=== PATIENT | male | born 1975 | race Caucasian/White ===

== ENCOUNTER → 2016-06-01 | Outpatient (CLI) | payer OTHER ==
[2016-06-01 13:43] LABS: Calcium 9.4 mg/dL (8.4-10.2); Phosphorous 3.1 mg/dL (2.5-4.5)
== END | disposition home or self-care (01) ==
LOC: LABWHC1 12:45
PROVIDERS: ATTEND Neurological Surgery
DX: N17.9 Acute kidney failure, unspecified (principal)
CPT/HCPCS: 36415; 80069

== ENCOUNTER → 2016-08-01 | Outpatient (CLI) | payer OTHER ==
--- NOTE | 2016-08-01 21:38 | CONS ---
DATE OF CONSULTATION: 08/01/2016 This patient is a 41-year-old gentleman who has been evaluated in the sleep center for possible obstructive sleep apnea-hypopnea syndrome. HISTORY OF PRESENT ILLNESS/SLEEP-WAKE EVALUATION: Patient does not have a regular sleep schedule. He goes to bed when he feels sleepy, so there is no firm schedule. They go to bed and get out of bed. It sometimes takes him a long time to fall asleep. He has a TV set in bedroom, sleeps in different positions, including back, side and in the chair. He has loud snoring, according to his , and witnessed episodes of stopped breathing during sleep. He wakes up multiple times during sleep with a dry mouth, episodes of palpitations, gasping for air, restless legs, sleeptalking, sweating, and up to 5 times or more he needs to go to the restroom with nocturia. He cannot breathe through his nose during sleep. He opens his mouth. In the morning he wakes up tired, has difficulties paying attention, falling asleep during the day, worrying about his sleep. He takes naps 2 times a day and has problems with memory, concentration, irritability, anxiety and possible sexual dysfunction, according to patient. [place] Sleepiness Scale significantly increased to 19. Past medical history is positive for: 1. Anxiety. 2. Hyperlipidemia. 3. Gout. 4. Recent back surgery on 05/29/16. MEDICATIONS: 1. Omeprazole. 2. Paxil. 3. Simvastatin. 4. Lyrica. 5. Allopurinol. REVIEW OF SYSTEMS: Multiple awakenings from sleep. Sleepiness during the day. Difficulties breathing through the nose. Back pain. No fevers. No double vision. No recent chest pain. No shortness of breath. No abdominal pain. No bleeding episodes. No blood in urine. No seizure episodes. FAMILY HISTORY: Hypertension, heart problems, hyperlipidemia, stroke, fibromyalgia, arthritis, asthma, sinus headaches, bronchitis, emphysema, sleep apnea, snoring, headaches, cancer, acid reflux, diabetes, restless legs. PHYSICAL EXAMINATION: GENERAL: A pleasant 41-year-old gentleman without distress. VITAL SIGNS: BP 148/87, HR 85, RR 14. Height 64 inches. Weight 200.4 pounds. BMI 34.3. Neck 18-1/2 inches in circumference. Temperature 98.2. Oxygen saturation at room air 97%. HEENT: PERRLA, EOMI. Evaluation of oropharynx showed tongue protrudes midline; extremely low position of soft palate. Significant restriction of nasal breathing bilaterally. NECK: Supple. No JVD. Thyroid is not palpable. LUNGS: Clear to percussion and to auscultation. Good air exchange. No wheezing or rhonchi. HEART: S1, S2 regular. No murmurs, gallops or rubs. ABDOMEN: Obese. EXTREMITIES: No clubbing or cyanosis. 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 Cranial nerves 2 to 7 intact. There is no fasciculation or atrophy noted. No focal deficits observed. IMPRESSION: 1. Snoring, witnessed episodes of stopped breathing during sleep, extremely low position of soft palate, multiple awakenings from sleep, sleepiness; obstructive sleep apnea-hypopnea syndrome. 2. Obesity; body mass index of 34.3. 3. Status post back surgery on 05/29/2016. 4. Acid reflux. 5. Anxiety. 6. Hyperlipidemia. 7. Gout. 8. Significant restriction of nasal breathing bilaterally. PLAN: 1. Polysomnography for evaluation of patient's breathing during sleep. 2. CPAP/BiPAP titration if sleep study confirms obstructive sleep apnea-hypopnea syndrome. 3. Preferable position during sleep on the side. 4. No driving if patient feels any sleepiness. Patient is aware of civil and criminal liability for unsafe driving. 5. I will see patient for follow-up visit to explain results of the testing and following plan. Thank you very much for referring this patient for consultation. Sincerely, Jose Alejandro Rivera MD, PhD, FAASM. Diplomat of [place] [employer], Sleep Medicine Board by [employer] [employer] [facility] [place]
== END | disposition home or self-care (01) ==
LOC: SLEEP 13:19
PROVIDERS: ATTEND Internal Medicine
DX: G47.33 Obstructive sleep apnea (adult) (pediatric) (principal); E66.9 Obesity, unspecified; Z68.34 Body mass index [BMI] 34.0-34.9, adult; Z98.890 Other specified postprocedural states; K21.9 Gastro-esophageal reflux disease without esophagitis; F41.9 Anxiety disorder, unspecified; E78.5 Hyperlipidemia, unspecified; M10.9 Gout, unspecified; R06.4 Hyperventilation; Z79.899 Other long term (current) drug therapy
CPT/HCPCS: 99211

== ENCOUNTER → 2016-08-10 | Outpatient (CLI) | payer OTHER ==
[2016-08-10 13:12] LABS: Appearance,Urine Clear (Clear); Bilirubin,Urine Negative (Negative); Glucose,Urine (UA) Negative (Negative); Ketones,Urine Negative (Negative); Leukocyte Esterase,Urine Negative (Negative); Nitrite,Urine Negative (Negative); PH, Urine 6.5 (5.0-8.0); Protein,Urine Negative (Negative); Specific Gravity,Urine 1.014 (1.001-1.035); UA Billing (MACRO vs. MICRO) CHEM; Urobilinogen,Urine <2.0 mg/dL (<2.0)
[2016-08-10 13:24] LABS: Anion Gap 13 mmol/L; Blood Urea Nitrogen 14 mg/dL (9-20); Calcium 9.4 mg/dL (8.4-10.2); Carbon Dioxide 28 mmol/L (22-30); Chloride 100 mmol/L (98-107); Glucose 101 mg/dL (74-99); Non-African American GFR(MDRD) >60 (>60 ml/min/1.73 sqM); Potassium 3.5 mmol/L (3.5-5.1); Sodium 141 mmol/L (137-145)
[2016-08-10 19:31] LABS: Creatinine,Urine Random 167.6 mg/dL
== END ==
LOC: LABWHC1 12:41
PROVIDERS: ATTEND Internal Medicine Nephrology
DX: N18.4 Chronic kidney disease, stage 4 (severe) (principal)
CPT/HCPCS: 36415; 80069; 81003; 82570; 84156

== ENCOUNTER → 2016-10-11 | Outpatient (CLI) | payer OTHER ==
--- NOTE | 2016-10-11 17:37 | PN ---
DATE OF SERVICE: 10/11/2016 This patient is a 41-year-old gentleman who has been followed in the sleep center for treatment of obstructive sleep apnea-hypopnea syndrome. I discussed with the patient the results of his diagnostic sleep study and CPAP titration. He has extremely severe sleep apnea, at present with the pressure of 12 cm of water. I checked his CPAP unit. Usage is practically every night, with 20 out of 30 nights for more than 4 hours. Patient sleeps significantly better with the machine than before, but he goes to bed late, around 3 a.m., and is usually doing something on his computer before going to bed and sometimes has sleep delay. [place] Sleepiness Scale now is 10. MEDICATIONS: 1. Lyrica. 2. Omeprazole. 3. Paroxetine. 4. Claritin. PHYSICAL EXAMINATION: Pleasant 41-year-old gentleman without distress. VITAL SIGNS: BP 144/82, HR 78, RR 16. Weight 207. Temperature 98.0. Oxygen saturation at room air 96%. HEENT: PERRLA, EOMI. Evaluation of oropharynx showed tongue protrudes midline; extremely low position of soft palate. NECK: Supple. No JVD. Thyroid is not palpable. LUNGS: Clear to percussion and to auscultation. Good air exchange. No wheezing or rhonchi. HEART: S1, S2 regular. No murmurs, gallops or rubs. ABDOMEN: Obese. EXTREMITIES: No clubbing or cyanosis. 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 Cranial nerves 2 to 7 intact. There is no fasciculation or atrophy noted. No focal deficits observed. IMPRESSION: 1. Extremely severe obstructive sleep apnea-hypopnea syndrome. Apnea-hypopnea index 95.2 with oxygen desaturation to 75.1%, under control with CPAP at 12 cm of water. Patient is benefiting from the machine; borderline compliance with CPAP therapy. 2. Obesity. 3. Acid reflux. 4. Anxiety. 5. Hyperlipidemia. 6. Sleep delay syndrome. 7. Status post back surgery. 8. Gout. 9. Restriction of nasal breathing. PLAN: 1. Continue usage of CPAP every night for the whole night. 2. Exposure to the sunlight first thing in the morning to help patient move his sleep cycle earlier. 3. Avoid blue light in the evening. 4. Losing weight. 5. No driving if feeling any sleepiness. Thank you very much for allowing me to participate in the management of your patient. Sincerely, Jose Alejandro Rivera MD, PhD, FAASM. Diplomat of [place] [employer], Sleep Medicine Board by [place] [employer], [place] [employer]
== END | disposition home or self-care (01) ==
LOC: SLEEP 11:18
PROVIDERS: ATTEND Internal Medicine
DX: G47.33 Obstructive sleep apnea (adult) (pediatric) (principal); Z79.899 Other long term (current) drug therapy; E66.9 Obesity, unspecified; K21.9 Gastro-esophageal reflux disease without esophagitis; F41.9 Anxiety disorder, unspecified; E78.5 Hyperlipidemia, unspecified; G47.21 Circadian rhythm sleep disorder, delayed sleep phase type; M10.9 Gout, unspecified

== ENCOUNTER → 2016-10-11 | Outpatient (CLI) | payer OTHER ==
--- NOTE | 2016-10-11 15:49 | MR ---
EXAMINATION TYPE: MR lumbar spine wo/w con DATE OF EXAM: 10/11/2016 COMPARISON: 12/02/2015 HISTORY: degeneration of lsp intervertebral disc CONTRAST: 19 mL intravenous MultiHance. TECHNIQUE: Multiplanar, multisequence images of the lumbar spine were acquired. FINDINGS: Cord terminates at L1 L5-S1: There is left paracentral disc herniation which is broad-based. Left S1 nerve root compression is present. Some anterior thecal sac contact is present. Findings were present previously and appear s similar. L4-L5: No significant disc bulge or disc herniation. No spinal canal stenosis. No foraminal stenosi s. Mild facet hypertrophy is present. L3-L4: No significant disc bulge or disc herniation. No spinal canal stenosis. No foraminal stenosi s. Mild right facet hypertrophy is present. L2-L3: No significant disc bulge or disc herniation. No spinal canal stenosis. No foraminal stenosi s. Neural foramen are patent.. L1-L2: No significant disc bulge or disc herniation. No spinal canal stenosis. No foraminal stenosi s. Neural foramen are patent.. T12-L1: No significant disc bulge or disc herniation. No spinal canal stenosis. No foraminal stenos is. Neural foramen are patent.. No abnormal enhancement. IMPRESSION: 1. Stable left paracentral broad-based disc herniation L5-S1 displacing the exiting left S1 nerve andrea t with some compression. This is unchanged from the comparison of November 30, 2015
== END | disposition home or self-care (01) ==
LOC: RADMRIMAIN 09:09
PROVIDERS: ATTEND Family Medicine
DX: M51.27 Other intervertebral disc displacement, lumbosacral region (principal)
CPT/HCPCS: 72158; A9577

== ENCOUNTER → 2016-10-25 | Outpatient (CLI) | payer OTHER ==
--- NOTE | 2016-10-26 11:23 | EST ---
DATE OF SERVICE: 10/25/2016 AGE: 41Y SEX: M HT: 65 WT: 204 lbs. Protocol Frederick: X Other: Stage: II Dur. of Exercise: 6:28 *Heart Rate Blood Pressure *Rest: 87 Rest: 132/84 * *Max. Achieved: 157 Maximum BP: 174/64 85% PMHR: 151 100% PMHR: 178 *METS: 7.5 INDICATIONS: Chest pain. MEDICATIONS: Patient was exercised for a total period of 6 minutes and 28 seconds. Peak heart rate of 157 was achieved. Maximum blood pressure of 174/64 mmHg was noted. Patient complained of mild atypical chest discomfort during exercise. Resting EKG shows normal sinus rhythm with normal WV interval and QRS duration and normal ST-T waves. No ST segment depression suggestive of ischemia was noted. Isolated PVCs are noted. FINAL IMPRESSION: 1. This exercise EKG is not suggestive of ischemia. 2. Patient's exercise tolerance is below average. 3. Isolated premature ventricular contractions were noted. 4. Patient complained of atypical chest discomfort during exercise.
== END | disposition home or self-care (01) ==
LOC: RADNMMAIN 09:39
PROVIDERS: ATTEND Family Medicine
DX: I49.3 Ventricular premature depolarization (principal); R07.89 Other chest pain
CPT/HCPCS: 93017

== ENCOUNTER → 2016-11-23 | Outpatient (CLI) | payer OTHER ==
--- NOTE | 2016-11-23 14:55 | XR ---
EXAMINATION TYPE: XR foot complete LT DATE OF EXAM: 11/23/2016 COMPARISON: NONE HISTORY: Pain, gout TECHNIQUE: Three views are submitted. FINDINGS: The osseous structures are intact. There is no acute fracture or dislocation. There is narrowing an d hypertrophic change of the first MTP joint with a soft tissue fullness adjacent. No definite erosiv e change. Remaining joint spaces including the tarsal metatarsal junction appear maintained. Tiny kelvin caneal spur noted. IMPRESSION: 1. 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 Differential diagnosis would include gou t, osteoarthritis or infectious etiology.
== END | disposition home or self-care (01) ==
LOC: RADXRMAIN 14:33
PROVIDERS: ATTEND Family Medicine
DX: M19.072 Primary osteoarthritis, left ankle and foot (principal)

== ENCOUNTER 2017-01-21 16:54 | Emergency (ER) | payer OTHER ==
[2017-01-21] MEDS ORDERED: KETOROLAC 30 MG/ML 1 ML VIAL IVP STA (17:17)
[2017-01-21] MEDS ORDERED: SODIUM CHLORIDE 0.9% 1,000 ML IV STA (17:17)
--- NOTE | 2017-01-21 17:51 | ED ---
General Adult HPI - General Chief complaint: Eye Problems Stated complaint: eye pain Time Seen by Provider: 01/21/17 16:57 Source: patient, RN notes reviewed Mode of arrival: EMS Limitations: no limitations - History of Present Illness Initial comments: 41 yo male presents to the ER with cc of left eyelid swelling in pain. Patient states he woke up this finding was bothering him and he noticed it slowly got more and more swollen throughout the day today. Patient states that he went to his doctor and he was referred here. He states that he's been very nauseous and sick with this swelling. Patient denies any high fever. Patient states he does have pain when he moves the eye. Patient denies any cough cold. Patient was concerned due to this discomfort so he thought that heshould be evaluated. Patient denies any other symptoms at this time.Patient denies any recent fever, chills, shortness of breath, chest pain, back pain, abdominal pain, nausea vomiting, numbness or tingling, dysuria or hematuria, constipation or diarrhea, headaches or visual changes, or any other current symptoms. - Related Data Home Medications Medication Instructions Recorded Confirmed Simvastatin [Zocor] 80 mg PO DAILY 09/20/13 01/21/17 Allopurinol [Zyloprim] 300 mg PO BID 11/28/14 01/21/17 Butalbit/Acetamin/Caff/Codeine 1 cap PO Q4H PRN 04/26/15 01/21/17 [Fioricet-Cod [id number] Cap] Albuterol Nebulized [Ventolin 2.5 mg INHALATION RT-TID PRN 01/21/17 01/21/17 Nebulized] Albuterol Sulfate [Proair 2 puff INHALATION RT-Q6H PRN 01/21/17 01/21/17 Respiclick] Cetirizine HCl [Zyrtec] 10 mg PO DAILY 01/21/17 01/21/17 Fluticasone Nasal [place] [Flonase 1 spray EA NOSTRIL DAILY PRN 01/21/17 01/21/17 Nasal [place]] Hydrochlorothiazide [Hydrodiuril] 25 mg PO DAILY 01/21/17 01/21/17 LORazepam [Ativan] 0.5 mg PO DAILY PRN 01/21/17 01/21/17 Omeprazole 20 mg PO DAILY 01/21/17 01/21/17 PARoxetine [Paxil] 20 mg PO DAILY 01/21/17 01/21/17 tiZANidine [Zanaflex] 4 mg PO Q8HR PRN 01/21/17 01/21/17 traMADol HCL [Ultram] 50 mg PO Q6HR PRN 01/21/17 01/21/17 traZODone HCL [Desyrel] 50 mg PO HS 01/21/17 01/21/17 Previous Rx's Medication Instructions Recorded Cephalexin [Keflex] 500 mg PO Q6HR #40 cap 01/21/17 Sulfamethox-Tmp 800-160Mg [Bactrim 2 each PO Q12HR #56 tab 01/21/17 DS 800-160 mg] Allergies Allergy/AdvReac Type Severity Reaction Status Date / Time meperidine HCl [From Demerol] Allergy Swelling/Ra Verified 01/21/17 18:34 sh/Itching Review of Systems ROS Statement: Those systems with pertinent positive or pertinent negative responses have been documented in the HPI. ROS Other: All systems not noted in ROS Statement are negative. Past Medical History Past Medical History: Cancer, Hyperlipidemia, Hypertension Additional Past Medical History / Comment(s): cancer LT Testicular, gout, chronic back and neck pain History of Any Multi-Drug Resistant Organisms: None Reported Past Surgical History: Hernia Repair, Orthopedic Surgery Additional Past Surgical History / Comment(s): LT testicular SX, lt knee arthroscopy. PAIN PROC Past Anesthesia/Blood Transfusion Reactions: Family History of Problems w/ Anesthesia Additional Past Anesthesia/Blood Transfusion Reaction / Comment(s): states father had a hard time waking up from anesthesia Past Psychological History: Anxiety Smoking Status: Current every day smoker Past Alcohol Use History: Occasional Past Drug Use History: None Reported - Past Family History Mother Family Medical History: No Reported History General Exam - General Exam Comments Initial Comments: General: The patient is awake and alert, in no distress, and does not appear acutely ill. Eye: Pupils are equal, round and reactive to light, extra-ocular movements are intact; there is normal conjunctiva bilaterally. No signs of icterus. Ears, nose, mouth and throat: There are moist mucous membranes and no oral lesions. Neck: The neck is supple, there is no tenderness. Cardiovascular: There is a regular rate and rhythm. No murmur, rub or gallop is appreciated. Respiratory: Lungs are clear to auscultation, respirations are non-labored, breath sounds are equal. No wheezes, stridor, rales, or rhonchi. Gastrointestinal: Soft, non-distended, non-tender abdomen without masses or organomegaly noted. There is no rebound or guarding present. No CVA tenderness. Bowel sounds are unremarkable. Back: There is no tenderness to palpation in the midline. There is no obvious deformity. No rashes noted. Musculoskeletal: Normal ROM, no tenderness, There is no pedal edema. There is no calf tenderness or swelling. Sensation intact. Pulses equal bilaterally 2+. Neurological: CN II-XII intact, There are no obvious motor or sensory deficits. Coordination appears grossly intact. Speech is normal. Skin: Skin is warm and dry and no rashes or lesions are noted. Psychiatric: Cooperative, appropriate mood & affect, normal judgment. Limitations: no limitations Course Vital Signs 01/21/17 01/21/17 16:57 18:56 Temperature 98.4 F Pulse Rate 101 H 84 Respiratory 16 18 Rate Blood Pressure 152/78 120/57 O2 Sat by Pulse 96 97 Oximetry Medical Decision Making - Medical Decision Making 41-year-old male presents to the emergency department with a chief complaint of left eyelid swelling. at this time CT is reviewed that is not showing suspicion for orbital cellulitis. Patient does have full range motion of the left eye with upper eyelid swelling. This and we discussed patient most likely has a facial cellulitis. This and we will start patient on antibiotics. We did test care of the area. We discussed follow-up. We did discuss return parameters and all the patient and family's questions. They stated they understood and they are given plan. This time they will be discharged home. - Lab Data Result diagrams: 01/21/17 17:50 01/21/17 17:50 Lab Results 01/21/17 01/21/17 01/21/17 Range/Units 17:50 17:50 17:50 WBC 10.0 (3.8-10.6) k/uL RBC 4.97 (4.30-5.90) m/uL Hgb 15.4 (13.0-17.5) gm/dL Hct 42.4 (39.0-53.0) % MCV 85.4 (80.0-100.0) fL MCH 30.9 (25.0-35.0) pg MCHC 36.2 (31.0-37.0) g/dL RDW 14.8 (11.5-15.5) % Plt Count 337 (150-450) k/uL Neutrophils % 76 % Lymphocytes % 11 % Monocytes % 8 % Eosinophils % 2 % Basophils % 1 % Neutrophils # 7.5 (1.3-7.7) k/uL Lymphocytes # 1.1 (1.0-4.8) k/uL Monocytes # 0.8 (0-1.0) k/uL Eosinophils # 0.2 (0-0.7) k/uL Basophils # 0.1 (0-0.2) k/uL Hyperchromasia Slight Sodium 137 (137-145) mmol/L Potassium 3.1 L (3.5-5.1) mmol/L Chloride 101 (98-107) mmol/L Carbon Dioxide 28 (22-30) mmol/L Anion Gap 8 mmol/L BUN 13 (9-20) mg/dL Creatinine 1.10 (0.66-1.25) mg/dL Est GFR (MDRD) Af Amer >60 (>60 ml/min/1.73 sqM) Est GFR (MDRD) Non-Af >60 (>60 ml/min/1.73 sqM) Glucose 123 H (74-99) mg/dL Plasma Lactic Acid Nazario 1.7 (0.7-2.0) mmol/L Calcium 9.0 (8.4-10.2) mg/dL Total Bilirubin 0.4 (0.2-1.3) mg/dL AST 41 (17-59) U/L ALT 63 (21-72) U/L Alkaline Phosphatase 70 (38-126) U/L Total Protein 6.3 (6.3-8.2) g/dL Albumin 3.6 (3.5-5.0) g/dL - Radiology Data Radiology results: report reviewed, image reviewed Disposition Clinical Impression: Facial cellulitis Disposition: HOME SELF-CARE Condition: Stable Instructions: Cellulitis (ED) Additional Instructions: Please use medication as discussed. Please follow up with family doctor if symptoms have not improved over the next two days. Please return to the emergency room if your symptoms increase or worsen or for any other concerns. Prescriptions: Cephalexin [Keflex] 500 mg PO Q6HR #40 cap Sulfamethox-Tmp 800-160Mg [Bactrim DS 800-160 mg] 2 each PO Q12HR #56 tab Referrals: Bereket Ortgea DO [Primary Care Provider] - 1-2 days Time of Disposition: 19:05
[2017-01-21 18:08] LABS: Basophils # (A) 0.1 k/uL (0-0.2); Basophils % (A) 1 %; CH 31.5; CHCM 37.1; Eosinophils # (A) 0.2 k/uL (0-0.7); Eosinophils % (A) 2 %; HCT 42.4 % (39.0-53.0); HDW 3.08; HGB 15.4 gm/dL (13.0-17.5); Hyperchromasia Slight; Luc # (Auto) 0.26; Luc % (Auto) 3; Lymphocytes # (A) 1.1 k/uL (1.0-4.8); Lymphocytes % (A) 11 %; MCH 30.9 pg (25.0-35.0); MCHC 36.2 g/dL (31.0-37.0); MCV 85.4 fL (80.0-100.0); Mean Platelet Volume 6.5; Monocytes # (A) 0.8 k/uL (0-1.0); Monocytes % (A) 8 %; Neutrophils # (A) 7.5 k/uL (1.3-7.7); Neutrophils % (A) 76 %; RBC 4.97 m/uL (4.30-5.90); RDW 14.8 % (11.5-15.5)
[2017-01-21 18:19] LABS: ALT 63 U/L (21-72); AST 41 U/L (17-59); Alkaline Phosphatase 70 U/L (38-126); Anion Gap 8 mmol/L; Blood Urea Nitrogen 13 mg/dL (9-20); Carbon Dioxide 28 mmol/L (22-30); Chloride 101 mmol/L (98-107); Glucose 123 mg/dL (74-99); Non-African American GFR(MDRD) >60 (>60 ml/min/1.73 sqM); Potassium 3.1 mmol/L (3.5-5.1); Sodium 137 mmol/L (137-145); Total Bilirubin 0.4 mg/dL (0.2-1.3); Total Protein 6.3 g/dL (6.3-8.2)
[2017-01-21] MEDS ORDERED: POTASSIUM CHLORIDE ORAL LIQUID 40 MEQ/30 ML CUP PO ONE (18:33)
--- NOTE | 2017-01-21 18:43 | CT ---
EXAMINATION TYPE: CT orbits wo con DATE OF EXAM: 01/21/2017 COMPARISON: NONE HISTORY: Left sided eye pain and swelling CT DLP: 350 mGycm Automated exposure control for dose reduction was used. FINDINGS: There is no evidence of retro-orbital mass. The globes are symmetric. There is mild soft tissue swell ing of the scalp over the frontal bone. Orbital margins are intact. There is normal aeration of the m axillary ethmoid and frontal sinuses. There is bilateral patency of the ostiomeatal complex. IMPRESSION: SCALP FRONTAL SOFT TISSUE SWELLING. OTHERWISE NEGATIVE CT SCAN OF THE ORBITS.
[2017-01-21 18:59] VITALS: RESP 18
[2017-01-21] MEDS ORDERED: ceFAZolin 1,000 MG in DEXTROSE/WATER 1 50ML.BAG IVPB STA (19:06)
[2017-01-21 20:07] VITALS: BP 119/59; PULSE 79; TEMP 97.8
== END 2017-01-21 20:07 | disposition home or self-care (01) ==
LOC: EC 16:54
DX: L03.211 Cellulitis of face (principal); E78.5 Hyperlipidemia, unspecified; I10 Essential (primary) hypertension; F41.9 Anxiety disorder, unspecified; F17.200 Nicotine dependence, unspecified, uncomplicated; Z85.47 Personal history of malignant neoplasm of testis; Z79.899 Other long term (current) drug therapy; Z88.5 Allergy status to narcotic agent
CPT/HCPCS: 99284; 96365; 96375; 96361 ×2; 36415; 80053; 83605; 85025; 87040; 70480; J1885; J0690

== ENCOUNTER → 2017-05-01 | Outpatient (CLI) | payer OTHER ==
--- NOTE | 2017-05-01 19:43 | MR ---
EXAMINATION TYPE: MR lumbar spine wo con DATE OF EXAM: 05/01/2017 COMPARISON: 10/11/2016, 08/26/2013 HISTORY: Low back pain x12 years, previous surgery, ordered Without Contrast TECHNIQUE: T1 and T2 axial and sagittal images of the lumbar spine are submitted. FINDINGS: There is no abnormal signal seen within the visualized spinal cord or paraspinal soft tissu es. Heterogeneous marrow changes are noted dating back to 2013 and stable. At L1-2 there is no disc herniation, degenerative disc disease, or foraminal encroachment. No Canal s tenosis At L2-3 there is no disc herniation, canal stenosis, foraminal encroachment, or degenerative disc dis ease. Mild hypertrophic change of the facets. At L3-4 there is disc desiccation and moderate facet arthropathy. No foraminal encroachment, disc her niation or canal stenosis. At L4-5 there is no disc herniation, canal stenosis or foraminal encroachment. There is moderate face t arthropathy and broad-based disc bulging. Findings stable. At L5-S1 there is findings suggest previous left hemilaminectomy. There is mild bilateral foraminal e ncroachment. There is facet arthropathy greater on the left. Previously noted left paracentral disc h erniation or bulge is less apparent on today's exam. IMPRESSION: 1. Previously noted left paracentral disc herniation is less apparent on today's exam at L5-S1. Findi ngs are suggestive of previous surgery at this level. Correlate with surgical history. There persists mild bilateral foraminal encroachment greater on the left. There is poor definition of the nerve andrea t. Neuritis would be in the differential diagnosis. Consider postcontrast imaging. 2. Heterogeneous marrow signal is stable dating back to 2013 may been the basis of marrow distributio n or osteopenia. Marrow occupying process or myeloproliferative disorder less likely given the stabil ity from 2013 but should be correlated clinically. 3. Multilevel facet arthropathy.
--- NOTE | 2017-05-02 08:24 | XR ---
EXAMINATION TYPE: XR lumbosacral spine min 4V DATE OF EXAM: 05/01/2017 CLINICAL HISTORY: Low back pain causing right leg pain. TECHNIQUE: Frontal, lateral, and oblique images of the lumbar spine are obtained. COMPARISON: MRI lumbar spine October 11, 2016 FINDINGS: There are 5 lumbar type vertebral bodies identified. The lumbar spine redemonstrated stra ightened alignment without evidence of acute fracture or dislocation. Vertebral body heights and disk space heights are within normal limits. The oblique images appear within normal limits. Some mild vascular calcification is seen in the overlying soft tissue. IMPRESSION: Straightening of lumbar spine otherwise fairly unremarkable study.
== END | disposition home or self-care (01) ==
LOC: RADMRIMAIN 17:38
PROVIDERS: ATTEND Neurological Surgery
DX: M51.27 Other intervertebral disc displacement, lumbosacral region (principal); M46.86 Other specified inflammatory spondylopathies, lumbar region
CPT/HCPCS: 72110; 72148

== ENCOUNTER 2017-07-19 18:34 | Emergency (ER) | payer OTHER ==
[2017-07-19 18:51] VITALS: BP 130/76; PULSE 114; RESP 18; TEMP 97.2
[2017-07-19] MEDS ORDERED: KETOROLAC 60 MG/2 ML VIAL IM STA (18:54)
--- NOTE | 2017-07-19 18:58 | ED ---
General Adult HPI - General Chief complaint: Back Pain/Injury Stated complaint: Fall Time Seen by Provider: 07/19/17 18:51 Source: patient, RN notes reviewed Mode of arrival: ambulatory Limitations: no limitations - History of Present Illness Initial comments: 42-year-old male presents to the emergency department with a chief complaint of slip and fall. Patient slipped and fell on the steps landing onto the left side. He landed onto his bottom as well as to his left ribs. He states he has pain sitting straight up and he has pain in the left ribs. He denies abdominal pain. He states he did not pass out. He did not hit his head. He is otherwise feeling well. He was concerned due to his continued pain so he thought that he should be seen. He does chronically suffer from back pain but he states that this is different.Patient denies any recent fever, chills, shortness of breath, chest pain, abdominal pain, nausea vomiting, numbness or tingling, dysuria or hematuria, constipation or diarrhea, headaches or visual changes, or any other current symptoms. - Related Data Home Medications Medication Instructions Recorded Confirmed Simvastatin [Zocor] 80 mg PO DAILY 09/20/13 01/21/17 Allopurinol [Zyloprim] 300 mg PO BID 11/28/14 01/21/17 Butalbit/Acetamin/Caff/Codeine 1 cap PO Q4H PRN 04/26/15 01/21/17 [Fioricet-Cod [id number] Cap] Albuterol Nebulized [Ventolin 2.5 mg INHALATION RT-TID PRN 01/21/17 01/21/17 Nebulized] Albuterol Sulfate [Proair 2 puff INHALATION RT-Q6H PRN 01/21/17 01/21/17 Respiclick] Cetirizine HCl [Zyrtec] 10 mg PO DAILY 01/21/17 01/21/17 Fluticasone Nasal [place] [Flonase 1 spray EA NOSTRIL DAILY PRN 01/21/17 01/21/17 Nasal [place]] Hydrochlorothiazide [Hydrodiuril] 25 mg PO DAILY 01/21/17 01/21/17 LORazepam [Ativan] 0.5 mg PO DAILY PRN 01/21/17 01/21/17 Omeprazole 20 mg PO DAILY 01/21/17 01/21/17 PARoxetine [Paxil] 20 mg PO DAILY 01/21/17 01/21/17 tiZANidine [Zanaflex] 4 mg PO Q8HR PRN 01/21/17 01/21/17 traMADol HCL [Ultram] 50 mg PO Q6HR PRN 01/21/17 01/21/17 traZODone HCL [Desyrel] 50 mg PO HS 01/21/17 01/21/17 Previous Rx's Medication Instructions Recorded Cephalexin [Keflex] 500 mg PO Q6HR #40 cap 01/21/17 Sulfamethox-Tmp 800-160Mg [Bactrim 2 each PO Q12HR #56 tab 01/21/17 DS 800-160 mg] Ibuprofen [Motrin] 600 mg PO Q6HR PRN #20 tab 07/19/17 Orphenadrine [Norflex] 100 mg PO Q12H #10 tablet.er 07/19/17 Allergies Allergy/AdvReac Type Severity Reaction Status Date / Time meperidine HCl [From Demerol] Allergy Swelling/Ra Verified 01/21/17 18:34 sh/Itching Review of Systems ROS Statement: Those systems with pertinent positive or pertinent negative responses have been documented in the HPI. ROS Other: All systems not noted in ROS Statement are negative. Past Medical History Past Medical History: Cancer, Hyperlipidemia, Hypertension Additional Past Medical History / Comment(s): cancer LT Testicular, gout, chronic back and neck pain History of Any Multi-Drug Resistant Organisms: None Reported Past Surgical History: Hernia Repair, Orthopedic Surgery Additional Past Surgical History / Comment(s): LT testicular SX, lt knee arthroscopy. PAIN PROC Past Anesthesia/Blood Transfusion Reactions: Family History of Problems w/ Anesthesia Additional Past Anesthesia/Blood Transfusion Reaction / Comment(s): states father had a hard time waking up from anesthesia Past Psychological History: Anxiety Smoking Status: Current every day smoker Past Alcohol Use History: Occasional Past Drug Use History: None Reported - Past Family History Mother Family Medical History: No Reported History General Exam Limitations: no limitations General appearance: alert, in no apparent distress ENT exam: Present: normal exam, mucous membranes moist Respiratory exam: Present: normal lung sounds bilaterally, chest wall tenderness (left lateral). Absent: respiratory distress, wheezes, rales, rhonchi, stridor Cardiovascular Exam: Present: regular rate, normal rhythm, normal heart sounds. Absent: systolic murmur, diastolic murmur, rubs, gallop, clicks GI/Abdominal exam: Present: soft, normal bowel sounds. Absent: distended, tenderness, guarding, rebound, rigid Extremities exam: Present: normal inspection, full ROM, normal capillary refill. Absent: tenderness, pedal edema, joint swelling, calf tenderness Back exam: Present: normal inspection, full ROM, tenderness (Over sacrum). Absent: paraspinal tenderness, vertebral tenderness Neurological exam: Present: alert, oriented X3 Psychiatric exam: Present: normal affect, normal mood Skin exam: Present: warm, dry, intact, normal color. Absent: rash Course Vital Signs 07/19/17 18:47 Temperature 97.2 F L Pulse Rate 114 H Respiratory 18 Rate Blood Pressure 130/76 O2 Sat by Pulse 97 Oximetry Medical Decision Making - Medical Decision Making 42-year-old male presents for a slip and fall. This time patient's x-rays have been reviewed. This time there is no rib fracture seen lumbar and sacral area to be negative as well. This ice we discussed Motrin Tylenol we discussed return parameters and follow-up and all questions. Patient stated that he understood and is negative this plan. All questions have been answered. He will be discharged - Radiology Data Radiology results: report reviewed, image reviewed Disposition Clinical Impression: Contusion of rib on left side, Lumbar strain, Fall Disposition: HOME SELF-CARE Condition: Stable Instructions: Contusion in Adults (ED), Rib Contusion (ED) Additional Instructions: Please use medication as discussed. Please follow up with family doctor if symptoms have not improved over the next two days. Please return to the emergency room if your symptoms increase or worsen or for any other concerns. Prescriptions: Ibuprofen [Motrin] 600 mg PO Q6HR PRN #20 tab PRN Reason: Pain Orphenadrine [Norflex] 100 mg PO Q12H #10 tablet.er Referrals: Bereket Ortega DO [Primary Care Provider] - 1-2 days Time of Disposition: 19:28
--- NOTE | 2017-07-19 19:22 | XR ---
EXAMINATION TYPE: XR ribs LT w pa chest xray DATE OF EXAM: 07/19/2017 COMPARISON: 05/18/2014 HISTORY: Chest pain TECHNIQUE: 5 views FINDINGS: Heart and mediastinum are normal. Lungs are clear of infiltrate. There is no sign of pleura l effusion or pneumothorax. The left ribs appear intact. IMPRESSION: Normal chest. Normal left ribs.
--- NOTE | 2017-07-19 19:25 | XR ---
EXAMINATION TYPE: XR lumbar spine 2 or 3V DATE OF EXAM: 07/19/2017 COMPARISON: NONE HISTORY: Back pain TECHNIQUE: 3 views FINDINGS: Lumbar vertebra have normal alignment. Posterior elements are intact. There is no compressi on fracture. Sacroiliac joints appear normal. IMPRESSION: Normal lumbar spine exam. No change.
--- NOTE | 2017-07-19 19:26 | XR ---
EXAMINATION TYPE: XR sacrum coccyx DATE OF EXAM: 07/19/2017 COMPARISON: NONE HISTORY: Back pain TECHNIQUE: 3 views FINDINGS: The segments have normal alignment. The sacroiliac joints appear normal. I see no evidence of a fracture of the sacral spine. IMPRESSION: Normal sacrum and coccyx exam.
== END 2017-07-19 19:35 | disposition home or self-care (01) ==
LOC: EC 18:34
DX: S39.012A Strain of muscle, fascia and tendon of lower back, initial encounter (principal); S20.212A Contusion of left front wall of thorax, initial encounter; E78.5 Hyperlipidemia, unspecified; I10 Essential (primary) hypertension; M10.9 Gout, unspecified; F41.9 Anxiety disorder, unspecified; F17.200 Nicotine dependence, unspecified, uncomplicated; Z79.899 Other long term (current) drug therapy; Z88.5 Allergy status to narcotic agent; Z85.47 Personal history of malignant neoplasm of testis; Z98.890 Other specified postprocedural states; W00.0XXA Fall on same level due to ice and snow, initial encounter; Y92.89 Other specified places as the place of occurrence of the external cause
CPT/HCPCS: 71101; 72100; 72220; 99283; 96372; J1885

== ENCOUNTER → 2017-10-28 | Outpatient (CLI) | payer OTHER ==
--- NOTE | 2017-10-28 09:33 | XR ---
EXAMINATION TYPE: XR abdomen complete w decub DATE OF EXAM: 10/28/2017 CLINICAL HISTORY: Abdominal pain with distention and vomiting for 1.5 weeks. TECHNIQUE: Supine, upright, and left side down lateral decubitus views of the abdomen are obtained. COMPARISON: None. FINDINGS: Scattered gas is seen in non-distended small bowel loops. Gas and fecal material is seen in non-distended colon. There is no visceromegaly, pneumoperitoneum, or abnormal calcification appr eciated. Surgical clips overlie the left pelvis. Adjacent left pelvic phlebolith is seen. Lung bases are clear and the osseous structures are intact. IMPRESSION: Overall nonobstructive bowel gas pattern.
== END | disposition home or self-care (01) ==
LOC: RADXRMAIN 08:54
PROVIDERS: ATTEND Physician Assistant
DX: R10.9 Unspecified abdominal pain (principal)
CPT/HCPCS: 74021

== ENCOUNTER → 2018-08-27 | Outpatient (CLI) | payer OTHER ==
[2018-08-27 17:48] LABS: Vitamin D 25 Hydroxy 13.5 ng/mL (30.0-100.0)
[2018-08-27 18:15] LABS: T4, Free (Free Thyroxine) 1.4 ng/dL (0.80-1.80)
[2018-08-27 19:36] LABS: Hemoglobin A1C 5.8 % (4.0-6.0)
== END | disposition home or self-care (01) ==
LOC: LABWHC1 11:12
PROVIDERS: ATTEND Psychiatry & Neurology Neurology
DX: R20.2 Paresthesia of skin (principal)
CPT/HCPCS: 36415; 82306; 82607; 82947; 83036; 84439; 84443

== ENCOUNTER 2019-01-26 14:03 | Inpatient (IN) | payer OTHER ==
[2019-01-26] MEDS ORDERED: SODIUM CHLORIDE 0.9% 500 ML 500 ML IV STA (14:22)
--- NOTE | 2019-01-26 14:48 | ED ---
General Adult HPI - General Chief complaint: Altered Mental Status Stated complaint: Confusion, Leg Weakness Time Seen by Provider: 01/26/19 14:11 Source: patient, family Mode of arrival: ambulatory Limitations: altered mental status - History of Present Illness Initial comments: 43-year-old male with history of alcohol abuse presenting today for chief c omplaint of visual hallucinations. Patient is a patient had visual hallucinations for the past week. She states that he visualize his blood on his hands then sat there and cracking in the windows when that does not exist. Denies any auditory hallucinations or suicidal or homicidal ideation. He denies any chest pain shorts of breath leg swelling he denies any fevers neck stiffness headaches and dizziness sensation deficits that are different from his baseline. Patient states he has peripheral neuropathy of the lower extremity as bilaterally however this is chronic. Patient also has a sensation that he is weak all over. Patient states his tremor of the hands bilaterally he states that this is better "all the time". Family denies any strokelike symptoms A difference is the patient's speech or cognition states he is keenly responsive. She denies any drooping of the face or changes in memory. Remaining review of system negative. Upon arrival patient appears well came the responsive alert and oriented 3. However he states he still is visualizing things that are not there. - Related Data Home Medications Medication Instructions Recorded Confirmed Cetirizine HCl [Zyrtec] 10 mg PO HS 01/21/17 01/26/19 Omeprazole 20 mg PO HS 01/21/17 01/26/19 tiZANidine [Zanaflex] 4 mg PO Q8HR PRN 01/21/17 01/26/19 DULoxetine HCL [Cymbalta] 60 mg PO HS 01/26/19 01/26/19 Fenofibrate [Lofibra] 160 mg PO HS 01/26/19 01/26/19 Lisinopril [Prinivil] 10 mg PO HS 01/26/19 01/26/19 PARoxetine HCL [Paxil] 30 mg PO HS 01/26/19 01/26/19 Propranolol HCl 60 mg PO BID 01/26/19 01/26/19 Simvastatin [Zocor] 5 mg PO HS 01/26/19 01/26/19 oxyCODONE HCL/ACETAMINOPHEN 1 tab PO Q6HR PRN 01/26/19 01/26/19 [Percocet 7.5-325 mg] rOPINIRole HCL [Requip] 2 mg PO HS 01/26/19 01/26/19 Allergies Allergy/AdvReac Type Severity Reaction Status Date / Time meperidine HCl [From Demerol] Allergy Swelling/Ra Verified 01/26/19 14:33 sh/Itching Review of Systems ROS Statement: Those systems with pertinent positive or pertinent negative responses have been documented in the HPI. ROS Other: All systems not noted in ROS Statement are negative. Past Medical History Past Medical History: Cancer, Hyperlipidemia, Hypertension Additional Past Medical History / Comment(s): cancer LT Testicular, gout, chronic back and neck pain History of Any Multi-Drug Resistant Organisms: None Reported Past Surgical History: Hernia Repair, Orthopedic Surgery Additional Past Surgical History / Comment(s): LT testicular SX, lt knee arthroscopy. PAIN PROC Past Anesthesia/Blood Transfusion Reactions: Family History of Problems w/ Anesthesia Additional Past Anesthesia/Blood Transfusion Reaction / Comment(s): states father had a hard time waking up from anesthesia Past Psychological History: Anxiety Smoking Status: Current every day smoker Past Alcohol Use History: Occasional Past Drug Use History: None Reported - Past Family History Mother Family Medical History: No Reported History General Exam - General Exam Comments Initial Comments: General: The patient is awake and alert, in no distress, and does not appear acutely ill. Eye: +3 mm pupils are equal, round and reactive to light, extra-ocular movements are intact. No APD. No nystagmus. There is normal conjunctiva bilaterally. No signs of icterus. Does not smell of alcohol Ears, nose, mouth and throat: There are moist mucous membranes and no oral lesions. Negative Brudzinski's. No nuchal irritation. Neck: The neck is supple, there is no tenderness or JVD. Cardiovascular: There is a regular rate and rhythm. No murmur, rub or gallop is appreciated. Respiratory: Lungs are clear to auscultation, respirations are non-labored, breath sounds are equal. No wheezes, stridor, rales, or rhonchi. Gastrointestinal: Soft, non-distended, non-tender abdomen without masses or organomegaly noted. There is no rebound or guarding present. No CVA tenderness. Bowel sounds are unremarkable. Musculoskeletal: Normal ROM, no tenderness. Strength 5/5 of the UE b/l 5/5 of the LE b/l. Sensation intact of the face, abdomen, back, adbomen, UE and LE b/l. Radial pulses equal bilaterally 2+. Neurological: A&O x 3. CN II-XII intact, There are no obvious motor or sensory deficits. Coordination appears grossly intact. Speech is normal. Finger to nose with a coronary issue addition smooth and coordinated SMOOTH and coordinated finger opposition to the cornea and no pronator drift. Skin: Skin is warm and dry and no rashes or lesions are noted. B/l hand tremor. Psychiatric: Cooperative, appropriate mood & affect, normal judgment. Limitations: altered mental status Course Vital Signs 01/26/19 14:04 Temperature 98.1 F Pulse Rate 64 Respiratory 18 Rate Blood Pressure 128/48 O2 Sat by Pulse 99 Oximetry EKG Findings - EKG Comments: EKG Findings:: Ventricular rate 55 bpm, HI interval 210 ms, QRS administration 76 ms, QT/QTc 458/438 ms. This is sinus bradycardia with a noted first-degree AV block. No ST elevation or depression. EKG was personally interpreted and reviewed from attending provider. Medical Decision Making - Medical Decision Making 43-year-old male presented for chief complaint of visual hallucinations. She denies any suicidal homicidal ideation. Patient is every day alcohol. Patient placed on CIWA protocol after this fact was disclosed the patient's patient initially denied any chronic alcoholl. No clinical signs of delirium tremens. Patient appears stable. Vital signs stable. Laboratory studies stable. Patient does not appear to have liver cirrhosis or liver failure. Patient's ammonia level within normal limits. EKG to supplement the negative troponin no complaints of chest pain or shortness of breath. No focal neurological deficits. Patient denies psychiatric history of auditory or visual hallucinations. At this time is unclear the cause. CT of the brain was negative, which was obtained given patient's history of testicular cancer with concern for possible METS. After discussing case with attending provider Dr. Morales to evaluate patient in person he is agreeable to admission at this time. He spoke with the admitting provider and patient was transferred to the floor in stable condition. - Lab Data Result diagrams: 01/26/19 14:50 01/26/19 14:50 Lab Results 01/26/19 01/26/19 01/26/19 Range/Units 14:50 14:50 14:50 WBC 6.0 (3.8-10.6) k/uL RBC 4.51 (4.30-5.90) m/uL Hgb 13.6 (13.0-17.5) gm/dL Hct 39.3 (39.0-53.0) % MCV 87.0 (80.0-100.0) fL MCH 30.2 (25.0-35.0) pg MCHC 34.7 (31.0-37.0) g/dL RDW 12.9 (11.5-15.5) % Plt Count 340 (150-450) k/uL Neutrophils % 70 % Lymphocytes % 16 % Monocytes % 7 % Eosinophils % 3 % Basophils % 1 % Neutrophils # 4.2 (1.3-7.7) k/uL Lymphocytes # 1.0 (1.0-4.8) k/uL Monocytes # 0.4 (0-1.0) k/uL Eosinophils # 0.2 (0-0.7) k/uL Basophils # 0.1 (0-0.2) k/uL PT (9.0-12.0) sec INR (<1.2) APTT (22.0-30.0) sec Sodium 137 (137-145) mmol/L Potassium 4.3 (3.5-5.1) mmol/L Chloride 103 (98-107) mmol/L Carbon Dioxide 25 (22-30) mmol/L Anion Gap 9 mmol/L BUN 22 H (9-20) mg/dL Creatinine 1.43 H (0.66-1.25) mg/dL Est GFR (CKD-EPI)AfAm 69 (>60 ml/min/1.73 sqM) Est GFR (CKD-EPI)NonAf 60 (>60 ml/min/1.73 sqM) Glucose 117 H (74-99) mg/dL Plasma Lactic Acid [place] 1.5 (0.7-2.0) mmol/L Calcium 9.4 (8.4-10.2) mg/dL Magnesium 1.6 (1.6-2.3) mg/dL Total Bilirubin 0.7 (0.2-1.3) mg/dL AST 29 (17-59) U/L ALT 31 (21-72) U/L Alkaline Phosphatase 59 (38-126) U/L Ammonia 11 (<30) umol/L Troponin I (0.000-0.034) ng/mL Total Protein 6.6 (6.3-8.2) g/dL Albumin 4.0 (3.5-5.0) g/dL TSH 1.450 (0.465-4.680) mIU/L Urine Color Urine Appearance (Clear) Urine pH (5.0-8.0) Ur Specific [place] (1.001-1.035) Urine Protein (Negative) Urine Glucose (UA) (Negative) Urine Ketones (Negative) Urine Blood (Negative) Urine Nitrite (Negative) Urine Bilirubin (Negative) Urine Urobilinogen (<2.0) mg/dL Ur Leukocyte Esterase (Negative) Urine RBC (0-5) /hpf Urine WBC (0-5) /hpf Urine Mucus (None) /hpf Urine Opiates Screen (NotDetected) Ur Oxycodone Screen (NotDetected) Urine Methadone Screen (NotDetected) Ur Propoxyphene Screen (NotDetected) Ur Barbiturates Screen (NotDetected) U Tricyclic Antidepress (NotDetected) Ur Phencyclidine Scrn (NotDetected) Ur Amphetamines Screen (NotDetected) U Methamphetamines Scrn (NotDetected) U Benzodiazepines Scrn (NotDetected) Urine Cocaine Screen (NotDetected) U Marijuana (THC) Screen (NotDetected) 01/26/19 01/26/19 01/26/19 Range/Units 14:50 14:50 15:49 WBC (3.8-10.6) k/uL RBC (4.30-5.90) m/uL Hgb (13.0-17.5) gm/dL Hct (39.0-53.0) % MCV (80.0-100.0) fL MCH (25.0-35.0) pg MCHC (31.0-37.0) g/dL RDW (11.5-15.5) % Plt Count (150-450) k/uL Neutrophils % % Lymphocytes % % Monocytes % % Eosinophils % % Basophils % % Neutrophils # (1.3-7.7) k/uL Lymphocytes # (1.0-4.8) k/uL Monocytes # (0-1.0) k/uL Eosinophils # (0-0.7) k/uL Basophils # (0-0.2) k/uL PT 10.6 (9.0-12.0) sec INR 1.0 (<1.2) APTT 25.3 (22.0-30.0) sec Sodium (137-145) mmol/L Potassium (3.5-5.1) mmol/L Chloride (98-107) mmol/L Carbon Dioxide (22-30) mmol/L Anion Gap mmol/L BUN (9-20) mg/dL Creatinine (0.66-1.25) mg/dL Est GFR (CKD-EPI)AfAm (>60 ml/min/1.73 sqM) Est GFR (CKD-EPI)NonAf (>60 ml/min/1.73 sqM) Glucose (74-99) mg/dL Plasma Lactic Acid [place] (0.7-2.0) mmol/L Calcium (8.4-10.2) mg/dL Magnesium (1.6-2.3) mg/dL Total Bilirubin (0.2-1.3) mg/dL AST (17-59) U/L ALT (21-72) U/L Alkaline Phosphatase (38-126) U/L Ammonia (<30) umol/L Troponin I <0.012 (0.000-0.034) ng/mL Total Protein (6.3-8.2) g/dL Albumin (3.5-5.0) g/dL TSH (0.465-4.680) mIU/L Urine Color Yellow Urine Appearance Clear (Clear) Urine pH 6.5 (5.0-8.0) Ur Specific [place] 1.022 (1.001-1.035) Urine Protein 1+ H (Negative) Urine Glucose (UA) Negative (Negative) Urine Ketones Negative (Negative) Urine Blood Negative (Negative) Urine Nitrite Negative (Negative) Urine Bilirubin Negative (Negative) Urine Urobilinogen <2.0 (<2.0) mg/dL Ur Leukocyte Esterase Negative (Negative) Urine RBC 1 (0-5) /hpf Urine WBC <1 (0-5) /hpf Urine Mucus Rare H (None) /hpf Urine Opiates Screen Not Detected (NotDetected) Ur Oxycodone Screen Not Detected (NotDetected) Urine Methadone Screen Not Detected (NotDetected) Ur Propoxyphene Screen Not Detected (NotDetected) Ur Barbiturates Screen Not Detected (NotDetected) U Tricyclic Antidepress Not Detected (NotDetected) Ur Phencyclidine Scrn Not Detected (NotDetected) Ur Amphetamines Screen Not Detected (NotDetected) U Methamphetamines Scrn Not Detected (NotDetected) U Benzodiazepines Scrn Not Detected (NotDetected) Urine Cocaine Screen Not Detected (NotDetected) U Marijuana (THC) Screen Not Detected (NotDetected) Disposition Clinical Impression: Visual hallucination, Alcohol abuse Disposition: ADMITTED IP TO THIS [facility] Condition: Stable Is patient prescribed a controlled substance at d/c from ED?: No Referrals: Bereket Ortega DO [Primary Care Provider] - 1-2 days Time of Disposition: 17:36 Decision to Admit Reason: Admit from EC Decision Date: 01/26/19 Decision Time: 16:00
[2019-01-26 15:05] LABS: Basophils # (A) 0.1 k/uL (0-0.2); Basophils % (A) 1 %; Eosinophils # (A) 0.2 k/uL (0-0.7); Eosinophils % (A) 3 %; HCT 39.3 % (39.0-53.0); HGB 13.6 gm/dL (13.0-17.5); Lymphocytes % (A) 16 %; MCH 30.2 pg (25.0-35.0); MCHC 34.7 g/dL (31.0-37.0); Mean Platelet Volume 6.2; Monocytes # (A) 0.4 k/uL (0-1.0); Monocytes % (A) 7 %; Neutrophils # (A) 4.2 k/uL (1.3-7.7); Neutrophils % (A) 70 %; Platelet Count 340 k/uL (150-450); RBC 4.51 m/uL (4.30-5.90); RDW 12.9 % (11.5-15.5)
[2019-01-26 15:12] LABS: Lactic Acid, Venous 1.5 mmol/L (0.7-2.0); Partial Thromboplastin Time 25.3 sec (22.0-30.0); Prothrombin Time 10.6 sec (9.0-12.0)
[2019-01-26 15:13] LABS: Calcium 9.4 mg/dL (8.4-10.2); Magnesium 1.6 mg/dL (1.6-2.3); Potassium 4.3 mmol/L (3.5-5.1); Total Bilirubin 0.7 mg/dL (0.2-1.3); Total Protein 6.6 g/dL (6.3-8.2)
--- NOTE | 2019-01-26 15:14 | XR ---
EXAMINATION TYPE: XR chest 2V DATE OF EXAM: 01/26/2019 COMPARISON: Chest x-ray July 19, 2017 HISTORY: Chest pain. TECHNIQUE: Frontal and lateral views of the chest are obtained. FINDINGS: A azygos lobe/fissure is seen. There is no focal air space opacity, pleural effusion, or pn eumothorax seen. The cardiac silhouette size is within normal limits. The osseous structures are i ntact. IMPRESSION: No acute process.
[2019-01-26] MEDS ORDERED: LORazepam 2 MG/ML INJ IV PRN ×3 (15:17)
[2019-01-26] MEDS ORDERED: SODIUM CHLORIDE 0.9% 500 ML 500 ML IV ONE ×2 (15:17→17:41)
[2019-01-26] MEDS ORDERED: THIAMINE 100 MG/ML 2 ML VIAL IM STA (15:17)
--- NOTE | 2019-01-26 15:27 | CT ---
EXAMINATION TYPE: CT brain wo con DATE OF EXAM: 01/26/2019 COMPARISON: CT orbits January 21, 2017. HISTORY: Weakness and hallucinations. started new medications within the past month per patient CT DLP: 1172.4 mGycm. Automated Exposure Control for Dose Reduction was Utilized. TECHNIQUE: CT scan of the head is performed without contrast. FINDINGS: There is no acute intracranial hemorrhage or midline shift identified. Mild symmetric magaly ateral frontal lobe atrophy felt present with slight sulcal prominence . No hydrocephalus. Jacob-whit e matter differentiation is maintained. The globes are intact and the visualized sinuses are clear. IMPRESSION: No acute intracranial hemorrhage or midline shift is seen.
[2019-01-26 16:16] LABS: Appearance,Urine Clear (Clear); Bilirubin,Urine Negative (Negative); Blood,Urine Negative (Negative); Color,Urine Yellow; Glucose,Urine (UA) Negative (Negative); Ketones,Urine Negative (Negative); Leukocyte Esterase,Urine Negative (Negative); Mucus,Urine Rare /hpf; Nitrite,Urine Negative (Negative); PH, Urine 6.5 (5.0-8.0); Protein,Urine 1+ (Negative); RBC,Urine 1 /hpf (0-5); Specific Gravity,Urine 1.022 (1.001-1.035); Urobilinogen,Urine <2.0 mg/dL (<2.0); WBC,Urine <1 /hpf (0-5)
[2019-01-26 16:20] LABS: Amphetamine Screen,Urine Not Detected (NotDetected); Barbiturate Screen,Urine Not Detected (NotDetected); Benzodiazepines Screen,Urine Not Detected (NotDetected); Cocaine Screen,Urine Not Detected (NotDetected); Methadone Screen, Urine Not Detected (NotDetected); Opiate Screen,Urine Not Detected (NotDetected); Oxycodone Screen, Urine Not Detected (NotDetected); Phencyclidine Screen,Urine Not Detected (NotDetected); Tricyclic Antidepressant,Urine Not Detected (NotDetected); Urn Cannabinoid Scrn Not Detected (NotDetected)
[2019-01-26] MEDS ORDERED: SODIUM CHLORIDE 0.9% 1,000 ML IV ONE (17:41)
[2019-01-26 19:50] VITALS: BMI 33.7
[2019-01-26] MEDS: LISINOPRIL 10 MG TAB PO SCH (22:18)
[2019-01-26] MEDS: PROPRANOLOL 20 MG TAB PO SCH (22:18)
[2019-01-26] MEDS: SODIUM CHLORIDE 0.9% 1,000 ML IV SCH (22:23)
[2019-01-26] MEDS: ATORVASTATIN 10 MG TAB PO SCH (22:24)
[2019-01-26] MEDS: PANTOPRAZOLE 40 MG TABLET PO SCH (22:25)
[2019-01-26] MEDS: PARoxetine 10 MG TAB PO SCH (22:25)
[2019-01-26] MEDS: oxyCODONE-APAP 7.5-325MG 1 EACH TAB PO PRN (22:25)
[2019-01-26] MEDS: HEPARIN SODIUM,PORCINE 5,000 UNIT/ML 1 ML VIAL SQ SCH (22:25)
[2019-01-26] MEDS: DULoxetine HCL 60 MG CAPSULE.DR PO SCH (22:25)
--- NOTE | 2019-01-26 22:35 | HP ---
HISTORY AND PHYSICAL DATE OF SERVICE: 01/26/2019 CHIEF COMPLAINTS: Change in mental status and hallucinations. HISTORY OF PRESENT ILLNESS: This 43-year-old gentleman with a past medical history of multiple medical problems, including hypertension, hyperlipidemia, history of testicular cancer, history of GERD, chronic back pain, hernia, anxiety, chronic pain syndrome, being followed by Dr. Bereket Ortega in the outpatient setting, was complaining of hallucinations. The patient was seeing and the patient was seeing some blood, crack in the windows and such. The patient was also complaining of generalize weakness. The patient came to [facility] and was admitted for further evaluation and treatment. The patient also is complaining of bilateral leg edema. The patient has a history of fall, also. There is no history of any fever, rigor or chills. No history of headache, loss of consciousness, seizures. The patient is also on multiple medications, including OxyContin, and recently the medications were adjusted. PAST MEDICAL HISTORY: 1. History of hypertension. 2. Hyperlipidemia. 3. History of left testicular cancer. 4. Gout. 5. Chronic neck and back pain. 6. Anxiety. HOME MEDICATIONS: 1. Omeprazole 20 mg at bedtime. 2. Requip 2 mg at bedtime. 3. Propranolol 60 mg p.o. b.i.d. 4. Prinivil 10 mg at bedtime. 5. Percocet 7.5 mg q.6 p.r.n. 6. Lofibra 160 mg p.o. at bedtime. 7. Cymbalta 60 mg p.o. at bedtime. 8. Zanaflex 4 mg q.8 p.r.n. 9. Zocor 5 mg at bedtime. 10.Paxil 30 mg at bedtime. 11.Zyrtec 10 mg p.o. at bedtime. ALLERGIES: DEMEROL. FAMILY HISTORY: History of hypertension, CAD, CABG, rosacea. SOCIAL HISTORY: Previous history of smoking. Previous alcohol intake, also. Patient apparently has some bingeing, also. REVIEW OF SYSTEMS: ENT: No diminished hearing. No diminished vision. CARDIOVASCULAR SYSTEM: No angina, palpitations. RESPIRATORY SYSTEM: As mentioned earlier. GI: No nausea, vomiting. : No dysuria or retention. NERVOUS SYSTEM: No numbness, weakness. ALLERGY/IMMUNOLOGY: No asthma, hayfever. MUSCULOSKELETAL: As mentioned earlier. HEMATOLOGY/ONCOLOGY: No history of anemia. ENDOCRINE: No history of diabetes, hypothyroidism. CONSTITUTIONAL: As mentioned earlier. DERMATOLOGY: Negative. RHEUMATOLOGY: Negative. PSYCHIATRY: As mentioned earlier. PHYSICAL EXAMINATION: Patient alert and oriented x3. Pulse 58, blood pressure 99/60, respiration 18, temperature 97.2, pulse ox 100% on room air. HEENT: Conjunctivae normal. NECK: No jugular venous distention. CARDIOVASCULAR SYSTEM: S1, S2 muffled. RESPIRATORY SYSTEM: Breath sounds diminished at the bases. A few scattered rhonchi. No crackles. ABDOMEN: Soft, obese, non-tender. No mass palpable. LEGS: No edema. No swelling. NERVOUS SYSTEM: Higher functions as mentioned earlier. Moves all 4 limbs. No focal motor or sensory deficit. LYMPHATICS: No lymph node palpable in neck, axillae or groin. SKIN: No ulcer, rash, bleeding. JOINTS: No active deforming arthropathy. LABS: Labs at this time show CBC within normal limits. Creatinine is 1.43. ASSESSMENT: 1. Hallucinations for evaluation; possible acute metabolic encephalopathy or acute delirium. 2. Gait dysfunction and falls. 3. Bilateral leg edema. 4. Increased creatinine with chronic kidney disease, stage III. 5. Obesity with body mass index of 33.3. 6. Hypertension. 7. Hyperlipidemia. 8. Left testicular cancer. 9. History of gout. 10.Chronic back and neck pain. 11.History of anxiety. 12.History of nicotine dependence. 13.History of ethanol. RECOMMENDATIONS AND DISCUSSION: In this 43-year-old gentleman who presented with multiple complex medical issues, at this time I recommend to continue current management, continue with symptomatic treatment. Otherwise I would recommend reviewing the medications. CIWA protocol. Would also recommend a neurology consultation. Prognosis guarded because of multiple complex medical issues. Further recommendations to follow. A copy of this dictation is being forwarded to Dr. Ortega, who is the primary physician. Resume the home medications. Will obtain psychiatry and neurology consultations. MMODL / IJN: [id number] / MTDD
[2019-01-27] MEDS: SODIUM CHLORIDE 0.9% 1,000 ML IV SCH ×2 (04:53→18:59)
[2019-01-27 08:24] LABS: Calcium 8.7 mg/dL (8.4-10.2); Potassium 4.1 mmol/L (3.5-5.1)
[2019-01-27] MEDS: FOLIC ACID 1 MG TAB PO SCH (08:39)
[2019-01-27] MEDS: MULTIVITAMINS, THERA 1 EACH TAB PO SCH (08:39)
[2019-01-27] MEDS: HEPARIN SODIUM,PORCINE 5,000 UNIT/ML 1 ML VIAL SQ SCH ×2 (08:39→21:15)
[2019-01-27] MEDS: THIAMINE 100 MG TAB PO SCH ×2 (08:39→17:55)
[2019-01-27] MEDS: PROPRANOLOL 20 MG TAB PO SCH ×2 (08:40→21:15)
[2019-01-27 08:53] LABS: Basophils # (A) 0.1 k/uL (0-0.2); Basophils % (A) 1 %; Eosinophils # (A) 0.3 k/uL (0-0.7); Eosinophils % (A) 4 %; HCT 37.3 % (39.0-53.0); HGB 13.1 gm/dL (13.0-17.5); Lymphocytes # (A) 1.4 k/uL (1.0-4.8); Lymphocytes % (A) 23 %; MCH 31.4 pg (25.0-35.0); MCHC 35.3 g/dL (31.0-37.0); MCV 88.9 fL (80.0-100.0); Mean Platelet Volume 6.4; Monocytes # (A) 0.5 k/uL (0-1.0); Monocytes % (A) 8 %; Neutrophils # (A) 3.5 k/uL (1.3-7.7); Neutrophils % (A) 60 %; Platelet Count 312 k/uL (150-450); RBC 4.19 m/uL (4.30-5.90); RDW 12.9 % (11.5-15.5); WBC 5.8 k/uL (3.8-10.6)
--- NOTE | 2019-01-27 10:26 | P.CNNES ---
History of Present Illness Consult date: 01/27/19 Requesting physician: Gume Valdez Reason for Consult: Weakness/gait dysfunction Chief complaint: BLE pain and weakness History of Present Illness: This is a 43 RH male h/o chronic LBP and BLE pain. He underwent some type of lumbar surgery, details unknown. MRI L-spine in 04/2017 in comparison with 10/2016 and 08/2013 studies showed less apparent left paracentral disc hernation at L5-S1 suggestive of previous surgery. He has been living with chronic pain that has escalated over the past weeks. He can barely walk due to the severe pain. When he sits down, the pain subsides. No bowel/bladder incontinence or saddle anesthesia. No Lhermitte's. His arms and facial muscles feel strong. No bulbar symptoms. No ptosis, diplopia or other subtle symptoms of neuromuscular weakness. He was admitted due to hallucinations. He is on chronic opiates. Also h/o binge alcohol intake with concerns for alcohol withdrawal. Psychiatry has been consulted regarding his psychosis. Review of Systems I have performed a 14-point organ ROS with patient; pertinents are as per HPI. Past Medical History Past Medical History: Cancer, Hyperlipidemia, Hypertension, Sleep Apnea/CPAP/BIPAP Additional Past Medical History / Comment(s): cancer LT Testicular, gout, chronic back and neck pain, sleep apnea History of Any Multi-Drug Resistant Organisms: None Reported Past Surgical History: Hernia Repair, Orthopedic Surgery Additional Past Surgical History / Comment(s): LT testicular SX (removed), lt knee arthroscopy, pain injections in back and radioablation, Past Anesthesia/Blood Transfusion Reactions: Family History of Problems w/ Anesthesia Additional Past Anesthesia/Blood Transfusion Reaction / Comment(s): States father had a hard time waking up from anesthesia. Past Psychological History: Anxiety Additional Psychological History / Comment(s): Patient lives with . Lives in a rental. Patient has cat and dog. 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 Smoking Status: Former smoker Past Alcohol Use History: Occasional Additional Past Alcohol Use History / Comment(s): Drinks two times a week and anywhere from 6-15 beers. Last drink was 3 days. Past Drug Use History: None Reported - Past Family History Father History Unknown: Yes Additional Family Medical History / Comment(s): Depression, PTSD, abused as child, Mother History Unknown: Yes Family Medical History: Hypertension Additional Family Medical History / Comment(s): CABG- 4 vessel bypass, roshacea, Medications and Allergies Home Medications Medication Instructions Recorded Confirmed Type Cetirizine HCl [Zyrtec] 10 mg PO HS 01/21/17 01/26/19 History Omeprazole 20 mg PO HS 01/21/17 01/26/19 History tiZANidine [Zanaflex] 4 mg PO Q8HR PRN 01/21/17 01/26/19 History DULoxetine HCL [Cymbalta] 60 mg PO HS 01/26/19 01/26/19 History Fenofibrate [Lofibra] 160 mg PO HS 01/26/19 01/26/19 History Lisinopril [Prinivil] 10 mg PO HS 01/26/19 01/26/19 History PARoxetine HCL [Paxil] 30 mg PO HS 01/26/19 01/26/19 History Propranolol HCl 60 mg PO BID 01/26/19 01/26/19 History Simvastatin [Zocor] 5 mg PO HS 01/26/19 01/26/19 History oxyCODONE HCL/ACETAMINOPHEN 1 tab PO Q6HR PRN 01/26/19 01/26/19 History [Percocet 7.5-325 mg] rOPINIRole HCL [Requip] 2 mg PO HS 01/26/19 01/26/19 History Allergies Allergy/AdvReac Type Severity Reaction Status Date / Time meperidine HCl [From Demerol] Allergy Swelling/Ra Verified 01/26/19 14:33 sh/Itching meloxicam [From Mobic] AdvReac Severe Confusion Verified 01/26/19 19:55 gabapentin AdvReac Intermediate See below Verified 01/26/19 19:55 Physical Examination - Vital Signs Vital Signs: Vital Signs Temp Pulse Pulse Pulse Resp BP BP 01/27/19 05:06 97.5 F L 73 18 126/70 01/26/19 19:39 97.2 F L 58 L 18 99/63 01/26/19 19:01 62 16 95/61 01/26/19 18:41 57 L 16 89/65 01/26/19 17:39 76 16 100/61 01/26/19 14:04 98.1 F 64 18 128/48 Pulse Ox 01/27/19 05:06 99 01/26/19 19:39 100 01/26/19 19:01 98 01/26/19 18:41 99 01/26/19 17:39 99 01/26/19 14:04 99 Intake and Output 01/26/19 01/27/19 01/27/19 22:59 06:59 14:59 Intake Total 700 600 Output Total 600 1 Balance 100 599 Intake: Intake, IV Titration 100 600 Amount Sodium Chloride 0.9% 1, 100 600 000 ml @ 100 mls/hr IV . Q10H BLAYNE Rx#:[id number] Oral 600 Output: Urine 600 1 Other: Voiding Method Urinal # Voids 1 Gen NAD Pleasant and cooperative HEENT NCAT Sclera without icterus O/P clear Neck Supple No carotid bruit Cor RRR no m/r/g Lungs CTAB Abd Soft NTND +BS Ext Warm to touch Tr edema in BLE Neuro MS A+Ox4 Normal fluency Able to follow all commands CN PERRL VFF no APD EOMI no nystagmus or TASHIA No facial asymmetry Masseter's symmetric Hearing intact to normal voice bilaterally Speech not dysarthric Equal elevation of palate Tongue midline Sym shrug and SCM bilaterally Motor Normal bulk/tone No pronator or tremors Strength 4 to 4+/5 in BLE throughout with give-way weakness due to pain behavior Sens Intact to LT x4 No neglect or extinction Coord No dysmetria on FTN bilaterally DTRs 2+/4 sym throughout except 0/4 in bilateral achilles Toes downgoing bilaterally No clonus at achilles Gait Antalgic Results - Laboratory Findings CBC and BMP: 01/27/19 07:30 01/27/19 07:30 Abnormal Lab Findings: Abnormal Labs 01/26/19 01/26/19 01/27/19 14:50 15:49 07:30 RBC 4.19 L Hct 37.3 L BUN 22 H Creatinine 1.43 H Glucose 117 H Urine Protein 1+ H Urine Mucus Rare H 01/27/19 07:30 RBC Hct BUN Creatinine 1.42 H Glucose Urine Protein Urine Mucus - Diagnostic Findings Additional findings: CT Head wo cont 01/26/17. Mild frontal atrophy. No intracranial hemorrhage or other acute intracranial abnormalities seen. MRI L-spine wo nellie 05/01/2017. Previously noted left paracentral disc herniation is less apparent on this exam at L5 to S1 compared with 10/11/2018 and 08/26/2013 exams. Findings are suggestive of previous surgery at this level. There is persistent mild bilateral neuroforaminal encroachment greater on the left compared with the right. I have reviewed neuroimages myself. Assessment and Plan Assessment: BLE weakness/gait disturbance- exam is remarkable for give-way weakness due to pain behavior. His diminished DTRs at the achilles is consistent with his L5-S1 stenosis seen on MRI. Remainder of neuro exam non-focal. Plan: -Pain management -Since he is a post-surgical patient, would defer to surgical services if anyt noah may need to be done acutely -Patient is already seeing Dr. Perez in outpatient and is in the process of getting EMG/NCS done. He should follow up with him post discharge for continued neuro work-up/management -PT/OT -Check CK and B12. TSH is 1.45 that is normal -Psych consult pending for hallucinations in the setting of renal insufficiency, chronic opiates and question of alcohol withdrawal -d/w patient in detail. All questions answered. Thank you for this consultation. Please call with any ?. Time with Patient: Greater than 30 (Time spent in direct patient care, greater than 50% of which was spent in [id number] counseling and coordination of care: 70 minutes)
--- NOTE | 2019-01-27 16:15 | PN ---
PROGRESS NOTE DATE OF SERVICE: 01/27/2019 This 43-year-old gentleman who was admitted with change in mental status and hallucinations, possibly medication-induced, is being closely monitored at this time. Neurology and psychiatric evaluations are in progress at this time. CT scan of the brain did not show any acute abnormality. The patient had L5-S1 paracentral herniation also. No chest pain. No palpitations. No fever. PHYSICAL EXAMINATION: Alert and oriented x3. Pulse 62, blood pressure 134/76, respiration 18, temperature 97.8, pulse ox 96% on room air. HEENT: Conjunctivae normal. NECK: No jugular venous distention. CARDIOVASCULAR SYSTEM: S1, S2 muffled. RESPIRATORY SYSTEM: Breath sounds diminished at the bases. No rhonchi. No crackles. ABDOMEN: Soft, non-tender. No mass palpable. LEGS: No edema. No swelling. NERVOUS SYSTEM: No focal deficit. LABS: WBC 5.8, hemoglobin 13.1. Sodium 137, potassium 4.1. Creatinine is 1.42, creatine kinase 179. Tox screen is negative. ASSESSMENT: 1. Hallucinations; possible acute metabolic encephalopathy or acute delirium. 2. Gait dysfunction and falls. 3. Bilateral leg edema. 4. Degenerative joint disease, back, with back pain. 5. Increased creatinine with chronic kidney disease, stage III. 6. Obesity with body mass index 33.3. 7. Hypertension. 8. Hyperlipidemia. 9. History of left testicular cancer. 10.History of gout. 11.History of anxiety. 12.History of back and neck pain. 13.History of nicotine dependence. 14.History of ethanol. RECOMMENDATIONS AND DISCUSSION: I recommend to continue current medications, continue with the monitoring, symptomatic treatment. Closely follow with Neurology and Psychiatry. Increase ambulation. Guarded prognosis because of multiple complex medical issues. Further recommendations to follow. See orders for further details. Continue with IV fluids. Monitor creatinine closely. MMODL / IJN: [id number] /
--- NOTE | 2019-01-27 17:14 | P.PN ---
Progress Note - Text Progress Note Date: 01/27/19 CK marginally elevated at 179. Patient has been on low-dose statin therapy for many years. Do not think his BLE pain is due to statin induced myopathy. Again, I think his BLE weakness is mostly give-way weakness from pain behavior. Recommendations have been delineated in my consult note. d/w patient and . All questions answered. No other inpatient neuro recs at this time. Will revisit patient prn. Please call with new ?.
--- NOTE | 2019-01-27 17:27 | XR ---
EXAMINATION TYPE: XR thoracic spine 2V DATE OF EXAM: 01/27/2019 COMPARISON: NONE HISTORY: Back pain TECHNIQUE: 3 views FINDINGS: Thoracic vertebra have normal alignment. Posterior elements are intact. There is no paraspi nal mass. There is no compression fracture. IMPRESSION: Negative thoracic spine exam. No fracture seen.
[2019-01-27] MEDS: oxyCODONE-APAP 7.5-325MG 1 EACH TAB PO PRN (17:54)
[2019-01-27] MEDS: ATORVASTATIN 10 MG TAB PO SCH (21:14)
[2019-01-27] MEDS: LISINOPRIL 10 MG TAB PO SCH (21:15)
[2019-01-27] MEDS: DULoxetine HCL 60 MG CAPSULE.DR PO SCH (21:15)
[2019-01-27] MEDS: PARoxetine 10 MG TAB PO SCH (21:15)
[2019-01-27] MEDS: PANTOPRAZOLE 40 MG TABLET PO SCH (21:15)
[2019-01-28] MEDS: SODIUM CHLORIDE 0.9% 1,000 ML IV SCH ×3 (02:37→21:06)
[2019-01-28] MEDS: FOLIC ACID 1 MG TAB PO SCH (07:58)
[2019-01-28] MEDS: MULTIVITAMINS, THERA 1 EACH TAB PO SCH (07:58)
[2019-01-28] MEDS: THIAMINE 100 MG TAB PO SCH ×2 (07:58→18:01)
[2019-01-28] MEDS: HEPARIN SODIUM,PORCINE 5,000 UNIT/ML 1 ML VIAL SQ SCH ×2 (07:58→21:04)
[2019-01-28] MEDS: oxyCODONE-APAP 7.5-325MG 1 EACH TAB PO PRN (07:58)
[2019-01-28] MEDS: PROPRANOLOL 20 MG TAB PO SCH ×2 (08:00→21:05)
[2019-01-28 08:19] LABS: Basophils # (A) 0.1 k/uL (0-0.2); Basophils % (A) 2 %; Eosinophils # (A) 0.3 k/uL (0-0.7); Eosinophils % (A) 4 %; HGB 13.7 gm/dL (13.0-17.5); Lymphocytes # (A) 1.3 k/uL (1.0-4.8); Lymphocytes % (A) 18 %; MCH 30.4 pg (25.0-35.0); MCHC 34.3 g/dL (31.0-37.0); MCV 88.6 fL (80.0-100.0); Mean Platelet Volume 6.4; Monocytes # (A) 0.6 k/uL (0-1.0); Monocytes % (A) 8 %; Neutrophils # (A) 4.7 k/uL (1.3-7.7); Neutrophils % (A) 66 %; Platelet Count 330 k/uL (150-450); RBC 4.51 m/uL (4.30-5.90); RDW 12.8 % (11.5-15.5); WBC 7.1 k/uL (3.8-10.6)
[2019-01-28 08:29] LABS: Calcium 9.2 mg/dL (8.4-10.2)
--- NOTE | 2019-01-28 16:04 | PN ---
PROGRESS NOTE DATE OF SERVICE: 01/28/2019 This 43-year-old gentleman, admitted with hallucinations, was also complaining of back pain and gait dysfunction. PT/OT evaluated the patient. Thoracic x-ray showed no acute abnormality at this time. The patient had back surgery in the [place] area. No chest pain. No palpitations. PHYSICAL EXAMINATION: Alert and oriented x3. Pulse is 70, blood pressure 134/73, respiration 17, temperature 97.8, pulse ox 98% on room air. HEENT: Conjunctivae normal. NECK: No jugular venous distention. CARDIOVASCULAR SYSTEM: S1, S2 muffled. RESPIRATORY SYSTEM: Breath sounds diminished at the bases. A few rhonchi. No crackles. ABDOMEN: Soft, obese, non-tender. LEGS: No edema. No swelling. NERVOUS SYSTEM: No focal deficit. Diffusely weak. LABS: WBC 7.1, hemoglobin 13.7. Sodium 138, potassium 4. Otherwise, creatine kinase 179. B12 is 454. Alcohol less than 10. ASSESSMENT: 1. Hallucinations; possible acute metabolic encephalopathy or acute delirium secondary to medications. 2. Gait dysfunction and falls, multifactorial. 3. Bilateral leg edema. 4. Severe degenerative joint disease of the back with back pain. 5. Increased creatinine with chronic kidney disease, stage III. 6. Obesity with body mass index of 33.3. 7. Hypertension. 8. Hyperlipidemia. 9. History of left testicular cancer. 10.History of gout. 11.History of anxiety. 12.History of back and neck pain. 13.History of nicotine dependence. 14.History of ethanol. RECOMMENDATIONS AND DISCUSSION: I recommend to continue current medications, continue with the monitoring, symptomatic treatment. Continue to monitor. Creatinine is stable at this time, but I would recommend following the patient closely. PT/OT evaluation. Consultation with Dr. Chan regarding the back pain. Further recommendations to follow. MMODL / IJN: [id number] /
[2019-01-28] MEDS: PANTOPRAZOLE 40 MG TABLET PO SCH (21:03)
[2019-01-28] MEDS: ATORVASTATIN 10 MG TAB PO SCH (21:03)
[2019-01-28] MEDS: LISINOPRIL 10 MG TAB PO SCH (21:04)
[2019-01-28] MEDS: DULoxetine HCL 60 MG CAPSULE.DR PO SCH (21:04)
[2019-01-28] MEDS: PARoxetine 10 MG TAB PO SCH (21:05)
[2019-01-29 05:43] VITALS: BP 125/69; PULSE 55; RESP 16; TEMP 97.7
[2019-01-29] MEDS: THIAMINE 100 MG TAB PO SCH (07:47)
[2019-01-29] MEDS: PROPRANOLOL 20 MG TAB PO SCH (07:47)
[2019-01-29] MEDS: MULTIVITAMINS, THERA 1 EACH TAB PO SCH (07:47)
[2019-01-29] MEDS: FOLIC ACID 1 MG TAB PO SCH (07:48)
[2019-01-29] MEDS: SODIUM CHLORIDE 0.9% 1,000 ML IV SCH (07:48)
[2019-01-29] MEDS: HEPARIN SODIUM,PORCINE 5,000 UNIT/ML 1 ML VIAL SQ SCH (07:48)
[2019-01-29 08:26] LABS: Basophils # (A) 0.2 k/uL (0-0.2); Basophils % (A) 2 %; Eosinophils # (A) 0.3 k/uL (0-0.7); Eosinophils % (A) 4 %; HCT 40.2 % (39.0-53.0); HGB 14.1 gm/dL (13.0-17.5); Lymphocytes # (A) 1.1 k/uL (1.0-4.8); Lymphocytes % (A) 14 %; MCH 30.8 pg (25.0-35.0); MCHC 35.1 g/dL (31.0-37.0); MCV 87.7 fL (80.0-100.0); Mean Platelet Volume 6.6; Monocytes # (A) 0.6 k/uL (0-1.0); Monocytes % (A) 8 %; Neutrophils # (A) 5.4 k/uL (1.3-7.7); Neutrophils % (A) 69 %; Platelet Count 357 k/uL (150-450); RBC 4.58 m/uL (4.30-5.90); RDW 12.7 % (11.5-15.5); WBC 7.7 k/uL (3.8-10.6)
[2019-01-29 08:30] LABS: Calcium 9.5 mg/dL (8.4-10.2); Potassium 4.1 mmol/L (3.5-5.1)
--- NOTE | 2019-01-29 09:18 | P.CNOR ---
History of Present Illness - HPI Consult date: 01/29/19 Consult reason: low back pain History of present illness: Patient is seen and examined today at bedside. He is a pleasant 43-year-old male with chronic history of low back pain and lower extremity issues. He was admitted to the hospital in regards to hallucinations and increased pain in his back and legs days ago. 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 The sensation was at his bilateral lower extremities worse on the left than the right. He had great difficulty w ith any sort of ambulation and mobilization and was having hallucinations and presented to the hospital where he was admitted. He feels his hallucinations of significantly improved he said when he was first admitted he could hardly get out of bed at all but now he is able to ambulate with a walker. He has history of lumbar issues in the past chronically at his low back and at his neck as well which have been going on for more than 10 years without any specific injury. He does not currently work her regular job. 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 He had prior surgery at his lumbar spine with Dr. Wright in May 2016 where he apparently had a laminectomy decompression at single level. He is not sure if he had significant benefit with this. He denies any specific injury. Denies any changes in bowel bladder function. He has been following for medical and pain management with his primary care physician as well as with neurology on outpatient basis. Review of Systems As stated per HPI. Denies any specific injury. She denies any changes in bowel bladder function. He feels his legs are very stiff and his back is very stiff but he feels his power is intact. He denies any shortness of breath. Past Medical History Past Medical History: Cancer, Hyperlipidemia, Hypertension, Musculoskeletal Disorder, Sleep Apnea/CPAP/BIPAP Additional Past Medical History / Comment(s): cancer LT Testicular, gout, chronic back and neck pain, sleep apnea. History of single level lumbar laminectomy with Dr. Wright in May 2016 History of Any Multi-Drug Resistant Organisms: None Reported Past Surgical History: Hernia Repair, Orthopedic Surgery Additional Past Surgical History / Comment(s): LT testicular SX (removed), lt knee arthroscopy, pain injections in back and radioablation, Past Anesthesia/Blood Transfusion Reactions: Family History of Problems w/ Anesthesia Additional Past Anesthesia/Blood Transfusion Reaction / Comm: States father had a hard time waking up from anesthesia. Past Psychological History: Anxiety Additional Psychological History / Comment(s): Patient lives with . Lives in a rental. Patient has cat and dog. 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 Smoking Status: Former smoker Past Alcohol Use History: Occasional Additional Past Alcohol Use History / Comment(s): Drinks two times a week and anywhere from 6-15 beers. Last drink was 3 days. Past Drug Use History: None Reported - Past Family History Father History Unknown: Yes Additional Family Medical History / Comment(s): Depression, PTSD, abused as child, Mother History Unknown: Yes Family Medical History: Hypertension Additional Family Medical History / Comment(s): CABG- 4 vessel bypass, roshacea, Medications and Allergies Home Medications Medication Instructions Recorded Confirmed Type Cetirizine HCl [Zyrtec] 10 mg PO HS 01/21/17 01/26/19 History Omeprazole 20 mg PO HS 01/21/17 01/26/19 History tiZANidine [Zanaflex] 4 mg PO Q8HR PRN 01/21/17 01/26/19 History DULoxetine HCL [Cymbalta] 60 mg PO HS 01/26/19 01/26/19 History Fenofibrate [Lofibra] 160 mg PO HS 01/26/19 01/26/19 History Lisinopril [Prinivil] 10 mg PO HS 01/26/19 01/26/19 History PARoxetine HCL [Paxil] 30 mg PO HS 01/26/19 01/26/19 History Propranolol HCl 60 mg PO BID 01/26/19 01/26/19 History Simvastatin [Zocor] 5 mg PO HS 01/26/19 01/26/19 History oxyCODONE HCL/ACETAMINOPHEN 1 tab PO Q6HR PRN 01/26/19 01/26/19 History [Percocet 7.5-325 mg] rOPINIRole HCL [Requip] 2 mg PO HS 01/26/19 01/26/19 History Famotidine [Pepcid] 20 mg PO BID #24 tablet 01/29/19 Rx predniSONE 10 mg PO DAILY #24 tab 01/29/19 Rx Allergies Allergy/AdvReac Type Severity Reaction Status Date / Time meperidine HCl [From Demerol] Allergy Swelling/Ra Verified 01/26/19 14:33 sh/Itching meloxicam [From Mobic] AdvReac Severe Confusion Verified 01/26/19 19:55 gabapentin AdvReac Intermediate See below Verified 01/26/19 19:55 Physical Examination Osteopathic Statement: *. No significant issues noted on an osteopathic structural exam other than those noted in the History and Physical/Consult. - L Spine: dermatomal strength & reflexes bilateral Strength: hip flexion: 5/5 (At his low back he has well-healed incision approximately 1 inch in length at left paramedian space right L5-S1. He has a tattoo over his back. There is no open wounds lacerations or abrasions. There is no bruising there is no skin changes. His lower extremities have sustained dorsal to plantar flexion and EHL intact though he moves somewhat stiff. He has good power with dorsal flexion plantar flexion and EHL. He flexes only to about 30 and extends to about neutral. There is no point tenderness. No hyperreflexia.) Results There is a thoracic x-ray which shows good overall alignment well maintained disc height there is no evidence of any fracture or dislocation. - Labs Labs: Abnormal Lab Results - Last 24 Hours (Table) 01/29/19 Range/Units 07:10 Creatinine 1.49 H (0.66-1.25) mg/dL H & H 01/26/19 01/27/19 01/28/19 Range/Units 14:50 07:30 07:24 Hgb 13.6 13.1 13.7 (13.0-17.5) gm/dL Hct 39.3 37.3 L 40.0 (39.0-53.0) % 01/29/19 Range/Units 07:10 Hgb 14.1 (13.0-17.5) gm/dL Hct 40.2 (39.0-53.0) % Coagulation 01/26/19 Range/Units 14:50 INR 1.0 (<1.2) Result Diagrams: 01/29/19 07:10 01/29/19 07:10 Assessment and Plan Assessment: Acute on chronic low back pain Myofascial strain lumbar spine Chronic lower extremity pain Improved hallucinations Improved mobility over the past 2 days History of lumbar laminectomy at single level II-1/2 years ago No acute neurologic loss Plan: Acute on chronic low back pain Myofascial strain lumbar spine Chronic lower extremity pain Improved hallucinations Improved mobility over the past 2 days History of lumbar laminectomy at single level II-1/2 years ago No acute neurologic loss The patient has acute exacerbation of his chronic low back pain. He had somewhat of a dramatic presentation but seems to be resolving appropriately with conservative management. He has been able to improve his mobility and ambulation. He is now able to ambulate with a walker though he still stiff and gingerly. He has significant inflammation and spasm in his lower back and may have some benefit with a short course of oral steroid medication. We will go ahead and order that for him as well as some GI prophylaxis to be taken while he is on the oral steroid. He is not having any acute neurologic loss and I do not feel that we need further imaging at this point. If he is not having improvement he could get an MRI of his lumbar spine on outpatient basis. I thi nk it is okay for him be discharged from an orthopedic spine standpoint if he is stable medically. From a spine surgery standpoint it is okay for him to follow up on an outpatient basis on an as-needed basis. I think he had an acute flareup due to his increased activity and this should resolve with conservative care and possible physical therapy on an outpatient basis. He should continue his conservative pain management as he has been doing.
--- NOTE | 2019-01-29 17:21 | P.DS ---
Providers Date of admission: 01/29/19 08:54 Expected date of discharge: 01/29/19 Attending physician: Gume Valdez Consults: 01/27/19 01:00 Consult Physician Routine Consulting Provider: Papito Wiggins Consult Reason/Comments: Visual hallucinations Do you want consulting provider notified?: Already Contacted 01/27/19 01:03 Consult Physician Routine Consulting Provider: Mango Youssef Consult Reason/Comments: Weakness and gait dysfunction Do you want consulting provider notified?: Yes, Notify in am 01/28/19 14:38 Consult Physician Routine Consulting Provider: Eliseo Chan Consult Reason/Comments: weakness in legs/previous back surgery Do you want consulting provider notified?: Yes Primary care physician: Bereket Ortega [facility] Course: Final diagnosis Hallucinations, possible acute metabolic encephalopathy or acute delirium secondary to medications Gait dysfunction and falls, multifactorial Bilateral leg edema Severe degenerative joint disease of the back and also with back pain Increased creatinine with chronic kidney disease, stage III obesity with body mass index of 33.3 Hypertension Hyperlipidemia History of left testicular cancer History of gout History of anxiety History of back and neck pain History of nicotine dependence history of ethanol Discharge disposition Patient is being discharged in a stable condition with guarded prognosis to home and will follow-up with Dr. Chan in the outpatient setting as well as physical therapy in the outpatient setting. Patient will also follow-up with Dr. Ortega upon discharge. Total time taken is 35 minutes. History of present illness This is a 43-year-old male who was recently admitted with hallucinations and complaining of back pain and gait dysfunction and was being closely monitored. To are following. Patient will be following up with physical therapy in the outpatient setting as discussed with Dr. Chan. X-rays done during hospitalization showed no acute abnormalities. Neurology was consulted and discussed with the patient that he may follow-up in the outpatient setting as needed. Currently patient's condition is stable with much improvement and is ready for discharge. Patient denies any chest pain, shortness of breath, or palpitations at this time. Patient remains afebrile. Patient denies any nausea or vomiting and has been tolerating diet. On exam vital signs are stable. Temp is 97.7F, pulse is 55, respirations are 66, oxygen saturation is 98% on room air, blood pressure is 125/69. Cardio S1 and S2 are normal. Respiratory system shows diminished breath sounds at the bases with a few rhonchi noted. Abdomen is soft, obese, nontender. Nervous system shows no focal deficits with mild diffuse weakness. These refer to medication reconciliation sheet for a list of medications. Patient Condition at Discharge: Stable Plan - Discharge Summary Discharge Rx Participant: Yes New Discharge Prescriptions: New Famotidine [Pepcid] 20 mg PO BID #24 tablet predniSONE 10 mg PO DAILY #24 tab Folic Acid 1 mg PO DAILY@1200 #30 tab Multivitamins, Thera [Multivitamin (formulary)] 1 each PO DAILY@1200 #30 tab Thiamine [Vitamin B-1] 100 mg PO BID-W/MEALS #30 tab Continue tiZANidine [Zanaflex] 4 mg PO Q8HR PRN PRN Reason: Muscle Pain Omeprazole 20 mg PO HS Cetirizine HCl [Zyrtec] 10 mg PO HS rOPINIRole HCL [Requip] 2 mg PO HS Propranolol HCl 60 mg PO BID Lisinopril [Prinivil] 10 mg PO HS oxyCODONE HCL/ACETAMINOPHEN [Percocet 7.5-325 mg] 1 tab PO Q6HR PRN PRN Reason: Pain Fenofibrate [Lofibra] 160 mg PO HS DULoxetine HCL [Cymbalta] 60 mg PO HS Simvastatin [Zocor] 5 mg PO HS PARoxetine HCL [Paxil] 30 mg PO HS Discharge Medication List Cetirizine HCl [Zyrtec] 10 mg PO HS 01/21/17 [History] Omeprazole 20 mg PO HS 01/21/17 [History] tiZANidine [Zanaflex] 4 mg PO Q8HR PRN 01/21/17 [History] DULoxetine HCL [Cymbalta] 60 mg PO HS 01/26/19 [History] Fenofibrate [Lofibra] 160 mg PO HS 01/26/19 [History] Lisinopril [Prinivil] 10 mg PO HS 01/26/19 [History] PARoxetine HCL [Paxil] 30 mg PO HS 01/26/19 [History] Propranolol HCl 60 mg PO BID 01/26/19 [History] Simvastatin [Zocor] 5 mg PO HS 01/26/19 [History] oxyCODONE HCL/ACETAMINOPHEN [Percocet 7.5-325 mg] 1 tab PO Q6HR PRN 01/26/19 [History] rOPINIRole HCL [Requip] 2 mg PO HS 01/26/19 [History] Famotidine [Pepcid] 20 mg PO BID #24 tablet 01/29/19 [Rx] Folic Acid 1 mg PO DAILY@1200 #30 tab 01/29/19 [Rx] Multivitamins, Thera [Multivitamin (formulary)] 1 each PO DAILY@1200 #30 tab 01/29/19 [Rx] Thiamine [Vitamin B-1] 100 mg PO BID-W/MEALS #30 tab 01/29/19 [Rx] predniSONE 10 mg PO DAILY #24 tab 01/29/19 [Rx] Follow up Appointment(s)/Referral(s): Eliseo Chan DO [Doctor of Osteopathic Medicine] - 02/06/19 3:00 pm (please have patient come in at 2:30pm to fill out paperwork) Beerket Ortega DO [Primary Care Provider] - 02/10/19 9:45 am Patient Instructions/Handouts: Abuse of Alcohol (DC) Activity/Diet/Wound Care/Special Instructions: May ambulate as tolerated. Would likely benefit with dedicated physical therapy on an outpatient basis. pt will be sent home with a rolling walker s/t gait dysfunction Activity limited until follow up continue current diet follow up with primary care provider this week. follow up with ortho in the outpatient setting continue with PT/OT in the outpatient setting Follow up with psychiatry upon discharge. Discharge Disposition: HOME SELF-CARE
--- NOTE | 2019-01-30 00:14 | DS ---
DISCHARGE SUMMARY DATE OF SERVICE: 01/29/2019. FINAL DIAGNOSES: 1. Hallucinations, possible acute metabolic encephalopathy, acute delirium secondary to medications. 2. Gait dysfunction and falls, multifactorial. 3. Bilateral leg edema. 4. Severe degenerative joint disease of the back with back pain. 5. Increased creatinine with chronic kidney stage III. 6. Obesity with body mass index of 33.3. 7. Hypertension. 8. Hyperlipidemia. 9. History of left testicular cancer. 10.History of gout. 11.History of anxiety. 12.History of back and neck pain. 13.History of nicotine dependence. 14.History of EtOH. DISCHARGE DISPOSITION: The patient being discharged in condition stable with guarded prognosis. HISTORY OF PRESENT ILLNESS: This 43 -year-old gentleman with a past medical history of multiple medical problems was admitted with hallucinations and multiple other medical issues. Patient seen by Dr. Chan from Orthopedic surgery and as well as neurology who recommended outpatient followup. Thoracic spine x-rays were normal. For the patient discharged. Please refer to Dr. Chan's and neurology notes for information. On exam, vitals are stable. Cardiovascular, S1, S2. Abdomen soft. Nervous system: No focal deficits. Sensorium much improved. DISCHARGE ADVICE AND MEDICATIONS: 1. Diet is cardiac diet. 2. Activity limited until followup. 3. Follow up with Dr. Bereket Ortega in 2-3 days. 4. Follow up with Dr. Chan as recommended. DISCHARGE MEDICATIONS: 1. Cymbalta 60 mg q.h.s. 2. Lofibra 160 mg q.h.s. 3. Omeprazole 20 mg q.h.s. 4. Paxil 30 mg p.o. q.h.s. 5. Percocet 7.5 mg q.6 p.r.n. 6. Prinivil 10 mg q.h.s. 7. Propranolol 60 mg p.o. b.i.d. 8. Requip 2 mg p.o. q.h.s. 9. Zanaflex 4 mg q.8 p.r.n. 10.Zocor 5 mg p.o. q.h.s. 11.Zyrtec 10 mg p.o. q.h.s. 12.Folic acid 1 mg p.o. daily. 13.Multivitamin 1 p.o. daily. 14.Pepcid 20 mg p.o. b.i.d. while on prednisone. 15.Prednisone taper 30 for 4 days, 20 for 4 days, 10 for 4 days and stop. 16.Vitamin B1 thiamine 100 mg p.o. daily. Follow up with Dr. Chan as recommended. MMODL / IJN: [id number] /
== END 2019-01-29 12:42 | disposition home or self-care (01) | DRG 562 ==
LOC: EC 14:03 → 3NMEDONC 18:44 → OBSVTOIN 01-29 08:54
PROVIDERS: ADMIT Hospitalist; ATTEND Hospitalist
DX: S39.012A Strain of muscle, fascia and tendon of lower back, initial encounter (principal); G92 Toxic encephalopathy; M48.07 Spinal stenosis, lumbosacral region; N18.3 Chronic kidney disease, stage 3 (moderate); E66.9 Obesity, unspecified; E78.5 Hyperlipidemia, unspecified; F10.10 Alcohol abuse, uncomplicated; F17.210 Nicotine dependence, cigarettes, uncomplicated; T50.905A Adverse effect of unspecified drugs, medicaments and biological substances, initial encounter; Z85.47 Personal history of malignant neoplasm of testis; F29 Unspecified psychosis not due to a substance or known physiological condition; F41.9 Anxiety disorder, unspecified; G47.30 Sleep apnea, unspecified; Z99.89 Dependence on other enabling machines and devices; G89.4 Chronic pain syndrome; I12.9 Hypertensive chronic kidney disease with stage 1 through stage 4 chronic kidney disease, or unspecified chronic kidney disease; K21.9 Gastro-esophageal reflux disease without esophagitis; Z68.33 Body mass index [BMI] 33.0-33.9, adult; Z79.891 Long term (current) use of opiate analgesic; Z79.899 Other long term (current) drug therapy; Z81.8 Family history of other mental and behavioral disorders; Z82.49 Family history of ischemic heart disease and other diseases of the circulatory system; G62.9 Polyneuropathy, unspecified; R29.6 Repeated falls; Z91.81 History of falling; R60.0 Localized edema; Z88.5 Allergy status to narcotic agent; M54.2 Cervicalgia
CPT/HCPCS: 36415; 70450; 71046; 72070; 80048; 80053; 80306; 80320; 81001; 82140; 82550; 82607; 83605; 83735; 84443; 84484; 85025; 85610; 85730; 93005; 94660; 96360; 96372; 99285

== ENCOUNTER 2019-04-24 17:45 | Inpatient (IN) | payer OTHER ==
[2019-04-24] MEDS ORDERED: NITROGLYCERIN OINT 1 INCH/GM PACKET TOPICAL STA (18:11)
[2019-04-24] MEDS ORDERED: ASPIRIN 81 MG PO STA (18:11)
[2019-04-24] MEDS ORDERED: FUROSEMIDE 10 MG/ML 4 ML VIAL IV STA (18:11)
[2019-04-24 18:24] LABS: Glucose,Whole Blood 142 mg/dL (75-99)
[2019-04-24 18:43] LABS: Basophils # (A) 0.1 k/uL (0-0.2); Basophils % (A) 1 %; Eosinophils # (A) 0.3 k/uL (0-0.7); Eosinophils % (A) 5 %; HCT 40.2 % (39.0-53.0); HGB 13.9 gm/dL (13.0-17.5); Lymphocytes % (A) 17 %; MCH 29.7 pg (25.0-35.0); MCHC 34.5 g/dL (31.0-37.0); MCV 86.1 fL (80.0-100.0); Mean Platelet Volume 6.6; Monocytes # (A) 0.4 k/uL (0-1.0); Monocytes % (A) 7 %; Neutrophils % (A) 67 %; Platelet Count 301 k/uL (150-450); RBC 4.67 m/uL (4.30-5.90); RDW 12.3 % (11.5-15.5)
[2019-04-24 18:52] LABS: INR 0.9 (<1.2); Partial Thromboplastin Time 24.2 sec (22.0-30.0); Prothrombin Time 10.1 sec (9.0-12.0)
[2019-04-24 18:56] LABS: Albumin 4.3 g/dL (3.5-5.0); Calcium 9.6 mg/dL (8.4-10.2); Magnesium 1.3 mg/dL (1.6-2.3); Total Bilirubin 0.7 mg/dL (0.2-1.3); Total Protein 7.1 g/dL (6.3-8.2)
--- NOTE | 2019-04-24 19:06 | ED ---
General Adult HPI - General Chief complaint: Chest Pain Stated complaint: Chest Pain, SOB,Feet Swelling Time Seen by Provider: 04/24/19 17:45 Source: patient, family, RN notes reviewed, old records reviewed Mode of arrival: wheelchair Limitations: no limitations - History of Present Illness Initial comments: This is a 43-year-old male who presents emergency Department with a past medical history significant for hypertension and high cholesterol. Patient states for the last month she has noted more more swelling to the legs and weight gain over that same period of time. Patient states over the last couple days she's been having intermittent chest pain and some shortness of breath. Patient states sometimes it'll last for a few hours and then subsides returns later. Patient denies any radiation of the pain. Patient denies any cough fever or chills per patient denies any diaphoretic episodes. Patient denies any abdominal pain patient denies nausea vomiting diarrhea. - Related Data Home Medications Medication Instructions Recorded Confirmed Cetirizine HCl [Zyrtec] 10 mg PO HS 01/21/17 01/26/19 Omeprazole 20 mg PO HS 01/21/17 01/26/19 tiZANidine [Zanaflex] 4 mg PO Q8HR PRN 01/21/17 01/26/19 DULoxetine HCL [Cymbalta] 60 mg PO HS 01/26/19 01/26/19 Fenofibrate [Lofibra] 160 mg PO HS 01/26/19 01/26/19 Lisinopril [Prinivil] 10 mg PO HS 01/26/19 01/26/19 PARoxetine HCL [Paxil] 30 mg PO HS 01/26/19 01/26/19 Propranolol HCl 60 mg PO BID 01/26/19 01/26/19 Simvastatin [Zocor] 5 mg PO HS 01/26/19 01/26/19 oxyCODONE HCL/ACETAMINOPHEN 1 tab PO Q6HR PRN 01/26/19 01/26/19 [Percocet 7.5-325 mg] rOPINIRole HCL [Requip] 2 mg PO HS 01/26/19 01/26/19 Previous Rx's Medication Instructions Recorded Famotidine [Pepcid] 20 mg PO BID #24 tablet 01/29/19 Folic Acid 1 mg PO DAILY@1200 #30 tab 01/29/19 Multivitamins, Thera [Multivitamin 1 each PO DAILY@1200 #30 tab 01/29/19 (formulary)] Thiamine [Vitamin B-1] 100 mg PO BID-W/MEALS #30 tab 01/29/19 predniSONE 10 mg PO DAILY #24 tab 01/29/19 Allergies Allergy/AdvReac Type Severity Reaction Status Date / Time meperidine HCl [From Demerol] Allergy Swelling/Ra Verified 04/24/19 17:49 sh/Itching meloxicam [From Mobic] AdvReac Severe Confusion Verified 04/24/19 17:49 gabapentin AdvReac Intermediate See below Verified 04/24/19 17:49 Review of Systems ROS Statement: Those systems with pertinent positive or pertinent negative responses have been documented in the HPI. ROS Other: All systems not noted in ROS Statement are negative. Past Medical History Past Medical History: Cancer, Hyperlipidemia, Hypertension, Musculoskeletal Disorder, Sleep Apnea/CPAP/BIPAP Additional Past Medical History / Comment(s): cancer LT Testicular, gout, chronic back and neck pain, sleep apnea. History of single level lumbar lee inectomy with Dr. Wright in May 2016. Luibody dementia History of Any Multi-Drug Resistant Organisms: None Reported Past Surgical History: Hernia Repair, Orthopedic Surgery Additional Past Surgical History / Comment(s): LT testicular SX (removed), lt knee arthroscopy, pain injections in back and radioablation, Past Anesthesia/Blood Transfusion Reactions: Family History of Problems w/ Anesthesia Additional Past Anesthesia/Blood Transfusion Reaction / Comment(s): States father had a hard time waking up from anesthesia. Past Psychological History: Anxiety Smoking Status: Former smoker Past Alcohol Use History: Occasional Past Drug Use History: None Reported - Past Family History Father History Unknown: Yes Additional Family Medical History / Comment(s): Depression, PTSD, abused as c hild, Mother History Unknown: Yes Family Medical History: Hypertension Additional Family Medical History / Comment(s): CABG- 4 vessel bypass, roshacea, General Exam - General Exam Comments Initial Comments: GENERAL: Patient is well-developed and well-nourished. Patient is nontoxic and well- hydrated and is in mild distress. ENT: Neck is soft and supple. No significant lymphadenopathy is noted. Oropharynx is clear. Moist mucous membranes. Neck has full range of motion without eliciting any pain. EYES: The sclera were anicteric and conjunctiva were pink and moist. Extraocular movements were intact and pupils were equal round and reactive to light. Eyelids were unremarkable. PULMONARY: Unlabored respirations. Good breath sounds bilaterally. No audible rales rhonchi or wheezing was noted. CARDIOVASCULAR: There is a regular rate and rhythm without any murmurs gallops or rubs. ABDOMEN: Soft and nontender with normal bowel sounds. No palpable organomegaly was noted. There is no palpable pulsatile mass. SKIN: Skin is clear with no lesions or rashes and otherwise unremarkable. NEUROLOGIC: Patient is alert and oriented x3. Cranial nerves II through XII are grossly intact. Motor and sensory are also intact. Normal speech, volume and content. Symmetrical smile. MUSCULOSKELETAL: Normal extremities with adequate strength and full range of motion. No lower extremity swelling. No calf tenderness. LYMPHATICS: No significant lymphadenopathy is noted PSYCHIATRIC: Normal psychiatric evaluation. Limitations: no limitations Course Vital Signs 04/24/19 04/24/19 04/24/19 17:46 18:10 18:40 Temperature 98.6 F Pulse Rate 99 96 Pulse Rate [ 90 Beef Tagger ] Respiratory 16 20 16 Rate Blood Pressure 141/69 150/61 O2 Sat by Pulse 99 98 Oximetry Medical Decision Making - Medical Decision Making EKG shows normal sinus rhythm at 80 bpm AK interval 276 QRS is 74 QT interval 360 QTC is 435. Patient's EKG shows no ST segment elevation or depression. - Lab Data Result diagrams: 04/24/19 18:19 04/24/19 18:19 Lab Results 04/24/19 04/24/19 04/24/19 Range/Units 18:17 18:19 18:19 WBC 6.0 (3.8-10.6) k/uL RBC 4.67 (4.30-5.90) m/uL Hgb 13.9 (13.0-17.5) gm/dL Hct 40.2 (39.0-53.0) % MCV 86.1 (80.0-100.0) fL MCH 29.7 (25.0-35.0) pg MCHC 34.5 (31.0-37.0) g/dL RDW 12.3 (11.5-15.5) % Plt Count 301 (150-450) k/uL Neutrophils % 67 % Lymphocytes % 17 % Monocytes % 7 % Eosinophils % 5 % Basophils % 1 % Neutrophils # 4.0 (1.3-7.7) k/uL Lymphocytes # 1.0 (1.0-4.8) k/uL Monocytes # 0.4 (0-1.0) k/uL Eosinophils # 0.3 (0-0.7) k/uL Basophils # 0.1 (0-0.2) k/uL PT (9.0-12.0) sec INR (<1.2) APTT (22.0-30.0) sec Sodium 137 (137-145) mmol/L Potassium 4.0 (3.5-5.1) mmol/L Chloride 102 (98-107) mmol/L Carbon Dioxide 24 (22-30) mmol/L Anion Gap 11 mmol/L BUN 20 (9-20) mg/dL Creatinine 1.63 H (0.66-1.25) mg/dL Est GFR (CKD-EPI)AfAm 58 (>60 ml/min/1.73 sqM) Est GFR (CKD-EPI)NonAf 51 (>60 ml/min/1.73 sqM) Glucose 143 H (74-99) mg/dL POC Glucose (mg/dL) 142 H (75-99) mg/dL POC Glu Cosmetologist ID Calcium 9.6 (8.4-10.2) mg/dL Magnesium 1.3 L (1.6-2.3) mg/dL Total Bilirubin 0.7 (0.2-1.3) mg/dL AST 30 (17-59) U/L ALT 30 (4-49) U/L Alkaline Phosphatase 49 (38-126) U/L Total Protein 7.1 (6.3-8.2) g/dL Albumin 4.3 (3.5-5.0) g/dL 04/24/19 Range/Units 18:19 WBC (3.8-10.6) k/uL RBC (4.30-5.90) m/uL Hgb (13.0-17.5) gm/dL Hct (39.0-53.0) % MCV (80.0-100.0) fL MCH (25.0-35.0) pg MCHC (31.0-37.0) g/dL RDW (11.5-15.5) % Plt Count (150-450) k/uL Neutrophils % % Lymphocytes % % Monocytes % % Eosinophils % % Basophils % % Neutrophils # (1.3-7.7) k/uL Lymphocytes # (1.0-4.8) k/uL Monocytes # (0-1.0) k/uL Eosinophils # (0-0.7) k/uL Basophils # (0-0.2) k/uL PT 10.1 (9.0-12.0) sec INR 0.9 (<1.2) APTT 24.2 (22.0-30.0) sec Sodium (137-145) mmol/L Potassium (3.5-5.1) mmol/L Chloride (98-107) mmol/L Carbon Dioxide (22-30) mmol/L Anion Gap mmol/L BUN (9-20) mg/dL Creatinine (0.66-1.25) mg/dL Est GFR (CKD-EPI)AfAm (>60 ml/min/1.73 sqM) Est GFR (CKD-EPI)NonAf (>60 ml/min/1.73 sqM) Glucose (74-99) mg/dL POC Glucose (mg/dL) (75-99) mg/dL POC Glu Cosmetologist ID Calcium (8.4-10.2) mg/dL Magnesium (1.6-2.3) mg/dL Total Bilirubin (0.2-1.3) mg/dL AST (17-59) U/L ALT (4-49) U/L Alkaline Phosphatase (38-126) U/L Total Protein (6.3-8.2) g/dL Albumin (3.5-5.0) g/dL Disposition Referrals: Bereket Ortega DO [Primary Care Provider] - 1-2 days
--- NOTE | 2019-04-24 19:17 | XR ---
EXAMINATION TYPE: XR chest 2V DATE OF EXAM: 04/24/2019 COMPARISON: 01/26/2019 HISTORY: Confusion TECHNIQUE: 2 views FINDINGS: Heart and mediastinum are normal. Lungs are clear. Diaphragm is normal. Bony thorax is inta ct. IMPRESSION: Normal chest. No change.
[2019-04-24] MEDS ORDERED: MAGNESIUM SULFATE-D5W PMX 1 GM in DEXTROSE/WATER 1 100ML.BAG IVPB ONE (19:42)
[2019-04-24] MEDS ORDERED: NITROGLYCERIN SL TABS 0.4 MG TAB SUBLINGUAL PRN (19:44)
[2019-04-24] MEDS ORDERED: LORATADINE 10 MG TAB PO SCH (21:30)
[2019-04-24] MEDS ORDERED: LISINOPRIL 10 MG TAB PO SCH (21:30)
[2019-04-24] MEDS ORDERED: PANTOPRAZOLE 40 MG TABLET PO SCH (21:30)
[2019-04-24] MEDS: DULoxetine HCL 60 MG CAPSULE.DR PO SCH (21:51)
[2019-04-24] MEDS: FENOFIBRATE 160 MG TAB PO SCH (21:52)
[2019-04-24] MEDS: ATORVASTATIN 10 MG TAB PO SCH (21:52)
[2019-04-24] MEDS: DOCUSATE 100 MG CAP PO SCH (21:52)
[2019-04-24] MEDS: DONEPEZIL 10 MG TAB PO SCH (21:53)
[2019-04-24] MEDS: PROPRANOLOL 20 MG TAB PO SCH (21:54)
[2019-04-24] MEDS: PARoxetine 10 MG TAB PO SCH (21:54)
[2019-04-24] MEDS: THIAMINE 100 MG TAB PO SCH (22:03)
[2019-04-24] MEDS: NITROGLYCERIN OINT 1 INCH/GM PACKET TOPICAL SCH (23:38)
[2019-04-25] MEDS: oxyCODONE-APAP 7.5-325MG 1 EACH TAB PO PRN ×2 (01:48→21:31)
[2019-04-25] MEDS: tiZANidine 4 MG TAB PO PRN (01:51)
[2019-04-25] MEDS: NITROGLYCERIN OINT 1 INCH/GM PACKET TOPICAL SCH ×2 (05:56→13:06)
[2019-04-25] MEDS: THIAMINE 100 MG TAB PO SCH ×2 (06:37→18:54)
[2019-04-25 06:56] LABS: Cholesterol 250 mg/dL (<200); HDL Cholesterol 45 mg/dL (40-60); LDL Cholesterol,Calculated 136 mg/dL (0-99); Triglycerides 345 mg/dL (<150)
[2019-04-25] MEDS ORDERED: ASPIRIN 325 MG TAB PO SCH (09:00)
[2019-04-25] MEDS: DOCUSATE 100 MG CAP PO SCH (10:40)
[2019-04-25] MEDS: DONEPEZIL 10 MG TAB PO SCH ×2 (10:40→20:13)
[2019-04-25] MEDS: MULTIVITAMINS, THERA 1 EACH TAB PO SCH (10:40)
[2019-04-25] MEDS: PROPRANOLOL 20 MG TAB PO SCH ×2 (10:47→20:18)
--- NOTE | 2019-04-25 13:00 | P.CRDCN ---
History of Present Illness Consult date: 04/25/19 Chief complaint: Weight gain History of present illness: This is a very pleasant 43-year-old gentleman with recent diagnosis of Lewy body syndrome who currently cannot walk and using the cane most of the time because of severe lower extremities weakness as well as history of hypertension as well as dyslipidemia and significant family history of coronary artery disease presented to the emergency room because he was not feeling well. For the last several weeks, he noticed increasing in his weight associated with severe bilateral lower extremities edema as well as associated was increasing in the shortness of breath as well as intermittent episodes of chest discomfort and chest pressure. The patient stated that he gained about 15 pounds within a few weeks. He was receiving Lasix by mouth before he he presented to the hospital. Apparently in the emergency room he was found to have severe bilateral lower extremities edema and he was given one dose of Lasix IV. The edema today is mild and not as bad as yesterday. The chest x-ray did not show any acute abnormalities. The cardiac enzymes were checked and came in to be unremarkable. The EKG showed sinus rhythm without any significant ST or T-wave abnormalities. The patient does have also mild chronic kidney disease. Beside that today his blood pressure has been on the low side and for that reason I am decreasing the dose of lisinopril in view of that. Beside that I'm going to start the patient on Lasix IV at 20 mg twice a day. We'll get an echocardiogram to establish LV function. Definitely the patient need to have a stress test as an outpatient probably to rule out severe underlying coronary artery disease giving his chest discomfort symptoms and the significant family history as well as multiple risk factors. Past Medical History Past Medical History: Cancer, Hyperlipidemia, Hypertension, Musculoskeletal Disorder, Sleep Apnea/CPAP/BIPAP Additional Past Medical History / Comment(s): cancer LT Testicular, gout, chronic back and neck pain, sleep apnea. History of single level lumbar laminec melissa with Dr. Wright in May 2016. Lewey body dementia History of Any Multi-Drug Resistant Organisms: None Reported Past Surgical History: Hernia Repair, Orthopedic Surgery Additional Past Surgical History / Comment(s): LT testicular SX (removed), lt knee arthroscopy, pain injections in back and radioablation, Past Anesthesia/Blood Transfusion Reactions: Family History of Problems w/ Anesthesia Additional Past Anesthesia/Blood Transfusion Reaction / Comment(s): States father had a hard time waking up from anesthesia. Past Psychological History: Anxiety Additional Psychological History / Comment(s): Patient lives with . Lives in a rental. Patient has cat and dog. 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 Smoking Status: Former smoker Past Alcohol Use History: Occasional Additional Past Alcohol Use History / Comment(s): Drinks two times a week and anywhere from 6-15 beers. Last drink was 3 days. Past Drug Use History: None Reported - Past Family History Father History Unknown: Yes Additional Family Medical History / Comment(s): Depression, PTSD, abused as child, Mother History Unknown: Yes Family Medical History: Hypertension Additional Family Medical History / Comment(s): CABG- 4 vessel bypass, roshacea, Medications and Allergies Home Medications Medication Instructions Recorded Confirmed Type Cetirizine HCl [Zyrtec] 10 mg PO HS 01/21/17 04/24/19 History Omeprazole 20 mg PO HS 01/21/17 04/24/19 History tiZANidine [Zanaflex] 4 mg PO Q8HR PRN 01/21/17 04/24/19 History DULoxetine HCL [Cymbalta] 60 mg PO HS 01/26/19 04/24/19 History Fenofibrate [Lofibra] 160 mg PO HS 01/26/19 04/24/19 History Lisinopril [Prinivil] 10 mg PO HS 01/26/19 04/24/19 History PARoxetine HCL [Paxil] 30 mg PO HS 01/26/19 04/24/19 History Propranolol HCl 60 mg PO BID 01/26/19 04/24/19 History Simvastatin [Zocor] 5 mg PO HS 01/26/19 04/24/19 History oxyCODONE HCL/ACETAMINOPHEN 1 tab PO Q6HR PRN 01/26/19 04/24/19 History [Percocet 7.5-325 mg] rOPINIRole HCL [Requip] 2 mg PO HS 01/26/19 04/24/19 History Multivitamins, Thera [Multivitamin 1 each PO DAILY@1200 #30 tab 01/29/19 04/24/19 Rx (formulary)] Thiamine [Vitamin B-1] 100 mg PO BID-W/MEALS #30 tab 01/29/19 04/24/19 Rx Docusate [Colace] 100 mg PO DAILY 04/24/19 04/24/19 History Rivastigmine Tartrate 1.5 mg PO BID 04/24/19 04/24/19 History [Rivastigmine] Allergies Allergy/AdvReac Type Severity Reaction Status Date / Time meperidine HCl [From Demerol] Allergy Swelling/Ra Verified 04/24/19 21:20 sh/Itching meloxicam [From Mobic] AdvReac Severe Confusion Verified 04/24/19 21:20 gabapentin AdvReac Intermediate See below Verified 04/24/19 21:20 codeine AdvReac Nausea & Verified 04/25/19 01:57 Vomiting Physical Exam Vitals: Vital Signs Temp Pulse Pulse Pulse Resp BP BP 04/25/19 11:28 97.4 F L 66 18 102/67 04/25/19 10:47 68 107/56 04/25/19 07:56 67 94/44 04/25/19 07:29 97.6 F 70 18 83/53 04/25/19 04:00 98.2 F 80 17 118/65 04/25/19 03:30 17 04/24/19 23:49 86 17 04/24/19 23:44 98.5 F 86 17 131/71 04/24/19 20:40 116 H 17 04/24/19 20:20 98.7 F 110 H 17 142/68 04/24/19 18:40 96 90 16 150/61 04/24/19 18:10 20 04/24/19 17:46 98.6 F 99 16 141/69 Pulse Ox 04/25/19 11:28 97 04/25/19 10:47 97 04/25/19 07:56 04/25/19 07:29 97 04/25/19 04:00 98 04/25/19 03:30 04/24/19 23:49 04/24/19 23:44 98 04/24/19 20:40 04/24/19 20:20 96 04/24/19 18:40 98 04/24/19 18:10 04/24/19 17:46 99 Intake and Output 04/24/19 04/25/19 04/25/19 22:59 06:59 14:59 Intake Total 480 125 Output Total 850 Balance 480 -850 125 Intake: Oral 480 125 Output: Urine 850 Other: # Voids 1 0 Weight 103.419 kg - Constitutional General appearance: no acute distress - Respiratory Respiratory: bilateral: CTA - Cardiovascular Rhythm: regular Heart sounds: normal: S1, S2 Results 04/24/19 18:19 04/24/19 18:19 Cardiac Enzymes 04/24/19 04/24/19 04/25/19 Range/Units 18:19 18: 00:04 AST 30 (17-59) U/L Troponin I <0.012 <0.012 (0.000-0.034) ng/mL 04/25/19 Range/Units 06:13 AST (17-59) U/L Troponin I <0.012 (0.000-0.034) ng/mL Coagulation 04/24/19 Range/Units 18: PT 10.1 (9.0-12.0) sec APTT 24.2 (22.0-30.0) sec Lipids 04/25/19 Range/Units 06:13 Triglycerides 345 H (<150) mg/dL Cholesterol 250 H (<200) mg/dL HDL Cholesterol 45 (40-60) mg/dL CBC 04/24/19 Range/Units 18: WBC 6.0 (3.8-10.6) k/uL RBC 4.67 (4.30-5.90) m/uL Hgb 13.9 (13.0-17.5) gm/dL Hct 40.2 (39.0-53.0) % Plt Count 301 (150-450) k/uL Comprehensive Metabolic Panel 04/24/19 Range/Units 18:19 Sodium 137 (137-145) mmol/L Potassium 4.0 (3.5-5.1) mmol/L Chloride 102 (98-107) mmol/L Carbon Dioxide 24 (22-30) mmol/L BUN 20 (9-20) mg/dL Creatinine 1.63 H (0.66-1.25) mg/dL Glucose 143 H (74-99) mg/dL Calcium 9.6 (8.4-10.2) mg/dL AST 30 (17-59) U/L ALT 30 (4-49) U/L Alkaline Phosphatase 49 (38-126) U/L Total Protein 7.1 (6.3-8.2) g/dL Albumin 4.3 (3.5-5.0) g/dL Current Medications Generic Name Dose Route Start Last Admin Trade Name Freq PRN Reason Stop Dose Admin Aspirin 325 mg 04/25/19 09:00 04/25/19 10:40 Aspirin PO 325 mg DAILY [facility]NE Administration Atorvastatin Calcium 10 mg 04/24/19 21:30 04/24/19 21:52 Lipitor PO 10 mg HS [facility] Administration Docusate Sodium 100 mg 04/24/19 21:30 04/25/19 10:40 Colace PO 100 mg DAILY [facility] Administration Donepezil HCl 10 mg 04/24/19 21:30 04/25/19 10:40 Aricept PO 10 mg BID [facility] Administration Duloxetine HCl 60 mg 04/24/19 21:30 04/24/19 21:51 Cymbalta PO 60 mg HS [facility] Administration Fenofibrate 160 mg 04/24/19 21:30 04/24/19 21:52 Lofibra PO 160 mg HS [facility] Administration Furosemide 20 mg 04/25/19 21:00 Lasix IV Q12HR [facility] Lisinopril 5 mg 04/25/19 21:00 Zestril PO HS [facility] Loratadine 10 mg 04/24/19 21:30 04/24/19 21:52 Claritin PO 10 mg HS [facility] Administration Multivitamins 1 each 04/25/19 12:00 04/25/19 10:40 Theragran PO 1 each DAILY@1200 [facility] Administration Nitroglycerin 0.4 mg 04/24/19 19:44 Nitrostat SUBLINGUAL Q5M PRN Chest Pain Nitroglycerin 1 inch 04/25/19 00:00 04/25/19 05:56 Nitro-Bid Oint TOPICAL Not Given Q6HR [facility] Oxycodone/Acetaminophen 1 each 04/24/19 21:19 04/25/19 01:48 Percocet 7.5-325 PO 1 each Q6HR PRN Administration Pain Pantoprazole Sodium 20 mg 04/24/19 21:30 04/24/19 21:51 Protonix PO 20 mg HS [facility] Administration Paroxetine HCl 30 mg 04/24/19 21:30 04/24/19 21:54 Paxil PO 30 mg HS [facility] Administration Propranolol HCl 60 mg 04/24/19 21:30 04/25/19 10:47 Inderal PO Not Given BID [facility] Ropinirole HCl 2 mg 04/24/19 21:30 04/24/19 22:03 Requip PO 2 mg HS [facility] Administration Thiamine HCl 100 mg 04/24/19 21:30 04/25/19 06:37 Vitamin B-1 PO 100 mg BID-W/MEALS [facility] Administration Tizanidine HCl 4 mg 04/24/19 21:19 04/25/19 01:51 Zanaflex PO 4 mg Q8HR PRN Administration Muscle Pain Intake and Output 04/24/19 04/25/19 04/25/19 22:59 06:59 14:59 Intake Total 480 125 Output Total 850 Balance 480 -850 125 Intake: Oral 480 125 Output: Urine 850 Other: # Voids 1 0 Weight 103.419 kg 04/24/19 18:19 04/24/19 18:19 Assessment and Plan Assessment: Assessment #1 mild congestive heart failure exacerbation. Etiology unknown #2 weight gain likely related to fluid #3 intermittent episodes of chest discomfort #4 multiple comorbidities Plan #1 decrease the dose of lisinopril in view of the low blood pressure #2 start the patient on a small dose of Lasix #3 obtain an echocardiogram was Doppler #4 follow-up with the patient
--- NOTE | 2019-04-25 14:36 | P.HPIM ---
History of Present Illness H&P Date: 04/25/19 Chief Complaint: leg swelling History of presenting complaint: This is a 43-year-old patient of Dr. Ortega. Chronic stable medical conditions include hypertension, hyperlipidemia, obstructive sleep apnea uses CPAP machine, has recently been diagnosed with the body by Dr. Arana neurologist, anxiety, peripheral neuropathy from alcoholism. Patient will multitudinous symptoms. His renal having chest pressure on and off for quite a while. Also for about a month) goals increasing swelling of the lower extremity. Has been feeling bloated and short of breath. All the symptoms decided to present here. Patient did receive IV Lasix after with swelling has gone down. Cardiology was consulted. Patient been having significant amount of alcohol for quite a while until about 2 months ago. We'll also smoking a pack a day up to about 5 months ago. Patient's mother is at the bedside. Patient also uses a cane because of lower extremity neuropathy Review of systems: GEN.: Tired EYES: None HEENT: None NECK: None RESPIRATORY: None CARDIOVASCULAR: As above GASTROINTESTINAL: None GENITOURINARY: None MUSCULOSKELETAL: None LYMPHATICS: None HEMATOLOGICAL: None PSYCHIATRY: None NEUROLOGICAL: Peripheral lower extremity numbness. Past medical history to include: Hypertension, hyperlipidemia, obstructive sleep apnea, gout, chronic low back and neck pain, lewy body dementia, peripheral neuropathy from alcoholism uses a cane, left testicular cancer Social history: , not employed. Was drinking a significant alcohol for about 2 months ago. Smokes half a pack a day for 24 years stopped 5 months ago Physical examination: VITAL SIGNS: 98.6, 99, 16, 141/69, 99% room air GENERAL: BMI 39.1, sitting up in bed not in distress. EYES: Pupils equal. Conjunctiva normal. HEENT: External appearance of nose and ears normal, oral cavity grossly normal. NECK: JVD not raised; masses not palpable. HEART: First and second heart sounds are normal; no edema. LUNGS: Respiratory rate normal; clear to auscultation. ABDOMEN: Soft, nontender, liver spleen not palpable, no masses palpable. PSYCH: Alert and oriented x3; mood and affect normal. NEUROLOGICAL: Cranial nerves grossly intact; no facial asymmetry, power and sensation grossly intact. LYMPHATICS: No lymph nodes palpable in the axilla and neck INVESTIGATIONS, reviewed in the clinical context: White count 6 hemoglobin 13.9 platelets 30 on percussion 4.0 creatinine 1.63 glucose 143 Troponin I 3 negative LDL 136 Computed tomography scan brain and January of this year negative Patient's creatinine was 1.43 in January of this year EKG tracing personally reviewed by me-normal sinus rhythm Chest x-ray film personally reviewed by me shows no obvious vascular prominence Assessment: -This is a patient whose. Having swelling for over a month abdominal bloating feels fluid overloaded had gone weight, present for the same. Chest x-ray did not show any significant pulmonary edema. Did receive Lasix to which he responded well. Fluid retention could be cardiac, could be renal given chronic kidney disease and cannot rule out hepatic cause due to history of alcoholism -Obesity BMI 39.1 -Essential hypertension -Obstructive sleep apnea uses CPAP -Alcoholic peripheral neuropathy -lewy body dementia diagnosed by Dr. Arana Plan: Patient did get IV Lasix. Cartilage was consulted. 2-D echocardiogram was ordered. We'll order a abdominal complete ultrasound to evaluate the liver and also the kidneys to look for CKD. We'll also check a UA. We'll also get a nephrology opinion. Patient does not have hypoalbuminemia. Patient's LFTs are normal. Also patient pro time was normal. That makes liver disease less likely. Care was discussed with the patient and mother the bedside. We'll also have the patient see a dietitian. For weight loss measures. Past Medical History Past Medical History: Cancer, Hyperlipidemia, Hypertension, Musculoskeletal Disorder, Sleep Apnea/CPAP/BIPAP Additional Past Medical History / Comment(s): cancer LT Testicular, gout, chronic back and neck pain, sleep apnea. History of single level lumbar laminectomy with Dr. Wright in May 2016. Lewey body dementia History of Any Multi-Drug Resistant Organisms: None Reported Past Surgical History: Hernia Repair, Orthopedic Surgery Additional Past Surgical History / Comment(s): LT testicular SX (removed), lt knee arthroscopy, pain injections in back and radioablation, Past Anesthesia/Blood Transfusion Reactions: Family History of Problems w/ Anesthesia Additional Past Anesthesia/Blood Transfusion Reaction / Comment(s): States father had a hard time waking up from anesthesia. Past Psychological History: Anxiety Additional Psychological History / Comment(s): Patient lives with . Lives in a rental. Patient has cat and dog. 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 Smoking Status: Former smoker Past Alcohol Use History: Occasional Additional Past Alcohol Use History / Comment(s): Drinks two times a week and anywhere from 6-15 beers. Last drink was 3 days. Past Drug Use History: None Reported - Past Family History Father History Unknown: Yes Additional Family Medical History / Comment(s): Depression, PTSD, abused as child, Mother History Unknown: Yes Family Medical History: Hypertension Additional Family Medical History / Comment(s): CABG- 4 vessel bypass, roshacea, Medications and Allergies Home Medications Medication Instructions Recorded Confirmed Type Cetirizine HCl [Zyrtec] 10 mg PO HS 01/21/17 04/24/19 History Omeprazole 20 mg PO HS 01/21/17 04/24/19 History tiZANidine [Zanaflex] 4 mg PO Q8HR PRN 01/21/17 04/24/19 History DULoxetine HCL [Cymbalta] 60 mg PO HS 01/26/19 04/24/19 History Fenofibrate [Lofibra] 160 mg PO HS 01/26/19 04/24/19 History Lisinopril [Prinivil] 10 mg PO HS 01/26/19 04/24/19 History PARoxetine HCL [Paxil] 30 mg PO HS 01/26/19 04/24/19 History Propranolol HCl 60 mg PO BID 01/26/19 04/24/19 History Simvastatin [Zocor] 5 mg PO HS 01/26/19 04/24/19 History oxyCODONE HCL/ACETAMINOPHEN 1 tab PO Q6HR PRN 01/26/19 04/24/19 History [Percocet 7.5-325 mg] rOPINIRole HCL [Requip] 2 mg PO HS 01/26/19 04/24/19 History Multivitamins, Thera [Multivitamin 1 each PO DAILY@1200 #30 tab 01/29/19 04/24/19 Rx (formulary)] Thiamine [Vitamin B-1] 100 mg PO BID-W/MEALS #30 tab 01/29/19 04/24/19 Rx Docusate [Colace] 100 mg PO DAILY 04/24/19 04/24/19 History Rivastigmine Tartrate 1.5 mg PO BID 04/24/19 04/24/19 History [Rivastigmine] Allergies Allergy/AdvReac Type Severity Reaction Status Date / Time meperidine HCl [From Demerol] Allergy Swelling/Ra Verified 04/24/19 21:20 sh/Itching meloxicam [From Mobic] AdvReac Severe Confusion Verified 04/24/19 21:20 gabapentin AdvReac Intermediate See below Verified 04/24/19 21:20 codeine AdvReac Nausea & Verified 04/25/19 01:57 Vomiting Physical Exam Vitals: Vital Signs Temp Pulse Pulse Pulse Resp BP BP 04/25/19 07:56 67 94/44 04/25/19 07:29 97.6 F 70 18 83/53 04/25/19 04:00 98.2 F 80 17 118/65 04/25/19 03:30 17 04/24/19 23:49 86 17 04/24/19 23:44 98.5 F 86 17 131/71 04/24/19 20:40 116 H 17 04/24/19 20:20 98.7 F 110 H 17 142/68 04/24/19 18:40 96 90 16 150/61 04/24/19 18:10 20 04/24/19 17:46 98.6 F 99 16 141/69 Pulse Ox 04/25/19 07:56 04/25/19 07:29 97 04/25/19 04:00 98 04/25/19 03:30 04/24/19 23:49 04/24/19 23:44 98 04/24/19 20:40 04/24/19 20:20 96 04/24/19 18:40 98 04/24/19 18:10 04/24/19 17:46 99 Intake and Output 04/24/19 04/25/19 04/25/19 22:59 06:59 14:59 Intake Total 480 Output Total 850 Balance 480 -850 Intake: Oral 480 Output: Urine 850 Other: # Voids 1 Weight 103.419 kg Results CBC & Chem 7: 04/24/19 18:19 04/24/19 18:19 Labs: Abnormal Lab Results - Last 24 Hours (Table) 04/24/19 04/24/19 04/25/19 Range/Units 18:17 18:19 06:13 Creatinine 1.63 H (0.66-1.25) mg/dL Glucose 143 H (74-99) mg/dL POC Glucose (mg/dL) 142 H (75-99) mg/dL Magnesium 1.3 L (1.6-2.3) mg/dL Triglycerides 345 H (<150) mg/dL Cholesterol 250 H (<200) mg/dL LDL Cholesterol, Calc 136 H (0-99) mg/dL Thrombosis Risk Factor Assmnt - Choose All That Apply Any of the Below Risk Factors Present?: Yes Each Factor Represents 1 point: Age 41-60 years, Obesity (BMI >25) Other congenital or acquired thrombophilia - If yes, enter type in comment: No Thrombosis Risk Factor Assessment Total Risk Factor Score: 2 Thrombosis Risk Factor Assessment Level: Low Risk
[2019-04-25] MEDS: FUROSEMIDE 20 MG TAB PO SCH (15:32)
[2019-04-25] MEDS: ENOXAPARIN 40 MG/0.4 ML SYRINGE SQ SCH (15:32)
[2019-04-25 15:54] LABS: Appearance,Urine Clear (Clear); Bilirubin,Urine Negative (Negative); Blood,Urine Negative (Negative); Color,Urine Yellow; Glucose,Urine (UA) Negative (Negative); Ketones,Urine Negative (Negative); Leukocyte Esterase,Urine Negative (Negative); Nitrite,Urine Negative (Negative); Protein,Urine Trace (Negative); Specific Gravity,Urine 1.022 (1.001-1.035); Urobilinogen,Urine <2.0 mg/dL (<2.0)
--- NOTE | 2019-04-25 16:01 | ECHOF ---
Referral Reason:Chest pain MEASUREMENTS -------- HEIGHT: 162.6 cm WEIGHT: 103.4 kg BP: 118/65 IVSd: 1.4 cm (0.6 - 1.1) LVIDd: 3.8 cm (3.9 - 5.3) LVPWd: 1.4 cm (0.6 - 1.1) IVSs: 2.2 cm LVIDs: 2.8 cm LVPWs: 2.3 cm LAESV Index (A-L): 21.71 ml/m Ao Diam: 2.9 cm (2.0 - 3.7) AV Cusp: 1.9 cm (1.5 - 2.6) LA Diam: 3.5 cm (2.7 - 3.8) MV EXCURSION: 18.048 mm (> 18.000) MV EF SLOPE: 75 mm/s (70 - 150) EPSS: 0.8 cm MV E Joe: 0.72 m/s MV DecT: 192 ms MV A Joe: 0.53 m/s MV E/A Ratio: 1.36 RAP: 5.00 mmHg RVSP: 17.01 mmHg FINDINGS -------- Sinus rhythm. This was a technically adequate study. The left ventricular size is normal. There is moderate concentric left ventricular hypertrophy. O verall left ventricular systolic function is normal with, an EF between 55 - 60 %. The diastolic fi lling pattern is normal for the age of the patient {E/E'}. The right ventricle is normal in size. Normal LA size by volume 22+/-6 ml/m2. The right atrial size is normal. Interatrial and interventricular septum intact. The aortic valve is trileaflet and appears structurally normal. There is no evidence of aortic regu rgitation. There is no evidence of aortic stenosis. No mitral regurgitation. Mild tricuspid regurgitation present. There is no evidence of pulmonary hypertension. The right v entricular systolic pressure, as measured by Doppler, is 17.01mmHg. There is no pulmonic regurgitation present. The aortic root size is normal. Normal inferior vena cava with normal inspiratory collapse consistent with estimated right atrial pre ssure of 5 mmHg. There is no pericardial effusion. CONCLUSIONS -------- 1. Sinus rhythm. 2. This was a technically adequate study. 3. The left ventricular size is normal. 4. There is moderate concentric left ventricular hypertrophy. 5. Overall left ventricular systolic function is normal with, an EF between 55 - 60 %. 6. The diastolic filling pattern is normal for the age of the patient {E/E'} 7. The right ventricle is normal in size. 8. Normal LA size by volume 22+/-6 ml/m2. 9. The right atrial size is normal. 10. Interatrial and interventricular septum intact. 11. The aortic valve is trileaflet and appears structurally normal. 12. There is no evidence of aortic regurgitation. 13. There is no evidence of aortic stenosis. 14. No mitral regurgitation. 15. Mild tricuspid regurgitation present. 16. There is no evidence of pulmonary hypertension. 17. The right ventricular systolic pressure, as measured by Doppler, is 17.01mmHg. 18. There is no pulmonic regurgitation present. 19. The aortic root size is normal. 20. Normal inferior vena cava with normal inspiratory collapse consistent with estimated right atrial pressure of 5 mmHg. 21. There is no pericardial effusion. PRACTICING DERMATOLOGIST: Radha Baltazar RDCS
[2019-04-25] MEDS: PANTOPRAZOLE 40 MG TABLET PO SCH (20:12)
[2019-04-25] MEDS: DULoxetine HCL 60 MG CAPSULE.DR PO SCH (20:12)
[2019-04-25] MEDS: FENOFIBRATE 160 MG TAB PO SCH (20:13)
[2019-04-25] MEDS: PARoxetine 10 MG TAB PO SCH (20:14)
[2019-04-25] MEDS: ATORVASTATIN 10 MG TAB PO SCH (20:21)
[2019-04-25] MEDS ORDERED: FUROSEMIDE 10 MG/ML 2 ML VIAL IV SCH (21:00)
[2019-04-25] MEDS ORDERED: LISINOPRIL 5 MG TAB PO SCH (21:00)
[2019-04-25] MEDS: MELATONIN 1 MG TAB PO SCH (21:31)
[2019-04-26] MEDS: tiZANidine 4 MG TAB PO PRN (00:24)
[2019-04-26] MEDS: THIAMINE 100 MG TAB PO SCH ×2 (06:46→17:10)
--- NOTE | 2019-04-26 08:03 | US ---
EXAMINATION TYPE: US abdomen complete DATE OF EXAM: 04/26/2019 COMPARISON: NONE CLINICAL HISTORY: evaluate liver and possibly CKD. Pt states chest pain, abnormal renal labs EXAM MEASUREMENTS: Liver Length: 13.9 cm Gallbladder Wall: 0.2 cm CBD: 0.3 cm Spleen: 10.3 cm Right Kidney: 10.0 x 5.0 x 5.0 cm Left Kidney: 9.2 x 4.6 x 4.2 cm Pancreas: Obscured by bowel gas Liver: Heterogeneous, otherwise wnl Gallbladder: wnl Evidence for sonographic Cox's sign: No CBD: wnl Spleen: wnl Right Kidney: wnl Left Kidney: wnl Upper IVC: wnl Abd Aorta: Distal portion wnl, prox and mid gassed out The pancreas is obscured. The liver is normal in size without biliary dilatation. Somewhat heterogenous. The gallbladder is unremarkable. The gallbladder wall measures 2 mm. This common hepatic duct measure s 3 mm. There is no sonographic Cox's sign. The spleen is normal in size. Both kidneys appear normal. Visualized portions of aorta and IVC are unremarkable. IMPRESSION: SOMEWHAT LIMITED EXAMINATION WITHOUT DEFINITE PATHOLOGIC ABNORMALITY.
[2019-04-26] MEDS: ASPIRIN 81 MG PO SCH (08:04)
[2019-04-26] MEDS: ENOXAPARIN 40 MG/0.4 ML SYRINGE SQ SCH (08:04)
[2019-04-26] MEDS: DONEPEZIL 10 MG TAB PO SCH ×2 (08:05→20:06)
[2019-04-26] MEDS: PROPRANOLOL 20 MG TAB PO SCH ×2 (11:57→20:11)
--- NOTE | 2019-04-26 12:01 | P.PN ---
Subjective Progress Note Date: 04/26/19 Principal diagnosis: Chest pain This is a very pleasant 43-year-old gentleman with recent diagnosis of Lewy body syndrome who currently cannot walk and using the cane most of the time because of severe lower extremities weakness as well as history of hypertension as well as dyslipidemia and significant family history of coronary artery disease presented to the emergency room because he was not feeling well. For the last several weeks, he noticed increasing in his weight associated with severe bilateral lower extremities edema as well as associated was increasing in the sh ortness of breath as well as intermittent episodes of chest discomfort and chest pressure. The patient stated that he gained about 15 pounds within a few weeks. He was receiving Lasix by mouth before he he presented to the hospital. Apparently in the emergency room he was found to have severe bilateral lower extremities edema and he was given one dose of Lasix IV. The edema today is mild and not as bad as yesterday. The chest x-ray did not show any acute abnormalities. The cardiac enzymes were checked and came in to be unremarkable. The EKG showed sinus rhythm without any significant ST or T-wave abnormalities. The patient does have also mild chronic kidney disease. Beside that today his blood pressure has been on the low side and for that reason I am decreasing the dose of lisinopril in view of that. The patient was seen this morning. Overall he is feeling better. He stated that the chest discomfort has resolved. The creatinine continues to be stable. Giving his significant family history of coronary artery disease, I did recommend obtaining a stress test to rule out severe coronary artery disease. I am going to schedule the patient to undergo dobutamine stress echocardiogram tomorrow morning. Objective - Vital Signs Vital signs: Vital Signs Temp 97.5 F L 04/26/19 11:18 Pulse 67 04/26/19 11:18 Resp 18 04/26/19 11:18 BP 108/68 04/26/19 11:18 Pulse Ox 97 04/26/19 11:18 Intake & Output 04/25/19 04/26/19 04/26/19 18:59 06:59 18:59 Intake Total 125 160 440 Output Total 200 1175 Balance -75 -1015 440 Weight 97.296 kg Intake: Oral 125 160 240 Other 200 Output: Urine 200 775 Other 400 Other: Voiding Method Toilet # Voids 1 1 - Constitutional General appearance: Present: no acute distress - Respiratory Respiratory: bilateral: CTA - Cardiovascular Rhythm: regular Heart sounds: normal: S1, S2 - Labs CBC & Chem 7: 04/24/19 18:19 04/24/19 18:19 Labs: Abnormal Lab Results - Last 24 Hours (Table) 04/25/19 Range/Units 15:20 Urine Protein Trace H (Negative) Assessment and Plan Assessment: Assessment #1 mild congestive heart failure exacerbation. Etiology unknown #2 weight gain likely related to fluid #3 intermittent episodes of chest discomfort #4 multiple comorbidities Plan #1 follow-up on the echocardiogram #2 obtain dobutamine stress echocardiogram #3 follow-up with the patient
[2019-04-26] MEDS: MULTIVITAMINS, THERA 1 EACH TAB PO SCH (12:03)
[2019-04-26 12:24] LABS: Calcium 9.7 mg/dL (8.4-10.2); Potassium 3.9 mmol/L (3.5-5.1)
[2019-04-26] MEDS ORDERED: LACTULOSE 20 GM/30 ML CUP PO ONE (12:41)
--- NOTE | 2019-04-26 12:44 | CONS ---
CONSULTATION REASON FOR CONSULT: Renal failure. HISTORY OF PRESENT ILLNESS: Patient is a 43-year-old male who was admitted to the hospital with complaints of chest pain and increased lower extremity edema. The patient states he was diagnosed with Lewy body dementia recently. He does have a history of hypertension. The patient also has history of hyperlipidemia. He denies any previous history of chronic kidney disease. However, he has had acute kidney injury previously for which he did see a tier lift truck operator out of [facility], but only for 1-2 visits and he did not need to return back as renal function had improved. Patient did admit to taking a couple of doses of Naprosyn, but denies use of nonsteroidal anti-inflammatory agents on regular basis. The patient was on Prinivil at home for hypertension. He denies any history of congestive heart failure. Echocardiogram done this admission shows ejection fraction at 55% to 60%. Serum creatinine was 1.63 mg/dL on April 24. Prior to that we have a creatinine of 1.49 on 01/29/2019. We do not have any labs from today. The patient is maintained on lisinopril 5 mg daily along with Lasix 20 mg b.i.d. His swelling has improved. Blood pressure is low today with systolic at 85 mm of Hg. The patient has lost about 6 kg since admission if this is accurate. PAST MEDICAL HISTORY: Recent diagnosis of Lewy body dementia, history of obstructive sleep apnea, hyperlipidemia, hypertension. Testicular cancer and gout, chronic back pain. PAST SURGICAL HISTORY: Lumbar laminectomy, hernia repair, testicular surgery with removal of left testicle and knee arthroscopy. SOCIAL HISTORY: Patient is a former smoker. No history of drug abuse or alcohol abuse. MEDICATIONS: At home prior to admission included Zyrtec, omeprazole, Zanaflex, Cymbalta, Lofibra, Prinivil, Paxil, Zocor, Requip, Colace, and rivastigmine, which has recently been started by Neurology. ALLERGIES: INCLUDE MOBIC, GABAPENTIN, CODEINE, DEMEROL. PHYSICAL EXAMINATION: Patient is comfortable, awake, alert, oriented x3, not in any acute distress. Blood pressure is 85/54, heart rate 71 per minute, patient is afebrile. Examination of the heart S1, S2. Examination of the lungs, bilateral breath sounds are heard. ABDOMEN: Soft, nontender. Examination of lower extremities shows no evidence of edema. CORPORATE BU[employer]ER exam is grossly intact. LABS: Sodium 137, potassium 4.0, chloride 102, CO2 is 24, BUN 20, creatinine 1.63. UA shows trace protein, otherwise pretty much benign. Hemoglobin was 13.9 g/dL. ASSESSMENT: 1. Acute kidney injury at the time of admission, mostly cardiac cardiorenal. We will repeat labs. Patient has been well diuresed. However, his blood pressure is low. Therefore, I will not be surprised if his renal function is worse. I added parameters to the SANDRA inhibitors to hold for systolic blood pressure of less than 110 and I will decrease the dose of Lasix further. 2. Chronic kidney disease with previous creatinine around 1.4 mg/dL in January of 2019 but lowest at 1.1 in 2017. Etiology unclear, possible interstitial nephropathy versus nephrosclerosis however patient is quite young. We need to rule out underlying GN, but unlikely given the fairly benign urinalysis. The patient is advised to avoid the use of NSAIDs. Ultrasound of the kidneys was done today which was unremarkable. 3. Volume overload on initial admission, currently improved. 4. History of hypertension blood pressure currently on the lower side. 5. Chest discomfort, being evaluated by Cardiology. PLAN: Decrease Lasix. Repeat labs today and hold lisinopril for blood pressure less than 110 mmHg systolic. Thank you for this consultation. We will continue to follow the patient with you during his hospitalization. MMODL / IJN: [id number] /
--- NOTE | 2019-04-26 15:33 | P.PN ---
Progress Note - Text Progress Note Date: 04/26/19 Chief Complaint: leg swelling History of presenting complaint: This is a 43-year-old patient of Dr. Ortega. Chronic stable medical conditions include hypertension, hyperlipidemia, obstructive sleep apnea uses CPAP machine, has recently been diagnosed with the body by Dr. Arana neurologist, anxiety, peripheral neuropathy from alcoholism. Patient will multitudinous symptoms. His renal having chest pressure on and off for quite a while. Also for about a month) goals increasing swelling of the lower extremity. Has been feeling bloated and short of breath. All the symptoms decided to present here. Patient did receive IV Lasix after with swelling has gone down. Cardiology was consulted. Patient been having significant amount of alcohol for quite a while until about 2 months ago. We'll also smoking a pack a day up to about 5 months ago. Patient's mother is at the bedside. Patient also uses a cane because of lower extremity neuropathy admitted with fluid overload. Cause unknown. CHF appears to be less likely. The patient did respond to Lasix. Today-worsening of renal function. Blood pressures running low. Patient also nauseated. Not eating. Patient's and mother the bedside. Review of systems: Was done for constitutional, cardiovascular, GI, pulmonary. relevant finding as above Active Medications Aspirin (Aspirin) 81 mg PO DAILY [facility] Last Admin: 04/26/19 08:04 Dose: 81 mg Documented by: Atorvastatin Calcium (Lipitor) 10 mg PO [facility] Last Admin: 04/25/19 20:21 Dose: 10 mg Documented by: Donepezil HCl (Aricept) 10 mg PO BID [facility] Last Admin: 04/26/19 08:05 Dose: 10 mg Documented by: Duloxetine HCl (Cymbalta) 60 mg PO [facility] Last Admin: 04/25/19 20:12 Dose: 60 mg Documented by: Enoxaparin Sodium (Lovenox) 40 mg SQ DAILY [facility] Last Admin: 04/26/19 08:04 Dose: 40 mg Documented by: Fenofibrate (Lofibra) 160 mg PO [facility] Last Admin: 04/25/19 20:13 Dose: 160 mg Documented by: Dobutamine HCl/Dextrose 500 mg (/ IV Solution) 250 mls @ 29.189 mls/hr IV .Q8H34M ONE; Protocol Stop: 04/26/19 20:32 Melatonin (Melatonin) 1 mg PO [facility] Last Admin: 04/25/19 21:31 Dose: 1 mg Documented by: Multivitamins (Theragran) 1 each PO DAILY@1200 [facility] Last Admin: 04/26/19 12:03 Dose: 1 each Documented by: Nitroglycerin (Nitrostat) 0.4 mg SUBLINGUAL Q5M PRN PRN Reason: Chest Pain Oxycodone/Acetaminophen (Percocet 7.5-325) 1 each PO Q6HR PRN PRN Reason: Pain Last Admin: 04/25/19 21:31 Dose: 1 each Documented by: Pantoprazole Sodium (Protonix) 40 mg PO [facility] Last Admin: 04/25/19 20:12 Dose: 40 mg Documented by: Paroxetine HCl (Paxil) 30 mg PO [facility] Last Admin: 04/25/19 20:14 Dose: 30 mg Documented by: Propranolol HCl (Inderal) 60 mg PO BID [facility] Last Admin: 04/26/19 11:57 Dose: Not Given Documented by: Ropinirole HCl (Requip) 2 mg PO [facility] Last Admin: 04/25/19 20:12 Dose: 2 mg Documented by: Thiamine HCl (Vitamin B-1) 100 mg PO BID-W/MEALS [facility] Last Admin: 04/26/19 06:46 Dose: 100 mg Documented by: Tizanidine HCl (Zanaflex) 4 mg PO Q8HR PRN PRN Reason: Muscle Pain Last Admin: 04/26/19 00:24 Dose: 4 mg Documented by: Physical examination: VITAL SIGNS: 97.5, 67, 18, 85% 54, repeat 108/68, 97% room air GENERAL: laying in bed, tired appearing EYES: Pupils equal. Conjunctiva normal. HEENT: External appearance of nose and ears normal, oral cavity grossly normal. NECK: JVD not raised; masses not palpable. HEART: First and second heart sounds are normal; no edema. LUNGS: Respiratory rate normal; clear to auscultation. ABDOMEN: Soft, nontender, liver spleen not palpable, no masses palpable. PSYCH: Alert and oriented x3; mood and affect normal. INVESTIGATIONS, reviewed in the clinical context: Potassium 3.9 bun 30 patient 1.9 to Abdominal ultrasound-liver is normal, both kidneys are normal 2-D echo-moderate concentric left ventricular hypertrophy, EF 55-60% UA-trace protein Previous testing White count 6 hemoglobin 13.9 platelets 30 on percussion 4.0 creatinine 1.63 glucose 143 Troponin I 3 negative LDL 136 Computed tomography scan brain and January of this year negative Patient's creatinine was 1.43 in January this year EKG tracing personally reviewed by me-normal sinus rhythm Chest x-ray film personally reviewed by me shows no obvious vascular prominence Assessment: -acute fluid overload. Cause unclear. Diastolic CHF is a differential. Contribution from security is a possibility. -Currently patient's hypotensive and renal functions is worse.e -Obesity BMI 39.1 -Essential hypertension -Obstructive sleep apnea uses CPAP -Alcoholic peripheral neuropathy -lewy body dementia diagnosed by Dr. Arana -Chronic kidney disease stage III cause unknown Plan: patient is hypotensive this morning. Renal function is worsening. We'll temporarily hold off Lasix and SANDRA inhibitor. See how the patient does. Patient due for a stress test tomorrow. Care was discussed with the patient and at the bedside follow with nephrology and cardiology. we'll do a urine creatinine protein ratio in the morning
[2019-04-26 15:39] VITALS: BMI 36.8
[2019-04-26] MEDS: PARoxetine 10 MG TAB PO SCH (20:06)
[2019-04-26] MEDS: ATORVASTATIN 10 MG TAB PO SCH (20:07)
[2019-04-26] MEDS: FENOFIBRATE 160 MG TAB PO SCH (20:07)
[2019-04-26] MEDS: DULoxetine HCL 60 MG CAPSULE.DR PO SCH (20:07)
[2019-04-26] MEDS: PANTOPRAZOLE 40 MG TABLET PO SCH (20:07)
[2019-04-27] MEDS: MELATONIN 1 MG TAB PO SCH (00:56)
[2019-04-27] MEDS: THIAMINE 100 MG TAB PO SCH (06:34)
[2019-04-27] MEDS ORDERED: ACETAMINOPHEN TAB 325 MG TAB PO STA (06:40)
[2019-04-27] MEDS ORDERED: DOBUTamine DRIP for NUC MED 500 MG in DEXTROSE/WATER 1 250ML.BAG IV ONE (08:00)
[2019-04-27] MEDS: FUROSEMIDE 20 MG TAB PO SCH (08:42)
--- NOTE | 2019-04-27 08:51 | P.PN ---
Subjective Patient is seen in follow-up for acute kidney injury. Creatinine 1.92 as of yesterday. Denies any edema. Urine output is good. Diuretics were held. Vital signs are stable. General: The patient appeared well nourished and normally developed. HEENT: Head exam is unremarkable. Neck is without jugular venous distension. LUNGS: Lungs are clear to auscultation and percussion. Breath sounds decreased. HEART: Rate and Rhythm are regular. First and second heart sounds normal. No murmurs, rubs or gallops. ABDOMEN: Abdominal exam reveals normal bowel sounds. Non-tender and non- distended. No evidence of peritonitis. EXTREMITITES: No clubbing, cyanosis, or edema. Objective - Vital Signs Vital signs: Vital Signs Temp 97.7 F 04/27/19 07:50 Pulse 70 04/27/19 07:50 Resp 19 04/27/19 07:50 BP 156/83 04/27/19 07:50 Pulse Ox 98 04/27/19 07:50 Intake & Output 04/26/19 04/27/19 04/27/19 18:59 06:59 18:59 Intake Total 800 Balance 800 Weight 97.296 kg Intake: Oral 600 Other 200 Other: Voiding Method Toilet Toilet # Voids 1 - Labs CBC & Chem 7: 04/24/19 18:19 04/26/19 11:53 Labs: Abnormal Lab Results - Last 24 Hours (Table) 04/26/19 Range/Units 11:53 BUN 30 H (9-20) mg/dL Creatinine 1.92 H (0.66-1.25) mg/dL Glucose 113 H (74-99) mg/dL Assessment and Plan Plan: Assessment: 1. Acute kidney injury mostly prerenal secondary to cardiorenal syndrome. Creatinine 1.92 as of yesterday. UA is quite benign. No hydronephrosis noted on abdominal ultrasound. 2. Chronic diastolic CHF. Currently compensated. 3. Volume overload. Improved with diuresis. 4. Lewy body dementia. 5. Chronic kidney disease stage III. Creatinine was 1.1 in January 2017. Recent baseline appears to be near 1.4. 6. Hypertension with chronic kidney disease. Plan: Hold off on diuretics at this time. Continue to hold lisinopril. Add amlodipine 5 mg once daily. Low-salt diet. Advised the patient to monitor his weight closely at home. To call our office if he notices more than 2-3 pound weight gain or worsening of edema.
[2019-04-27] MEDS ORDERED: FUROSEMIDE 20 MG TAB PO SCH (09:00)
[2019-04-27] MEDS ORDERED: amLODIPine 5 MG TAB PO SCH (09:00)
[2019-04-27 09:42] LABS: Protein/Creatinine Ratio,Urine 0.1
[2019-04-27 10:57] LABS: Glucose,Whole Blood 125 mg/dL (75-99)
[2019-04-27 11:21] VITALS: BP 145/93; PULSE 89; RESP 18; TEMP 98.1
[2019-04-27] MEDS ORDERED: ATROPINE SULFATE 0.1 MG/ML 10ML SYRINGE ONE (12:14)
[2019-04-27] MEDS: PROPRANOLOL 20 MG TAB PO SCH (12:45)
[2019-04-27] MEDS: MULTIVITAMINS, THERA 1 EACH TAB PO SCH (12:45)
[2019-04-27] MEDS: DONEPEZIL 10 MG TAB PO SCH (12:45)
[2019-04-27] MEDS: ENOXAPARIN 40 MG/0.4 ML SYRINGE SQ SCH (12:45)
[2019-04-27] MEDS: ASPIRIN 81 MG PO SCH (12:45)
--- NOTE | 2019-04-27 20:32 | EST ---
EXERCISE STRESS DATE OF SERVICE: April 27, 2019. INDICATION: Chest pain. AGE: 43 SEX: M HT: 64 inches WT: 214 lbs PROTOCOL: Dobutamine Stress Echo STAGE: 4 DURATION OF EXERCISE: HEART RATE REST: 74 BLOOD PRESSURE REST: 144/48 MAXIMUM HEART RATE ACHIEVED: 154 MAXIMUM BLOOD PRESSURE: 210/51 85% MPHR: 150 100% MPHR: 176 METS: CLINICAL INFORMATION: Chest pain. STRESS DATA: Heart rate 74, pressure is 144/84 mmHg. Baseline EKG showed sinus mechanism. Dobutamine infusion at a dose of 10 mcg/kg per minute was initiated and increased to 40 mcg/kg per minute per protocol with max heart rate was 154 which is about 87% of maximum predicted heart rate. Maximum blood pressure was 210/51 mmHg. Clinically the patient did not have no symptoms of chest pain or chest discomfort during the testing or on recovery and the EKG did not show any significant ST or T-wave abnormalities concerning for ischemia. ECHOCARDIOGRAM IMAGES: On echocardiogram images from parasternal long axis view, parasternal short axis apical 4 chamber and apical 2 chamber were obtained as the baseline images, at low dose dobutamine infusion, at peak heart rate as well as on recovery. The echocardiogram images showed good augmentation in the left ventricular systolic function without any evidence of wall motion abnormalities concerning for ischemia. CONCLUSION: 1. Normal EKG in response to dobutamine. 2. Normal echocardiogram in response to dobutamine. 3. Essentially normal dobutamine stress echocardiogram. MMODL / IJN: [id number] /
--- NOTE | 2019-04-27 22:34 | P.DS ---
Providers Date of admission: 04/26/19 13:54 Expected date of discharge: 04/27/19 Attending physician: Deon Castillo Consults: 04/24/19 19:44 Consult Physician Urgent Consulting Provider: [facility] Consult Reason/Comments: Chest pain Do you want consulting provider notified?: Yes 04/25/19 14:11 Consult Physician Routine Consulting Provider: Sherine Shipley Consult Reason/Comments: CK D Do you want consulting provider notified?: Yes Primary care physician: Bereket Ortega [facility] Hospital Course: Chief Complaint: leg swelling Hospital courset: This is a 43-year-old patient of Dr. Ortega. Chronic stable medical conditions include hypertension, hyperlipidemia, obstructive sleep apnea uses CPAP machine, has recently been diagnosed with the body by Dr. Arana neurologist, anxiety, peripheral neuropathy from alcoholism. Patient will multitudinous symptoms. His renal having chest pressure on and off for quite a while. Also for about a month) goals increasing swelling of the lower extremity. Has been feeling bloated and short of breath. All the symptoms decided to present here. Patient did receive IV Lasix after with swelling has gone down. Cardiology was consulted. Patient been having significant amount of alcohol for quite a while until about 2 months ago. We'll also smoking a pack a day up to about 5 months ago. Patient's mother is at the bedside. Patient also uses a cane because of lower extremity neuropathy admitted with fluid overload. Cause unknown. CHF appears to be less likely. The patient did respond to Lasix.does some worsening of renal function. SANDRA inhibitor so discontinued. Amlodipine was started for blood pressure. Stress test was negative. Patient was counseled about was his diet. And also not to resume smoking or alcohol.patient to follow-up with nephrology and cardiology. Care discussed with patient and mother the bedside. Consultation: nephrology -Dr. Lin from cardiology- Physical examination: VITAL SIGNS: 98.1, 89, 18, 145/93, the red percent room air GENERAL: sitting up, comfortable EYES: Pupils equal. Conjunctiva normal. HEENT: External appearance of nose and ears normal, oral cavity grossly normal. NECK: JVD not raised; masses not palpable. HEART: First and second heart sounds are normal; no edema. LUNGS: Respiratory rate normal; clear to auscultation. ABDOMEN: Soft, nontender, liver spleen not palpable, no masses palpable. PSYCH: Alert and oriented x3; mood and affect normal. INVESTIGATIONS, reviewed in the clinical context: Potassium 3.9 bun 30 patient 1.9 to LDL 136 Previous testing White count 6 hemoglobin 13.9 platelets 30 on percussion 4.0 creatinine 1.63 glucose 143 Troponin I 3 negative LDL 136 Computed tomography scan brain and January of this year negative Patient's creatinine was 1.43 in January of this year EKG tracing personally reviewed by me-normal sinus rhythm Chest x-ray film personally reviewed by me shows no obvious vascular prominence dobutamine echocardiogram-negative for ischemia Abdominal ultrasound-liver is normal, both kidneys are normal 2-D echo-moderate concentric left ventricular hypertrophy, EF 55-60% UA-trace protein Assessment: -acute congestive heart failure exacerbation from diastolic dysfunction EF 55- 60% from hypertensive heart disease -hypertensive heart disease -Obesity BMI 39.1 -Essential hypertension -Obstructive sleep apnea uses CPAP -Alcoholic peripheral neuropathy -lewy body dementia diagnosed by Dr. Arana -Chronic kidney disease stage III , possibly nephrosclerosis disposition: Home Patient Condition at Discharge: Stable Plan - Discharge Summary Discharge Rx Participant: Yes New Discharge Prescriptions: New Melatonin 1 mg PO HS #30 tab amLODIPine [Norvasc] 5 mg PO DAILY #30 tab Continue tiZANidine [Zanaflex] 4 mg PO Q8HR PRN PRN Reason: Muscle Pain Omeprazole 20 mg PO HS rOPINIRole HCL [Requip] 2 mg PO HS Propranolol HCl 60 mg PO BID oxyCODONE HCL/ACETAMINOPHEN [Percocet 7.5-325 mg] 1 tab PO Q6HR PRN PRN Reason: Pain Fenofibrate [Lofibra] 160 mg PO HS DULoxetine HCL [Cymbalta] 60 mg PO HS Simvastatin [Zocor] 5 mg PO HS PARoxetine HCL [Paxil] 30 mg PO HS Multivitamins, Thera [Multivitamin (formulary)] 1 each PO DAILY@1200 #30 tab Thiamine [Vitamin B-1] 100 mg PO BID-W/MEALS #30 tab Docusate [Colace] 100 mg PO DAILY Rivastigmine Tartrate [Rivastigmine] 1.5 mg PO BID Discontinued Cetirizine HCl [Zyrtec] 10 mg PO HS Lisinopril [Prinivil] 10 mg PO HS Discharge Medication List Omeprazole 20 mg PO HS 01/21/17 [History] tiZANidine [Zanaflex] 4 mg PO Q8HR PRN 01/21/17 [History] DULoxetine HCL [Cymbalta] 60 mg PO HS 01/26/19 [History] Fenofibrate [Lofibra] 160 mg PO HS 01/26/19 [History] PARoxetine HCL [Paxil] 30 mg PO HS 01/26/19 [History] Propranolol HCl 60 mg PO BID 01/26/19 [History] Simvastatin [Zocor] 5 mg PO HS 01/26/19 [History] oxyCODONE HCL/ACETAMINOPHEN [Percocet 7.5-325 mg] 1 tab PO Q6HR PRN 01/26/19 [History] rOPINIRole HCL [Requip] 2 mg PO HS 01/26/19 [History] Multivitamins, Thera [Multivitamin (formulary)] 1 each PO DAILY@1200 #30 tab 01/29/19 [Rx] Thiamine [Vitamin B-1] 100 mg PO BID-W/MEALS #30 tab 01/29/19 [Rx] Docusate [Colace] 100 mg PO DAILY 04/24/19 [History] Rivastigmine Tartrate [Rivastigmine] 1.5 mg PO BID 04/24/19 [History] Melatonin 1 mg PO HS #30 tab 04/27/19 [Rx] amLODIPine [Norvasc] 5 mg PO DAILY #30 tab 04/27/19 [Rx] Follow up Appointment(s)/Referral(s): Sherine Shipley MD [STAFF PHYSICIAN] - 05/26/19 1:40 pm (Follow up in the office with Nephrology as scheduled Office will mail you a packet and appointment reminder. Fill out and bring packet to your appointment) [facility], [NON-STAFF] - 1-2 Days Marco Antonio Lin MD [STAFF PHYSICIAN] - 05/14/19 1:30 pm (Follow up in the office with Dr. Lin as scheduled for you Arrive 15 minutes early. 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
== END 2019-04-27 15:38 | disposition home health service (06) | DRG 682 ==
LOC: EC 17:45 → 1SOBS 19:48 → OBSVTOIN 04-26 13:54
PROVIDERS: ADMIT Hospitalist; ATTEND Hospitalist
DX: N17.9 Acute kidney failure, unspecified (principal); I50.33 Acute on chronic diastolic (congestive) heart failure; I13.0 Hypertensive heart and chronic kidney disease with heart failure and stage 1 through stage 4 chronic kidney disease, or unspecified chronic kidney disease; N18.3 Chronic kidney disease, stage 3 (moderate); G62.1 Alcoholic polyneuropathy; F02.80 Dementia in other diseases classified elsewhere, unspecified severity, without behavioral disturbance, psychotic disturbance, mood disturbance, and anxiety; G31.83 Neurocognitive disorder with Lewy bodies; E66.9 Obesity, unspecified; E78.00 Pure hypercholesterolemia, unspecified; E78.5 Hyperlipidemia, unspecified; G47.33 Obstructive sleep apnea (adult) (pediatric); F41.9 Anxiety disorder, unspecified; F10.20 Alcohol dependence, uncomplicated; G89.29 Other chronic pain; M10.9 Gout, unspecified; M54.2 Cervicalgia; M54.9 Dorsalgia, unspecified; I95.9 Hypotension, unspecified; Z68.39 Body mass index [BMI] 39.0-39.9, adult; Z79.899 Other long term (current) drug therapy; Z79.52 Long term (current) use of systemic steroids; Z88.6 Allergy status to analgesic agent; Z88.5 Allergy status to narcotic agent; Z87.891 Personal history of nicotine dependence; Z85.47 Personal history of malignant neoplasm of testis; Z81.8 Family history of other mental and behavioral disorders; Z82.49 Family history of ischemic heart disease and other diseases of the circulatory system
CPT/HCPCS: 36415; 71046; 76700; 80048; 80053; 80061; 81003; 82570; 83735; 83880; 84156; 84484; 85025; 85610; 85730; 93005; 93306; 93351; 96374; 99285

== ENCOUNTER 2019-05-04 09:41 | Emergency (ER) | payer OTHER ==
[2019-05-04] MEDS ORDERED: FUROSEMIDE 10 MG/ML 2 ML VIAL IV STA (10:09)
[2019-05-04] MEDS ORDERED: SODIUM CHLORIDE 0.9% 1,000 ML IV STA (10:09)
--- NOTE | 2019-05-04 10:11 | ED ---
General Adult HPI - General Chief complaint: Shortness of Breath Stated complaint: CHF exacerbation Time Seen by Provider: 05/04/19 10:02 Source: patient, RN notes reviewed, old records reviewed Mode of arrival: ambulatory Limitations: no limitations - History of Present Illness Initial comments: Patient is a 43-year-old male, who presents emergency department today for evaluation for concern for shortness of breath and weight gain. Patient reports he was gained 6 pounds over the past 2-3 days. He was recently admitted and discharged for CHF exacerabation. Patient reports he was told to stop his diuretic due to PAULO last admit. Patient has had no chest fevers or chills. Denies any significant cough. - Related Data Home Medications Medication Instructions Recorded Confirmed Omeprazole 20 mg PO HS 01/21/17 05/04/19 tiZANidine [Zanaflex] 4 mg PO Q8HR PRN 01/21/17 05/04/19 DULoxetine HCL [Cymbalta] 60 mg PO HS 01/26/19 05/04/19 Fenofibrate [Lofibra] 160 mg PO HS 01/26/19 05/04/19 PARoxetine HCL [Paxil] 30 mg PO HS 01/26/19 05/04/19 Propranolol HCl 60 mg PO BID 01/26/19 05/04/19 Simvastatin [Zocor] 5 mg PO HS 01/26/19 05/04/19 oxyCODONE HCL/ACETAMINOPHEN 1 tab PO Q6HR PRN 01/26/19 05/04/19 [Percocet 7.5-325 mg] rOPINIRole HCL [Requip] 2 mg PO HS 01/26/19 05/04/19 Docusate [Colace] 100 mg PO DAILY 04/24/19 05/04/19 Rivastigmine Tartrate 1.5 mg PO BID 04/24/19 05/04/19 [Rivastigmine] Multivitamins, Thera [Multivitamin 1 tab PO DAILY 05/04/19 05/04/19 (formulary)] Previous Rx's Medication Instructions Recorded Thiamine [Vitamin B-1] 100 mg PO BID-W/MEALS #30 tab 01/29/19 Melatonin 1 mg PO HS #30 tab 04/27/19 amLODIPine [Norvasc] 5 mg PO DAILY #30 tab 12/16/19 Furosemide [Lasix] 20 mg PO DAILY #5 tab 05/04/19 Allergies Allergy/AdvReac Type Severity Reaction Status Date / Time meperidine HCl [From Demerol] Allergy Swelling/Ra Verified 05/04/19 11:43 sh/Itching meloxicam [From Mobic] AdvReac Severe Confusion/MEMORY Verified 05/04/19 11:43 LOSS gabapentin AdvReac Intermediate BURNS Verified 05/04/19 11:43 codeine AdvReac Nausea & Verified 05/04/19 11:43 Vomiting Review of Systems ROS Statement: Those systems with pertinent positive or pertinent negative responses have been documented in the HPI. ROS Other: All systems not noted in ROS Statement are negative. Past Medical History Past Medical History: Cancer, Heart Failure, Hyperlipidemia, Hypertension, Musculoskeletal Disorder, Sleep Apnea/CPAP/BIPAP Additional Past Medical History / Comment(s): cancer LT Testicular, gout, chronic back and neck pain, sleep apnea. History of single level lumbar laminectomy with Dr. Wright in May 2016. Lewey body dementia History of Any Multi-Drug Resistant Organisms: None Reported Past Surgical History: Hernia Repair, Orthopedic Surgery Additional Past Surgical History / Comment(s): LT testicular SX (removed), lt knee arthroscopy, pain injections in back and radioablation, Past Anesthesia/Blood Transfusion Reactions: Family History of Problems w/ Anesthesia Additional Past Anesthesia/Blood Transfusion Reaction / Comment(s): States father had a hard time waking up from anesthesia. Past Psychological History: Anxiety Smoking Status: Former smoker Past Alcohol Use History: None Reported Past Drug Use History: None Reported - Past Family History Father History Unknown: Yes Additional Family Medical History / Comment(s): Depression, PTSD, abused as child, Mother History Unknown: Yes Family Medical History: Hypertension Additional Family Medical History / Comment(s): CABG- 4 vessel bypass, roshacea, General Exam - General Exam Comments Initial Comments: this is a 43-year-old male. Alert and oriented 3. Patient appears in no acute distress. Limitations: no limitations Head exam: Present: atraumatic, normocephalic, normal inspection Eye exam: Present: normal appearance, PERRL, EOMI. Absent: scleral icterus, conjunctival injection, periorbital swelling ENT exam: Present: normal exam, mucous membranes moist Neck exam: Present: normal inspection. Absent: tenderness, meningismus, lymphadenopathy Respiratory exam: Present: normal lung sounds bilaterally. Absent: respiratory distress, wheezes, rales, rhonchi, stridor Cardiovascular Exam: Present: regular rate, normal rhythm, normal heart sounds. Absent: systolic murmur, diastolic murmur, rubs, gallop, clicks GI/Abdominal exam: Present: soft, normal bowel sounds. Absent: distended, tenderness, guarding, rebound, rigid Extremities exam: Present: normal inspection, full ROM, normal capillary refill. Absent: tenderness, pedal edema, joint swelling, calf tenderness Back exam: Present: normal inspection Neurological exam: Present: alert, oriented X3, CN II-XII intact Psychiatric exam: Present: normal affect, normal mood Skin exam: Present: warm, dry, intact, normal color. Absent: rash Course Vital Signs 05/04/19 05/04/19 09:44 13:24 Temperature 97.3 F L 98.2 F Pulse Rate 58 L 68 Respiratory 18 16 Rate Blood Pressure 114/55 136/57 O2 Sat by Pulse 99 99 Oximetry Medical Decision Making - Medical Decision Making 43 year old male with concern for CHF and fluid overload. Patient BNP is within normal limitis, no signs of trouble breathing. CXR is clear. Patient advised if mild peripheral edema, can take lasix dose every other day, and follow up with nephrology. PAtient understands treatment plan and will comply. - Lab Data Result diagrams: 05/04/19 10:27 05/04/19 10:27 Lab Results 05/04/19 05/04/19 05/04/19 Range/Units 10:27 10:27 10:27 WBC 5.7 (3.8-10.6) k/uL RBC 4.18 L (4.30-5.90) m/uL Hgb 12.8 L (13.0-17.5) gm/dL Hct 36.3 L (39.0-53.0) % MCV 86.9 (80.0-100.0) fL MCH 30.6 (25.0-35.0) pg MCHC 35.2 (31.0-37.0) g/dL RDW 12.4 (11.5-15.5) % Plt Count 344 (150-450) k/uL Neutrophils % 61 % Lymphocytes % 23 % Monocytes % 8 % Eosinophils % 4 % Basophils % 1 % Neutrophils # 3.5 (1.3-7.7) k/uL Lymphocytes # 1.3 (1.0-4.8) k/uL Monocytes # 0.4 (0-1.0) k/uL Eosinophils # 0.2 (0-0.7) k/uL Basophils # 0.1 (0-0.2) k/uL PT (9.0-12.0) sec INR (<1.2) APTT (22.0-30.0) sec Sodium 138 (137-145) mmol/L Potassium 3.6 (3.5-5.1) mmol/L Chloride 102 (98-107) mmol/L Carbon Dioxide 26 (22-30) mmol/L Anion Gap 10 mmol/L BUN 18 (9-20) mg/dL Creatinine 1.54 H (0.66-1.25) mg/dL Est GFR (CKD-EPI)AfAm 63 (>60 ml/min/1.73 sqM) Est GFR (CKD-EPI)NonAf 54 (>60 ml/min/1.73 sqM) Glucose 258 H (74-99) mg/dL Calcium 9.4 (8.4-10.2) mg/dL Magnesium 1.4 L (1.6-2.3) mg/dL Total Bilirubin 0.6 (0.2-1.3) mg/dL AST 27 (17-59) U/L ALT 28 (4-49) U/L Alkaline Phosphatase 43 (38-126) U/L Troponin I (0.000-0.034) ng/mL NT-Pro-B Natriuret Pep 142 pg/mL Total Protein 6.3 (6.3-8.2) g/dL Albumin 3.8 (3.5-5.0) g/dL 05/04/19 05/04/19 Range/Units 10:27 10:27 WBC (3.8-10.6) k/uL RBC (4.30-5.90) m/uL Hgb (13.0-17.5) gm/dL Hct (39.0-53.0) % MCV (80.0-100.0) fL MCH (25.0-35.0) pg MCHC (31.0-37.0) g/dL RDW (11.5-15.5) % Plt Count (150-450) k/uL Neutrophils % % Lymphocytes % % Monocytes % % Eosinophils % % Basophils % % Neutrophils # (1.3-7.7) k/uL Lymphocytes # (1.0-4.8) k/uL Monocytes # (0-1.0) k/uL Eosinophils # (0-0.7) k/uL Basophils # (0-0.2) k/uL PT 10.6 (9.0-12.0) sec INR 1.0 (<1.2) APTT 23.8 (22.0-30.0) sec Sodium (137-145) mmol/L Potassium (3.5-5.1) mmol/L Chloride (98-107) mmol/L Carbon Dioxide (22-30) mmol/L Anion Gap mmol/L BUN (9-20) mg/dL Creatinine (0.66-1.25) mg/dL Est GFR (CKD-EPI)AfAm (>60 ml/min/1.73 sqM) Est GFR (CKD-EPI)NonAf (>60 ml/min/1.73 sqM) Glucose (74-99) mg/dL Calcium (8.4-10.2) mg/dL Magnesium (1.6-2.3) mg/dL Total Bilirubin (0.2-1.3) mg/dL AST (17-59) U/L ALT (4-49) U/L Alkaline Phosphatase (38-126) U/L Troponin I <0.012 (0.000-0.034) ng/mL NT-Pro-B Natriuret Pep pg/mL Total Protein (6.3-8.2) g/dL Albumin (3.5-5.0) g/dL 05/04/19 11:39 EKG shows sinus bradycardia, first-degree AV block. Otherwise normal EKG. Ventricular rate of 57 bpm. Pulse 210 ms. Chest respirations 84 ms. QT QTc is 4:30/418 ms. No evidence of ST elevation. - Radiology Data Radiology results: report reviewed CXR shows no acute cardiopulmonary process. Disposition Clinical Impression: Swelling of lower extremity, Fluid overload Disposition: HOME SELF-CARE Condition: Good Instructions (If sedation given, give patient instructions): Low-Sodium Diet (ED) Additional Instructions: Patient advised to use a low dose of Lasix every other day. Follow-up with your primary care doctor. Prescriptions: Furosemide [Lasix] 20 mg PO DAILY #5 tab Is patient prescribed a controlled substance at d/c from ED?: No Referrals: Bereket Ortega DO [Primary Care Provider] - 1-2 days Time of Disposition: 13:06
[2019-05-04 10:44] LABS: Basophils # (A) 0.1 k/uL (0-0.2); Basophils % (A) 1 %; Eosinophils # (A) 0.2 k/uL (0-0.7); Eosinophils % (A) 4 %; HCT 36.3 % (39.0-53.0); HGB 12.8 gm/dL (13.0-17.5); Lymphocytes # (A) 1.3 k/uL (1.0-4.8); Lymphocytes % (A) 23 %; MCH 30.6 pg (25.0-35.0); MCHC 35.2 g/dL (31.0-37.0); MCV 86.9 fL (80.0-100.0); Mean Platelet Volume 6.8; Monocytes # (A) 0.4 k/uL (0-1.0); Monocytes % (A) 8 %; Neutrophils # (A) 3.5 k/uL (1.3-7.7); Neutrophils % (A) 61 %; Platelet Count 344 k/uL (150-450); RBC 4.18 m/uL (4.30-5.90); RDW 12.4 % (11.5-15.5); WBC 5.7 k/uL (3.8-10.6)
[2019-05-04 10:52] LABS: Partial Thromboplastin Time 23.8 sec (22.0-30.0); Prothrombin Time 10.6 sec (9.0-12.0)
[2019-05-04 10:57] LABS: Albumin 3.8 g/dL (3.5-5.0); Calcium 9.4 mg/dL (8.4-10.2); Magnesium 1.4 mg/dL (1.6-2.3); Potassium 3.6 mmol/L (3.5-5.1); Total Bilirubin 0.6 mg/dL (0.2-1.3); Total Protein 6.3 g/dL (6.3-8.2)
--- NOTE | 2019-05-04 11:42 | XR ---
EXAMINATION TYPE: XR chest 2V DATE OF EXAM: 05/04/2019 COMPARISON: 04/24/2019 HISTORY: Chest pain TECHNIQUE: Frontal and lateral views of the chest are obtained. FINDINGS: There is no focal air space opacity. No evidence for pneumothorax. No pleural effusion. The cardiac silhouette size is within normal limits. The osseous structures are grossly intact. IMPRESSION: 1. No acute cardiopulmonary process.
[2019-05-04 13:25] VITALS: BP 136/57; PULSE 68; RESP 16; TEMP 98.2
== END 2019-05-04 13:26 | disposition home or self-care (01) ==
LOC: EC 09:41
DX: E87.70 Fluid overload, unspecified (principal); M79.89 Other specified soft tissue disorders; I11.0 Hypertensive heart disease with heart failure; I50.9 Heart failure, unspecified; E78.5 Hyperlipidemia, unspecified; G47.30 Sleep apnea, unspecified; F41.9 Anxiety disorder, unspecified; Z79.899 Other long term (current) drug therapy; Z88.5 Allergy status to narcotic agent; Z88.6 Allergy status to analgesic agent; Z88.8 Allergy status to other drugs, medicaments and biological substances; Z99.89 Dependence on other enabling machines and devices; Z85.47 Personal history of malignant neoplasm of testis
CPT/HCPCS: 36415; 93005; 83880; 80053; 83735; 84484; 85025; 85610; 85730; 71046; 99285; 96374; J1940

== ENCOUNTER 2019-05-11 16:12 | Observation (INO) | payer OTHER ==
[2019-05-11 16:43] LABS: Glucose,Whole Blood 175 mg/dL (75-99)
[2019-05-11] MEDS ORDERED: NITROGLYCERIN OINT 1 INCH/GM PACKET TOPICAL STA (16:51)
[2019-05-11] MEDS ORDERED: ASPIRIN 81 MG PO STA (16:51)
[2019-05-11] MEDS ORDERED: NALOXONE 0.4 MG/ML 1 ML VIAL IV STA (16:52)
[2019-05-11] MEDS ORDERED: FUROSEMIDE 10 MG/ML 10 ML VIAL IV STA (16:53)
[2019-05-11 17:33] LABS: Basophils # (A) 0.1 k/uL (0-0.2); Basophils % (A) 1 %; Eosinophils # (A) 0.2 k/uL (0-0.7); Eosinophils % (A) 3 %; HCT 38.6 % (39.0-53.0); HGB 13.4 gm/dL (13.0-17.5); Lymphocytes # (A) 0.9 k/uL (1.0-4.8); Lymphocytes % (A) 15 %; MCH 29.9 pg (25.0-35.0); MCHC 34.8 g/dL (31.0-37.0); MCV 85.8 fL (80.0-100.0); Mean Platelet Volume 6.8; Monocytes # (A) 0.5 k/uL (0-1.0); Monocytes % (A) 8 %; Neutrophils # (A) 3.9 k/uL (1.3-7.7); Neutrophils % (A) 68 %; Platelet Count 296 k/uL (150-450); RDW 12.4 % (11.5-15.5); WBC 5.7 k/uL (3.8-10.6)
[2019-05-11 17:41] LABS: INR 0.9 (<1.2); Partial Thromboplastin Time 25.2 sec (22.0-30.0); Prothrombin Time 10.1 sec (9.0-12.0)
--- NOTE | 2019-05-11 17:43 | XR ---
EXAMINATION TYPE: XR chest 1V portable DATE OF EXAM: 05/11/2019 COMPARISON: 05/04/2019 HISTORY: Congestion. Chest pain TECHNIQUE: Single view FINDINGS: There is no heart failure. Lungs are clear of consolidation. There is mild subsegmental ate lectasis at the lung bases. There is no pleural effusion. There are chest leads IMPRESSION: Mild basilar subsegmental atelectasis is new compared to last exam. Normal heart.
[2019-05-11 17:54] LABS: ALT 30 U/L (4-49); AST 33 U/L (17-59); African American GFR (CKD) 63 (>60 ml/min/1.73 sqM); Albumin 4.4 g/dL (3.5-5.0); Alcohol <10 mg/dL; Alkaline Phosphatase 50 U/L (38-126); Anion Gap 8 mmol/L; Blood Urea Nitrogen 22 mg/dL (9-20); Calcium 9.8 mg/dL (8.4-10.2); Carbon Dioxide 26 mmol/L (22-30); Chloride 105 mmol/L (98-107); Glucose 178 mg/dL (74-99); Magnesium 1.7 mg/dL (1.6-2.3); Non-African American GFR(CKD) 54 (>60 ml/min/1.73 sqM); Potassium 4.2 mmol/L (3.5-5.1); Sodium 139 mmol/L (137-145); Total Bilirubin 0.5 mg/dL (0.2-1.3)
[2019-05-11 17:55] LABS: Appearance,Urine Clear (Clear); Bilirubin,Urine Negative (Negative); Blood,Urine Negative (Negative); Color,Urine Light Yellow; Glucose,Urine (UA) Negative (Negative); Ketones,Urine Negative (Negative); Leukocyte Esterase,Urine Negative (Negative); Nitrite,Urine Negative (Negative); Protein,Urine Negative (Negative); Specific Gravity,Urine 1.007 (1.001-1.035); Urobilinogen,Urine <2.0 mg/dL (<2.0)
--- NOTE | 2019-05-11 18:24 | ED ---
General Adult HPI - General Chief complaint: Chest Pain Stated complaint: CHF problem Time Seen by Provider: 05/11/19 16:39 Source: patient, family Mode of arrival: ambulatory - History of Present Illness Initial comments: This 43-year-old white male presents with his with a complaint of some mental status changes, chest pain, and shortness of breath. He apparently has had intermittent chest pain and shortness of breath spells. This got worse this morning. He apparently has gained some weight and had swelling over the day today. He also complains of some left upper chest pressure at times. This overall has been mild to moderate. He denies any pleuritic chest pain. He does have a history of cardiac disease including congestive heart failure. He denies any fevers or chills. He apparently has been very sleepy since getting to the emergency department. He'll wake up and answer questions but then draws off fairly quickly. No other complaints or modifying factors. He does have a history of increased pain medication use but denies taking any extra medications recently. - Related Data Home Medications Medication Instructions Recorded Confirmed Omeprazole 20 mg PO HS 01/21/17 05/11/19 tiZANidine [Zanaflex] 4 mg PO Q8HR PRN 01/21/17 05/11/19 DULoxetine HCL [Cymbalta] 60 mg PO HS 01/26/19 05/11/19 Fenofibrate [Lofibra] 160 mg PO HS 01/26/19 05/11/19 PARoxetine HCL [Paxil] 30 mg PO HS 01/26/19 05/11/19 Propranolol HCl 60 mg PO BID 01/26/19 05/11/19 Simvastatin [Zocor] 5 mg PO HS 01/26/19 05/11/19 oxyCODONE HCL/ACETAMINOPHEN 1 tab PO Q6HR PRN 01/26/19 05/11/19 [Percocet 7.5-325 mg] rOPINIRole HCL [Requip] 2 mg PO HS 01/26/19 05/11/19 Docusate [Colace] 100 mg PO HS 04/24/19 05/11/19 Rivastigmine Tartrate 1.5 mg PO BID 04/24/19 05/11/19 [Rivastigmine] Multivitamins, Thera [Multivitamin 1 tab PO DAILY 05/04/19 05/11/19 (formulary)] Aspirin [[place] Aspirin EC] 81 mg PO HS 05/11/19 05/11/19 amLODIPine [Norvasc] 5 mg PO HS 05/11/19 05/11/19 Previous Rx's Medication Instructions Recorded Thiamine [Vitamin B-1] 100 mg PO BID-W/MEALS #30 tab 01/29/19 Melatonin 1 mg PO HS #30 tab 04/27/19 Furosemide [Lasix] 20 mg PO DAILY #5 tab 05/04/19 Allergies Allergy/AdvReac Type Severity Reaction Status Date / Time meperidine HCl [From Demerol] Allergy Swelling/Ra Verified 05/11/19 17:56 sh/Itching meloxicam [From Mobic] AdvReac Severe Confusion/MEMORY Verified 05/11/19 17:56 LOSS gabapentin AdvReac Intermediate BURNS Verified 05/11/19 17:56 codeine AdvReac Nausea & Verified 05/11/19 17:56 Vomiting Review of Systems ROS Statement: Those systems with pertinent positive or pertinent negative responses have been documented in the HPI. ROS Other: All systems not noted in ROS Statement are negative. Past Medical History Past Medical History: Cancer, Heart Failure, Hyperlipidemia, Hypertension, Musculoskeletal Disorder, Sleep Apnea/CPAP/BIPAP Additional Past Medical History / Comment(s): cancer LT Testicular, gout, chronic back and neck pain, sleep apnea. History of single level lumbar laminectomy with Dr. Wright in May 2016. Lewey body dementia History of Any Multi-Drug Resistant Organisms: None Reported Past Surgical History: Hernia Repair, Orthopedic Surgery Additional Past Surgical History / Comment(s): LT testicular SX (removed), lt knee arthroscopy, pain injections in back and radioablation, Past Anesthesia/Blood Transfusion Reactions: Family History of Problems w/ Anesthesia Additional Past Anesthesia/Blood Transfusion Reaction / Comment(s): States father had a hard time waking up from anesthesia. Past Psychological History: Anxiety Smoking Status: Former smoker Past Alcohol Use History: None Reported Past Drug Use History: None Reported - Past Family History Father History Unknown: Yes Additional Family Medical History / Comment(s): Depression, PTSD, abused as child, Mother History Unknown: Yes Family Medical History: Hypertension Additional Family Medical History / Comment(s): CABG- 4 vessel bypass, roshacea, General Exam - General Exam Comments Initial Comments: GENERAL: The patient is well nourished and well hydrated. VITAL SIGNS: Heart rate, blood pressure, respiratory rate reviewed as recorded in nurse's notes. EYES: Pupils are round and reactive. Extraocular movements are intact. No conjunctival / lid redness or swelling. ENT: No external evidence of injury, swelling, or ecchymosis. Airway is patent. Throat is clear. NECK: Nontender. No swelling or evidence of injury. No subcutaneous emphysema. Trachea is midline. No thyroid mass. HEART: Regular rate and rhythm. Good peripheral pulses. LUNGS/CHEST: Breath sounds clear and equal bilaterally. No rales, rhonchi, or wheezes. No ecchymosis, subcutaneous emphysema, or tenderness. ABDOMEN: Abdomen soft without tenderness. No palpable masses or organomegaly. No peritoneal signs. No abdominal wall swelling or ecchymosis. EXTREMITIES: No extremity tenderness. Normal muscle tone and function. No thoracolumbar tenderness. NEUROLOGIC: Sensation is grossly intact. Cranial nerve exam reveals face is symmetrical, tongue is midline, speech is clear. Patient is fairly somnolent. He'll wake up and answer questions but does fall directly back to sleep. SKIN: No abrasions or ecchymosis is noted. No induration or masses noted. PSYCHIATRIC: Alert and oriented. Appropriate behavior and judgment. Course Vital Signs 05/11/19 05/11/19 05/11/19 16:39 17:07 18:56 Temperature 98.6 F Pulse Rate 90 80 Respiratory 17 17 18 Rate Blood Pressure 151/79 126/76 O2 Sat by Pulse 99 97 Oximetry 05/11/19 19:18 Temperature 98.3 F Pulse Rate 80 Respiratory 18 Rate Blood Pressure 122/77 O2 Sat by Pulse 96 Oximetry Medical Decision Making - Medical Decision Making The patient was seen and examined. All diagnostics were reviewed. An IV is established. He receives aspirin as well as some Nitropaste. The EKG shows a normal sinus rhythm with no acute ST-T wave changes. The QT, SD, and QRS intervals are all normal. He also had a laboratory analysis which does show renal insufficiency and slight hyperglycemia. The chest x-ray shows mild basilar subsegmental atelectasis which is new as compared to the last exam. He does receive 0.2 mg of Narcan and wakes up slightly. He also receives aspirin as well as some Nitropaste. The laboratory does show mild renal insufficiency. He also received Lasix 60 mg IV. On recheck, his mental status changes are completely resolved. He states that he cannot remember earlier on in his [facility] department stay. He is currently quite alert, oriented, and in no distress. He states that he has urinated a significant amount and is feeling improved. He denies any further chest pain. Nevertheless, it appears that he will require admission to the hospital for further treatment. Computed tomography scan of the brain does not show any acute abnormalities per my review with final reading radiologic review pending. Case is discussed with the nurse practitioner for Dr. Valdez and they are agreeable with admission. - Lab Data Result diagrams: 05/11/19 16:41 05/11/19 16:41 Lab Results 05/11/19 05/11/19 05/11/19 Range/Units 16:37 16:41 16:41 WBC 5.7 (3.8-10.6) k/uL RBC 4.50 (4.30-5.90) m/uL Hgb 13.4 (13.0-17.5) gm/dL Hct 38.6 L (39.0-53.0) % MCV 85.8 (80.0-100.0) fL MCH 29.9 (25.0-35.0) pg MCHC 34.8 (31.0-37.0) g/dL RDW 12.4 (11.5-15.5) % Plt Count 296 (150-450) k/uL Neutrophils % 68 % Lymphocytes % 15 % Monocytes % 8 % Eosinophils % 3 % Basophils % 1 % Neutrophils # 3.9 (1.3-7.7) k/uL Lymphocytes # 0.9 L (1.0-4.8) k/uL Monocytes # 0.5 (0-1.0) k/uL Eosinophils # 0.2 (0-0.7) k/uL Basophils # 0.1 (0-0.2) k/uL PT (9.0-12.0) sec INR (<1.2) APTT (22.0-30.0) sec Sodium 139 (137-145) mmol/L Potassium 4.2 (3.5-5.1) mmol/L Chloride 105 (98-107) mmol/L Carbon Dioxide 26 (22-30) mmol/L Anion Gap 8 mmol/L BUN 22 H (9-20) mg/dL Creatinine 1.53 H (0.66-1.25) mg/dL Est GFR (CKD-EPI)AfAm 63 (>60 ml/min/1.73 sqM) Est GFR (CKD-EPI)NonAf 54 (>60 ml/min/1.73 sqM) Glucose 178 H (74-99) mg/dL POC Glucose (mg/dL) 175 H (75-99) mg/dL POC Glu Technology Coach ID Pramod Fu Calcium 9.8 (8.4-10.2) mg/dL Magnesium 1.7 (1.6-2.3) mg/dL Total Bilirubin 0.5 (0.2-1.3) mg/dL AST 33 (17-59) U/L ALT 30 (4-49) U/L Alkaline Phosphatase 50 (38-126) U/L Ammonia (<30) umol/L Troponin I (0.000-0.034) ng/mL NT-Pro-B Natriuret Pep pg/mL Total Protein 7.0 (6.3-8.2) g/dL Albumin 4.4 (3.5-5.0) g/dL Urine Color Urine Appearance (Clear) Urine pH (5.0-8.0) Ur Specific [place] (1.001-1.035) Urine Protein (Negative) Urine Glucose (UA) (Negative) Urine Ketones (Negative) Urine Blood (Negative) Urine Nitrite (Negative) Urine Bilirubin (Negative) Urine Urobilinogen (<2.0) mg/dL Ur Leukocyte Esterase (Negative) Serum Alcohol <10 mg/dL 05/11/19 05/11/19 05/11/19 Range/Units 16:41 16:41 16:41 WBC (3.8-10.6) k/uL RBC (4.30-5.90) m/uL Hgb (13.0-17.5) gm/dL Hct (39.0-53.0) % MCV (80.0-100.0) fL MCH (25.0-35.0) pg MCHC (31.0-37.0) g/dL RDW (11.5-15.5) % Plt Count (150-450) k/uL Neutrophils % % Lymphocytes % % Monocytes % % Eosinophils % % Basophils % % Neutrophils # (1.3-7.7) k/uL Lymphocytes # (1.0-4.8) k/uL Monocytes # (0-1.0) k/uL Eosinophils # (0-0.7) k/uL Basophils # (0-0.2) k/uL PT 10.1 (9.0-12.0) sec INR 0.9 (<1.2) APTT 25.2 (22.0-30.0) sec Sodium (137-145) mmol/L Potassium (3.5-5.1) mmol/L Chloride (98-107) mmol/L Carbon Dioxide (22-30) mmol/L Anion Gap mmol/L BUN (9-20) mg/dL Creatinine (0.66-1.25) mg/dL Est GFR (CKD-EPI)AfAm (>60 ml/min/1.73 sqM) Est GFR (CKD-EPI)NonAf (>60 ml/min/1.73 sqM) Glucose (74-99) mg/dL POC Glucose (mg/dL) (75-99) mg/dL POC Glu Technology Coach ID Calcium (8.4-10.2) mg/dL Magnesium (1.6-2.3) mg/dL Total Bilirubin (0.2-1.3) mg/dL AST (17-59) U/L ALT (4-49) U/L Alkaline Phosphatase (38-126) U/L Ammonia (<30) umol/L Troponin I <0.012 (0.000-0.034) ng/mL NT-Pro-B Natriuret Pep 52 pg/mL Total Protein (6.3-8.2) g/dL Albumin (3.5-5.0) g/dL Urine Color Urine Appearance (Clear) Urine pH (5.0-8.0) Ur Specific [place] (1.001-1.035) Urine Protein (Negative) Urine Glucose (UA) (Negative) Urine Ketones (Negative) Urine Blood (Negative) Urine Nitrite (Negative) Urine Bilirubin (Negative) Urine Urobilinogen (<2.0) mg/dL Ur Leukocyte Esterase (Negative) Serum Alcohol mg/dL 05/11/19 05/11/19 Range/Units 16:41 17:32 WBC (3.8-10.6) k/uL RBC (4.30-5.90) m/uL Hgb (13.0-17.5) gm/dL Hct (39.0-53.0) % MCV (80.0-100.0) fL MCH (25.0-35.0) pg MCHC (31.0-37.0) g/dL RDW (11.5-15.5) % Plt Count (150-450) k/uL Neutrophils % % Lymphocytes % % Monocytes % % Eosinophils % % Basophils % % Neutrophils # (1.3-7.7) k/uL Lymphocytes # (1.0-4.8) k/uL Monocytes # (0-1.0) k/uL Eosinophils # (0-0.7) k/uL Basophils # (0-0.2) k/uL PT (9.0-12.0) sec INR (<1.2) APTT (22.0-30.0) sec Sodium (137-145) mmol/L Potassium (3.5-5.1) mmol/L Chloride (98-107) mmol/L Carbon Dioxide (22-30) mmol/L Anion Gap mmol/L BUN (9-20) mg/dL Creatinine (0.66-1.25) mg/dL Est GFR (CKD-EPI)AfAm (>60 ml/min/1.73 sqM) Est GFR (CKD-EPI)NonAf (>60 ml/min/1.73 sqM) Glucose (74-99) mg/dL POC Glucose (mg/dL) (75-99) mg/dL POC Glu Technology Coach ID Calcium (8.4-10.2) mg/dL Magnesium (1.6-2.3) mg/dL Total Bilirubin (0.2-1.3) mg/dL AST (17-59) U/L ALT (4-49) U/L Alkaline Phosphatase (38-126) U/L Ammonia 30 H (<30) umol/L Troponin I (0.000-0.034) ng/mL NT-Pro-B Natriuret Pep pg/mL Total Protein (6.3-8.2) g/dL Albumin (3.5-5.0) g/dL Urine Color Light Yellow Urine Appearance Clear (Clear) Urine pH 7.0 (5.0-8.0) Ur Specific [place] 1.007 (1.001-1.035) Urine Protein Negative (Negative) Urine Glucose (UA) Negative (Negative) Urine Ketones Negative (Negative) Urine Blood Negative (Negative) Urine Nitrite Negative (Negative) Urine Bilirubin Negative (Negative) Urine Urobilinogen <2.0 (<2.0) mg/dL Ur Leukocyte Esterase Negative (Negative) Serum Alcohol mg/dL Disposition Clinical Impression: Mental status alteration, Chest pain, Hypertension, Bilateral lower extremity edema, Renal insufficiency, Unstable angina Disposition: ADMITTED IP TO THIS HOSP Condition: Good Is patient prescribed a controlled substance at d/c from ED?: No Time of Disposition: 19:42 Decision Date: 05/11/19 Decision Time: 19:42
[2019-05-11] MEDS ORDERED: NITROGLYCERIN SL TABS 0.4 MG TAB SUBLINGUAL PRN (19:44)
[2019-05-11] MEDS ORDERED: tiZANidine 4 MG TAB PO PRN (19:48)
[2019-05-11] MEDS ORDERED: oxyCODONE-APAP 7.5-325MG 1 EACH TAB PO PRN (19:48)
--- NOTE | 2019-05-11 19:51 | CT ---
EXAMINATION TYPE: CT brain wo con DATE OF EXAM: 05/11/2019 COMPARISON: 01/26/2019 HISTORY: AMS, pt fell out of bed, hitting head. Hx Lewey Body dementia CT DLP: 1113.4 mGycm Automated exposure control for dose reduction was used. Ventricles have normal size. There is no mass effect nor midline shift. There is no sign of intracran ial hemorrhage. There is mild frontal lobe cortical atrophy. The calvarium is intact. IMPRESSION: Mild frontal lobe atrophy. No acute intracranial abnormality. No change.
[2019-05-11] MEDS ORDERED: DONEPEZIL 5 MG TAB PO SCH (21:00)
[2019-05-11] MEDS ORDERED: FENOFIBRATE 160 MG TAB PO SCH (21:00)
[2019-05-11] MEDS ORDERED: PANTOPRAZOLE 40 MG TABLET PO SCH (21:00)
[2019-05-11] MEDS ORDERED: amLODIPine 5 MG TAB PO SCH (21:00)
[2019-05-11] MEDS ORDERED: ATORVASTATIN 10 MG TAB PO SCH (21:00)
[2019-05-11] MEDS ORDERED: DULoxetine HCL 60 MG CAPSULE.DR PO SCH (21:00)
[2019-05-11] MEDS ORDERED: PARoxetine 10 MG TAB PO SCH (21:00)
[2019-05-11] MEDS ORDERED: DOCUSATE 100 MG CAP PO SCH (21:00)
[2019-05-11] MEDS ORDERED: MELATONIN 1 MG TAB PO SCH (21:00)
[2019-05-11] MEDS: PROPRANOLOL 20 MG TAB PO SCH (21:15)
[2019-05-11] MEDS: ACETAMINOPHEN TAB 325 MG TAB PO PRN (21:15)
[2019-05-11] MEDS: traZODone HCL 50 MG TAB PO STA ×2 (22:42→22:57)
[2019-05-12] MEDS ORDERED: NITROGLYCERIN OINT 1 INCH/GM PACKET TOPICAL SCH
[2019-05-12 04:25] LABS: Cholesterol 204 mg/dL (<200); HDL Cholesterol 36 mg/dL (40-60); LDL Cholesterol,Calculated 114 mg/dL (0-99); Triglycerides 272 mg/dL (<150)
[2019-05-12] MEDS ORDERED: THIAMINE 100 MG TAB PO SCH (07:30)
[2019-05-12 07:57] VITALS: RESP 16
[2019-05-12] MEDS ORDERED: ENOXAPARIN 40 MG/0.4 ML SYRINGE SQ SCH (09:00)
[2019-05-12] MEDS ORDERED: ASPIRIN 81 MG PO SCH (09:00)
[2019-05-12] MEDS ORDERED: MULTIVITAMINS, THERA 1 EACH TAB PO SCH (09:00)
[2019-05-12] MEDS ORDERED: ASPIRIN 325 MG TAB PO SCH (09:00)
[2019-05-12] MEDS: ACETAMINOPHEN TAB 325 MG TAB PO PRN (09:27)
[2019-05-12] MEDS: PROPRANOLOL 20 MG TAB PO SCH (09:30)
[2019-05-12] MEDS ORDERED: FUROSEMIDE 20 MG TAB PO SCH (09:45)
--- NOTE | 2019-05-12 10:26 | CONS ---
CONSULTATION Mr. Tolbert is a 43-year-old male with a prior history of smoking, prior history of alcohol intake and history of neuropathy and back discomfort, who presented with symptoms of worsening dyspnea, peripheral edema, and chest discomfort. Patient was recently discharged from the hospital when he was admitted with atypical chest pain. At that time, he underwent a stress echocardiogram revealed no evidence of inducible ischemia. His left ventricular systolic function was preserved. Patient has a known history of chronic kidney disease. During the holiday, he had consumed larger amount of salt and has noted worsening peripheral edema and some tightness in the chest. He has history of obstructive sleep apnea and uses CPAP. He has no dizziness or palpitation. No syncope, but his activity level is quite limited because of his back discomfort. His coronary risk factors are positive for the prior history of smoking, history of hyperlipidemia and has no history of diabetes. MEDICATIONS: Include aspirin, Cymbalta, fenofibrate 160 mg daily, Lasix 20 mg daily, Paxil, propranolol 60 mg twice a day, simvastatin 5 mg daily, amlodipine 5 mg daily, ropinirole, Zanaflex, and vitamin D. REVIEW OF SYSTEMS: RESPIRATORY SYSTEM: He has chronic dyspnea on exertion. No recent wheezing or cough. GI SYSTEM: No recent GI bleeding. No peptic ulcer disease. SYSTEM: No dysuria or hematuria. NERVOUS SYSTEM: No history of stroke or seizure. History of chronic back pain as well as neuropathy. PHYSICAL EXAMINATION: He is a 43-year-old male, alert, oriented, in no apparent distress. Overweight. Blood pressure 129/70 with a heart rate in the 70s. HEAD: Normocephalic. EYES: Sclerae nonicteric. NECK: Good upstroke, no bruit, no venous distention. LUNGS: Clear to auscultation. HEART: Regular rate and rhythm, S1, S2. No S3, no S4. No murmur or rub. ABDOMEN: Soft, nontender, positive bowel sounds, no organomegaly. EXTREMITIES: +1 edema bilaterally. LAB DATA: Revealed troponin less than 0.012 for 3 samples. BUN and creatinine 22 and 1.53, which is similar to what he had on 05/04. Potassium 4.2, hemoglobin of 13.4. EKG revealed a sinus mechanism, normal axis and intervals. No acute changes. Brain CT shows mild frontal lobe atrophy. Chest x-ray shows mild basilar subsegmental atelectasis. IMPRESSION: 1. Some fluid overload, most likely related to the salt intake. 2. Chest discomfort, atypical for ischemic heart disease. No evidence to suggest acute coronary artery syndrome. 3. Hypertension. 4. Hyperlipidemia. 5. Prior history of smoking. 6. History of chronic pain and neuropathy. 7. Prior history of alcohol intake and neuropathy. RECOMMENDATION: From the cardiac standpoint, I see no evidence of active cardiac issues at this time. I have discussed with the patient and his family the importance of low salt intake. No further cardiac workup is needed at the time. Patient received 1 dose of IV Lasix. He has an appointment with Dr. Lin this week for further followup. I am hopeful that he will be able to be discharged home soon. Thank you for this consult. BILLY / KANEN: [id number] /
[2019-05-12 10:40] VITALS: BP 132/75; PULSE 68; TEMP 97.8
--- NOTE | 2019-05-31 20:01 | P.HPIM ---
History of Present Illness H&P Date: 05/12/19 Chief Complaint: Chest pain Patient is a 43-year-old male with a known history of chronic back pain with pain injections in the back and radioablation, anxiety, hypertension, hyperlipidemia, obstructive sleep apnea and lewy body dementia was brought to the hospital by his due to complaints of change in mental status. Patient was also having chest pain associated with shortness of breath. Pain is mainly left upper chest wall pressure-like sensation. Patient has been having intermittent chest pain which got worse this morning. Patient's called 's office and recommended to go to ER..Patient also says that he is building up fluids in the body and his weight change from 216-222 Lbs and patient says that he does have congestive heart failure. Patient did have minimal leg swelling. While in the hospital patient developed dizziness and chest pressure and passed out. Patient does have dementia and has been very sleepy in the ER. CT head showed mild frontal lobe atrophy. No acute intracranial abnormality noted. Chest x-ray showed mild basilar subsegmental atelectasis is new compared to old exam. LDL 114 EKG showed normal sinus rhythm. Troponin 3 negative. Creatinine 1.53 BUN 22, BNP 52 Review of Systems Constitutional: Patient denies any fever or chills . No generalized weakness or weight loss. Abdomen: Patient denied nausea vomiting and diarrhea and abdominal pain. Cardiovascular: Patient does have chest pressure and short of breath no palpitations. Respiratory: patient denied any cough is from production. No shortness of breath Neurologic: Patient denied any numbness or tingling headache. Musculoskeletal: Patient denies any complaints of joint swelling or deformity. Skin: Negative Psychiatric: Negative Endocrine: No heat or cold intolerance. No recent weight gain. Genitourinary: No dysuria or hematuria. All other 14 point ROS negative except the above Past Medical History Past Medical History: Cancer, Heart Failure, Hyperlipidemia, Hypertension, Musculoskeletal Disorder, Sleep Apnea/CPAP/BIPAP Additional Past Medical History / Comment(s): cancer LT Testicular, gout, chronic back and neck pain, sleep apnea. History of single level lumbar laminectomy with Dr. Wright in May 2016. Lewey body dementia History of Any Multi-Drug Resistant Organisms: None Reported Past Surgical History: Hernia Repair, Orthopedic Surgery Additional Past Surgical History / Comment(s): LT testicular SX (removed), lt knee arthroscopy, pain injections in back and radioablation, Past Anesthesia/Blood Transfusion Reactions: Family History of Problems w/ Anesthesia Additional Past Anesthesia/Blood Transfusion Reaction / Comment(s): States father had a hard time waking up from anesthesia. Past Psychological History: Anxiety Smoking Status: Former smoker Past Alcohol Use History: None Reported Past Drug Use History: None Reported - Past Family History Father History Unknown: Yes Additional Family Medical History / Comment(s): Depression, PTSD, abused as child, Mother History Unknown: Yes Family Medical History: Hypertension Additional Family Medical History / Comment(s): CABG- 4 vessel bypass, roshacea, Medications and Allergies Home Medications Medication Instructions Recorded Confirmed Type Omeprazole 20 mg PO HS 01/21/17 05/22/19 History tiZANidine [Zanaflex] 4 mg PO Q8HR PRN 01/21/17 05/19/19 History DULoxetine HCL [Cymbalta] 60 mg PO HS 01/26/19 05/22/19 History Fenofibrate [Lofibra] 160 mg PO HS 01/26/19 05/22/19 History PARoxetine HCL [Paxil] 30 mg PO HS 01/26/19 05/22/19 History Propranolol HCl 60 mg PO BID 01/26/19 05/22/19 History oxyCODONE HCL/ACETAMINOPHEN 1 tab PO Q6HR PRN 01/26/19 05/22/19 History [Percocet 7.5-325 mg] rOPINIRole HCL [Requip] 2 mg PO HS 01/26/19 05/22/19 History Thiamine [Vitamin B-1] 100 mg PO BID-W/MEALS #30 tab 01/29/19 05/22/19 Rx Docusate [Colace] 100 mg PO HS 04/24/19 05/22/19 History Rivastigmine Tartrate 1.5 mg PO BID 04/24/19 05/22/19 History [Rivastigmine] Aspirin [[place] Aspirin EC] 81 mg PO HS 05/11/19 05/22/19 History amLODIPine [Norvasc] 5 mg PO HS 05/11/19 05/22/19 History Atorvastatin [Lipitor] 10 mg PO HS #30 tab 05/12/19 05/22/19 Rx Furosemide [Lasix] 20 mg PO QAM 05/19/19 05/22/19 History traZODone HCL 50 mg PO HS 05/22/19 05/22/19 History Allergies Allergy/AdvReac Type Severity Reaction Status Date / Time meperidine HCl [From Demerol] Allergy Swelling/Ra Verified 05/19/19 14:52 sh/Itching meloxicam [From Mobic] AdvReac Severe Confusion/MEMORY Verified 05/19/19 14:52 LOSS gabapentin AdvReac Intermediate BURNS Verified 05/19/19 14:52 codeine AdvReac Nausea & Verified 05/19/19 14:52 Vomiting Physical Exam Vitals: Vital Signs Temp Pulse Resp BP Pulse Ox 05/12/19 07:56 70 16 129/70 99 05/12/19 06:00 62 11 L 135/80 05/12/19 05:00 67 19 135/80 05/12/19 04:00 78 26 H 100/79 05/12/19 03:00 88 19 100/79 05/12/19 02:00 80 10 L 100/79 05/12/19 01:11 82 18 128/71 96 05/11/19 22:41 98.4 F 80 20 132/66 96 05/11/19 19:18 98.3 F 80 18 122/77 96 05/11/19 18:56 80 18 126/76 97 05/11/19 17:07 17 05/11/19 16:39 98.6 F 90 17 151/79 99 Intake and Output 05/11/19 05/12/19 05/12/19 22:59 06:59 14:59 Other: Weight 229.3 kg PHYSICAL EXAMINATION: Patient is lying in the bed comfortably, no acute distress, awake alert and oriented. Does have underlying dementia.. HEENT: Normocephalic. Neck is supple. Pupils reactive. Nostrils clear. Oral cavity is moist. Ears reveal no drainage. Neck reveals no JVD, carotid bruits, or thyromegaly. CHEST EXAMINATION: Trachea is central. Symmetrical expansion. Bibasilar diminished air entry. Lung mckenzie clear to auscultation and percussion. CARDIAC: Normal S1, S2 with no gallops. No murmurs ABDOMEN: Soft. Bowel sounds normal. No organomegaly. No abdominal bruits. Extremities: Trace bilateral pedal edema. No clubbing or cyanosis Neurologically awake, alert, oriented x2-3 with well-coordinated movements. No focal deficits noted Skin: No rash or skin lesions. Psychiatric: Coperative. Nonsuicidal Musculoskeletal: No joint swelling or deformity. Normal range of motion. Results CBC & Chem 7: 05/11/19 16:41 05/11/19 16:41 Labs: Abnormal Lab Results - Last 24 Hours (Table) 05/11/19 05/11/19 05/11/19 Range/Units 16:37 16:41 16:41 Hct 38.6 L (39.0-53.0) % Lymphocytes # 0.9 L (1.0-4.8) k/uL BUN 22 H (9-20) mg/dL Creatinine 1.53 H (0.66-1.25) mg/dL Glucose 178 H (74-99) mg/dL POC Glucose (mg/dL) 175 H (75-99) mg/dL Ammonia (<30) umol/L Triglycerides (<150) mg/dL Cholesterol (<200) mg/dL LDL Cholesterol, Calc (0-99) mg/dL HDL Cholesterol (40-60) mg/dL 05/11/19 05/12/19 Range/Units 16:41 03:44 Hct (39.0-53.0) % Lymphocytes # (1.0-4.8) k/uL BUN (9-20) mg/dL Creatinine (0.66-1.25) mg/dL Glucose (74-99) mg/dL POC Glucose (mg/dL) (75-99) mg/dL Ammonia 30 H (<30) umol/L Triglycerides 272 H (<150) mg/dL Cholesterol 204 H (<200) mg/dL LDL Cholesterol, Calc 114 H (0-99) mg/dL HDL Cholesterol 36 L (40-60) mg/dL Thrombosis Risk Factor Assmnt - DVT/VTE Prophylaxis DVT/VTE Prophylaxis: Pharmacologic Prophylaxis ordered Assessment and Plan Assessment: weight gain likely due to recent increase in salt intake. Unlikely CHF with BNP 52 Chest pressure/pain. Chest x-ray showed subsegmental atelectasis. Morbid obesity BMI 84.1 Hyperglycemia with uncontrolled diabetes type 2 Chronic kidney disease stage III Obstructive sleep apnea on CPAP Chronic back pain and neck pain History of left testicular cancer Hyperlipidemia Hypertension Chronic CHF with diastolic dysfunction Anxiety Previous history of smoking DVT prophylaxis Plan: Patient be continued on telemetry monitoring. Serial troponin 3 negative. BNP is not elevated. Patient will be continued on insulin sliding scale and monitor blood sugar closely. Patient was started back on home medications and increase deep breathing exercises. Cardiac diet and reduce his salt intake was counseled extensively. Patient was seen by cardiology. Recommends follow-up with his avionics integration engineer as per his appointment. Continue the home medications and further recommendations based on the clinical course. Time with Patient: Greater than 30
--- NOTE | 2019-05-31 20:02 | P.DS ---
Providers Date of admission: 05/11/19 19:49 Expected date of discharge: 05/12/19 Attending physician: Gume Valdez Consults: 05/11/19 19:44 Consult Physician Urgent Consulting Provider: Cherie Williamson Consult Reason/Comments: cp, sob Do you want consulting provider notified?: Yes Primary care physician: Bereket [facility] Course: Discharge diagnosis weight gain likely due to recent increase in salt intake. Unlikely CHF with BNP 52 Chest pressure/pain. Chest x-ray showed subsegmental atelectasis. Morbid obesity BMI 84.1 Hyperglycemia with uncontrolled diabetes type 2 Chronic kidney disease stage III Obstructive sleep apnea on CPAP Chronic back pain and neck pain History of left testicular cancer Hyperlipidemia Hypertension Chronic CHF with diastolic dysfunction Anxiety Previous history of smoking DVT prophylaxis Hospital course Patient is a 43-year-old male with a known history of chronic back pain with pain injections in the back and radioablation, anxiety, hypertension, hyperlipidemia, obstructive sleep apnea and lewy body dementia was brought to the hospital by his due to complaints of change in mental status. Patient was also having chest pain associated with shortness of breath. Pain is mainly left upper chest wall pressure-like sensation. Patient has been having intermittent chest pain which got worse this morning. Patient's called 's office and recommended to go to ER..Patient also says that he is building up fluids in the body and his weight change from 216-222 Lbs and patient says that he does have congestive heart failure. Patient did have minimal leg swelling. While in the hospital patient developed dizziness and chest pressure and passed out. Patient does have dementia and has been very sleepy in the ER. CT head showed mild frontal lobe atrophy. No acute intracranial abnormality noted. Chest x-ray showed mild basilar subsegmental atelectasis is new compared to old exam. LDL 114 EKG showed normal sinus rhythm. Troponin 3 negative. Creatinine 1.53 BUN 22, BNP 52 Patient was continued on telemetry monitoring. Serial troponin 3 negative. BNP is not elevated. Patient was continued on insulin sliding scale and monitor blood sugar closely. Patient was started back on home medications and increase deep breathing exercises. Cardiac diet and reduce his salt intake was counseled extensively. Patient was seen by cardiology. Recommends follow-up with his hotel services sales representative as per his appointment. Patient was given a dose of IV Lasix in the ER. Patient did symptomatically. Patient is being discharged home and follow with PCP and cardiology is for his appointment. Discharge physical examination was done and vitals reviewed. Patient Condition at Discharge: Good Plan - Discharge Summary New Discharge Prescriptions: New Atorvastatin [Lipitor] 10 mg PO HS #30 tab Continue tiZANidine [Zanaflex] 4 mg PO Q8HR PRN PRN Reason: Muscle Pain Omeprazole 20 mg PO HS rOPINIRole HCL [Requip] 2 mg PO HS Propranolol HCl 60 mg PO BID oxyCODONE HCL/ACETAMINOPHEN [Percocet 7.5-325 mg] 1 tab PO Q6HR PRN PRN Reason: Pain Fenofibrate [Lofibra] 160 mg PO HS DULoxetine HCL [Cymbalta] 60 mg PO HS PARoxetine HCL [Paxil] 30 mg PO HS Thiamine [Vitamin B-1] 100 mg PO BID-W/MEALS #30 tab Docusate [Colace] 100 mg PO HS Rivastigmine Tartrate [Rivastigmine] 1.5 mg PO BID amLODIPine [Norvasc] 5 mg PO HS Aspirin [[place] Aspirin EC] 81 mg PO HS Discontinued Simvastatin [Zocor] 5 mg PO HS No Action Furosemide [Lasix] 20 mg PO QAM traZODone HCL 50 mg PO HS Discharge Medication List Omeprazole 20 mg PO HS 01/21/17 [History] tiZANidine [Zanaflex] 4 mg PO Q8HR PRN 01/21/17 [History] DULoxetine HCL [Cymbalta] 60 mg PO HS 01/26/19 [History] Fenofibrate [Lofibra] 160 mg PO HS 01/26/19 [History] PARoxetine HCL [Paxil] 30 mg PO HS 01/26/19 [History] Propranolol HCl 60 mg PO BID 01/26/19 [History] oxyCODONE HCL/ACETAMINOPHEN [Percocet 7.5-325 mg] 1 tab PO Q6HR PRN 01/26/19 [History] rOPINIRole HCL [Requip] 2 mg PO HS 01/26/19 [History] Thiamine [Vitamin B-1] 100 mg PO BID-W/MEALS #30 tab 01/29/19 [Rx] Docusate [Colace] 100 mg PO HS 04/24/19 [History] Rivastigmine Tartrate [Rivastigmine] 1.5 mg PO BID 04/24/19 [History] Aspirin [[place] Aspirin EC] 81 mg PO HS 05/11/19 [History] amLODIPine [Norvasc] 5 mg PO HS 05/11/19 [History] Atorvastatin [Lipitor] 10 mg PO HS #30 tab 05/12/19 [Rx] Furosemide [Lasix] 20 mg PO QAM 05/19/19 [History] traZODone HCL 50 mg PO HS 05/22/19 [History] Follow up Appointment(s)/Referral(s): Marco Antonio Lin MD [STAFF PHYSICIAN] - 1 Week (appointment already made) Bereket Ortega DO [Primary Care Provider] - 05/19/19 11:00 am (to see Nurse Practitioner) Patient Instructions/Handouts: Chest Pain (DC) Activity/Diet/Wound Care/Special Instructions: Rest today Follow up appointment with Dr. Shipley, Dr. Lin, and Dr. Ortega Changes with medications- please see list Discharge Disposition: HOME SELF-CARE
== END 2019-05-12 11:25 | disposition home or self-care (01) ==
LOC: EC 16:12 → 1SOBS 19:49
PROVIDERS: ADMIT Hospitalist; ATTEND Hospitalist
DX: R07.89 Other chest pain (principal); E11.65 Type 2 diabetes mellitus with hyperglycemia; E11.22 Type 2 diabetes mellitus with diabetic chronic kidney disease; E66.01 Morbid (severe) obesity due to excess calories; E78.5 Hyperlipidemia, unspecified; F02.80 Dementia in other diseases classified elsewhere, unspecified severity, without behavioral disturbance, psychotic disturbance, mood disturbance, and anxiety; F41.9 Anxiety disorder, unspecified; G31.83 Neurocognitive disorder with Lewy bodies; G47.33 Obstructive sleep apnea (adult) (pediatric); I13.0 Hypertensive heart and chronic kidney disease with heart failure and stage 1 through stage 4 chronic kidney disease, or unspecified chronic kidney disease; I50.32 Chronic diastolic (congestive) heart failure; N18.3 Chronic kidney disease, stage 3 (moderate); Z68.45 Body mass index [BMI] 70 or greater, adult; Z79.82 Long term (current) use of aspirin; Z79.899 Other long term (current) drug therapy; Z81.8 Family history of other mental and behavioral disorders; Z82.49 Family history of ischemic heart disease and other diseases of the circulatory system; Z85.47 Personal history of malignant neoplasm of testis; Z87.891 Personal history of nicotine dependence; Z88.5 Allergy status to narcotic agent; Z88.8 Allergy status to other drugs, medicaments and biological substances; Z99.89 Dependence on other enabling machines and devices; M54.2 Cervicalgia; M54.9 Dorsalgia, unspecified
CPT/HCPCS: 96372; 96374; 96375; 99285; 36415; 93005 ×2; 83880; 80061; 80053; 82140; 83735; 84484 ×2; 85025; 85610; 85730; 81003; 87040; 71045; 70450; G0378 ×2; G0480; J1940; J2310; J1650; 80320

== ENCOUNTER 2019-06-08 14:52 | Emergency (ER) | payer OTHER ==
[2019-06-08 15:03] VITALS: TEMP 98.1
--- NOTE | 2019-06-08 15:41 | ED ---
Extremity Problem HPI - General Chief complaint: Extremity Problem,Nontraumatic Stated complaint: Gaining fluid/chest tightness Time Seen by Provider: 06/08/19 15:09 Source: patient, family Mode of arrival: wheelchair Limitations: no limitations - History of Present Illness Initial comments: Patient is a 43-year-old male, with multiple core morbidities including CHF, neuropathy, diabetes, presenting to the emergency Department with complaints of lower leg swelling as well as chest tightness. Patient states he has gained about 6 pounds overnight and 12 pounds in the last week. He does take Lasix 20 mg daily. Then starting this morning he began having some chest tightness. Patient states he's been in the hospital 2-3 times in the last 2 months for the same thing. He does see Dr. Lin is his water quality technician. 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 Patient admits to mild shortness of breath. He denies abdominal pain, nausea, vomiting. He's been eating and drinking as normal. Patient states he does not elevate his legs. He has no other complaints at this time. Upon arrival to the ER, his vital signs are stable. - Related Data Home Medications Medication Instructions Recorded Confirmed Omeprazole 20 mg PO HS 01/21/17 05/22/19 tiZANidine [Zanaflex] 4 mg PO Q8HR PRN 01/21/17 05/19/19 DULoxetine HCL [Cymbalta] 60 mg PO HS 01/26/19 05/22/19 Fenofibrate [Lofibra] 160 mg PO HS 01/26/19 05/22/19 PARoxetine HCL [Paxil] 30 mg PO HS 01/26/19 05/22/19 Propranolol HCl 60 mg PO BID 01/26/19 05/22/19 oxyCODONE HCL/ACETAMINOPHEN 1 tab PO Q6HR PRN 01/26/19 05/22/19 [Percocet 7.5-325 mg] rOPINIRole HCL [Requip] 2 mg PO HS 01/26/19 05/22/19 Docusate [Colace] 100 mg PO HS 04/24/19 05/22/19 Rivastigmine Tartrate 1.5 mg PO BID 04/24/19 05/22/19 [Rivastigmine] Aspirin [[place] Aspirin EC] 81 mg PO HS 05/11/19 05/22/19 amLODIPine [Norvasc] 5 mg PO HS 05/11/19 05/22/19 Furosemide [Lasix] 20 mg PO QAM 05/19/19 05/22/19 traZODone HCL 50 mg PO HS 05/22/19 05/22/19 Previous Rx's Medication Instructions Recorded Thiamine [Vitamin B-1] 100 mg PO BID-W/MEALS #30 tab 01/29/19 Atorvastatin [Lipitor] 10 mg PO HS #30 tab 05/12/19 Allergies Allergy/AdvReac Type Severity Reaction Status Date / Time meperidine HCl [From Demerol] Allergy Swelling/Ra Verified 05/19/19 14:52 sh/Itching meloxicam [From Mobic] AdvReac Severe Confusion/MEMORY Verified 05/19/19 14:52 LOSS gabapentin AdvReac Intermediate BURNS Verified 05/19/19 14:52 codeine AdvReac Nausea & Verified 05/19/19 14:52 Vomiting Review of Systems ROS Statement: Those systems with pertinent positive or pertinent negative responses have been documented in the HPI. ROS Other: All systems not noted in ROS Statement are negative. Past Medical History Past Medical History: Cancer, Heart Failure, Hyperlipidemia, Hypertension, Musculoskeletal Disorder, Sleep Apnea/CPAP/BIPAP Additional Past Medical History / Comment(s): SEE DR. LIN'S NOTES FOR CARDIAC HISTORY. LEWEY BODY DEMENTIA. LOWER LEG EDEMA AND NEUROPATHY. Cancer LT Testicular, gout, chronic back and neck pain, sleep apnea. History of Any Multi-Drug Resistant Organisms: None Reported Past Surgical History: Back Surgery, Hernia Repair, Orthopedic Surgery Additional Past Surgical History / Comment(s): LT testicular SX (removed), lt knee arthroscopy, pain injections in back and radioablation, Past Anesthesia/Blood Transfusion Reactions: Family History of Problems w/ Anesthesia Additional Past Anesthesia/Blood Transfusion Reaction / Comment(s): States father had a hard time waking up from anesthesia. Past Psychological History: Anxiety Smoking Status: Former smoker Past Alcohol Use History: None Reported Past Drug Use History: None Reported - Past Family History Father History Unknown: Yes Additional Family Medical History / Comment(s): Depression, PTSD, abused as child, Mother History Unknown: Yes Family Medical History: Hypertension Additional Family Medical History / Comment(s): CABG- 4 vessel bypass, roshacea, General Exam - General Exam Comments Initial Comments: GENERAL: Well-appearing, well-nourished and in no acute distress. HEAD: Atraumatic, normocephalic. EYES: Pupils equal round and reactive to light, extraocular movements intact, sclera anicteric, conjunctiva are normal. ENT: TMs normal, nares patent, oropharynx clear without exudates. Moist mucous membranes. NECK: Normal range of motion, supple without lymphadenopathy or JVD. LUNGS: Breath sounds clear to auscultation bilaterally and equal. No wheezes rales or rhonchi. HEART: Regular rate and rhythm without murmurs, rubs or gallops. ABDOMEN: Soft, nontender, normoactive bowel sounds. No guarding, no rebound. No masses appreciated. : Deferred EXTREMITIES: Mild bilateral lower leg edema, no pitting edema. Normal range of motion. No clubbing or cyanosis. NEUROLOGICAL: Normal speech, normal gait. PSYCH: Normal mood, normal affect. SKIN: Warm, Dry, normal turgor, no rashes or lesions noted. Limitations: no limitations Course Vital Signs 06/08/19 06/08/19 06/08/19 14:58 16:00 16:30 Temperature 98.1 F Pulse Rate 79 68 77 Respiratory 18 14 16 Rate Blood Pressure 118/72 110/54 116/59 O2 Sat by Pulse 97 99 Oximetry 06/08/19 06/08/19 17:00 17:30 Temperature Pulse Rate 70 76 Respiratory 14 16 Rate Blood Pressure 119/34 117/62 O2 Sat by Pulse 98 98 Oximetry Medical Decision Making - Medical Decision Making Patient is a 43-year-old male presenting with mild lower leg edema as well as chest tightness. He does see water quality technician, Dr. Mckeon. 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 Vitals here today are normal. Exam is unremarkable except for mild lower leg edema. Chest x-ray is normal EKG is normal lab work shows no acute abnormalities. Kidney disease is stable. I discussed these findings with the patient. Patient was instructed to elevate his legs above his heart WITH times throughout the day. He states he does not do this. Patient will also follow up with water quality technician. He will continue to take his Lasix as directed. He is in agreement with this plan of care. He stated for discharge at this time. Return parameters were discussed with the patient and he verbalized understanding. Case discussed with Dr. Guadalupe. - Lab Data Result diagrams: 06/08/19 15:40 06/08/19 15:40 Lab Results 06/08/19 06/08/19 06/08/19 Range/Units 15:40 15:40 15:40 WBC 6.7 (3.8-10.6) k/uL RBC 4.49 (4.30-5.90) m/uL Hgb 13.1 (13.0-17.5) gm/dL Hct 38.9 L (39.0-53.0) % MCV 86.5 (80.0-100.0) fL MCH 29.3 (25.0-35.0) pg MCHC 33.8 (31.0-37.0) g/dL RDW 12.1 (11.5-15.5) % Plt Count 290 (150-450) k/uL Neutrophils % 69 % Lymphocytes % 15 % Monocytes % 8 % Eosinophils % 4 % Basophils % 1 % Neutrophils # 4.6 (1.3-7.7) k/uL Lymphocytes # 1.0 (1.0-4.8) k/uL Monocytes # 0.5 (0-1.0) k/uL Eosinophils # 0.3 (0-0.7) k/uL Basophils # 0.1 (0-0.2) k/uL PT 9.9 (9.0-12.0) sec INR 0.9 (<1.2) APTT 20.1 L (22.0-30.0) sec Sodium 137 (137-145) mmol/L Potassium 4.2 (3.5-5.1) mmol/L Chloride 103 (98-107) mmol/L Carbon Dioxide 27 (22-30) mmol/L Anion Gap 7 mmol/L BUN 22 H (9-20) mg/dL Creatinine 1.59 H (0.66-1.25) mg/dL Est GFR (CKD-EPI)AfAm 60 (>60 ml/min/1.73 sqM) Est GFR (CKD-EPI)NonAf 52 (>60 ml/min/1.73 sqM) Glucose 168 H (74-99) mg/dL Calcium 9.0 (8.4-10.2) mg/dL Magnesium 1.8 (1.6-2.3) mg/dL Total Bilirubin 0.5 (0.2-1.3) mg/dL AST 38 (17-59) U/L ALT 34 (4-49) U/L Alkaline Phosphatase 43 (38-126) U/L NT-Pro-B Natriuret Pep pg/mL Total Protein 6.7 (6.3-8.2) g/dL Albumin 3.9 (3.5-5.0) g/dL 06/08/19 Range/Units 15:40 WBC (3.8-10.6) k/uL RBC (4.30-5.90) m/uL Hgb (13.0-17.5) gm/dL Hct (39.0-53.0) % MCV (80.0-100.0) fL MCH (25.0-35.0) pg MCHC (31.0-37.0) g/dL RDW (11.5-15.5) % Plt Count (150-450) k/uL Neutrophils % % Lymphocytes % % Monocytes % % Eosinophils % % Basophils % % Neutrophils # (1.3-7.7) k/uL Lymphocytes # (1.0-4.8) k/uL Monocytes # (0-1.0) k/uL Eosinophils # (0-0.7) k/uL Basophils # (0-0.2) k/uL PT (9.0-12.0) sec INR (<1.2) APTT (22.0-30.0) sec Sodium (137-145) mmol/L Potassium (3.5-5.1) mmol/L Chloride (98-107) mmol/L Carbon Dioxide (22-30) mmol/L Anion Gap mmol/L BUN (9-20) mg/dL Creatinine (0.66-1.25) mg/dL Est GFR (CKD-EPI)AfAm (>60 ml/min/1.73 sqM) Est GFR (CKD-EPI)NonAf (>60 ml/min/1.73 sqM) Glucose (74-99) mg/dL Calcium (8.4-10.2) mg/dL Magnesium (1.6-2.3) mg/dL Total Bilirubin (0.2-1.3) mg/dL AST (17-59) U/L ALT (4-49) U/L Alkaline Phosphatase (38-126) U/L NT-Pro-B Natriuret Pep 36 pg/mL Total Protein (6.3-8.2) g/dL Albumin (3.5-5.0) g/dL - EKG Data EKG Comments: Physical rate 67, WA interval 186, QTC 409. Normal sinus rhythm. Normal EKG. No acute ST segment changes. Disposition Clinical Impression: Edema of both legs, Chest pain Disposition: HOME SELF-CARE Condition: Stable Instructions (If sedation given, give patient instructions): Low-Sodium Diet (E D) Additional Instructions: Please return to the Emergency Department if symptoms worsen or any other concerns. Low sodium diet, elevate legs above the heart. Follow up with water quality technician. Is patient prescribed a controlled substance at d/c from ED?: No Referrals: Bereket Ortega DO [Primary Care Provider] - 1-2 days
--- NOTE | 2019-06-08 16:02 | XR ---
EXAMINATION TYPE: XR chest 2V DATE OF EXAM: 06/08/2019 COMPARISON: Chest x-ray May 11, 2019. HISTORY: Chest discomfort. TECHNIQUE: Frontal and lateral views of the chest are obtained. FINDINGS: An azygos lobe/fissure. There is no suspicious new focal air space opacity, pleural effusi on, or pneumothorax seen. Right middle lobe linear scarring or atelectasis on lateral view just abov e diaphragm noted. The cardiac silhouette size is stable and mildly enlarged. The osseous structure s are intact. IMPRESSION: Mild cardiomegaly without suspicious new acute pulmonary process. Know significant dasilva e from prior.
[2019-06-08 16:14] LABS: Basophils # (A) 0.1 k/uL (0-0.2); Basophils % (A) 1 %; Eosinophils # (A) 0.3 k/uL (0-0.7); Eosinophils % (A) 4 %; HCT 38.9 % (39.0-53.0); HGB 13.1 gm/dL (13.0-17.5); Lymphocytes % (A) 15 %; MCH 29.3 pg (25.0-35.0); MCHC 33.8 g/dL (31.0-37.0); MCV 86.5 fL (80.0-100.0); Mean Platelet Volume 7.4; Monocytes # (A) 0.5 k/uL (0-1.0); Monocytes % (A) 8 %; Neutrophils # (A) 4.6 k/uL (1.3-7.7); Neutrophils % (A) 69 %; Platelet Count 290 k/uL (150-450); RBC 4.49 m/uL (4.30-5.90); RDW 12.1 % (11.5-15.5); WBC 6.7 k/uL (3.8-10.6)
[2019-06-08 16:28] LABS: Albumin 3.9 g/dL (3.5-5.0); Magnesium 1.8 mg/dL (1.6-2.3); Potassium 4.2 mmol/L (3.5-5.1); Total Bilirubin 0.5 mg/dL (0.2-1.3); Total Protein 6.7 g/dL (6.3-8.2)
[2019-06-08 16:29] LABS: INR 0.9 (<1.2); Prothrombin Time 9.9 sec (9.0-12.0)
[2019-06-08 16:33] LABS: Partial Thromboplastin Time 20.1 sec (22.0-30.0)
[2019-06-08 17:51] VITALS: BP 117/62; PULSE 76; RESP 16
== END 2019-06-08 17:54 | disposition home or self-care (01) ==
LOC: EC 14:52
DX: R07.89 Other chest pain (principal); R60.0 Localized edema; M10.9 Gout, unspecified; G89.29 Other chronic pain; M54.9 Dorsalgia, unspecified; M54.2 Cervicalgia; I11.0 Hypertensive heart disease with heart failure; E11.40 Type 2 diabetes mellitus with diabetic neuropathy, unspecified; I50.9 Heart failure, unspecified; E78.5 Hyperlipidemia, unspecified; F03.90 Unspecified dementia, unspecified severity, without behavioral disturbance, psychotic disturbance, mood disturbance, and anxiety; F41.9 Anxiety disorder, unspecified; G47.30 Sleep apnea, unspecified; Z79.82 Long term (current) use of aspirin; Z79.899 Other long term (current) drug therapy; Z88.5 Allergy status to narcotic agent; Z88.6 Allergy status to analgesic agent; Z88.8 Allergy status to other drugs, medicaments and biological substances; Z87.891 Personal history of nicotine dependence; Z85.47 Personal history of malignant neoplasm of testis; Z99.89 Dependence on other enabling machines and devices; Z82.49 Family history of ischemic heart disease and other diseases of the circulatory system
CPT/HCPCS: 36415; 71046; 80053; 83735; 83880; 85025; 85610; 85730; 93005; 99285

== ENCOUNTER → 2019-06-15 | Outpatient (CLI) | payer OTHER ==
--- NOTE | 2019-06-15 12:38 | US ---
EXAMINATION TYPE: US kidneys/renal and bladder DATE OF EXAM: 06/15/2019 COMPARISON: NONE CLINICAL HISTORY: N18.3 Chronic Kidney Disease Stage 3. renal disease EXAM MEASUREMENTS: Right Kidney: 10.4 x 4.8 x 5.1cm Left Kidney: 10.0 x 4.1 x 4.7cm Right Kidney: No hydronephrosis or masses seen Left Kidney: No hydronephrosis or masses seen Bladder: wnl Bilateral Jets seen: yes There is no evidence for hydronephrosis at this point in time. No nephrolithiasis is seen. No mary s are identified. The urinary bladder is anechoic. Bilateral ureteral jets are seen. IMPRESSION: Unremarkable renal ultrasound. No current sonographic sequela of medical renal disease. No hydronephr osis or nephrolithiasis.
== END | disposition home or self-care (01) ==
LOC: RADUSWWP 12:02
PROVIDERS: ATTEND Nurse Practitioner Family
DX: N18.3 Chronic kidney disease, stage 3 (moderate) (principal)
CPT/HCPCS: 76770

== ENCOUNTER → 2019-06-17 | Outpatient (CLI) | payer OTHER ==
--- NOTE | 2019-06-17 14:49 | PN ---
PROGRESS NOTE DATE OF SERVICE: 06/17/2019 This patient is a 43-year-old gentleman who has been [facility] for treatment of obstructive sleep apnea-hypopnea syndrome. The patient continues to use CPAP equipment every night. Does not snore with the machine. [place] Sleepiness Scale today, although increased significantly to 22. I checked CPAP unit. CPAP pressure is 12 cm of water. Usage is 100% of the night. Some of the nights shorter than 4 hours. Leak 20 liters per minute. Apnea-hypopnea index 4.1. MEDICATIONS: Tizanidine, cetirizine, fenofibrate, ropinirole, allopurinol, lisinopril, hydrochlorothiazide, simvastatin, paroxetine, duloxetine, omeprazole, percocet. PHYSICAL EXAMINATION: GENERAL: Patient in no distress. VITAL SIGNS: BP 127/82, HR 75, RR 16, height 5 feet 4 inches, weight 221.0. Patient increased his weight by 14 pounds since previous visit. Temperature 98.0, oxygen saturation on room air 98%. HEENT: Oropharynx: Extremely low soft palate. Mallampati IV. NECK: Supple, no JVD. Thyroid is not palpable. LUNGS: Clear to percussion and to auscultation. Good air exchange. No wheezing or rhonchi. HEART: S1, S2 regular. No murmurs, gallops, or rubs. ABDOMEN: Slightly obese. EXTREMITIES: No clubbing or cyanosis. CHASSIS INSPECTOR: Awake, alert, and oriented X3. Cranial nerves 2 to 7 intact. There is no fasciculation or atrophy. noted. No focal deficits observed. IMPRESSION: 1. Severe obstructive sleep apnea-hypopnea syndrome. Normal respirations on CPAP. Patient benefitting from CPAP therapy. 2. Obesity. Patient increased weight comparing to the previous visit. 3. Episodes of back pain. 4. Acid reflux. 5. Patient recently had been diagnosed with Lewy body dementia. 6. Diabetes. 7. Some decreasing of kidney function. 8. History of anxiety. 9. Hyperlipidemia. 10.Gout. 11.Hypertension. 12.History of restless leg syndrome. PLAN: 1. Patient will continue to use CPAP equipment every night for the whole night. I will increase pressure to 13 cm of water. 2. Lose weight. 3. Prescription for all necessary CPAP supplies including nasal mask, heated tube, filters. 4. Precautions related to driving: No driving if feeling any sleepiness. 5. Sleep hygiene with regular time in bed for at least 7-1/2 to 8 hours. Thank you very much for allowing me to participate in the management of your patient. Sincerely, Jose Alejandro Rivera MD, PhD, FAASM Diplomat of [place] [employer] [place] [employer] Operator of [facility] [place] MMODL / KANEN: [phone] /
== END | disposition home or self-care (01) ==
LOC: SLEEP 13:02
PROVIDERS: ATTEND Internal Medicine
DX: G47.33 Obstructive sleep apnea (adult) (pediatric) (principal); E66.9 Obesity, unspecified; M54.89 Other dorsalgia; K21.9 Gastro-esophageal reflux disease without esophagitis; G31.83 Neurocognitive disorder with Lewy bodies; F02.80 Dementia in other diseases classified elsewhere, unspecified severity, without behavioral disturbance, psychotic disturbance, mood disturbance, and anxiety; E11.9 Type 2 diabetes mellitus without complications; N25.9 Disorder resulting from impaired renal tubular function, unspecified; E78.5 Hyperlipidemia, unspecified; M10.9 Gout, unspecified; I10 Essential (primary) hypertension; Z86.59 Personal history of other mental and behavioral disorders; Z86.69 Personal history of other diseases of the nervous system and sense organs; Z99.89 Dependence on other enabling machines and devices; Z79.899 Other long term (current) drug therapy

== ENCOUNTER 2019-09-16 06:16 | Day surgery (SDC) | payer OTHER ==
[2019-09-14 12:03] VITALS: BMI 37.1
[2019-09-16] MEDS ORDERED: SODIUM CHLORIDE 0.9% 1,000 ML in EMPTY BAG 1 BAG IV ONE (06:23)
[2019-09-16] MEDS ORDERED: ASPIRIN 325 MG TAB PO ONE (06:23)
[2019-09-16] MEDS ORDERED: ALPRAZolam 0.25 MG TAB PO PRN ×2 (06:23→08:28)
[2019-09-16] MEDS ORDERED: SODIUM CHLORIDE 0.9% 1,000 ML IV ONE (07:24)
[2019-09-16] MEDS ORDERED: MIDAZOLAM 2 MG/2 ML VIAL IV ONE (07:50)
[2019-09-16 07:53] LABS: Basophils # (A) 0.1 k/uL (0-0.2); Basophils % (A) 1 %; Eosinophils # (A) 0.3 k/uL (0-0.7); Eosinophils % (A) 4 %; HCT 38.5 % (39.0-53.0); HGB 13.4 gm/dL (13.0-17.5); Lymphocytes % (A) 17 %; MCH 28.6 pg (25.0-35.0); MCHC 34.8 g/dL (31.0-37.0); MCV 82.3 fL (80.0-100.0); Mean Platelet Volume 6.7; Monocytes # (A) 0.4 k/uL (0-1.0); Monocytes % (A) 8 %; Neutrophils # (A) 3.9 k/uL (1.3-7.7); Neutrophils % (A) 66 %; Platelet Count 246 k/uL (150-450); RBC 4.67 m/uL (4.30-5.90); RDW 13.2 % (11.5-15.5); WBC 5.8 k/uL (3.8-10.6)
[2019-09-16] MEDS ORDERED: LIDOCAINE 1% INJ 10MG/ML (20 ML MDV) SQ ONE (07:53)
[2019-09-16] MEDS ORDERED: fentaNYL (PF) 50 MCG/ML 2 ML AMP IV ONE (07:55)
[2019-09-16] MEDS ORDERED: HYDROmorphone 1 MG/ML 1 ML SYRINGE IVP ONE (08:22)
[2019-09-16] MEDS ORDERED: CLOPIDOGREL 75 MG TAB PO ONE (08:22)
[2019-09-16] MEDS ORDERED: tiZANidine 4 MG TAB PO PRN (08:28)
[2019-09-16] MEDS ORDERED: SODIUM CHLORIDE 0.9% 1,000 ML in EMPTY BAG 1 BAG IV SCH (08:30)
[2019-09-16] MEDS ORDERED: DULoxetine HCL 60 MG CAPSULE.DR PO SCH (09:00)
--- NOTE | 2019-09-16 09:11 | IR ---
EXAMINATION TYPE: IR stent intravas non coronary DATE OF EXAM: 09/16/2019 CLINICAL HISTORY: Peripheral vascular disease. Lower extremity edema. TECHNIQUE: Fluoroscopy. COMPARISON: None. FINDINGS: Fluoroscopic guidance was provided during iliac arterial angiogram and stent insertion pro cedure performed by Dr. Lin. A total of 8.8 minutes of fluoroscopic time was utilized during the pr ocedure and four cine runs images are acquired. Images acquired to access the left groin with subsequ ent stent placement left common iliac artery. IMPRESSION: As Above.
[2019-09-16 10:07] LABS: Glucose,Whole Blood 115 mg/dL (75-99)
--- NOTE | 2019-09-16 10:56 | P.PCN ---
Date of Procedure: 09/16/19 Operative Findings: PERCUTANEOUS PERIPHERAL VENOUS INTERVENTION Performing physician: Marco Antonio Lin MD, RPVI Procedure performed: 1. Successful stenting of the left common iliac vein and left external iliac vein using 16 mm x 19 mm Wallstent with an excellent results 2. Intravascular ultrasound (IVUS) of the IVC, left common iliac vein, and left external iliac vein, and left common femoral vein 3. An angiogram of the left common iliac vein and left external iliac vein Indication: 44-year-old gentleman who continues to struggle was bilateral lower extremity edema worse on the left side than the right side. He underwent in the past intravascular ultrasound of the bilateral iliac veins and that revealed severe stenosis involving the left common and left external iliac veins. Because of that she was brought today to undergo an intervention. Approach: Left common femoral vein Complication: None Level of sedation: Moderate with a sedation length of 40 minutes Procedure description: After obtaining an informed consent the patient was brought to the cardiac civil laboratory technician. The left common femoral vein was cannulated using micropuncture technique under ultrasound guidance, the micropuncture wire passed easily then I placed initially an 8-Congolese sheath at the left common femoral vein was subsequently we upgraded the sheath into a 10-Congolese sheath later on. Anticoagulation was initiated using heparin with a bolus. Continuous ACT monitoring was performed throughout the procedure. Subsequently I advanced an 035 Amplatzer wire through the sheath at the left groin all the way to the inferior vena cava. After that I advanced the intravascular ultrasound catheter to the inferior vena cava then I did manual pullback with recording. The IVC was looking normal by ultrasound. There was severe stenosis involving the left common iliac vein as well as left external iliac vein. At that point I did deploy 16 mm x 90 mm Wallstent at the left common iliac vein extends to left external iliac vein. The stent was positioned under fluoroscopy guidance after the intravascular ultrasound was performed and after the angiogram was performed to assess the proximal and distal edge of the stent before we deployed. The stent was deployed under fluoroscopy guidance. Subsequently the stent system was removed out and I did balloon angioplasty of the stented segment using 16 mm x 40 mm balloon. After that I did intravascular ultrasound again of the stented segment and that showed great results with a good opposition to the wall. I confirmed that by angiogram as well which showed good angiographic results and at that point the procedure was completed without any complication Intravascular ultrasound (IVUS) data: Inferior vena cava There are Brenda area was 232 mm, the 2compressed area was 232 mm, with an area stenosis of 0% The left common iliac vein There are Brenda area was 176 mm, the compressed area was 58 mm, and the area stenosis was 67% The left external iliac vein There are Brenda area was 147 mm, the compressed area was 74 mm, and the area stenosis was 50% t The left common femoral vein The reference area was 124 mm, the compressed area was 124 mm, and the area stenosis of 0% Postprocedure management: 1. Dual antiplatelet therapy 3. Follow-up with the patient
[2019-09-16] MEDS: MAGNESIUM OXIDE 400 MG TAB PO SCH ×2 (11:11→11:50)
[2019-09-16] MEDS: DULoxetine HCL 60 MG CAPSULE.DR PO SCH ×3 (11:11→20:12)
[2019-09-16] MEDS: FUROSEMIDE 20 MG TAB PO SCH ×2 (11:11→11:52)
[2019-09-16 11:50] LABS: Glucose,Whole Blood 102 mg/dL (75-99)
[2019-09-16] MEDS: oxyCODONE-APAP 7.5-325MG 1 EACH TAB PO PRN (11:50)
[2019-09-16] MEDS: POTASSIUM CHLORIDE ER 10 MEQ TAB.ER.PRT PO SCH (11:52)
[2019-09-16] MEDS: PREGABALIN 50 MG CAP PO SCH ×3 (11:52→21:17)
[2019-09-16] MEDS: THIAMINE 100 MG TAB PO SCH (11:52)
[2019-09-16] MEDS: DONEPEZIL 5 MG TAB PO SCH (12:26)
[2019-09-16] MEDS: PROPRANOLOL 20 MG TAB PO SCH ×2 (12:26→20:12)
[2019-09-16] MEDS: CEPHALEXIN 250 MG CAP PO SCH ×2 (16:36→22:54)
[2019-09-16 17:02] LABS: Glucose,Whole Blood 126 mg/dL (75-99)
[2019-09-16 19:55] LABS: Glucose,Whole Blood 187 mg/dL (75-99)
[2019-09-16] MEDS ORDERED: PANTOPRAZOLE 40 MG TABLET PO SCH (21:00)
[2019-09-16] MEDS ORDERED: INSULIN DETEMIR (LEVEMIR) 100 UNIT/ML SYR SQ SCH (21:00)
[2019-09-16] MEDS ORDERED: PRAZOSIN 1 MG CAP PO SCH (21:00)
[2019-09-16] MEDS ORDERED: ATORVASTATIN 10 MG TAB PO SCH (21:00)
[2019-09-17 06:07] LABS: Glucose,Whole Blood 94 mg/dL (75-99)
[2019-09-17] MEDS: oxyCODONE-APAP 7.5-325MG 1 EACH TAB PO PRN (06:17)
[2019-09-17] MEDS: THIAMINE 100 MG TAB PO SCH (06:17)
--- NOTE | 2019-09-17 08:32 | P.DS ---
Providers Date of admission: Jeimy 10/17/2019 Attending physician: Marco Antonio Lin Primary care physician: Bereket Layton Hospital Course: This is a pleasant 44-year-old gentleman who was diagnosed recently with severe stenosis involving the left common and left external iliac artery. Yesterday he underwent successful stenting of the left common and left external iliac artery with an excellent results. The procedure was performed from the left groin. The left groin soft and nontender and without any bruises. The patient is going to be discharged home and dual antiplatelet therapy as well as a statin and I'll follow-up with the patient next week in the office Plan - Discharge Summary Discharge Rx Participant: No New Discharge Prescriptions: New Clopidogrel [Plavix] 75 mg PO DAILY #90 tab Continue tiZANidine [Zanaflex] 4 mg PO Q8HR PRN PRN Reason: Muscle Pain Omeprazole 20 mg PO HS rOPINIRole HCL [Requip] 2 mg PO HS Propranolol HCl 60 mg PO BID oxyCODONE HCL/ACETAMINOPHEN [Percocet 7.5-325 mg] 1 tab PO Q6HR PRN PRN Reason: Pain DULoxetine HCL [Cymbalta] 60 mg PO BID Thiamine [Vitamin B-1] 100 mg PO BID-W/MEALS #30 tab Rivastigmine Tartrate [Rivastigmine] 1.5 mg PO BID Aspirin [[place] Aspirin EC] 81 mg PO DAILY Atorvastatin [Lipitor] 10 mg PO HS #30 tab Furosemide [Lasix] 60 mg PO QAM Ertugliflozin Pidolate [Steglatro] 15 mg PO DAILY Insulin Glargine,Hum.rec.anlog [Basaglar Kwikpen U-100] 15 unit SQ HS Pregabalin [Lyrica] 50 mg PO TID Magnesium Oxide [Mag-Ox] 400 mg PO DAILY Cephalexin [Keflex] 250 mg PO Q8HR Prazosin [Minipress] 1 mg PO HS Ergocalciferol [Vitamin D2 (DRISDOL)] 50,000 unit PO ALVES ALPRAZolam [Xanax] 0.25 mg PO TID PRN PRN Reason: Anxiety Potassium Chloride 10 meq PO DAILY Discontinued Rivaroxaban [Xarelto] 15 mg PO DAILY Discharge Medication List Omeprazole 20 mg PO HS 01/21/17 [History] tiZANidine [Zanaflex] 4 mg PO Q8HR PRN 01/21/17 [History] DULoxetine HCL [Cymbalta] 60 mg PO BID 01/26/19 [History] Propranolol HCl 60 mg PO BID 01/26/19 [History] oxyCODONE HCL/ACETAMINOPHEN [Percocet 7.5-325 mg] 1 tab PO Q6HR PRN 01/26/19 [History] rOPINIRole HCL [Requip] 2 mg PO HS 01/26/19 [History] Thiamine [Vitamin B-1] 100 mg PO BID-W/MEALS #30 tab 01/29/19 [Rx] Rivastigmine Tartrate [Rivastigmine] 1.5 mg PO BID 04/24/19 [History] Aspirin [[place] Aspirin EC] 81 mg PO DAILY 05/11/19 [History] Atorvastatin [Lipitor] 10 mg PO HS #30 tab 05/12/19 [Rx] Furosemide [Lasix] 60 mg PO QAM 05/19/19 [History] Ertugliflozin Pidolate [Steglatro] 15 mg PO DAILY 06/25/19 [History] Insulin Glargine,Hum.rec.anlog [Basaglar Kwikpen U-100] 15 unit SQ HS 08/14/19 [History] ALPRAZolam [Xanax] 0.25 mg PO TID PRN 09/14/19 [History] Cephalexin [Keflex] 250 mg PO Q8HR 09/14/19 [History] Ergocalciferol [Vitamin D2 (DRISDOL)] 50,000 unit PO ALVES 09/14/19 [History] Magnesium Oxide [Mag-Ox] 400 mg PO DAILY 09/14/19 [History] Potassium Chloride 10 meq PO DAILY 09/14/19 [History] Prazosin [Minipress] 1 mg PO HS 09/14/19 [History] Pregabalin [Lyrica] 50 mg PO TID 09/14/19 [History] Clopidogrel [Plavix] 75 mg PO DAILY #90 tab 09/17/19 [Rx] Follow up Appointment(s)/Referral(s): Marco Antonio Lin MD [STAFF PHYSICIAN] - 1 Week
[2019-09-17] MEDS: DULoxetine HCL 60 MG CAPSULE.DR PO SCH (08:33)
[2019-09-17] MEDS: MAGNESIUM OXIDE 400 MG TAB PO SCH (08:33)
[2019-09-17] MEDS: CEPHALEXIN 250 MG CAP PO SCH (08:33)
[2019-09-17] MEDS: PREGABALIN 50 MG CAP PO SCH (08:33)
[2019-09-17] MEDS: FUROSEMIDE 20 MG TAB PO SCH (08:33)
[2019-09-17] MEDS: POTASSIUM CHLORIDE ER 10 MEQ TAB.ER.PRT PO SCH (08:33)
[2019-09-17] MEDS: PROPRANOLOL 20 MG TAB PO SCH (08:33)
[2019-09-17] MEDS: DONEPEZIL 5 MG TAB PO SCH (08:34)
[2019-09-17 08:43] VITALS: BP 121/56; PULSE 78; RESP 18; TEMP 97.8
[2019-09-17] MEDS ORDERED: CLOPIDOGREL 75 MG TAB PO SCH (09:00)
[2019-09-17] MEDS ORDERED: ASPIRIN 325 MG TAB PO SCH (09:00)
[2019-09-20] MEDS ORDERED: ERGOCALCIFEROL 50,000 UNIT CAP PO SCH (09:00)
== END 2019-09-17 10:23 | disposition home or self-care (01) ==
LOC: CATHCVL 06:16 → 3SCARD 08:24 → CATHCVL 09-17 10:23
PROVIDERS: ATTEND Internal Medicine Interventional Cardiology
DX: I87.1 Compression of vein (principal); I10 Essential (primary) hypertension; E78.5 Hyperlipidemia, unspecified; Z72.0 Tobacco use; Z79.01 Long term (current) use of anticoagulants; Z79.82 Long term (current) use of aspirin; Z79.4 Long term (current) use of insulin; Z79.899 Other long term (current) drug therapy
CPT/HCPCS: 37238; 37252; 82565; 85025; C1769 ×5; C1894 ×2; C1753; C1876; C1725; J2250; J2001; J3010; J1170; J1644; 37236

== ENCOUNTER 2019-11-22 17:54 | Emergency (ER) | payer OTHER ==
[2019-11-22] MEDS ORDERED: SODIUM CHLORIDE 0.9% 1,000 ML IV STA ×2 (18:14)
[2019-11-22] MEDS ORDERED: ALBUTEROL NEBULIZED 2.5 MG/3 ML INHALATION STA (18:14)
[2019-11-22] MEDS ORDERED: PROPARACAINE 0.5% OPHTH DROPS 15 ML BTL BOTH EYES STA (18:20)
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
[2019-11-22 18:48] LABS: Basophils # (A) 0.1 k/uL (0-0.2); Basophils % (A) 1 %; Eosinophils # (A) 0.2 k/uL (0-0.7); Eosinophils % (A) 3 %; HCT 45.7 % (39.0-53.0); HGB 15.7 gm/dL (13.0-17.5); Lymphocytes # (A) 1.2 k/uL (1.0-4.8); Lymphocytes % (A) 16 %; MCH 27.9 pg (25.0-35.0); MCHC 34.4 g/dL (31.0-37.0); Mean Platelet Volume 6.4; Monocytes # (A) 0.5 k/uL (0-1.0); Monocytes % (A) 7 %; Neutrophils # (A) 5.3 k/uL (1.3-7.7); Neutrophils % (A) 69 %; Platelet Count 287 k/uL (150-450); RBC 5.64 m/uL (4.30-5.90); RDW 14.2 % (11.5-15.5); WBC 7.7 k/uL (3.8-10.6)
[2019-11-22 18:57] LABS: Albumin 4.4 g/dL (3.5-5.0); Calcium 9.5 mg/dL (8.4-10.2); Magnesium 1.9 mg/dL (1.6-2.3); Total Protein 7.1 g/dL (6.3-8.2)
[2019-11-22 18:58] LABS: Partial Thromboplastin Time 22.8 sec (22.0-30.0)
[2019-11-22 19:11] LABS: Potassium 2.6 mmol/L (3.5-5.1)
[2019-11-22] MEDS ORDERED: POTASSIUM CHLORIDE ER 20 MEQ TAB.ER PO STA (19:13)
--- NOTE | 2019-11-22 19:19 | XR ---
EXAMINATION TYPE: XR chest 2V DATE OF EXAM: 11/22/2019 COMPARISON: 06/08/2019 HISTORY: Chest pain TECHNIQUE: 2 views FINDINGS: Heart and mediastinum are normal. Lungs are clear of infiltrate. There is no heart failure. Costophrenic angles are clear. There are chest leads. Bony thorax is intact. IMPRESSION: No active cardiopulmonary disease. Normal heart. No change.
[2019-11-22] MEDS ORDERED: FLUORESCEIN STRIPS 1 MG STRIP BOTH EYES ONE (20:42)
[2019-11-22 21:30] VITALS: BP 132/66; PULSE 80; RESP 18; TEMP 97.5
== END 2019-11-22 21:30 | disposition home or self-care (01) ==
LOC: EC 17:54
DX: E87.6 Hypokalemia (principal); J68.9 Unspecified respiratory condition due to chemicals, gases, fumes and vapors; J39.2 Other diseases of pharynx; R06.2 Wheezing; J44.9 Chronic obstructive pulmonary disease, unspecified; I11.0 Hypertensive heart disease with heart failure; I50.9 Heart failure, unspecified; K21.9 Gastro-esophageal reflux disease without esophagitis; E78.5 Hyperlipidemia, unspecified; G47.30 Sleep apnea, unspecified; M10.9 Gout, unspecified; G62.9 Polyneuropathy, unspecified; G89.29 Other chronic pain; M54.9 Dorsalgia, unspecified; M54.2 Cervicalgia; F41.9 Anxiety disorder, unspecified; F32.9 Major depressive disorder, single episode, unspecified; Z79.51 Long term (current) use of inhaled steroids; Z79.899 Other long term (current) drug therapy; Z88.8 Allergy status to other drugs, medicaments and biological substances; Z88.5 Allergy status to narcotic agent; Z88.6 Allergy status to analgesic agent; Z99.89 Dependence on other enabling machines and devices; Z85.47 Personal history of malignant neoplasm of testis; Z87.891 Personal history of nicotine dependence; Z98.890 Other specified postprocedural states; X14.0XXA Inhalation of hot air and gases, initial encounter
CPT/HCPCS: 36415; 71046; 80053; 83605; 83735; 84484; 85025; 85610; 85730; 93005; 94640; 96360; 96361; 99285

== ENCOUNTER 2019-11-25 14:38 | Observation (INO) | payer OTHER ==
[2019-11-25] MEDS ORDERED: SODIUM CHLORIDE 0.9% 1,000 ML IV STA (14:59)
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
[2019-11-25 15:57] LABS: Albumin 3.8 g/dL (3.5-5.0); Calcium 9.3 mg/dL (8.4-10.2); Magnesium 1.9 mg/dL (1.6-2.3); Potassium 2.9 mmol/L (3.5-5.1); Total Bilirubin 0.5 mg/dL (0.2-1.3); Total Protein 6.2 g/dL (6.3-8.2)
[2019-11-25 16:00] LABS: INR 0.9 (<1.2); Prothrombin Time 9.5 sec (9.0-12.0)
[2019-11-25 16:09] LABS: HCT 42.3 % (39.0-53.0); HGB 14.7 gm/dL (13.0-17.5); MCH 28.6 pg (25.0-35.0); MCHC 34.7 g/dL (31.0-37.0); MCV 82.4 fL (80.0-100.0); Mean Platelet Volume 6.4; Platelet Count 260 k/uL (150-450); RBC 5.14 m/uL (4.30-5.90); RDW 14.5 % (11.5-15.5); WBC 5.7 k/uL (3.8-10.6)
--- NOTE | 2019-11-25 16:24 | CT ---
EXAMINATION TYPE: CT brain wo con DATE OF EXAM: 11/25/2019 COMPARISON: Prior CT brain 05/11/2019 HISTORY: Syncope with fatigue. no known injury. History of testicular cancer. CT DLP: 1158.4 mGycm. Automated Exposure Control for Dose Reduction was Utilized. TECHNIQUE: CT scan of the head is performed without contrast. FINDINGS: There is no acute intracranial hemorrhage, mass effect, or midline shift identified. The ventricles and sulci are within normal limits in size. The globes are intact and the visualized sin uses are clear. IMPRESSION: No acute intracranial hemorrhage, mass effect, or midline shift is seen.
--- NOTE | 2019-11-25 16:25 | XR ---
EXAMINATION TYPE: XR chest 2V DATE OF EXAM: 11/25/2019 COMPARISON: Prior chest x-ray 11/22/2019 HISTORY: Syncope TECHNIQUE: Frontal and lateral views of the chest are obtained. FINDINGS: There is no focal air space opacity, pleural effusion, or pneumothorax seen. The cardiac silhouette size is stable. The osseous structures are intact. Azygos lobe noted incidentally. IMPRESSION: No acute cardiopulmonary process.
[2019-11-25 16:39] LABS: Basophils # (M) 0.06 k/uL (0-0.2); Eosinophils # (M) 0.46 k/uL (0-0.7); Monocytes # (M) 0.74 k/uL (0-1.0); Neutrophils # (M) 3.25 k/uL (1.3-7.7); Neutrophils % (M) 57 %; Nucleated Red Blood Cells 0 /100 WBC (0-0); Total Cells Counted 100
[2019-11-25 17:08] LABS: Appearance,Urine Clear (Clear); Bilirubin,Urine Negative (Negative); Blood,Urine Negative (Negative); Color,Urine Light Yellow; Glucose,Urine (UA) 4+ (Negative); Ketones,Urine Negative (Negative); Leukocyte Esterase,Urine Negative (Negative); Nitrite,Urine Negative (Negative); PH, Urine 6.5 (5.0-8.0); Protein,Urine Negative (Negative); Specific Gravity,Urine 1.019 (1.001-1.035); Urobilinogen,Urine <2.0 mg/dL (<2.0)
[2019-11-25] MEDS ORDERED: POTASSIUM CHLORIDE ER 20 MEQ TAB.ER PO STA (17:09)
[2019-11-25] MEDS ORDERED: ONDANSETRON 4 MG/2 ML VIAL IVP PRN (18:37)
[2019-11-25] MEDS ORDERED: NALOXONE 0.4 MG/ML 1 ML VIAL IV PRN (18:37)
[2019-11-25] MEDS ORDERED: KETOROLAC 30 MG/ML 1 ML VIAL IVP PRN (18:37)
[2019-11-25] MEDS ORDERED: ACETAMINOPHEN TAB 325 MG TAB PO PRN (18:37)
[2019-11-25] MEDS ORDERED: ALBUTEROL NEBULIZED 2.5 MG/3 ML INHALATION PRN (18:39)
[2019-11-25] MEDS ORDERED: ALBUTEROL HFA INHALER INHALATION PRN (18:39)
[2019-11-25] MEDS: SODIUM CHLORIDE 0.9% 1,000 ML IV SCH (18:59)
[2019-11-25] MEDS: DULoxetine HCL 60 MG CAPSULE.DR PO SCH (20:57)
[2019-11-25] MEDS: PREGABALIN 50 MG CAP PO SCH (20:57)
[2019-11-25] MEDS: ATORVASTATIN 10 MG TAB PO SCH (20:57)
[2019-11-25] MEDS: PANTOPRAZOLE 40 MG TABLET PO SCH (20:57)
[2019-11-25] MEDS: tiZANidine 4 MG TAB PO SCH ×2 (20:57→22:05)
[2019-11-25 21:03] LABS: Glucose,Whole Blood 259 mg/dL (75-99)
[2019-11-25] MEDS: oxyCODONE-APAP 7.5-325MG 1 EACH TAB PO PRN (21:06)
[2019-11-25] MEDS: PRAZOSIN 1 MG CAP PO SCH (21:06)
[2019-11-25] MEDS: PROPRANOLOL 20 MG TAB PO SCH (21:06)
[2019-11-25] MEDS: INSULIN DETEMIR (LEVEMIR) 100 UNIT/ML SYR SQ SCH (21:06)
[2019-11-26] MEDS: SODIUM CHLORIDE 0.9% 1,000 ML IV SCH ×2 (05:35→08:14)
[2019-11-26] MEDS: THIAMINE 100 MG TAB PO SCH ×2 (06:18→16:29)
[2019-11-26 06:22] LABS: Glucose,Whole Blood 186 mg/dL (75-99)
[2019-11-26] MEDS: tiZANidine 4 MG TAB PO SCH ×2 (08:08→16:29)
[2019-11-26] MEDS: POTASSIUM CHLORIDE ER 10 MEQ TAB.ER.PRT PO SCH (08:08)
[2019-11-26] MEDS: CLOPIDOGREL 75 MG TAB PO SCH (08:08)
[2019-11-26] MEDS: DULoxetine HCL 60 MG CAPSULE.DR PO SCH ×2 (08:08→20:25)
[2019-11-26] MEDS: PREGABALIN 50 MG CAP PO SCH ×3 (08:08→20:26)
[2019-11-26] MEDS: ASPIRIN 325 MG TAB PO SCH (08:08)
[2019-11-26] MEDS: MAGNESIUM OXIDE 400 MG TAB PO SCH (08:09)
[2019-11-26] MEDS: PROPRANOLOL 20 MG TAB PO SCH ×2 (08:10→20:25)
[2019-11-26] MEDS: NON FORMULARY DRUG (Ertugliflozin Pidolate [Steglatro] 15 MG) PO SCH (08:28)
[2019-11-26] MEDS ORDERED: metOLazone 5 MG TAB PO SCH (09:00)
[2019-11-26] MEDS ORDERED: POTASSIUM CHLORIDE ER 20 MEQ TAB.ER PO STA (09:36)
--- NOTE | 2019-11-26 11:51 | ECHOF ---
Referral Reason:near syncope MEASUREMENTS -------- HEIGHT: 165.1 cm WEIGHT: 100.2 kg BP: RVIDd: 2.4 cm (< 3.3) IVSd: 1.3 cm (0.6 - 1.1) LVIDd: 3.8 cm (3.9 - 5.3) LVPWd: 1.5 cm (0.6 - 1.1) IVSs: 1.4 cm LVIDs: 2.5 cm LVPWs: 1.2 cm LA Diam: 3.7 cm (2.7 - 3.8) LAESV Index (A-L): 17.16 ml/m Ao Diam: 2.8 cm (2.0 - 3.7) AV Cusp: 1.9 cm (1.5 - 2.6) LA Diam: 3.7 cm (2.7 - 3.8) MV EXCURSION: 16.269 mm (> 18.000) MV EF SLOPE: 128 mm/s (70 - 150) EPSS: 0.2 cm MV E Joe: 0.76 m/s MV DecT: 169 ms MV A Joe: 0.64 m/s MV E/A Ratio: 1.18 RAP: 5.00 mmHg RVSP: 9.81 mmHg FINDINGS -------- Sinus rhythm. This was a techncally difficult study with suboptimal views, , Lumason utilized for enhancement of im ages. The left ventricular size is normal. There is mild concentric left ventricular hypertrophy. Overa ll left ventricular systolic function is normal with, an EF between 55 - 60 %. The diastolic fillin g pattern is normal for the age of the patient 10.26. The right ventricle is normal in size. Normal LA size by volume 22+/-6 ml/m2. The right atrial size is normal. 5.0mg OF Lumason UTLIZED: 2 OR MORE WALL SEGMENTS NOT VISUALIZED. The aortic valve is trileaflet, and appears structurally normal. No aortic stenosis or regurgitation. The mitral valve is normal. Mild mitral regurgitation is present. Mild tricuspid regurgitation present. Right ventricular systolic pressure is normal at < 35 mmHg. The pulmonic valve was not well visualized. There is no pulmonic regurgitation present. The aortic root size is normal. There is a trivial pericardial effusion present. CONCLUSIONS -------- 1. This was a techncally difficult study with suboptimal views, , Lumason utilized for enhancement of images. 2. There is mild concentric left ventricular hypertrophy. 3. Overall left ventricular systolic function is normal with, an EF between 55 - 60 %. 4. Normal LA size by volume 22+/-6 ml/m2. 5. 5.0mg OF Lumason UTLIZED: 2 OR MORE WALL SEGMENTS NOT VISUALIZED. 6. The aortic valve is trileaflet, and appears structurally normal. No aortic stenosis or regurgitati on. 7. Mild mitral regurgitation is present. 8. Mild tricuspid regurgitation present. 9. There is a trivial pericardial effusion present. DIESEL MAINTENANCE TECHNICIAN: Manda Dee RDCS
[2019-11-26 12:48] LABS: Glucose,Whole Blood 169 mg/dL (75-99)
--- NOTE | 2019-11-26 14:01 | P.HPIM ---
History of Present Illness 43-year-old male came in with multiple episodes of loss of consciousness while he was on the beach chair. Patient says he has severe neuropathy because of which she is a wheelchair bound. Patient denied any fever chills dysuria nausea vomiting. Patient symptoms are mostly like stating everything happened only yesterday he denied any loss of bowel or bladder continence during these episodes but did have bladder incontinence last night which never happened to him in the past. Patient denied any fever chills. Patient was a valid by cardiology and neurology will evaluate the patient echo cardiac exam is being up and patient will be continued on surveillance monitor EKG did not show any significant ST-T wave changes or changes that can explain his symptoms. Patient denied any shortness of breath Review of Systems REVIEW OF SYSTEMS: CONSTITUTIONAL: No fever, no malaise, no fatigue. HEENT: No recent visual problems or hearing problems. Denied any sore throat. CARDIOVASCULAR: No chest pain, orthopnea, PND, no palpitations. PULMONARY: No shortness of breath, no cough, no hemoptysis. GASTROINTESTINAL: No diarrhea, no nausea, no vomiting, no abdominal pain. NEUROLOGICAL: No headaches, no weakness, no numbness. HEMATOLOGICAL: Denies any bleeding or petechiae. GENITOURINARY: Denies any burning micturition, frequency, or urgency. MUSCULOSKELETAL/RHEUMATOLOGICAL: Denies any joint pain, swelling, or any muscle pain. ENDOCRINE: Denies any polyuria or polydipsia. The rest of the 14-point review of systems is negative. Past Medical History Past Medical History: Cancer, Heart Failure, GERD/Reflux, Hyperlipidemia, Hypertension, Musculoskeletal Disorder, Renal Disease, Sleep Apnea/CPAP/BIPAP Additional Past Medical History / Comment(s): LEWEY BODY DEMENTIA. LOWER LEG EDEMA AND NEUROPATHY. Cancer LT Testicular, gout, chronic back and neck pain, History of Any Multi-Drug Resistant Organisms: None Reported Past Surgical History: Back Surgery, Hernia Repair, Orthopedic Surgery Additional Past Surgical History / Comment(s): LT testicular SX (removed), lt knee arthroscopy, pain injections in back and radioablation, Past Anesthesia/Blood Transfusion Reactions: Family History of Problems w/ Anesthesia Additional Past Anesthesia/Blood Transfusion Reaction / Comment(s): States father had a hard time waking up from anesthesia. Past Psychological History: Anxiety, Depression Additional Psychological History / Comment(s): BEGINNING TO BE FORGETFUL, PREFERS THAT HIS ANSWERS QUESTIONS. Smoking Status: Former smoker Past Alcohol Use History: Occasional Additional Past Alcohol Use History / Comment(s): . Past Drug Use History: None Reported - Past Family History Father History Unknown: Yes Family Medical History: Congestive Heart Failure (CHF), Coronary Artery Disease (CAD), CVA/TIA, Dementia, Diabetes Mellitus, Hyperlipidemia, Hypertension, My ocardial Infarction (DC), Renal Disease Additional Family Medical History / Comment(s): PARKINSONS, NEUROPATHY,BKA, Mother History Unknown: Yes Family Medical History: Congestive Heart Failure (CHF), Coronary Artery Disease (CAD), Hyperlipidemia, Hypertension, Myocardial Infarction (DC), Vascular Disorder Additional Family Medical History / Comment(s): ANXIETY Medications and Allergies Home Medications Medication Instructions Recorded Confirmed Type Omeprazole 20 mg PO HS 01/21/17 11/25/19 History tiZANidine [Zanaflex] 4 mg PO Q8H 01/21/17 11/25/19 History DULoxetine HCL [Cymbalta] 60 mg PO BID 01/26/19 11/25/19 History Propranolol HCl 60 mg PO BID 01/26/19 11/25/19 History oxyCODONE HCL/ACETAMINOPHEN 1 tab PO Q6H PRN 01/26/19 11/25/19 History [Percocet 7.5-325 mg] rOPINIRole HCL [Requip] 2 mg PO HS 01/26/19 11/25/19 History Atorvastatin [Lipitor] 10 mg PO HS #30 tab 05/12/19 11/25/19 Rx Ertugliflozin Pidolate [Steglatro] 15 mg PO DAILY 06/25/19 11/25/19 History Insulin Glargine,Hum.rec.anlog 20 unit SQ HS 08/14/19 11/25/19 History [Basaglar Kwikpen U-100] Ergocalciferol [Vitamin D2 50,000 unit PO ALVES 09/14/19 11/25/19 History (DRISDOL)] Magnesium Oxide [Mag-Ox] 400 mg PO DAILY 09/14/19 11/25/19 History Prazosin [Minipress] 1 mg PO HS 09/14/19 11/25/19 History Pregabalin [Lyrica] 50 mg PO TID 09/14/19 11/25/19 History Clopidogrel [Plavix] 75 mg PO DAILY #90 tab 09/17/19 11/25/19 Rx Albuterol Inhaler [Ventolin Hfa 2 puff INHALATION RT-Q6H PRN 11/22/19 11/25/19 History Inhaler] Albuterol Nebulized [Ventolin 2.5 mg INHALATION RT-QID PRN 11/22/19 11/25/19 History Nebulized] Chlorhexidine Gluconate [Peridex] 15 ml PO BID 11/22/19 11/25/19 History Metolazone [Zaroxolyn] 5 mg PO DAILY 11/22/19 11/25/19 History Potassium Chloride ER [K-Dur 10] 30 meq PO DAILY 11/22/19 11/25/19 History Thiamine [Vitamin B-1] 100 mg PO AC-BID 11/22/19 11/25/19 History Aspirin EC [Ecotrin] 325 mg PO DAILY 11/25/19 11/25/19 History Allergies Allergy/AdvReac Type Severity Reaction Status Date / Time meperidine HCl [From Demerol] Allergy Swelling/Ra Verified 11/25/19 15:59 sh/Itching meloxicam [From Mobic] AdvReac Severe Confusion/MEMORY Verified 11/25/19 15:59 LOSS gabapentin AdvReac Intermediate BURNS Verified 11/25/19 15:59 codeine AdvReac Nausea & Verified 11/25/19 15:59 Vomiting Physical Exam Vitals: Vital Signs Temp Pulse Pulse Resp BP BP Pulse Ox 11/26/19 11:22 97.8 F 64 16 100/53 98 11/26/19 08:00 98 F 70 16 137/69 97 11/26/19 04:00 98 F 80 18 116/55 98 11/25/19 23:10 82 18 110/56 96 11/25/19 19:27 97.9 F 75 18 116/66 97 11/25/19 18:00 65 15 124/52 99 11/25/19 17:00 80 15 122/60 96 11/25/19 16:00 84 16 107/49 97 11/25/19 14:40 98.1 F 72 18 114/68 98 Intake and Output 11/25/19 11/26/19 11/26/19 22:59 06:59 14:59 Intake Total 236 Balance 236 Intake: Oral 236 Other: # Voids 1 3 Weight 99.79 kg 100.3 kg PHYSICAL EXAMINATION: GENERAL: The patient is alert and oriented x3, not in any acute distress. Well developed, well nourished. HEENT: Pupils are round and equally reacting to light. EOMI. No scleral icterus. No conjunctival pallor. Normocephalic, atraumatic. No pharyngeal erythema. No thyromegaly. CARDIOVASCULAR: S1 and S2 present. No murmurs, rubs, or gallops. PULMONARY: Chest is clear to auscultation, no wheezing or crackles. ABDOMEN: Soft, nontender, nondistended, normoactive bowel sounds. No palpable organomegaly. MUSCULOSKELETAL: No joint swelling or deformity. EXTREMITIES: No cyanosis, clubbing, or pedal edema. NEUROLOGICAL: Gross neurological examination did not reveal any new focal deficits. SKIN: No rashes. Results CBC & Chem 7: 11/25/19 15:29 11/25/19 15:29 Labs: Abnormal Lab Results - Last 24 Hours (Table) 11/25/19 11/25/19 11/25/19 Range/Units 15:29 16:57 21:02 Sodium 135 L (137-145) mmol/L Potassium 2.9 L (3.5-5.1) mmol/L Chloride 97 L (98-107) mmol/L Creatinine 1.39 H (0.66-1.25) mg/dL Glucose 155 H (74-99) mg/dL POC Glucose (mg/dL) 259 H (75-99) mg/dL Total Protein 6.2 L (6.3-8.2) g/dL Urine Glucose (UA) 4+ H (Negative) 11/26/19 11/26/19 Range/Units 06:17 12:47 Sodium (137-145) mmol/L Potassium (3.5-5.1) mmol/L Chloride (98-107) mmol/L Creatinine (0.66-1.25) mg/dL Glucose (74-99) mg/dL POC Glucose (mg/dL) 186 H 169 H (75-99) mg/dL Total Protein (6.3-8.2) g/dL Urine Glucose (UA) (Negative) Thrombosis Risk Factor Assmnt - Choose All That Apply Any of the Below Risk Factors Present?: Yes Each Factor Represents 1 point: Age 41-60 years, Obesity (BMI >25), Swollen legs (current) Thrombosis Risk Factor Assessment Total Risk Factor Score: 3 Thrombosis Risk Factor Assessment Level: Moderate Risk Assessment and Plan Plan: -Possible syncope: Patient will be evaluated as well as seizures echocardiogram will be obtained monitored on telemetry and patient will also undergo EEG -Possible chronic kidney disease stage III patient's creatinine is at his baseline patient is on diuretics and not sure why these diuretics will be held and patient will be continued on IV fluid and will recheck the kidney function and see if that helps his kidney function. But patient creatinine is around 1.3 which appears to be his baseline. -Gastroesophageal reflux disease next and-hyperlipidemia -Hypertension -History of lewey body dementia and severe peripheral neuropathy. -Testicular cancer history chronic back and neck pain. -DVT prophylaxis with subcutaneous heparin.
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
--- NOTE | 2019-11-26 15:50 | CONS ---
CONSULTATION Oniel Tolbert is a 44-year-old unfortunate gentleman with advanced progressive dementia. He sees a neurologist. Has limited activity. Has compromise in his motor function as well. He usually uses a wheelchair to get around. Additional comorbid conditions include type 2 diabetes, hypertension, and hyperlipidemia. I was asked to see him because there was a question of some syncope. On questioning, patient is a reasonable historian and he tells me that he has a motorized wheelchair and he had an episode of what he tells me as a near syncope. He stays in 1 [address] and the next thing he remembers is that he is at another place. He does not recall what happened in between. He has never hurt himself, did not lose any bladder. He does not recall losing consciousness, but he does recall feeling as if he is going to have a blackout. It is unclear if he had syncope. So far, and while he is in the hospital, telemetry does not reveal any tachy or lyle arrhythmias. Possibility of a neurological issue like absence seizures should also be considered. His presentation is somewhat very atypical and does not suggest any cardiogenic syncope. So far, he is resting comfortably without symptoms. PAST MEDICAL HISTORY: Gastroesophageal reflux disease, hypertension, hyperlipidemia. He also has a neurological disorder with some advanced dementia and also has sleep apnea, wears a CPAP. He is status post hernia surgery and back surgery. MEDICATIONS: At home include, he takes insulin for his diabetes, Minipress 1 mg at bedtime, albuterol inhaler, Zaroxolyn 5 mg daily and vitamin supplements and aspirin. He also takes Plavix and atorvastatin. EXAMINATION: On examination, blood pressure is 130/70, pulse rate is 70 per minute and regular. HEENT: Unremarkable. Fundus was not examined by me. NECK: Supple. There is no JVD. I do not hear a carotid bruit. HEART: Exam reveals S1, S2 heard normally. No significant murmurs. LUNGS: Clear. ABDOMEN: Soft. EXTREMITIES: Lower extremities reveal diminished pulses. CENTRAL NERVOUS SYSTEM: Exam was not performed. EKG revealed sinus mechanism, no acute changes. Telemetry reviewed reveals no tachy or lyle arrhythmias. IMPRESSION: 1. Near syncope. 2. Rule out any partial seizures. 3. Advanced dementia. 4. Hypertension. 5. Type 2 diabetes mellitus. RECOMMENDATIONS: From a cardiac standpoint, no aggressive intervention necessary. We will continue telemetry and I will also obtain an echocardiogram to assess LV function and based on this, I will make further recommendations. This gentleman on 06/30/2019, underwent an angiogram which revealed severe disease in the left common iliac vein and left external iliac vein with possible thrombus. He had mostly what looks like venous disease. He also had a cardiac catheterization by Dr. Lin that was performed in May of this year and this study did not reveal any significant obstructive coronary artery disease. We will therefore do an echocardiogram, continue telemetry. Based on clinical course, I will make further recommendations. Thank you very much for the consult. MMODL / IJN: [id number] /
--- NOTE | 2019-11-26 16:38 | EEG ---
ELECTROENCEPHALOGRAM REPORT TECHNIQUE: This is a 21-channel digital EEG with EKG and with time-locked video monitoring. CLINICAL DATA: This is a 44-year-old gentleman with a reported history of neuropathy, hypertension, history of alcohol use and diabetes who presented to the hospital on 11/25/2019 for multiple episodes of syncope. The EEG is ordered to evaluate for seizure activity. DESCRIPTION: Wakefulness, drowsiness and stage II sleep are obtained. During wakefulness there is a posterior-dominant rhythm of low to moderate voltage, reactive, that is well modulated of 6 to 6.5 Hz activity, and that is well sustained. During drowsiness, there is slowing and attenuation of the background activity. During stage II, there are K- complex and sleep spindles noted symmetrically. Interictal and ictal: None seen. ACTIVATION PROCEDURE: Photic stimulation did not evoke a posterior driving response. Hyperventilation was not performed because of the patient's clinical history. EEG DIAGNOSIS: This is an abnormal routine EEG due to background slowing. CLINICAL INTERPRETATION: This is an abnormal routine awake, drowsy, asleep EEG with background slowing suggestive of mild encephalopathy of unspecified etiology. There is no epileptiform or seizure during the study. Clinical interpretation is recommended. MMODL / IJN: [id number] /
[2019-11-26 17:02] LABS: Glucose,Whole Blood 185 mg/dL (75-99)
[2019-11-26 20:25] LABS: Glucose,Whole Blood 207 mg/dL (75-99)
[2019-11-26] MEDS: PANTOPRAZOLE 40 MG TABLET PO SCH (20:25)
[2019-11-26] MEDS: HEPARIN SODIUM,PORCINE 5,000 UNIT/ML 1 ML VIAL SQ SCH (20:26)
[2019-11-26] MEDS: PRAZOSIN 1 MG CAP PO SCH (20:26)
[2019-11-26] MEDS: ATORVASTATIN 10 MG TAB PO SCH (20:26)
[2019-11-26] MEDS: INSULIN DETEMIR (LEVEMIR) 100 UNIT/ML SYR SQ SCH (20:26)
[2019-11-27] MEDS: SODIUM CHLORIDE 0.9% 1,000 ML IV SCH (01:22)
[2019-11-27] MEDS: tiZANidine 4 MG TAB PO SCH ×2 (01:22→10:17)
[2019-11-27 06:21] LABS: Glucose,Whole Blood 137 mg/dL (75-99)
[2019-11-27] MEDS: THIAMINE 100 MG TAB PO SCH (06:29)
[2019-11-27 08:38] LABS: Calcium 8.6 mg/dL (8.4-10.2); Potassium 3.1 mmol/L (3.5-5.1)
[2019-11-27] MEDS: PREGABALIN 50 MG CAP PO SCH (10:33)
[2019-11-27] MEDS: HEPARIN SODIUM,PORCINE 5,000 UNIT/ML 1 ML VIAL SQ SCH (10:33)
[2019-11-27] MEDS: NON FORMULARY DRUG (Ertugliflozin Pidolate [Steglatro] 15 MG) PO SCH (10:33)
[2019-11-27] MEDS: ASPIRIN 325 MG TAB PO SCH (10:33)
[2019-11-27] MEDS: POTASSIUM CHLORIDE ER 10 MEQ TAB.ER.PRT PO SCH (10:33)
[2019-11-27] MEDS: CLOPIDOGREL 75 MG TAB PO SCH (10:33)
[2019-11-27] MEDS: DULoxetine HCL 60 MG CAPSULE.DR PO SCH (10:33)
[2019-11-27] MEDS: PROPRANOLOL 20 MG TAB PO SCH (10:34)
[2019-11-27] MEDS: MAGNESIUM OXIDE 400 MG TAB PO SCH (10:34)
[2019-11-27] MEDS: oxyCODONE-APAP 7.5-325MG 1 EACH TAB PO PRN (10:39)
[2019-11-27] MEDS ORDERED: POTASSIUM CHLORIDE ER 20 MEQ TAB.ER PO STA (11:27)
--- NOTE | 2019-11-27 11:33 | P.DS ---
Providers Date of admission: 11/25/19 18:55 Attending physician: Gume Valdez Consults: 11/25/19 18:37 Consult Physician Stat Consulting Provider: Marco Antonio Lin Consult Reason/Comments: Syncope Do you want consulting provider notified?: Yes, Notify in am 11/25/19 18:40 Consult Physician Stat Consulting Provider: Marc Farrell Consult Reason/Comments: Dementia, Syncopal episodes Do you want consulting provider notified?: Yes Primary care physician: Bere[facility] Course: 44-year-old male admitted for possible syncope versus seizure. Patient appears to have had syncope is probably secondary to intravascular depletion dehydration from metolazone he was using for peripheral edema. Patient was a evaluated with an echo cardiac exam which is within normal limits and the EEG which is also w ithin normal limits with neurology and cardiology evaluated the patient. Patient will be discharged today. Patient will be given prescription for potassium as well and he will only use it the when uses metolazone patient was asked to use compression socks for peripheral edema and if it doesn't help can take metolazone on as-needed basis but not a daily basis. PHYSICAL EXAMINATION: GENERAL: The patient is alert and oriented x3, not in any acute distress. Well developed, well nourished. HEENT: Pupils are round and equally reacting to light. EOMI. No scleral icterus. No conjunctival pallor. Normocephalic, atraumatic. No pharyngeal erythema. No thyromegaly. CARDIOVASCULAR: S1 and S2 present. No murmurs, rubs, or gallops. PULMONARY: Chest is clear to auscultation, no wheezing or crackles. ABDOMEN: Soft, nontender, nondistended, normoactive bowel sounds. No palpable organomegaly. MUSCULOSKELETAL: No joint swelling or deformity. EXTREMITIES: No cyanosis, clubbing, or pedal edema. NEUROLOGICAL: Gross neurological examination did not reveal any focal deficits. SKIN: No rashes. Assessment and Plan Plan: - syncope: Due to above-mentioned reasons -Acute renal failure: Probably from metolazone and dehydration from metolazone I'm unsure whether patient has chronic kidney disease as his creatinine continues to improve with discontinue additional metolazone and IV fluids -Gastroesophageal reflux disease next and-hyperlipidemia -Hypertension -History of lewey body dementia and severe peripheral neuropathy. -Testicular cancer history chronic back and neck pain. Patient Condition at Discharge: Stable Plan - Discharge Summary New Discharge Prescriptions: Continue tiZANidine [Zanaflex] 4 mg PO Q8H Omeprazole 20 mg PO HS rOPINIRole HCL [Requip] 2 mg PO HS Propranolol HCl 60 mg PO BID oxyCODONE HCL/ACETAMINOPHEN [Percocet 7.5-325 mg] 1 tab PO Q6H PRN PRN Reason: Pain DULoxetine HCL [Cymbalta] 60 mg PO BID Atorvastatin [Lipitor] 10 mg PO HS #30 tab Ertugliflozin Pidolate [Steglatro] 15 mg PO DAILY Insulin Glargine,Hum.rec.anlog [Basaglar Kwikpen U-100] 20 unit SQ HS Pregabalin [Lyrica] 50 mg PO TID Magnesium Oxide [Mag-Ox] 400 mg PO DAILY Prazosin [Minipress] 1 mg PO HS Ergocalciferol [Vitamin D2 (DRISDOL)] 50,000 unit PO ALVES Clopidogrel [Plavix] 75 mg PO DAILY #90 tab Albuterol Inhaler [Ventolin Hfa Inhaler] 2 puff INHALATION RT-Q6H PRN PRN Reason: Shortness Of Breath Albuterol Nebulized [Ventolin Nebulized] 2.5 mg INHALATION RT-QID PRN PRN Reason: Shortness Of Breath Chlorhexidine Gluconate [Peridex] 15 ml PO BID Potassium Chloride ER [K-Dur 10] 30 meq PO DAILY Thiamine [Vitamin B-1] 100 mg PO AC-BID Aspirin EC [Ecotrin] 325 mg PO DAILY Changed Metolazone [Zaroxolyn] 5 mg PO DAILY PRN #0 PRN Reason: Edema Discharge Medication List Omeprazole 20 mg PO HS 01/21/17 [History] tiZANidine [Zanaflex] 4 mg PO Q8H 01/21/17 [History] DULoxetine HCL [Cymbalta] 60 mg PO BID 01/26/19 [History] Propranolol HCl 60 mg PO BID 01/26/19 [History] oxyCODONE HCL/ACETAMINOPHEN [Percocet 7.5-325 mg] 1 tab PO Q6H PRN 01/26/19 [History] rOPINIRole HCL [Requip] 2 mg PO HS 01/26/19 [History] Atorvastatin [Lipitor] 10 mg PO HS #30 tab 05/12/19 [Rx] Ertugliflozin Pidolate [Steglatro] 15 mg PO DAILY 06/25/19 [History] Insulin Glargine,Hum.rec.anlog [Basaglar Kwikpen U-100] 20 unit SQ HS 08/14/19 [History] Ergocalciferol [Vitamin D2 (DRISDOL)] 50,000 unit PO ALVES 09/14/19 [History] Magnesium Oxide [Mag-Ox] 400 mg PO DAILY 09/14/19 [History] Prazosin [Minipress] 1 mg PO HS 09/14/19 [History] Pregabalin [Lyrica] 50 mg PO TID 09/14/19 [History] Clopidogrel [Plavix] 75 mg PO DAILY #90 tab 09/17/19 [Rx] Albuterol Inhaler [Ventolin Hfa Inhaler] 2 puff INHALATION RT-Q6H PRN 11/22/19 [History] Albuterol Nebulized [Ventolin Nebulized] 2.5 mg INHALATION RT-QID PRN 11/22/19 [History] Chlorhexidine Gluconate [Peridex] 15 ml PO BID 11/22/19 [History] Potassium Chloride ER [K-Dur 10] 30 meq PO DAILY 11/22/19 [History] Thiamine [Vitamin B-1] 100 mg PO AC-BID 11/22/19 [History] Aspirin EC [Ecotrin] 325 mg PO DAILY 11/25/19 [History] Metolazone [Zaroxolyn] 5 mg PO DAILY PRN #0 11/27/19 [Rx] Follow up Appointment(s)/Referral(s): Bereket Ortega DO [Primary Care Provider] - 3 Days
[2019-11-27 11:54] LABS: Glucose,Whole Blood 162 mg/dL (75-99)
[2019-11-27 12:46] VITALS: BP 125/76; PULSE 79; RESP 16; TEMP 97.9
[2019-11-29] MEDS ORDERED: ERGOCALCIFEROL 50,000 UNIT CAP PO SCH (09:00)
== END 2019-11-27 13:30 | disposition home or self-care (01) ==
LOC: EC 14:38 → 3SCARD 18:55
PROVIDERS: ADMIT Hospitalist; ATTEND Hospitalist
DX: R55 Syncope and collapse (principal); I13.0 Hypertensive heart and chronic kidney disease with heart failure and stage 1 through stage 4 chronic kidney disease, or unspecified chronic kidney disease; E11.22 Type 2 diabetes mellitus with diabetic chronic kidney disease; N18.9 Chronic kidney disease, unspecified; I50.9 Heart failure, unspecified; N17.9 Acute kidney failure, unspecified; R61 Generalized hyperhidrosis; R06.02 Shortness of breath; R51 Headache; K21.9 Gastro-esophageal reflux disease without esophagitis; E78.5 Hyperlipidemia, unspecified; G47.30 Sleep apnea, unspecified; Z11.59 Encounter for screening for other viral diseases; Z99.89 Dependence on other enabling machines and devices; G31.83 Neurocognitive disorder with Lewy bodies; F02.80 Dementia in other diseases classified elsewhere, unspecified severity, without behavioral disturbance, psychotic disturbance, mood disturbance, and anxiety; E11.42 Type 2 diabetes mellitus with diabetic polyneuropathy; M51.27 Other intervertebral disc displacement, lumbosacral region; E87.6 Hypokalemia; G89.29 Other chronic pain; M54.9 Dorsalgia, unspecified; M54.2 Cervicalgia; M10.9 Gout, unspecified; F41.9 Anxiety disorder, unspecified; F32.9 Major depressive disorder, single episode, unspecified; R32 Unspecified urinary incontinence; Z99.3 Dependence on wheelchair; Z79.899 Other long term (current) drug therapy; Z79.4 Long term (current) use of insulin; Z79.891 Long term (current) use of opiate analgesic; Z79.82 Long term (current) use of aspirin; Z88.8 Allergy status to other drugs, medicaments and biological substances; Z88.5 Allergy status to narcotic agent; Z79.02 Long term (current) use of antithrombotics/antiplatelets; Z85.47 Personal history of malignant neoplasm of testis; Z87.891 Personal history of nicotine dependence; Z84.89 Family history of other specified conditions; Z82.49 Family history of ischemic heart disease and other diseases of the circulatory system; Z83.3 Family history of diabetes mellitus; Z82.3 Family history of stroke; Z82.0 Family history of epilepsy and other diseases of the nervous system; Z81.8 Family history of other mental and behavioral disorders; Z84.1 Family history of disorders of kidney and ureter
CPT/HCPCS: 96361 ×3; 96372 ×2; 96360; 99285; 36415; 95819; 93005; 84207; 80053; 80048; 83735; 84132; 84484; 85025; 85610; 85730; 81003; 71046; 70450; G0378 ×3; C8929; U0003; J1644 ×2; Q9950; 93306

== ENCOUNTER 2020-02-27 11:30 | Observation (INO) | payer OTHER ==
[2020-02-27 11:36] VITALS: RESP 18
[2020-02-27] MEDS ORDERED: ASPIRIN 81 MG PO STA (11:51)
[2020-02-27] MEDS ORDERED: HYDROmorphone 1 MG/ML 1 ML SYRINGE IVP STA (11:51)
--- NOTE | 2020-02-27 12:03 | ED ---
Chest Pain HPI - General Chief Complaint: Chest Pain Stated Complaint: chest pain Time Seen by Provider: 02/27/20 11:36 Source: patient, family, RN notes reviewed Mode of arrival: wheelchair Limitations: no limitations - History of Present Illness Initial Comments: 44-year-old male presents emergency Department chief complaint of chest pain, low back pain. Patient states that he was awoken by his chest pain. Patient states that since centralized region. Denies any prior cardiac disease though he has risk factors including hyperlipidemia diabetes hypertension. Patient states that he has no current chest pain states the pain did resolve. He took 81 mg aspirin this morning. Patient states his no shortness of breath no abdominal pain. Patient has a history of chronic back pain in which he's had prior laminectomy 3 years ago. Patient states that he does not see a current orthopedic or neurosurgeon. Patient states he has severe neuropathy in which she indicates with a walker and primarily is in a wheelchair. Patient states that his pain has been worsening along with his neuropathy type symptoms. Patient sees his primary care physician monthly after 2-3 times a month. Patient denies any bowel bladder incontinence. He states that his legs feel weak is in the pain. Patient does take chronic pain meds but states is not the reason he is here for. - Related Data Home Medications Medication Instructions Recorded Confirmed Omeprazole 20 mg PO BID 01/21/17 02/27/20 tiZANidine [Zanaflex] 4 mg PO HS 01/21/17 02/27/20 DULoxetine HCL [Cymbalta] 60 mg PO DAILY 01/26/19 02/27/20 Propranolol HCl 60 mg PO BID 01/26/19 02/27/20 oxyCODONE HCL/ACETAMINOPHEN 1 tab PO Q6H PRN 01/26/19 02/27/20 [Percocet 7.5-325 mg] rOPINIRole HCL [Requip] 2 mg PO HS 01/26/19 02/27/20 Ertugliflozin Pidolate [Steglatro] 15 mg PO DAILY 06/25/19 02/27/20 Insulin Glargine,Hum.rec.anlog 30 unit SQ HS 08/14/19 02/27/20 [Basaglar Kwikpen U-100] Ergocalciferol [Vitamin D2 50,000 unit PO ALVES 09/14/19 02/27/20 (DRISDOL)] Magnesium Oxide [Mag-Ox] 400 mg PO DAILY 09/14/19 02/27/20 Prazosin [Minipress] 1 mg PO HS 09/14/19 02/27/20 Albuterol Inhaler [Ventolin Hfa 2 puff INHALATION RT-Q6H PRN 11/22/19 02/27/20 Inhaler] Albuterol Nebulized [Ventolin 2.5 mg INHALATION RT-QID PRN 11/22/19 02/27/20 Nebulized] Potassium Chloride ER [K-Dur 10] 10 meq PO BID PRN 11/22/19 02/27/20 Thiamine [Vitamin B-1] 100 mg PO AC-BID 11/22/19 02/27/20 Aspirin EC [Ecotrin Low Dose] 81 mg PO DAILY 02/27/20 02/27/20 Atorvastatin [Lipitor] 10 mg PO DAILY 02/27/20 02/27/20 Donepezil HCl [Aricept] 5 mg PO HS 02/27/20 02/27/20 INSULIN LISPRO (humaLOG) [humaLOG] See Protocol SQ ACHS PRN 02/27/20 02/27/20 Morphine Sulfate ER [Ms Contin] 15 mg PO Q12HR 02/27/20 02/27/20 Ondansetron [Zofran] 4 mg PO Q8H PRN 02/27/20 02/27/20 Pregabalin [Lyrica] 75 mg PO TID 02/27/20 02/27/20 Previous Rx's Medication Instructions Recorded Clopidogrel [Plavix] 75 mg PO DAILY #90 tab 09/17/19 metOLazone [Zaroxolyn] 5 mg PO DAILY PRN #0 11/27/19 Allergies Allergy/AdvReac Type Severity Reaction Status Date / Time meperidine HCl [From Demerol] Allergy Swelling/Ra Verified 02/27/20 12:59 sh/Itching meloxicam [From Mobic] AdvReac Severe Confusion/MEMORY Verified 02/27/20 12:59 LOSS gabapentin AdvReac Intermediate BURNS Verified 02/27/20 12:59 codeine AdvReac Nausea & Verified 02/27/20 12:59 Vomiting Review of Systems ROS Statement: Those systems with pertinent positive or pertinent negative responses have been documented in the HPI. ROS Other: All systems not noted in ROS Statement are negative. Past Medical History Past Medical History: Cancer, Heart Failure, GERD/Reflux, Hyperlipidemia, Hypertension, Musculoskeletal Disorder, Renal Disease, Sleep Apnea/CPAP/BIPAP Additional Past Medical History / Comment(s): LEWEY BODY DEMENTIA. LOWER LEG EDEMA AND NEUROPATHY. Cancer LT Testicular, gout, chronic back and neck pain, History of Any Multi-Drug Resistant Organisms: None Reported Past Surgical History: Back Surgery, Hernia Repair, Orthopedic Surgery Additional Past Surgical History / Comment(s): LT testicular SX (removed), lt knee arthroscopy, pain injections in back and radioablation, Past Anesthesia/Blood Transfusion Reactions: Family History of Problems w/ Anesthesia Additional Past Anesthesia/Blood Transfusion Reaction / Comment(s): States father had a hard time waking up from anesthesia. Past Psychological History: Anxiety, Depression Smoking Status: Current every day smoker Past Alcohol Use History: Occasional Past Drug Use History: None Reported - Past Family History Father History Unknown: Yes Family Medical History: Congestive Heart Failure (CHF), Coronary Artery Disease (CAD), CVA/TIA, Dementia, Diabetes Mellitus, Hyperlipidemia, Hypertension, Myocardial Infarction ([place]), Renal Disease Additional Family Medical History / Comment(s): PARKINSONS, NEUROPATHY,BKA, Mother History Unknown: Yes Family Medical History: Congestive Heart Failure (CHF), Coronary Artery Disease (CAD), Hyperlipidemia, Hypertension, Myocardial Infarction ([place]), Vascular Disorder Additional Family Medical History / Comment(s): ANXIETY General Exam Limitations: no limitations General appearance: alert, in no apparent distress Head exam: Present: atraumatic, normocephalic, normal inspection Eye exam: Present: normal appearance, PERRL, EOMI. Absent: scleral icterus, conjunctival injection, periorbital swelling ENT exam: Present: normal exam, normal oropharynx, mucous membranes moist Neck exam: Present: normal inspection, full ROM. Absent: tenderness, meningismus, lymphadenopathy Respiratory exam: Present: normal lung sounds bilaterally. Absent: respiratory distress, wheezes, rales, rhonchi, stridor Cardiovascular Exam: Present: regular rate, normal rhythm, normal heart sounds. Absent: systolic murmur, diastolic murmur, rubs, gallop, clicks Extremities exam: Present: other (Patient's pulses are equal bilaterally lower extremities there is no significant swelling no discoloration equal color equal warmth patient's strength is decreased bilaterally reports is chronic usually worse in the left.) Back exam: Present: tenderness, paraspinal tenderness. Absent: full ROM, vertebral tenderness Neurological exam: Present: alert, oriented X3, CN II-XII intact Skin exam: Present: warm, dry, intact, normal color. Absent: rash Course Vital Signs 02/27/20 11:34 Temperature 98.0 F Pulse Rate 69 Respiratory 18 Rate Blood Pressure 129/80 O2 Sat by Pulse 100 Oximetry Chest Pain [facility] 44-year-old male presented presented from for back pain, chest pain. Patient's chest pain has resolved. Patient does have mild hypokalemia which was replaced. Patient will be admitted for preoperative evaluation, orthopedic evaluation Disposition Clinical Impression: Chest pain, Hypokalemia, Lumbar radiculopathy, Bulging lumbar disc Disposition: ADMITTED IP TO THIS HOSP Condition: Fair Referrals: Bereket Ortega DO [Primary Care Provider] - 1-2 days
[2020-02-27 12:09] LABS: Basophils # (A) 0.1 k/uL (0-0.2); Basophils % (A) 1 %; Eosinophils # (A) 0.2 k/uL (0-0.7); Eosinophils % (A) 2 %; HCT 47.6 % (39.0-53.0); HGB 16.3 gm/dL (13.0-17.5); Lymphocytes # (A) 1.2 k/uL (1.0-4.8); Lymphocytes % (A) 15 %; MCH 29.3 pg (25.0-35.0); MCHC 34.2 g/dL (31.0-37.0); MCV 85.5 fL (80.0-100.0); Mean Platelet Volume 6.1; Monocytes # (A) 0.5 k/uL (0-1.0); Monocytes % (A) 6 %; Neutrophils # (A) 5.8 k/uL (1.3-7.7); Neutrophils % (A) 73 %; Platelet Count 280 k/uL (150-450); RBC 5.56 m/uL (4.30-5.90); RDW 14.5 % (11.5-15.5); WBC 7.9 k/uL (3.8-10.6)
[2020-02-27] MEDS ORDERED: ONDANSETRON 4 MG/2 ML VIAL IVP STA (12:14)
[2020-02-27 12:18] LABS: INR 0.9 (<1.2); Partial Thromboplastin Time 23.9 sec (22.0-30.0); Prothrombin Time 9.7 sec (9.0-12.0)
[2020-02-27 12:25] LABS: ALT 26 U/L (4-49); AST 28 U/L (17-59); African American GFR (CKD) >90 (>60 ml/min/1.73 sqM); Albumin 4.2 g/dL (3.5-5.0); Alkaline Phosphatase 87 U/L (38-126); Anion Gap 9 mmol/L; Blood Urea Nitrogen 21 mg/dL (9-20); Calcium 9.3 mg/dL (8.4-10.2); Carbon Dioxide 28 mmol/L (22-30); Chloride 98 mmol/L (98-107); Creatine Kinase 87 U/L (55-170); Glucose 159 mg/dL (74-99); Magnesium 1.7 mg/dL (1.6-2.3); Non-African American GFR(CKD) 79 (>60 ml/min/1.73 sqM); Potassium 2.9 mmol/L (3.5-5.1); Sodium 135 mmol/L (137-145); Total Bilirubin 0.9 mg/dL (0.2-1.3)
--- NOTE | 2020-02-27 12:37 | XR ---
EXAMINATION TYPE: XR chest 2V DATE OF EXAM: 02/27/2020 COMPARISON: 11/25/2019 TECHNIQUE: PA and lateral views submitted. HISTORY: Chest pain FINDINGS: The lungs are clear and there is no pneumothorax, pleural effusion, or focal pneumonia. Subsegmenta l changes at the lung bases. No overt failure. Heart size normal. Azygos lobe and fissure noted. Hype rtrophic change of the spine. IMPRESSION: 1. Basilar atelectasis favored over pneumonia correlate clinically..
[2020-02-27] MEDS ORDERED: POTASSIUM CHLORIDE 20 MEQ in WATER FOR INJECTION 1 100ML.BAG IVPB STA (12:56)
[2020-02-27] MEDS ORDERED: POTASSIUM CHLORIDE ER 20 MEQ TAB.ER PO STA (12:56)
--- NOTE | 2020-02-27 12:59 | CT ---
EXAMINATION TYPE: CT lumbar spine wo con DATE OF EXAM: 02/27/2020 12:47 PM COMPARISON: X-ray 07/19/2017 HISTORY: Low back pain CT DLP: 1359.6 mGycm Automated exposure control for dose reduction was used. Unenhanced CT of the lumbar spine was performed. Bone and soft tissue window settings are submitted as well as coronal and sagittal reconstructions. Multilevel hypertrophic changes are seen. Vertebral body height and disc interspaces well maintained. Assessment spinal canal limited by resolution and artifact. Vascular stent in the left iliac artery n oted. L1-L2: Normal disc space height. No disc herniation protrusion or central stenosis. No facet joint arthropathy. No evidence for foraminal encroachment. L2-L3: Broad-based disc bulging. Hypertrophic change of the facets. Mild canal stenosis not excluded. Suspect mild bilateral foraminal encroachment. L3-L4: Diffuse disc bulging with facet arthropathy and ligamentum flavum hypertrophy likely contribut ing to bilateral foraminal encroachment canal stenosis. L4-L5: Broad-based disc bulging with facet arthropathy and ligamentum flavum hypertrophy. There is ef facement of thecal sac. Suspect bilateral foraminal encroachment and canal stenosis L5-S1: Broad-based central, left paracentral left lateral disc protrusion or herniation which may enc gutierrez upon the exiting nerve root. There is mild effacement of thecal sac. Spina bifida occulta of S1 segment. Arthropathy of the SI joints. IMPRESSION: 1. Multilevel hypertrophic changes as discussed above with multilevel canal stenosis, disc bulging. F indings most pronounced at L5-S1 with left paracentral lateral disc protrusion or herniation encroach es upon the left nerve root. MRI recommended for further evaluation given the limitations of CT scan of the lumbar spine
[2020-02-27] MEDS ORDERED: NITROGLYCERIN SL TABS 0.4 MG TAB SUBLINGUAL PRN (13:14)
[2020-02-27] MEDS ORDERED: metOLazone 5 MG TAB PO PRN (13:30)
[2020-02-27] MEDS ORDERED: ONDANSETRON 4 MG TAB PO PRN (13:30)
[2020-02-27] MEDS ORDERED: ALBUTEROL NEBULIZED 2.5 MG/3 ML INHALATION PRN (13:30)
[2020-02-27] MEDS ORDERED: POTASSIUM CHLORIDE ER 10 MEQ TAB.ER.PRT PO PRN (13:30)
[2020-02-27 14:08] VITALS: TEMP 98.1
[2020-02-27 14:49] VITALS: BP 120/69
[2020-02-27 15:24] VITALS: PULSE 70
[2020-02-27] MEDS: PREGABALIN 75 MG CAP PO SCH ×2 (15:55→21:04)
[2020-02-27] MEDS: THIAMINE 100 MG TAB PO SCH (17:44)
[2020-02-27] MEDS: oxyCODONE-APAP 7.5-325MG 1 EACH TAB PO PRN (17:46)
[2020-02-27] MEDS ORDERED: DEXAMETHASONE SOD PHOSPHATE 4 MG/ML 1 ML VIAL IV PRN (18:01)
--- NOTE | 2020-02-27 18:59 | XR ---
EXAMINATION TYPE: XR lumbar spine with bend/flex DATE OF EXAM: 02/27/2020 COMPARISON: 05/03/2015 HISTORY: Back pain TECHNIQUE: 7 views FINDINGS: Lumbar vertebra have normal spacing and alignment. Posterior elements are intact. Flexion-e xtension views show no evidence of instability. The sacroiliac joints appear normal. There is no evid ence of a fracture. IMPRESSION: Negative lumbar spine exam. No sign of instability. No fracture. No change.
[2020-02-27] MEDS ORDERED: tiZANidine 4 MG TAB PO SCH (21:00)
[2020-02-27] MEDS ORDERED: DONEPEZIL 5 MG TAB PO SCH (21:00)
[2020-02-27] MEDS ORDERED: INSULIN DETEMIR (LEVEMIR) 100 UNIT/ML SYR SQ SCH (21:00)
[2020-02-27] MEDS ORDERED: PRAZOSIN 1 MG CAP PO SCH (21:00)
[2020-02-27 21:04] LABS: Glucose,Whole Blood 148 mg/dL (75-99)
[2020-02-27] MEDS: PROPRANOLOL 20 MG TAB PO SCH (21:04)
[2020-02-27] MEDS: MORPHINE SULFATE ER 15 MG TABLET PO SCH (21:57)
[2020-02-28] MEDS: oxyCODONE-APAP 7.5-325MG 1 EACH TAB PO PRN (06:04)
[2020-02-28 06:30] LABS: Glucose,Whole Blood 170 mg/dL (75-99)
[2020-02-28 07:52] LABS: Calcium 8.7 mg/dL (8.4-10.2); Potassium 2.9 mmol/L (3.5-5.1)
[2020-02-28] MEDS: PROPRANOLOL 20 MG TAB PO SCH (08:53)
[2020-02-28] MEDS: PREGABALIN 75 MG CAP PO SCH (08:59)
[2020-02-28] MEDS: THIAMINE 100 MG TAB PO SCH (08:59)
[2020-02-28] MEDS ORDERED: DULoxetine HCL 60 MG CAPSULE.DR PO SCH (09:00)
[2020-02-28] MEDS ORDERED: NON FORMULARY DRUG (Ertugliflozin Pidolate [Steglatro] 15 MG Tablet) PO SCH (09:00)
[2020-02-28] MEDS ORDERED: ASPIRIN 325 MG TAB PO SCH (09:00)
[2020-02-28] MEDS ORDERED: DEXAMETHASONE SOD PHOSPHATE 10 MG/ML 1 ML VIAL IV SCH (09:00)
[2020-02-28] MEDS ORDERED: MAGNESIUM OXIDE 400 MG TAB PO SCH (09:00)
[2020-02-28] MEDS ORDERED: ATORVASTATIN 10 MG TAB PO SCH (09:00)
[2020-02-28] MEDS ORDERED: CLOPIDOGREL 75 MG TAB PO SCH (09:00)
[2020-02-28] MEDS ORDERED: POTASSIUM CHLORIDE ER 20 MEQ TAB.ER PO STA ×2 (09:49→12:12)
[2020-02-28] MEDS ORDERED: SPIRONOLACTONE 25 MG TAB PO SCH (10:00)
[2020-02-28 11:09] LABS: Glucose,Whole Blood 247 mg/dL (75-99)
--- NOTE | 2020-02-28 11:45 | P.CRDCN ---
History of Present Illness History of present illness: HISTORY OF PRESENTING ILLNESS This is a pleasant 44-year-old male past medical history significant for hypertension, dyslipidemia, diabetes mellitus, peripheral vascular disease status post iliac stenting in the past and chronic lower extremity edema. He follows in the office with Dr. Lin. We have been asked to see in consultation for chest pain. He states he has been struggling with uncontrolled chronic low back discomfort over the previous few days. He is unable to get comfortable in any position. Yesterday he developed pressure sensation in the midsternal region associated with palpitations and shortness of breath. According to the patient he thinks he was having an anxiety reaction secondary to his back discomfort. There was no radiation of the pain to the arm, back, neck or jaw. He denies any associated nausea, vomiting, dizziness or diaphoresis. He unde rwent cardiac catheterization in May 2019 revealing normal coronary arteries with no evidence of obstructive disease. On admission to the hospitalist potassium was low. His diuretic management taking place per his primary care physician. He is currently on Aldactone although not listed on his medication list him and his are adamant that he does take that daily and he is also taking metaxalone daily. DIAGNOSTICS EKG reveals sinus mechanism with no acute ST or T wave abnormalities noted. Chest xray basilar atelectasis noted otherwise lungs are clear. Laboratory reviewed, CBC unremarkable, sodium 136, potassium 2.9, creatinine 1.18, cardiac enzymes negative 3, magnesium 1.7, triglycerides 588 and total cholesterol 186. Current cardiac medications include prazosin 1 mg at bedtime propanolol 60 mg twice a day, metolazone 5 mg daily, Plavix 75 mg daily, atorvastatin 10 mg daily, aspirin 81 mg daily and Aldactone 25 mg daily.. REVIEW OF SYSTEMS At the time of my exam: CONSTITUTIONAL: Denies fever or chills. CARDIOVASCULAR: Denies chest pain, shortness of breath, orthopnea, PND or palpitations. RESPIRATORY: Denies cough. GASTROINTESTINAL: Denies abdominal pain, diarrhea, constipation, nausea or vomiting. MUSCULOSKELETAL: Denies myalgias. NEUROLOGIC: Denies numbness, tingling or weakness. ENDOCRINE: Denies fatigue, weight change, polydipsia or polyurina. GENITOURINARY: Denies burning, hematuria or urgency with micturation. HEMATOLOGIC: Denies history of anemia or bleeding. PHYSICAL EXAMINATION Blood pressure 104/69 heart rate 72 afebrile and maintaining oxygen saturation on room air. CONSTITUTIONAL: No apparent distress. HEENT: Head is normocephalic. Pupils are equal, round. Sclerae anicteric. Mucous membranes of the mouth are moist. No JVD. No carotid bruit. CHEST EXAMINATION: Lungs are clear to auscultation. No chest wall tenderness is noted on palpation or with deep breathing. HEART EXAMINATION: Regular rate and rhythm. S1, S2 heard. No murmurs, gallops or rub. ABDOMEN: Soft, nontender. Positive bowel sounds. EXTREMITIES: 2+ peripheral pulses, no lower extremity edema and no calf tenderness. NEUROLOGIC EXAMINATION: Patient is awake, alert and oriented x3. ASSESSMENT Chest pain, atypical for angina. An acute coronary event has been ruled out. Hypokalemia Chronic lower extremity edema Peripheral vascular disease status post iliac stenting September 2019 Hypertension Dyslipidemia Diabetes mellitus PLAN An acute coronary event has been ruled out. Pain is atypical for angina. With a normal cardiac catheterization this year unlikely this discomfort is coming from any progression or new coronary artery disease. Lengthy discussion had with the patient and his regarding diuretic therapy. Advised that he must be taking high-dose daily potassium if he is going to take metaxalone daily. Recommended taking only 2 or 3 days per week along with Aldactone and evaluated potassium levels at that point. This is managed by his primary care physician Dr. Ortega in the outpatient setting. No further cardiac workup, follow-up in the office with Dr. Lin upon discharge. Thank you kindly for this consultation. Nurse Practitioner note has been reviewed, I agree with a documented findings and plan of care. Patient was seen and examined. Past Medical History Past Medical History: Cancer, Heart Failure, GERD/Reflux, Hyperlipidemia, Hypertension, Musculoskeletal Disorder, Renal Disease, Sleep Apnea/CPAP/BIPAP Additional Past Medical History / Comment(s): LEWEY BODY DEMENTIA. LOWER LEG EDEMA AND NEUROPATHY. Cancer LT Testicular, gout, chronic back and neck pain, History of Any Multi-Drug Resistant Organisms: None Reported Past Surgical History: Back Surgery, Hernia Repair, Orthopedic Surgery Additional Past Surgical History / Comment(s): LT testicular SX (removed), lt knee arthroscopy, pain injections in back and radioablation, Past Anesthesia/Blood Transfusion Reactions: Family History of Problems w/ Anesthesia Additional Past Anesthesia/Blood Transfusion Reaction / Comment(s): States father had a hard time waking up from anesthesia. Past Psychological History: Anxiety, Depression Additional Psychological History / Comment(s): BEGINNING TO BE FORGETFUL, PREFERS THAT HIS ANSWERS QUESTIONS. Smoking Status: Current every day smoker Past Alcohol Use History: Occasional Additional Past Alcohol Use History / Comment(s): . Past Drug Use History: None Reported - Past Family History Father History Unknown: Yes Family Medical History: Congestive Heart Failure (CHF), Coronary Artery Disease (CAD), CVA/TIA, Dementia, Diabetes Mellitus, Hyperlipidemia, Hypertension, Myocardial Infarction (NM), Renal Disease Additional Family Medical History / Comment(s): PARKINSONS, NEUROPATHY,BKA, Mother History Unknown: Yes Family Medical History: Congestive Heart Failure (CHF), Coronary Artery Disease (CAD), Hyperlipidemia, Hypertension, Myocardial Infarction (NM), Vascular Disorder Additional Family Medical History / Comment(s): ANXIETY Medications and Allergies Home Medications Medication Instructions Recorded Confirmed Type Omeprazole 20 mg PO BID 01/21/17 02/27/20 History tiZANidine [Zanaflex] 4 mg PO HS 01/21/17 02/27/20 History DULoxetine HCL [Cymbalta] 60 mg PO DAILY 01/26/19 02/27/20 History Propranolol HCl 60 mg PO BID 01/26/19 02/27/20 History oxyCODONE HCL/ACETAMINOPHEN 1 tab PO Q6H PRN 01/26/19 02/27/20 History [Percocet 7.5-325 mg] rOPINIRole HCL [Requip] 2 mg PO HS 01/26/19 02/27/20 History Ertugliflozin Pidolate [Steglatro] 15 mg PO DAILY 06/25/19 02/27/20 History Insulin Glargine,Hum.rec.anlog 30 unit SQ HS 08/14/19 02/27/20 History [Basaglar Kwikpen U-100] Ergocalciferol [Vitamin D2 50,000 unit PO ALVES 09/14/19 02/27/20 History (DRISDOL)] Magnesium Oxide [Mag-Ox] 400 mg PO DAILY 09/14/19 02/27/20 History Prazosin [Minipress] 1 mg PO HS 09/14/19 02/27/20 History Clopidogrel [Plavix] 75 mg PO DAILY #90 tab 09/17/19 02/27/20 Rx Albuterol Inhaler [Ventolin Hfa 2 puff INHALATION RT-Q6H PRN 11/22/19 02/27/20 History Inhaler] Albuterol Nebulized [Ventolin 2.5 mg INHALATION RT-QID PRN 11/22/19 02/27/20 History Nebulized] Potassium Chloride ER [K-Dur 10] 10 meq PO BID PRN 11/22/19 02/27/20 History Thiamine [Vitamin B-1] 100 mg PO AC-BID 11/22/19 02/27/20 History metOLazone [Zaroxolyn] 5 mg PO DAILY PRN #0 11/27/19 02/27/20 Rx Aspirin EC [Ecotrin Low Dose] 81 mg PO DAILY 02/27/20 02/27/20 History Atorvastatin [Lipitor] 10 mg PO DAILY 02/27/20 02/27/20 History Donepezil HCl [Aricept] 5 mg PO HS 02/27/20 02/27/20 History INSULIN LISPRO (humaLOG) [humaLOG] See Protocol SQ ACHS PRN 02/27/20 02/27/20 History Morphine Sulfate ER [Ms Contin] 15 mg PO Q12HR 02/27/20 02/27/20 History Ondansetron [Zofran] 4 mg PO Q8H PRN 02/27/20 02/27/20 History Pregabalin [Lyrica] 75 mg PO TID 02/27/20 02/27/20 History Allergies Allergy/AdvReac Type Severity Reaction Status Date / Time meperidine HCl [From Demerol] Allergy Swelling/Ra Verified 02/27/20 12:59 sh/Itching meloxicam [From Mobic] AdvReac Severe Confusion/MEMORY Verified 02/27/20 12:59 LOSS gabapentin AdvReac Intermediate BURNS Verified 02/27/20 12:59 codeine AdvReac Nausea & Verified 02/27/20 12:59 Vomiting Physical Exam Vitals: Vital Signs Temp Pulse Pulse Resp BP BP Pulse Ox 02/28/20 08:12 18 02/27/20 15:17 70 18 02/27/20 14:53 72 18 02/27/20 14:50 98 02/27/20 14:07 98.1 F 69 18 104/69 98 02/27/20 13:36 97.7 F 72 16 120/69 96 02/27/20 11:34 98.0 F 69 18 129/80 100 Intake and Output 02/27/20 02/28/20 02/28/20 22:59 06:59 14:59 Intake Total 500 500 Balance 500 500 Intake: Oral 500 500 Other: Voiding Method Toilet Toilet Toilet # Voids 1 1 1 Results 02/27/20 11:55 02/28/20 07:05 Cardiac Enzymes 02/27/20 02/27/20 02/27/20 Range/Units 11:55 11:55 15:02 AST 28 (17-59) U/L Troponin I <0.012 <0.012 (0.000-0.034) ng/mL 02/27/20 Range/Units 18:04 AST (17-59) U/L Troponin I <0.012 (0.000-0.034) ng/mL Coagulation 02/27/20 Range/Units 11:55 PT 9.7 (9.0-12.0) sec APTT 23.9 (22.0-30.0) sec Lipids 02/28/20 Range/Units 07:05 Triglycerides 588 H (<150) mg/dL Cholesterol 186 (<200) mg/dL HDL Cholesterol 29 L (40-60) mg/dL CBC 02/27/20 Range/Units 11:55 WBC 7.9 (3.8-10.6) k/uL RBC 5.56 (4.30-5.90) m/uL Hgb 16.3 (13.0-17.5) gm/dL Hct 47.6 (39.0-53.0) % Plt Count 280 (150-450) k/uL Comprehensive Metabolic Panel 02/27/20 02/28/20 Range/Units 11:55 07:05 Sodium 135 L 136 L (137-145) mmol/L Potassium 2.9 L 2.9 L (3.5-5.1) mmol/L Chloride 98 96 L (98-107) mmol/L Carbon Dioxide 28 33 H (22-30) mmol/L BUN 21 H 20 (9-20) mg/dL Creatinine 1.12 1.18 (0.66-1.25) mg/dL Glucose 159 H 157 H (74-99) mg/dL Calcium 9.3 8.7 (8.4-10.2) mg/dL AST 28 (17-59) U/L ALT 26 (4-49) U/L Alkaline Phosphatase 87 (38-126) U/L Total Protein 7.0 (6.3-8.2) g/dL Albumin 4.2 (3.5-5.0) g/dL Current Medications Generic Name Dose Route Start Last Admin Trade Name Freq PRN Reason Stop Dose Admin Albuterol Sulfate 2.5 mg 02/27/20 13:30 Albuterol Nebulized 2.5 Mg/3 Ml INHALATION RT-QID PRN Shortness Of Breath Aspirin 325 mg 02/28/20 09:00 02/28/20 08:59 Aspirin 325 Mg Tab PO 325 mg DAILY BLAYNE Administration Atorvastatin Calcium 10 mg 02/28/20 09:00 02/28/20 08:58 Atorvastatin 10 Mg Tab PO 10 mg DAILY BLAYNE Administration Clopidogrel Bisulfate 75 mg 02/28/20 09:00 02/28/20 08:59 Clopidogrel 75 Mg Tab PO 75 mg DAILY BLAYNE Administration Dexamethasone Sodium Phosphate 6 mg 02/28/20 09:00 Dexamethasone Sod Phosphate 10 Mg/Ml 1 Ml Vial IV Q6H BLAYNE Donepezil HCl 5 mg 02/27/20 21:00 02/27/20 21:04 Donepezil 5 Mg Tab PO 5 mg HS BLAYNE Administration Duloxetine HCl 60 mg 02/28/20 09:00 02/28/20 08:58 Duloxetine Hcl 60 Mg Capsule.Dr PO 60 mg DAILY BLAYNE Administration Insulin Detemir 30 unit 02/27/20 21:00 02/27/20 21:04 Insulin Detemir (Levemir) 100 Unit/Ml Syr SQ 30 unit HS BLAYNE Administration Magnesium Oxide 400 mg 02/28/20 09:00 02/28/20 08:58 Magnesium Oxide 400 Mg Tab PO 400 mg DAILY BLAYNE Administration Metolazone 5 mg 02/27/20 13:30 Metolazone 5 Mg Tab PO DAILY PRN Edema Morphine Sulfate 15 mg 02/27/20 21:00 02/27/20 21:57 Morphine Sulfate Er 15 Mg Tablet PO 15 mg Q12HR BLAYNE Administration Nitroglycerin 0.4 mg 02/27/20 13:14 Nitroglycerin Sl Tabs 0.4 Mg Tab SUBLINGUAL Q5M PRN Chest Pain Non-Formulary Medication 15 mg 02/28/20 09:00 02/28/20 08:59 Ertugliflozin Pidolate [Steglatro] PO Not Given DAILY BLAYNE Ondansetron HCl 4 mg 02/27/20 13:30 02/27/20 21:58 Ondansetron 4 Mg Tab PO 4 mg Q8H PRN Administration Nausea Oxycodone/Acetaminophen 1 each 02/27/20 13:30 02/28/20 06:04 Oxycodone-Apap 7.5-325mg 1 Each Tab PO 1 each Q6H PRN Administration Pain Potassium Chloride 10 meq 02/27/20 13:30 Potassium Chloride Er 10 Meq Tab.Er.Prt PO BID PRN when taking metolazone Prazosin HCl 1 mg 02/27/20 21:00 02/27/20 21:04 Prazosin 1 Mg Cap PO 1 mg HS BLAYNE Administration Pregabalin 75 mg 02/27/20 16:00 02/28/20 08:59 Pregabalin 75 Mg Cap PO 75 mg TID BLAYNE Administration Propranolol HCl 60 mg 02/27/20 21:00 02/28/20 08:53 Propranolol 20 Mg Tab PO Not Given BID BLAYNE Ropinirole HCl 2 mg 02/27/20 21:00 02/27/20 21:04 Ropinirole Hcl 1 Mg Tab PO 2 mg HS BLAYNE Administration Thiamine HCl 100 mg 02/27/20 17:30 02/28/20 08:59 Thiamine 100 Mg Tab PO 100 mg AC-BID BLAYNE Administration Tizanidine HCl 4 mg 02/27/20 21:00 02/27/20 21:04 Tizanidine 4 Mg Tab PO 4 mg HS BLAYNE Administration Intake and Output 02/27/20 02/28/20 02/28/20 22:59 06:59 14:59 Intake Total 500 500 Balance 500 500 Intake: Oral 500 500 Other: Voiding Method Toilet Toilet Toilet # Voids 1 1 1 02/27/20 11:55 02/28/20 07:05
[2020-02-28] MEDS: MORPHINE SULFATE ER 15 MG TABLET PO SCH (12:22)
--- NOTE | 2020-02-28 13:54 | P.HPIM ---
History of Present Illness H&P Date: 02/28/20 Chief Complaint: leg weakness History of presenting complaint: This is a pleasant 44-year-old patient of Dr. Ortega. Chronic stable medical conditions include CHF, GERD, hypertension, hyperlipidemia, newly body dementia, peripheral neuropathy, left testicular cancer, gout,. Patient had lower back surgery in [address] Wright of [facility]. Patient states his back never really improved., And he lost trust and that surgeon. He decided to follow up with Dr. Haile locally here in town. But his insurance was not accepted. Patient continues to have lower back pain for quite some time. Progressively been having increasing low back pain. He does use a cane. Occasionally does have trouble with urination. Because of progressing symptoms she decided to come to the hospital. Patient been anxious about the whole thing and fell slight chest discomfort. He did have a cardiac catheterization last admin and was negative. No change in bowel pattern. Patient normally uses a cane. His is at the bedside. Review of systems: GEN.: None EYES: None HEENT: None NECK: None RESPIRATORY: None CARDIOVASCULAR: None GASTROINTESTINAL: None GENITOURINARY: As above MUSCULOSKELETAL: Back pain LYMPHATICS: None HEMATOLOGICAL: None PSYCHIATRY: None NEUROLOGICAL: Weakness in the legs Past medical history to include: CHF, GERD, hyperlipidemia, hypertension, obstructive sleep apnea, the body dementia peripheral neuropathy diastolic cancer with left-sided gout, chronic low back pain. Patient was seen by Dr. Arana from neurology and he is now also following up with somebody out of town. Social history: Patient smoked a pack a day for over 28 years stopped 40 years now down to about 3 Synvisc today. . On disability. Alcohol occasionally. Physical examination: VITAL SIGNS: 98, 69, 18, 129/80, 100% on room air GENERAL: BMI 37.8, laying in bed comfortable. EYES: Pupils equal. Conjunctiva normal. HEENT: External appearance of nose and ears normal, oral cavity grossly normal. NECK: JVD not raised; masses not palpable. HEART: First and second heart sounds are normal; no edema. LUNGS:[ Respiratory rate normal; decreased breath sound. ABDOMEN: Soft, nontender, liver spleen not palpable, no masses palpable. PSYCH: Alert and oriented x3; mood and affect normal. NEUROLOGICAL: [Cranial nerves grossly intact; no facial asymmetry, able to raise his right leg about 10, left leg not able to do so. Knee Reflexes are down symmetrical LYMPHATICS: No lymph nodes palpable in the axilla and neck INVESTIGATIONS, reviewed in the clinical context: White count 7.9 hemoglobin 16.3 platelets 280 potassium 2.9 creatinine 1.12 Accu-Cheks 148, 170 Troponin I 3 negative EKG tracing personally reviewed by me-normal sinus rhythm Lumbar spine x-ray negative Lumbar spine computed tomography scan-multilevel hypertrophic changes with multilevel canal stenosis dispatching most pronounced at L5-S1 with left paracentral lateral disc protrusion or herniation encroaching over the left nerve root. Assessment: -Patient had a lower lumbar surgery about 3 years ago at [place] by . Claims his symptoms never really got better. Some progression of lower back pain. Double walking. There is able to get around with a cane. Computed audrey ography scan is showing changes at L5-S1 with paracentral lateral disc protrusion and herniation encroaching over the left nerve root. There is no hyperreflexia. Intermittent urinary symptoms. -Chronic congestive heart failure from systolic dysfunction -GERD -Essential hypertension -Hyperlipidemia- -Newly body dementia -Peripheral neuropathy -Chronic gout -obesity BMI 37.8 -Chronic gait dysfunction uses a cane -Atypical chest pain. Patient's had a negative cardiac cath last year -Chronic nicotine dependence patient cigarette smoker Plan: Home medications to be renewed. Replace potassium. Cardiology and orthopedic Dr. Lior Renee consulted. Care was discussed with the patient and ... Smoke cessation counseling: This was done with the patient. Nicotine patch is being given. More than 3 minutes was spent for this Past Medical History Past Medical History: Cancer, Heart Failure, GERD/Reflux, Hyperlipidemia, Hypertension, Musculoskeletal Disorder, Renal Disease, Sleep Apnea/CPAP/BIPAP Additional Past Medical History / Comment(s): LEWEY BODY DEMENTIA. LOWER LEG EDEMA AND NEUROPATHY. Cancer LT Testicular, gout, chronic back and neck pain, History of Any Multi-Drug Resistant Organisms: None Reported Past Surgical History: Back Surgery, Hernia Repair, Orthopedic Surgery Additional Past Surgical History / Comment(s): LT testicular SX (removed), lt knee arthroscopy, pain injections in back and radioablation, Past Anesthesia/Blood Transfusion Reactions: Family History of Problems w/ Anesthesia Additional Past Anesthesia/Blood Transfusion Reaction / Comment(s): States father had a hard time waking up from anesthesia. Past Psychological History: Anxiety, Depression Additional Psychological History / Comment(s): BEGINNING TO BE FORGETFUL, PREFERS THAT HIS ANSWERS QUESTIONS. Smoking Status: Current every day smoker Past Alcohol Use History: Occasional Additional Past Alcohol Use History / Comment(s): . Past Drug Use History: None Reported - Past Family History Father History Unknown: Yes Family Medical History: Congestive Heart Failure (CHF), Coronary Artery Disease (CAD), CVA/TIA, Dementia, Diabetes Mellitus, Hyperlipidemia, Hypertension, Myocardial Infarction (MS), Renal Disease Additional Family Medical History / Comment(s): PARKINSONS, NEUROPATHY,BKA, Mother History Unknown: Yes Family Medical History: Congestive Heart Failure (CHF), Coronary Artery Disease (CAD), Hyperlipidemia, Hypertension, Myocardial Infarction (MS), Vascular Disorder Additional Family Medical History / Comment(s): ANXIETY Medications and Allergies Home Medications Medication Instructions Recorded Confirmed Type Omeprazole 20 mg PO BID 01/21/17 02/27/20 History tiZANidine [Zanaflex] 4 mg PO HS 01/21/17 02/27/20 History DULoxetine HCL [Cymbalta] 60 mg PO DAILY 01/26/19 02/27/20 History Propranolol HCl 60 mg PO BID 01/26/19 02/27/20 History oxyCODONE HCL/ACETAMINOPHEN 1 tab PO Q6H PRN 01/26/19 02/27/20 History [Percocet 7.5-325 mg] rOPINIRole HCL [Requip] 2 mg PO HS 01/26/19 02/27/20 History Ertugliflozin Pidolate [Steglatro] 15 mg PO DAILY 06/25/19 02/27/20 History Insulin Glargine,Hum.rec.anlog 30 unit SQ HS 08/14/19 02/27/20 History [Basaglar Kwikpen U-100] Ergocalciferol [Vitamin D2 50,000 unit PO ALVES 09/14/19 02/27/20 History (DRISDOL)] Magnesium Oxide [Mag-Ox] 400 mg PO DAILY 09/14/19 02/27/20 History Prazosin [Minipress] 1 mg PO HS 09/14/19 02/27/20 History Clopidogrel [Plavix] 75 mg PO DAILY #90 tab 09/17/19 02/27/20 Rx Albuterol Inhaler [Ventolin Hfa 2 puff INHALATION RT-Q6H PRN 11/22/19 02/27/20 History Inhaler] Albuterol Nebulized [Ventolin 2.5 mg INHALATION RT-QID PRN 11/22/19 02/27/20 History Nebulized] Potassium Chloride ER [K-Dur 10] 10 meq PO BID PRN 11/22/19 02/27/20 History Thiamine [Vitamin B-1] 100 mg PO AC-BID 11/22/19 02/27/20 History metOLazone [Zaroxolyn] 5 mg PO DAILY PRN #0 11/27/19 02/27/20 Rx Aspirin EC [Ecotrin Low Dose] 81 mg PO DAILY 02/27/20 02/27/20 History Atorvastatin [Lipitor] 10 mg PO DAILY 02/27/20 02/27/20 History Donepezil HCl [Aricept] 5 mg PO HS 02/27/20 02/27/20 History INSULIN LISPRO (humaLOG) [humaLOG] See Protocol SQ ACHS PRN 02/27/20 02/27/20 History Morphine Sulfate ER [Ms Contin] 15 mg PO Q12HR 02/27/20 02/27/20 History Ondansetron [Zofran] 4 mg PO Q8H PRN 02/27/20 02/27/20 History Pregabalin [Lyrica] 75 mg PO TID 02/27/20 02/27/20 History Potassium Chloride ER [K-Dur 10] 10 meq PO TID #90 tab.er.prt 02/28/20 Rx Spironolactone [Aldactone] 25 mg PO DAILY #30 tab 02/28/20 Rx Allergies Allergy/AdvReac Type Severity Reaction Status Date / Time meperidine HCl [From Demerol] Allergy Swelling/Ra Verified 02/27/20 12:59 sh/Itching meloxicam [From Mobic] AdvReac Severe Confusion/MEMORY Verified 02/27/20 12:59 LOSS gabapentin AdvReac Intermediate BURNS Verified 02/27/20 12:59 codeine AdvReac Nausea & Verified 02/27/20 12:59 Vomiting Physical Exam Vitals: Vital Signs Temp Pulse Pulse Resp BP BP Pulse Ox 02/28/20 08:12 18 02/27/20 15:17 70 18 02/27/20 14:53 72 18 02/27/20 14:50 98 02/27/20 14:07 98.1 F 69 18 104/69 98 02/27/20 13:36 97.7 F 72 16 120/69 96 02/27/20 11:34 98.0 F 69 18 129/80 100 Intake and Output 02/27/20 02/28/20 02/28/20 22:59 06:59 14:59 Intake Total 500 500 Balance 500 500 Intake: Oral 500 500 Other: Voiding Method Toilet Toilet Toilet # Voids 1 1 1 Results CBC & Chem 7: 02/27/20 11:55 02/28/20 07:05 Labs: Abnormal Lab Results - Last 24 Hours (Table) 02/27/20 02/27/20 02/28/20 Range/Units 11:55 21:03 06:27 Sodium 135 L (137-145) mmol/L Potassium 2.9 L (3.5-5.1) mmol/L Chloride (98-107) mmol/L Carbon Dioxide (22-30) mmol/L BUN 21 H (9-20) mg/dL Glucose 159 H (74-99) mg/dL POC Glucose (mg/dL) 148 H 170 H (75-99) mg/dL Triglycerides (<150) mg/dL HDL Cholesterol (40-60) mg/dL 02/28/20 Range/Units 07:05 Sodium 136 L (137-145) mmol/L Potassium 2.9 L (3.5-5.1) mmol/L Chloride 96 L (98-107) mmol/L Carbon Dioxide 33 H (22-30) mmol/L BUN (9-20) mg/dL Glucose 157 H (74-99) mg/dL POC Glucose (mg/dL) (75-99) mg/dL Triglycerides 588 H (<150) mg/dL HDL Cholesterol 29 L (40-60) mg/dL Thrombosis Risk Factor Assmnt - Choose All That Apply Any of the Below Risk Factors Present?: Yes Each Factor Represents 1 point: Age 41-60 years, Obesity (BMI >25) Other Risk Factors: Yes Each Risk Factor Represents 3 Points: Family history of DVT/PE, History of DVT/PE Thrombosis Risk Factor Assessment Total Risk Factor Score: 8 Thrombosis Risk Factor Assessment Level: High Risk
--- NOTE | 2020-02-28 14:32 | P.CNOR ---
History of Present Illness - [facility] Consult date: 02/28/20 Consult reason: low back pain History of present illness: Patient is a 44-year-old male who was admitted to [facility] observation unit yesterday afternoon with regards to chest pain and increasing low back pain. Patient has many medical comorbidities, his low back pain is chronic. He's had a previous surgery back in 2016 at [facility], he states that it didn't really improved since then. Patient utilizes a walker or wheelchair for getting around. Due to the increasing pain in his low back Problems Hospital. Patient has tried to follow-up with Dr. Chan in the outpatient setting, they did not take his insurance. Patient was evaluated today in the observation unit with my attending Dr. Roman. He denies any recent trauma to the low back. He denies any change in physical activity at this time. He feels that both legs are very weak at this time. He denies any pain involving the bilateral lower extremities. He denies any cervical or thoracic pain. He has no upper extremity symptoms, this including weakness, numbness or tingling or radiating pain. Review of Systems Constitutional: Reports as per HPI Past Medical History Past Medical History: Cancer, Heart Failure, GERD/Reflux, Hyperlipidemia, Hypertension, Musculoskeletal Disorder, Renal Disease, Sleep Apnea/CPAP/BIPAP Additional Past Medical History / Comment(s): LEWEY BODY DEMENTIA. LOWER LEG EDEMA AND NEUROPATHY. Cancer LT Testicular, gout, chronic back and neck pain, History of Any Multi-Drug Resistant Organisms: None Reported Past Surgical History: Back Surgery, Hernia Repair, Orthopedic Surgery Additional Past Surgical History / Comment(s): LT testicular SX (removed), lt knee arthroscopy, pain injections in back and radioablation, Past Anesthesia/Blood Transfusion Reactions: Family History of Problems w/ Anesthesia Additional Past Anesthesia/Blood Transfusion Reaction / Comm: States father had a hard time waking up from anesthesia. Past Psychological History: Anxiety, Depression Additional Psychological History / Comment(s): BEGINNING TO BE FORGETFUL, PREFERS THAT HIS ANSWERS QUESTIONS. Smoking Status: Current every day smoker Past Alcohol Use History: Occasional Additional Past Alcohol Use History / Comment(s): . Past Drug Use History: None Reported - Past Family History Father History Unknown: Yes Family Medical History: Congestive Heart Failure (CHF), Coronary Artery Disease (CAD), CVA/TIA, Dementia, Diabetes Mellitus, Hyperlipidemia, Hypertension, Myocardial Infarction (VT), Renal Disease Additional Family Medical History / Comment(s): PARKINSONS, NEUROPATHY,BKA, Mother History Unknown: Yes Family Medical History: Congestive Heart Failure (CHF), Coronary Artery Disease (CAD), Hyperlipidemia, Hypertension, Myocardial Infarction (VT), Vascular Disorder Additional Family Medical History / Comment(s): ANXIETY Medications and Allergies Home Medications Medication Instructions Recorded Confirmed Type Omeprazole 20 mg PO BID 01/21/17 02/27/20 History tiZANidine [Zanaflex] 4 mg PO HS 01/21/17 02/27/20 History DULoxetine HCL [Cymbalta] 60 mg PO DAILY 01/26/19 02/27/20 History Propranolol HCl 60 mg PO BID 01/26/19 02/27/20 History oxyCODONE HCL/ACETAMINOPHEN 1 tab PO Q6H PRN 01/26/19 02/27/20 History [Percocet 7.5-325 mg] rOPINIRole HCL [Requip] 2 mg PO HS 01/26/19 02/27/20 History Ertugliflozin Pidolate [Steglatro] 15 mg PO DAILY 06/25/19 02/27/20 History Insulin Glargine,Hum.rec.anlog 30 unit SQ HS 08/14/19 02/27/20 History [Basaglar Kwikpen U-100] Ergocalciferol [Vitamin D2 50,000 unit PO ALVES 09/14/19 02/27/20 History (DRISDOL)] Magnesium Oxide [Mag-Ox] 400 mg PO DAILY 09/14/19 02/27/20 History Prazosin [Minipress] 1 mg PO HS 09/14/19 02/27/20 History Clopidogrel [Plavix] 75 mg PO DAILY #90 tab 09/17/19 02/27/20 Rx Albuterol Inhaler [Ventolin Hfa 2 puff INHALATION RT-Q6H PRN 11/22/19 02/27/20 History Inhaler] Albuterol Nebulized [Ventolin 2.5 mg INHALATION RT-QID PRN 11/22/19 02/27/20 History Nebulized] Potassium Chloride ER [K-Dur 10] 10 meq PO BID PRN 11/22/19 02/27/20 History Thiamine [Vitamin B-1] 100 mg PO AC-BID 11/22/19 02/27/20 History metOLazone [Zaroxolyn] 5 mg PO DAILY PRN #0 11/27/19 02/27/20 Rx Aspirin EC [Ecotrin Low Dose] 81 mg PO DAILY 02/27/20 02/27/20 History Atorvastatin [Lipitor] 10 mg PO DAILY 02/27/20 02/27/20 History Donepezil HCl [Aricept] 5 mg PO HS 02/27/20 02/27/20 History INSULIN LISPRO (humaLOG) [humaLOG] See Protocol SQ ACHS PRN 02/27/20 02/27/20 History Morphine Sulfate ER [Ms Contin] 15 mg PO Q12HR 02/27/20 02/27/20 History Ondansetron [Zofran] 4 mg PO Q8H PRN 02/27/20 02/27/20 History Pregabalin [Lyrica] 75 mg PO TID 02/27/20 02/27/20 History Potassium Chloride ER [K-Dur 10] 10 meq PO TID #90 tab.er.prt 02/28/20 Rx Spironolactone [Aldactone] 25 mg PO DAILY #30 tab 02/28/20 Rx Allergies Allergy/AdvReac Type Severity Reaction Status Date / Time meperidine HCl [From Demerol] Allergy Swelling/Ra Verified 02/27/20 12:59 sh/Itching meloxicam [From Mobic] AdvReac Severe Confusion/MEMORY Verified 02/27/20 12:59 LOSS gabapentin AdvReac Intermediate BURNS Verified 02/27/20 12:59 codeine AdvReac Nausea & Verified 02/27/20 12:59 Vomiting Physical Examination Orthopedic exam: Patient is tender to palpation over the paraspinal region of the lumbar spine, no step-off is appreciated Full range of motion of the CTL-spine with minimal pain, patient is ambulating with walker Sensory exam to light touch from L2 to S1 is intact. No dermatomal defects Strength testing demonstrates 4 out of 5 with dorsiflexion, plantarflexion, EHL, FHL, knee flexion, knee extension, hip flexion bilaterally Reflexes are 2/4 bilateral lower extremities Positive straight leg raise left leg bilaterally Negative Bria's bilaterally, no clonus Results - Labs Labs: Abnormal Lab Results - Last 24 Hours (Table) 02/27/20 02/28/20 02/28/20 Range/Units 21:03 06:27 07:05 Sodium 136 L (137-145) mmol/L Potassium 2.9 L (3.5-5.1) mmol/L Chloride 96 L (98-107) mmol/L Carbon Dioxide 33 H (22-30) mmol/L Glucose 157 H (74-99) mg/dL POC Glucose (mg/dL) 148 H 170 H (75-99) mg/dL Triglycerides 588 H (<150) mg/dL HDL Cholesterol 29 L (40-60) mg/dL 02/28/20 Range/Units 11:06 Sodium (137-145) mmol/L Potassium (3.5-5.1) mmol/L Chloride (98-107) mmol/L Carbon Dioxide (22-30) mmol/L Glucose (74-99) mg/dL POC Glucose (mg/dL) 247 H (75-99) mg/dL Triglycerides (<150) mg/dL HDL Cholesterol (40-60) mg/dL H & H 02/27/20 Range/Units 11:55 Hgb 16.3 (13.0-17.5) gm/dL Hct 47.6 (39.0-53.0) % Coagulation 02/27/20 Range/Units 11:55 INR 0.9 (<1.2) Result Diagrams: 02/27/20 11:55 02/28/20 07:05 - Diagnostic results Lumbar AP/lateral x-ray with flexion/extension views: report reviewed, image reviewed (Multilevel spondylitic changes in the lumbar spine) CT Scan - lumbar: report reviewed, image reviewed (Multilevel spondylitic changes of the lumbar spine) Assessment and Plan Assessment: Multilevel spondylosis lumbar spine Previous lumbar spine surgery Multiple medical comorbidities Plan: Dr. Roman was available today in the observation unit discuss treatment options with patient. No orthopedic surgical intervention needed at this time. We did recommend an MRI of the lumbar spine for further evaluation, this was unable to be done today Recommended weight-bear as tolerated with walker, patient is on high-dose pain medication for chronic pain at this time Recommend follow-up in the outpatient setting with Dr. Roman in the next week for further evaluation and to schedule MRI Patient advised to report back to the hospital immediately if he notices worsening of pain, new onset paresthesias of lower extremities, loss of bowel or bladder function
--- NOTE | 2020-02-28 19:44 | P.DS ---
Providers Date of admission: 02/27/20 13:06 Expected date of discharge: 02/28/20 Attending physician: Deon Castillo Consults: 02/27/20 13:14 Consult Physician Urgent Consulting Provider: Marco Antonio Lin Consult Reason/Comments: chest pain Do you want consulting provider notified?: Yes Consult Physician Urgent Consulting Provider: Kishore Roman Consult Reason/Comments: Lumbar back pain with radicular symptoms, bulging disc Do you want consulting provider notified?: Yes Primary care physician: Bereket Jordan [facility] Course: Chief Complaint: leg weakness History of presenting complaint: This is a pleasant 44-year-old patient of Dr. Ortega. Chronic stable medical conditions include CHF, GERD, hypertension, hyperlipidemia, newly body dementia, peripheral neuropathy, left testicular cancer, gout,. Patient had lower back surgery in [address] Wright of [facility]. Patient states his back never really improved., And he lost trust and that surgeon. He decided to follow up with Dr. Haile locally here in town. But his insurance was not accepted. Patient continues to have lower back pain for quite some time. Progressively been having increasing low back pain. He does use a cane. Occasionally does have trouble with urination. Because of progressing symptoms she decided to come to the hospital. Patient been anxious about the whole thing and fell slight chest discomfort. He did have a cardiac catheterization last year and was negative. No change in bowel pattern. Patient normally uses a cane. His is at the bedside. Patient was seen by Dr. Lior Renee from orthopedics. He'll follow the patient tomorrow in the office. DISCHARGED patient. Seen by cardiology. No further workup. Consultation: Dr. Lior Renee from orthopedics Dr. Williamson from cardiology Physical examination: VITAL SIGNS: 98.1, 69, 18, 104/69, 98% room air GENERAL: BMI 37.8, laying in bed comfortable. EYES: Pupils equal. Conjunctiva normal. NECK: JVD not raised; masses not palpable. HEART: First and second heart sounds are normal; no edema. LUNGS:[ Respiratory rate normal; decreased breath sound. ABDOMEN: Soft, nontender, liver spleen not palpable, no masses palpable. PSYCH: Alert and oriented x3; mood and affect normal. NEUROLOGICAL: [Cranial nerves grossly intact; no facial asymmetry, able to raise his right leg about 10, left leg not able to do so. Knee Reflexes are down symmetrical INVESTIGATIONS, reviewed in the clinical context: White count 7.9 hemoglobin 16.3 platelets 280 potassium 2.9 creatinine 1.12 Accu-Cheks 148, 170 Troponin I 3 negative EKG tracing personally reviewed by me-normal sinus rhythm Lumbar spine x-ray negative Lumbar spine computed tomography scan-multilevel hypertrophic changes with multilevel canal stenosis dispatching most pronounced at L5-S1 with left paracentral lateral disc protrusion or herniation encroaching over the left nerve root. Assessment: -Patient had a lower lumbar surgery about 3 years ago at [facility] by . Claims his symptoms never really got better. Some progression of lower back pain. Double walking. There is able to get around with a cane. Computed tomography scan is showing changes at L5-S1 with paracentral lateral disc protrusion and herniation encroaching over the left nerve root. There is no hyperreflexia. Intermittent urinary symptoms. -Chronic congestive heart failure from diastolic dysfunction EF 55-60% -GERD -Essential hypertension -Hyperlipidemia- -Newly body dementia -Peripheral neuropathy -Chronic gout -obesity BMI 37.8 -Chronic gait dysfunction uses a cane -Atypical chest pain. Patient's had a negative cardiac cath last year -Chronic nicotine dependence patient cigarette smoker Disposition: Home Patient Condition at Discharge: Stable Plan - Discharge Summary Discharge Rx Participant: No New Discharge Prescriptions: New Spironolactone [Aldactone] 25 mg PO DAILY #30 tab Potassium Chloride ER [K-Dur 10] 10 meq PO TID #90 tab.er.prt Continue tiZANidine [Zanaflex] 4 mg PO HS rOPINIRole HCL [Requip] 2 mg PO HS Propranolol HCl 60 mg PO BID oxyCODONE HCL/ACETAMINOPHEN [Percocet 7.5-325 mg] 1 tab PO Q6H PRN PRN Reason: Pain DULoxetine HCL [Cymbalta] 60 mg PO DAILY Prazosin [Minipress] 1 mg PO HS Clopidogrel [Plavix] 75 mg PO DAILY #90 tab Albuterol Inhaler [Ventolin Hfa Inhaler] 2 puff INHALATION RT-Q6H PRN PRN Reason: Shortness Of Breath Albuterol Nebulized [Ventolin Nebulized] 2.5 mg INHALATION RT-QID PRN PRN Reason: Shortness Of Breath Potassium Chloride ER [K-Dur 10] 10 meq PO BID PRN PRN Reason: when taking metolazone metOLazone [Zaroxolyn] 5 mg PO DAILY PRN #0 PRN Reason: Edema Pregabalin [Lyrica] 75 mg PO TID Donepezil HCl [Aricept] 5 mg PO HS Atorvastatin [Lipitor] 10 mg PO DAILY Aspirin EC [Ecotrin Low Dose] 81 mg PO DAILY Morphine Sulfate ER [Ms Contin] 15 mg PO Q12HR No Action Omeprazole 20 mg PO BID Ertugliflozin Pidolate [Steglatro] 15 mg PO DAILY Insulin Glargine,Hum.rec.anlog [Basaglar Kwikpen U-100] 30 unit SQ HS Magnesium Oxide [Mag-Ox] 400 mg PO DAILY Ergocalciferol [Vitamin D2 (DRISDOL)] 50,000 unit PO ALVES Thiamine [Vitamin B-1] 100 mg PO AC-BID INSULIN LISPRO (humaLOG) [humaLOG] See Protocol SQ ACHS PRN PRN Reason: high blood sugar Ondansetron [Zofran] 4 mg PO Q8H PRN PRN Reason: Nausea Discharge Medication List Omeprazole 20 mg PO BID 01/21/17 [History] tiZANidine [Zanaflex] 4 mg PO HS 01/21/17 [History] DULoxetine HCL [Cymbalta] 60 mg PO DAILY 01/26/19 [History] Propranolol HCl 60 mg PO BID 01/26/19 [History] oxyCODONE HCL/ACETAMINOPHEN [Percocet 7.5-325 mg] 1 tab PO Q6H PRN 01/26/19 [History] rOPINIRole HCL [Requip] 2 mg PO HS 01/26/19 [History] Ertugliflozin Pidolate [Steglatro] 15 mg PO DAILY 06/25/19 [History] Insulin Glargine,Hum.rec.anlog [Basaglar Kwikpen U-100] 30 unit SQ HS 08/14/19 [History] Ergocalciferol [Vitamin D2 (DRISDOL)] 50,000 unit PO ALVES 09/14/19 [History] Magnesium Oxide [Mag-Ox] 400 mg PO DAILY 09/14/19 [History] Prazosin [Minipress] 1 mg PO HS 09/14/19 [History] Clopidogrel [Plavix] 75 mg PO DAILY #90 tab 09/17/19 [Rx] Albuterol Inhaler [Ventolin Hfa Inhaler] 2 puff INHALATION RT-Q6H PRN 11/22/19 [History] Albuterol Nebulized [Ventolin Nebulized] 2.5 mg INHALATION RT-QID PRN 11/22/19 [History] Potassium Chloride ER [K-Dur 10] 10 meq PO BID PRN 11/22/19 [History] Thiamine [Vitamin B-1] 100 mg PO AC-BID 11/22/19 [History] metOLazone [Zaroxolyn] 5 mg PO DAILY PRN #0 11/27/19 [Rx] Aspirin EC [Ecotrin Low Dose] 81 mg PO DAILY 02/27/20 [History] Atorvastatin [Lipitor] 10 mg PO DAILY 02/27/20 [History] Donepezil HCl [Aricept] 5 mg PO HS 02/27/20 [History] INSULIN LISPRO (humaLOG) [humaLOG] See Protocol SQ ACHS PRN 02/27/20 [History] Morphine Sulfate ER [Ms Contin] 15 mg PO Q12HR 02/27/20 [History] Ondansetron [Zofran] 4 mg PO Q8H PRN 02/27/20 [History] Pregabalin [Lyrica] 75 mg PO TID 02/27/20 [History] Potassium Chloride ER [K-Dur 10] 10 meq PO TID #90 tab.er.prt 02/28/20 [Rx] Spironolactone [Aldactone] 25 mg PO DAILY #30 tab 02/28/20 [Rx] Follow up Appointment(s)/Referral(s): Bereket Ortega DO [Primary Care Provider] - 1-2 days Kishore Roman DO [Doctor of Osteopathic Medicine] - 1-2 Days Patient Instructions/Handouts: Chest Pain (DC), Chronic Back Pain (DC) Activity/Diet/Wound Care/Special Instructions: bmp - 02/29/2020
== END 2020-02-28 12:56 | disposition home or self-care (01) ==
LOC: EC 11:30 → 1SOBS 13:06
PROVIDERS: ADMIT Hospitalist; ATTEND Hospitalist
DX: R07.89 Other chest pain (principal); E87.6 Hypokalemia; M51.16 Intervertebral disc disorders with radiculopathy, lumbar region; I11.0 Hypertensive heart disease with heart failure; I50.32 Chronic diastolic (congestive) heart failure; J98.11 Atelectasis; K21.9 Gastro-esophageal reflux disease without esophagitis; E78.5 Hyperlipidemia, unspecified; F03.90 Unspecified dementia, unspecified severity, without behavioral disturbance, psychotic disturbance, mood disturbance, and anxiety; E11.42 Type 2 diabetes mellitus with diabetic polyneuropathy; E11.51 Type 2 diabetes mellitus with diabetic peripheral angiopathy without gangrene; M1A.9XX0 Chronic gout, unspecified, without tophus (tophi); R26.2 Difficulty in walking, not elsewhere classified; C62.92 Malignant neoplasm of left testis, unspecified whether descended or undescended; M54.5 Low back pain; G89.29 Other chronic pain; E66.9 Obesity, unspecified; Z68.37 Body mass index [BMI] 37.0-37.9, adult; M47.26 Other spondylosis with radiculopathy, lumbar region; F32.9 Major depressive disorder, single episode, unspecified; F41.9 Anxiety disorder, unspecified; G47.33 Obstructive sleep apnea (adult) (pediatric); N28.9 Disorder of kidney and ureter, unspecified; F17.210 Nicotine dependence, cigarettes, uncomplicated; I25.10 Atherosclerotic heart disease of native coronary artery without angina pectoris; Z86.73 Personal history of transient ischemic attack (TIA), and cerebral infarction without residual deficits; M51.17 Intervertebral disc disorders with radiculopathy, lumbosacral region; Z82.0 Family history of epilepsy and other diseases of the nervous system; Z82.49 Family history of ischemic heart disease and other diseases of the circulatory system; Z83.3 Family history of diabetes mellitus; Z84.1 Family history of disorders of kidney and ureter; Z83.438 Family history of other disorder of lipoprotein metabolism and other lipidemia; Z79.02 Long term (current) use of antithrombotics/antiplatelets; Z79.82 Long term (current) use of aspirin; Z79.891 Long term (current) use of opiate analgesic; Z79.899 Other long term (current) drug therapy; Z79.4 Long term (current) use of insulin; Z88.6 Allergy status to analgesic agent; Z88.5 Allergy status to narcotic agent; Z88.8 Allergy status to other drugs, medicaments and biological substances; Z95.820 Peripheral vascular angioplasty status with implants and grafts
CPT/HCPCS: 96366; 96375 ×2; 96365; 99285; 36415; 93005 ×2; 80061; 80053; 80048; 82550; 83735; 84484; 85025; 85610; 85730; 72114; 71046; 72131; G0378 ×2; J1100; J3480; J2405; J1170

== ENCOUNTER → 2020-03-17 | Outpatient (CLI) | payer OTHER | END | disposition home or self-care (01) | LOC: RADUSWWP 08:47 | PROVIDERS: ATTEND Orthopaedic Surgery | DX: M62.81 Muscle weakness (generalized) (principal); R09.89 Other specified symptoms and signs involving the circulatory and respiratory systems; Z88.5 Allergy status to narcotic agent; Z88.6 Allergy status to analgesic agent; Z88.8 Allergy status to other drugs, medicaments and biological substances | CPT/HCPCS: 93922 ==

== ENCOUNTER 2020-06-10 15:57 | Observation (INO) | payer OTHER ==
[2020-06-10] MEDS ORDERED: SODIUM CHLORIDE 0.9% 1,000 ML IV STA (16:14)
[2020-06-10 16:39] LABS: Glucose,Whole Blood 183 mg/dL (75-99)
--- NOTE | 2020-06-10 16:41 | ED ---
General Adult HPI - General Chief complaint: Neuro Symptoms/Deficit Stated complaint: poss stroke Time Seen by Provider: 06/10/20 16:06 Source: patient, RN notes reviewed, old records reviewed Mode of arrival: ambulatory Limitations: no limitations - History of Present Illness Initial comments: 44-year-old male presenting for evaluation of headache, left-sided weakness and numbness. Patient has multiple medical problems including diabetes, CHF, and dementia. Patient states his symptoms began initially as an intermittent headache over the past several weeks to months. He states that over the past 3 days. He's had progressive weakness of his left arm, and left leg. This began as numbness in the left arm which began at least 48 hours ago and has progressed to left leg numbness and weakness all symptoms began prior to 24 hours prior to arrival. No chest pain. No difficulty breathing. No fever. - Related Data Home Medications Medication Instructions Recorded Confirmed Omeprazole 20 mg PO BID 01/21/17 06/10/20 tiZANidine [Zanaflex] 4 mg PO Q8H PRN 01/21/17 06/10/20 DULoxetine HCL [Cymbalta] 60 mg PO BID 01/26/19 06/10/20 oxyCODONE HCL/ACETAMINOPHEN 1 tab PO Q6H 01/26/19 06/10/20 [Percocet 7.5-325 mg] rOPINIRole HCL [Requip] 2 mg PO HS 01/26/19 06/10/20 Ergocalciferol [Vitamin D2 50,000 unit PO ALVES 09/14/19 06/10/20 (DRISDOL)] Magnesium Oxide [Mag-Ox] 400 mg PO DAILY 09/14/19 06/10/20 Prazosin [Minipress] 1 mg PO HS 09/14/19 06/10/20 Albuterol Inhaler [Ventolin Hfa 2 puff INHALATION RT-Q6H PRN 11/22/19 06/10/20 Inhaler] Potassium Chloride ER [K-Dur 10] 10 meq PO HS 11/22/19 06/10/20 Aspirin EC [Ecotrin Low Dose] 81 mg PO DAILY 02/27/20 06/10/20 Donepezil HCl [Aricept] 5 mg PO HS 02/27/20 06/10/20 INSULIN LISPRO (humaLOG) [humaLOG] See Protocol SQ ACHS 02/27/20 06/10/20 Ondansetron [Zofran] 4 mg PO Q8H PRN 02/27/20 06/10/20 Pregabalin [Lyrica] 75 mg PO TID 02/27/20 06/10/20 Atorvastatin [Lipitor] 40 mg PO HS 06/10/20 06/10/20 Ezetimibe [Zetia] 10 mg PO HS 06/10/20 06/10/20 Fluticasone Nasal [place] [Flonase 2 spr EA NOSTRIL DAILY PRN 06/10/20 06/10/20 Nasal [place]] Insulin Detemir (Levemir) [Levemir] 40 unit SQ HS 06/10/20 06/10/20 Memantine [Namenda] 10 mg PO BID 06/10/20 06/10/20 Potassium Chloride ER [K-Dur 10] 20 meq PO DAILY 06/10/20 06/10/20 Pravastatin Sodium [Pravachol] 20 mg PO HS 06/10/20 06/10/20 SILVER sulfADIAZINE Cream 1.5 mm TOPICAL BID 06/10/20 06/10/20 [Silvadene 1% Cream] metFORMIN HCL ER [Glucophage Xr] 1,000 mg PO HS 06/10/20 06/10/20 metOLazone [Zaroxolyn] 5 mg PO DAILY 06/10/20 06/10/20 Previous Rx's Medication Instructions Recorded Clopidogrel [Plavix] 75 mg PO DAILY #90 tab 09/17/19 Allergies Allergy/AdvReac Type Severity Reaction Status Date / Time meperidine HCl [From Demerol] Allergy Swelling/Ra Verified 06/10/20 17:06 sh/Itching meloxicam [From Mobic] AdvReac Severe Confusion/MEMORY Verified 06/10/20 17:06 LOSS gabapentin AdvReac Intermediate BURNS Verified 06/10/20 17:06 codeine AdvReac Nausea & Verified 06/10/20 17:06 Vomiting Review of Systems ROS Statement: Those systems with pertinent positive or pertinent negative responses have been documented in the HPI. ROS Other: All systems not noted in ROS Statement are negative. Past Medical History Past Medical History: Cancer, Heart Failure, GERD/Reflux, Hyperlipidemia, Hypertension, Musculoskeletal Disorder, Renal Disease, Sleep Apnea/CPAP/BIPAP Additional Past Medical History / Comment(s): LEWEY BODY DEMENTIA. LOWER LEG EDEMA AND NEUROPATHY. Cancer LT Testicular, gout, chronic back and neck pain, History of Any Multi-Drug Resistant Organisms: None Reported Past Surgical History: Back Surgery, Hernia Repair, Orthopedic Surgery Additional Past Surgical History / Comment(s): LT testicular SX (removed), lt knee arthroscopy, pain injections in back and radioablation, Past Anesthesia/Blood Transfusion Reactions: Family History of Problems w/ Anesthesia Additional Past Anesthesia/Blood Transfusion Reaction / Comment(s): States father had a hard time waking up from anesthesia. Past Psychological History: Anxiety, Depression Smoking Status: Current every day smoker Past Alcohol Use History: Occasional Past Drug Use History: None Reported - Past Family History Father History Unknown: Yes Family Medical History: Congestive Heart Failure (CHF), Coronary Artery Disease (CAD), CVA/TIA, Dementia, Diabetes Mellitus, Hyperlipidemia, Hypertension, Myocardial Infarction (RI), Renal Disease Additional Family Medical History / Comment(s): PARKINSONS, NEUROPATHY,BKA, Mother History Unknown: Yes Family Medical History: Congestive Heart Failure (CHF), Coronary Artery Disease (CAD), Hyperlipidemia, Hypertension, Myocardial Infarction (RI), Vascular Disorder Additional Family Medical History / Comment(s): ANXIETY General Exam Limitations: no limitations General appearance: lethargic Head exam: Present: atraumatic, normocephalic Eye exam: Present: normal appearance, PERRL ENT exam: Present: mucous membranes dry Neck exam: Present: normal inspection. Absent: tenderness, meningismus Respiratory exam: Present: normal lung sounds bilaterally. Absent: respiratory distress Cardiovascular Exam: Present: normal rhythm, tachycardia GI/Abdominal exam: Present: soft. Absent: distended, tenderness, guarding Neurological exam: Present: alert, motor sensory deficit (NIH of 9, left arm and left leg weakness and drift. There is a left lower facial droop.) Psychiatric exam: Present: normal affect, normal mood. Absent: suicidal ideation Skin exam: Present: warm, dry, intact. Absent: cyanosis, diaphoretic Course Vital Signs 06/10/20 16:00 Temperature 98.2 F Pulse Rate 112 H Respiratory 18 Rate Blood Pressure 133/84 O2 Sat by Pulse 98 Oximetry EKG Findings - EKG Comments: EKG Findings:: EKG: Normal sinus rhythm rate of 96, RI interval 188, QRS duration 78, QTC 442, no ST segment elevation Medical Decision Making - Medical Decision Making 44-year-old male with multiple medical palms presenting with 2 days of headache, left-sided weakness. Initial NIH of 9. Patient is not a TPA candidate given the onset of his symptoms. Patient has normal CBC, normal CMP with the exception of hypokalemia 3.0. EKG is sinus without ischemic changes. Head CT performed negative for intracranial hemorrhage or mass effect. CT angiography is negative for occlusion, aneurysm, no acute findings. Chest x-rays negative for acute cardiopulmonary disease. Case is discussed both with Dr. Prado and Dr. Valdez. - Lab Data Result diagrams: 06/10/20 16:37 06/10/20 16:37 Lab Results 06/10/20 06/10/20 06/10/20 Range/Units 16:27 16:37 16:37 WBC 8.7 (3.8-10.6) k/uL RBC 5.44 (4.30-5.90) m/uL Hgb 15.8 (13.0-17.5) gm/dL Hct 45.5 (39.0-53.0) % MCV 83.6 (80.0-100.0) fL MCH 29.1 (25.0-35.0) pg MCHC 34.7 (31.0-37.0) g/dL RDW 13.8 (11.5-15.5) % Plt Count 257 (150-450) k/uL MPV 6.2 Neutrophils % 75 % Lymphocytes % 13 % Monocytes % 6 % Eosinophils % 2 % Basophils % 1 % Neutrophils # 6.6 (1.3-7.7) k/uL Lymphocytes # 1.2 (1.0-4.8) k/uL Monocytes # 0.5 (0-1.0) k/uL Eosinophils # 0.2 (0-0.7) k/uL Basophils # 0.1 (0-0.2) k/uL PT 9.9 (9.0-12.0) sec INR 0.9 (<1.2) APTT 23.9 (22.0-30.0) sec Sodium (137-145) mmol/L Potassium (3.5-5.1) mmol/L Chloride (98-107) mmol/L Carbon Dioxide (22-30) mmol/L Anion Gap mmol/L BUN (9-20) mg/dL Creatinine (0.66-1.25) mg/dL Est GFR (CKD-EPI)AfAm (>60 ml/min/1.73 sqM) Est GFR (CKD-EPI)NonAf (>60 ml/min/1.73 sqM) Glucose (74-99) mg/dL POC Glucose (mg/dL) 183 H (75-99) mg/dL POC Glu Client Resource Specialist ID Lucille Reyes Calcium (8.4-10.2) mg/dL Total Bilirubin (0.2-1.3) mg/dL AST (17-59) U/L ALT (4-49) U/L Alkaline Phosphatase (38-126) U/L Troponin I (0.000-0.034) ng/mL Total Protein (6.3-8.2) g/dL Albumin (3.5-5.0) g/dL 06/10/20 06/10/20 Range/Units 16:37 16:37 WBC (3.8-10.6) k/uL RBC (4.30-5.90) m/uL Hgb (13.0-17.5) gm/dL Hct (39.0-53.0) % MCV (80.0-100.0) fL MCH (25.0-35.0) pg MCHC (31.0-37.0) g/dL RDW (11.5-15.5) % Plt Count (150-450) k/uL MPV Neutrophils % % Lymphocytes % % Monocytes % % Eosinophils % % Basophils % % Neutrophils # (1.3-7.7) k/uL Lymphocytes # (1.0-4.8) k/uL Monocytes # (0-1.0) k/uL Eosinophils # (0-0.7) k/uL Basophils # (0-0.2) k/uL PT (9.0-12.0) sec INR (<1.2) APTT (22.0-30.0) sec Sodium 136 L (137-145) mmol/L Potassium 3.0 L (3.5-5.1) mmol/L Chloride 95 L (98-107) mmol/L Carbon Dioxide 24 (22-30) mmol/L Anion Gap 17 mmol/L BUN 16 (9-20) mg/dL Creatinine 1.16 (0.66-1.25) mg/dL Est GFR (CKD-EPI)AfAm 88 (>60 ml/min/1.73 sqM) Est GFR (CKD-EPI)NonAf 76 (>60 ml/min/1.73 sqM) Glucose 183 H (74-99) mg/dL POC Glucose (mg/dL) (75-99) mg/dL POC Glu Client Resource Specialist ID Calcium 9.5 (8.4-10.2) mg/dL Total Bilirubin 0.6 (0.2-1.3) mg/dL AST 26 (17-59) U/L ALT 34 (4-49) U/L Alkaline Phosphatase 82 (38-126) U/L Troponin I <0.012 (0.000-0.034) ng/mL Total Protein 7.1 (6.3-8.2) g/dL Albumin 4.4 (3.5-5.0) g/dL Critical Care Time Critical Care Time: Yes Total Critical Care Time: 35 Disposition Clinical Impression: Cerebrovascular accident (CVA), Dementia Disposition: ADMITTED IP TO THIS [facility] Condition: Stable Is patient prescribed a controlled substance at d/c from ED?: No Referrals: Bereket Ortega DO [Primary Care Provider] - 1-2 days
[2020-06-10 16:56] LABS: Basophils # (A) 0.1 k/uL (0-0.2); Basophils % (A) 1 %; Eosinophils # (A) 0.2 k/uL (0-0.7); Eosinophils % (A) 2 %; HCT 45.5 % (39.0-53.0); HGB 15.8 gm/dL (13.0-17.5); Lymphocytes # (A) 1.2 k/uL (1.0-4.8); Lymphocytes % (A) 13 %; MCH 29.1 pg (25.0-35.0); MCHC 34.7 g/dL (31.0-37.0); MCV 83.6 fL (80.0-100.0); Mean Platelet Volume 6.2; Monocytes # (A) 0.5 k/uL (0-1.0); Monocytes % (A) 6 %; Neutrophils # (A) 6.6 k/uL (1.3-7.7); Neutrophils % (A) 75 %; Platelet Count 257 k/uL (150-450); RBC 5.44 m/uL (4.30-5.90); RDW 13.8 % (11.5-15.5); WBC 8.7 k/uL (3.8-10.6)
[2020-06-10 17:05] LABS: INR 0.9 (<1.2); Partial Thromboplastin Time 23.9 sec (22.0-30.0); Prothrombin Time 9.9 sec (9.0-12.0)
[2020-06-10 17:06] LABS: Albumin 4.4 g/dL (3.5-5.0); Calcium 9.5 mg/dL (8.4-10.2); Total Bilirubin 0.6 mg/dL (0.2-1.3); Total Protein 7.1 g/dL (6.3-8.2)
--- NOTE | 2020-06-10 17:53 | CT ---
EXAMINATION TYPE: CT brain wo con DATE OF EXAM: 06/10/2020 COMPARISON: 11/25/2019 HISTORY: Left sided arm weakness. CT DLP: 1057 mGycm Automated exposure control for dose reduction was used. Ventricles have normal size. There is no mass effect nor midline shift. There is no sign of intracran ial hemorrhage. The calvarium is intact. There is no evidence of cerebral edema. Skull base is intact . IMPRESSION: Negative unenhanced head CT scan. No change.
--- NOTE | 2020-06-10 17:54 | XR ---
EXAMINATION TYPE: XR chest 1V portable DATE OF EXAM: 06/10/2020 COMPARISON: 02/27/2020 HISTORY: Altered mental status TECHNIQUE: FINDINGS: Heart and mediastinum are normal. Lungs are clear. Diaphragm is normal. There are chest adwoa ds. Bony thorax is intact. IMPRESSION: No active cardiopulmonary disease. No change.
--- NOTE | 2020-06-10 18:05 | CT ---
EXAMINATION TYPE: CT angio head neck DATE OF EXAM: 06/10/2020 COMPARISON: None HISTORY: Left sided arm weakness. CT DLP: 809.4 mGycm Automated exposure control for dose reduction was used. CONTRAST: Performed with IV Contrast, patient injected with 65ml mL of Isovue 370. There are 3-D post processed images. FINDINGS: There is normal branching pattern of the great vessels on the aortic arch. There is bilateral arteria l flow in the subclavian arteries. There is bilateral arterial flow in the vertebral arteries. Left v ertebral artery is larger than the right. There is arterial flow in the vertebrobasilar artery system . There is wide patency of the carotid artery bifurcations. There is no evidence of carotid or verteb ral artery aneurysm or dissection. There is arterial flow in the common internal and external carotid arteries bilaterally. There is art erial flow in the anterior middle and posterior cerebral arteries. There is no mass effect. There is no sign of intracranial aneurysm or neovascularity. I see no intracranial arterial stenosis. There is normal contrast opacification of the venous sinuses. IMPRESSION: Negative CT angiogram of the neck. Negative CT angiogram of the brain.
[2020-06-10] MEDS ORDERED: ASPIRIN 325 MG TAB PO STA (18:14)
[2020-06-10] MEDS ORDERED: HYDROmorphone 0.5 MG/0.5 ML SYRINGE IVP STA (18:15)
[2020-06-10] MEDS: SODIUM CHLORIDE 0.9% 1,000 ML IV SCH (19:06)
[2020-06-10] MEDS: POTASSIUM CHLORIDE 10 MEQ in WATER FOR INJECTION 1 100ML.BAG IVPB SCH ×2 (19:06→22:28)
[2020-06-10] MEDS ORDERED: ONDANSETRON 4 MG TAB PO PRN (19:11)
[2020-06-10] MEDS ORDERED: FLUTICASONE 50MCG/SPRAY NASAL 16GM EA NOSTRIL PRN (19:11)
[2020-06-10] MEDS ORDERED: tiZANidine 4 MG TAB PO PRN (19:11)
[2020-06-10] MEDS ORDERED: ALBUTEROL NEBULIZED 2.5 MG/3 ML INHALATION PRN (19:11)
[2020-06-10] MEDS ORDERED: Potassium Replacement Protocol 1 EACH MISC MISCELLANE PRN (19:15)
[2020-06-10] MEDS ORDERED: Magnesium Replacement Protocol 1 EACH MISC MISCELLANE PRN (19:15)
[2020-06-10 19:22] LABS: Appearance,Urine Clear (Clear); Bilirubin,Urine Negative (Negative); Blood,Urine Negative (Negative); Color,Urine Colorless; Glucose,Urine (UA) Negative (Negative); Ketones,Urine Negative (Negative); Leukocyte Esterase,Urine Negative (Negative); Nitrite,Urine Negative (Negative); PH, Urine 6.5 (5.0-8.0); Protein,Urine Negative (Negative); Specific Gravity,Urine 1.016 (1.001-1.035); Urobilinogen,Urine <2.0 mg/dL (<2.0)
[2020-06-10 19:49] LABS: Amphetamine Screen,Urine Not Detected (NotDetected); Barbiturate Screen,Urine Not Detected (NotDetected); Benzodiazepines Screen,Urine Not Detected (NotDetected); Cocaine Screen,Urine Not Detected (NotDetected); Methadone Screen, Urine Not Detected (NotDetected); Opiate Screen,Urine Not Detected (NotDetected); Oxycodone Screen, Urine Not Detected (NotDetected); Phencyclidine Screen,Urine Not Detected (NotDetected); Tricyclic Antidepressant,Urine Not Detected (NotDetected); Urn Cannabinoid Scrn Not Detected (NotDetected)
[2020-06-10 20:55] LABS: Glucose,Whole Blood 157 mg/dL (75-99)
[2020-06-10] MEDS ORDERED: PRAZOSIN 1 MG CAP PO SCH (21:00)
[2020-06-10] MEDS ORDERED: ATORVASTATIN 40 MG TAB PO SCH (21:00)
[2020-06-10] MEDS ORDERED: EZETIMIBE 10 MG TAB PO SCH (21:00)
[2020-06-10] MEDS ORDERED: INSULIN DETEMIR (LEVEMIR) 100 UNIT/ML SYR SQ SCH (21:00)
[2020-06-10] MEDS ORDERED: POTASSIUM CHLORIDE ER 10 MEQ TAB.ER.PRT PO SCH (21:00)
[2020-06-10] MEDS ORDERED: DONEPEZIL 5 MG TAB PO SCH (21:00)
--- NOTE | 2020-06-10 21:01 | HP ---
HISTORY AND PHYSICAL DATE OF SERVICE: 06/10/2020 CHIEF COMPLAINT: Weakness of the left side of the body. HISTORY OF PRESENT ILLNESS: This 44-year-old gentleman with a past medical history of CHF, GERD, hypertension, hyperlipidemia, history of renal disease, history of Lewy Body dementia, being followed by [facility] as well as Dr. Bereket Ortega in the outpatient setting, was complaining of weakness of the left side of the body for at least more than the past 24 hours. Apparently, according to the ER report, this started over 48 hours and the patient apparently did not tell his . The patient was taken to [facility] and admitted for further evaluation and treatment. CT scan of the brain as well as CTA did not show any acute abnormality. MRI is pending and neurology evaluation is in progress. There is no history of any fever, rigor or chills. No history of headache, loss of consciousness, seizures. Patient has been complaining of vague headache for the last several weeks to months. PAST MEDICAL HISTORY: History of CHF, GERD, hypertension, hyperlipidemia, history of DJD, history of Lewy Body dementia, history of back surgery, anxiety, depression. HOME MEDICATIONS: Reviewed. They include Glucophage, Pravachol, Levemir, Zanaflex, Requip, Percocet, Silvadene, Lyrica, K-Dur, Zofran, omeprazole, Namenda, magnesium oxide, Humalog, Flonase, Zetia, vitamin D2, Aricept, Cymbalta, Plavix. Lipitor, Ecotrin, Ventolin. ALLERGIES: MEPERIDINE, MOBIC, GABAPENTIN, CODEINE. FAMILY HISTORY: History of CHF, CAD, hypertension, hyperlipidemia, hyperlipidemia. SOCIAL HISTORY: Previous history of smoking. No history of alcohol intake. REVIEW OF SYSTEMS: ENT: Diminished hearing. Diminished vision. CARDIOVASCULAR SYSTEM: No angina, palpitations. RESPIRATORY SYSTEM: No cough, hemoptysis. GI: No nausea, vomiting. : No dysuria or retention. NERVOUS SYSTEM: As mentioned earlier. ALLERGY/IMMUNOLOGY: No asthma, hayfever. MUSCULOSKELETAL: As mentioned earlier. HEMATOLOGY/ONCOLOGY: No history of anemia. ENDOCRINE: Diabetes. CONSTITUTIONAL: As mentioned earlier. DERMATOLOGY: Negative. RHEUMATOLOGY: Negative. PSYCHIATRY: As mentioned earlier. PHYSICAL EXAMINATION: Patient is alert, oriented x2, mildly dysarthric. Pulse 83, blood pressure 121/75, respirations 16, temperature 98.2, pulse ox 98% on room air. HEENT: Conjunctivae normal. NECK: No jugular venous distention. CARDIOVASCULAR SYSTEM: S1, S2 muffled. RESPIRATORY SYSTEM: Breath sounds diminished at the bases. No rhonchi. No crackles. ABDOMEN: Soft, obese, non-tender. No mass palpable. LEGS: No edema. No swelling. NERVOUS SYSTEM: Higher functions as mentioned earlier. Eyelid opening is limited. Restriction of the eye movements. No nystagmus. No diplopia. No facial deviation. The motor power is like 4/5 on the left upper and lower limbs. No signs of cerebellar dysfunction. Gait not tested. SKIN: No ulcer, rash, bleeding. LYMPHATICS: No lymph node palpable in neck, axillae or groin. JOINTS: No active arthropathy. LABS: Labs at this time show CBC within normal limits. Sodium 136, potassium 3. ASSESSMENT: 1. Weakness of the left upper and lower limbs, possible acute transient ischemic attack involving the right hemisphere. 2. Hyponatremia. 3. Hypokalemia. 4. Diabetes mellitus, type 2. 5. Lewy Body dementia. 6. History of congestive heart failure; ejection fraction unknown. 7. History of gastroesophageal reflux disease. 8. Hypertension. 9. Hyperlipidemia. 10.History of degenerative joint disease. 11.History of chronic renal disease. 12.History of left testicular cancer. 13.History of gout. 14.History of chronic back pain. 15.History of peripheral neuropathy. 16.History of anxiety, depression. 17.History of nicotine dependence. 18.Obesity with body mass index of 36.6. RECOMMENDATIONS AND DISCUSSION: In this 44-year-old gentleman who presented with multiple complex medical issues, at this time I recommend continuing with current medications. Continue with antiplatelet agents. Continue home medications. DVT prophylaxis. Neurovascular workup. MRI of the brain. Neurology consultation. Guarded prognosis because of multiple complex medical issues. Further recommendations to follow. A copy of this dictation is being forwarded to Dr. Ortega, who is the primary physician. MMMIR / EARL: [id number] /
[2020-06-10] MEDS: PREGABALIN 75 MG CAP PO SCH (22:25)
[2020-06-10] MEDS: HEPARIN SODIUM,PORCINE 5,000 UNIT/ML 1 ML VIAL SQ SCH (22:26)
[2020-06-10] MEDS: metFORMIN 500 MG TAB PO SCH (22:26)
[2020-06-10] MEDS: MEMANTINE 10 MG TAB PO SCH (22:26)
[2020-06-10] MEDS: DULoxetine HCL 60 MG CAPSULE.DR PO SCH (22:26)
[2020-06-10] MEDS: oxyCODONE-APAP 7.5-325MG 1 EACH TAB PO PRN (22:35)
--- NOTE | 2020-06-10 23:19 | P.CNNES ---
History of Present Illness Consult date: 06/10/20 Requesting physician: Alvaro Guadalupe Reason for Consult: CVA History of Present Illness: Patient is a 44-year-old male with history of diabetes, peripheral neuropathy, history of heavy alcohol use, dementia, hypertension came to the hospital today at 4 PM for evaluation of headache, left-sided weakness and numbness. Patient and his are both present at the time of this interview. Patient states that about 2 days ago he started noticing weakness and tingling of his left hand. As the day progressed, it started affecting the left leg as well. He also complained of back pain in the head, which he claimed "Center back of the head". Patient says that he did not reported to his , as she will get conc erned. He just stayed home, sat most of the time used cane to walk. Patient's symptoms got worse and today he was having difficulty walking. His left face was drooping, could not open his left eye and he had a massive headache. His drove him to the hospital. Although at home he was able to get into the car with the help of the , but when he arrived, he required a wheelchair. Patient states that while in the ER his symptoms have improved, but his left leg is still slightly weak, the droopy eye has resolved, but he still has a headache. He thinks he is still dragging the left leg. Vital signs on arrival blood pressure 133/84, pulse rate 112, temperature 98.2. Blood test shows normal CBC, PT/PTT, sodium 136 potassium 3.0, normal renal functions. Hepatic panel normal. Troponin negative. Patient's last hemoglobin A1c 5.8, B12 454 on 01/27/2019, vitamin B6 borderline 7, thyroid functions normal. CT head from today showed no acute process. Chest x-ray showed no active cardiopulmonary disease. CTA of head and neck normal. EKG shows normal sinus rhythm. Patient had an EEG on 11/26/2019, which revealed mild encephalopathy. Patient does take Lipitor 40 mg, Pravachol 20 mg, also on numerous psychoactive medications including Namenda 10 mg twice a day, aspirin 81 mg, donepezil 5 mg, Lyrica 75 mg 3 times a day, Plavix 75 mg, Cymbalta 60 mg twice a day, Percocet every 6 hours, Requip 2 mg at bedtime and Zanaflex 4 mg every 8 hours when necessary Patient has history of diabetes for one year. Hypertension. He has smoked half pack per day since age 15, quit 1 year ago. Patient states he has neuropathy in the feet from diabetes. Patient also mentions that he was diagnosed with Lewy body dementia by at [facility] about 2 years ago. He is currently on donepezil 5 mg and Namenda 10 mg twice a day. Review of Systems As per details in HPI. Complains of generalized weakness, fatigue, no fever or chills. No cough. No double vision, loss of vision. All other review of systems reviewed and noncontributory to the present illness. Past Medical History Past Medical History: Cancer, Heart Failure, GERD/Reflux, Hyperlipidemia, Hypertension, Musculoskeletal Disorder, Renal Disease, Sleep Apnea/CPAP/BIPAP Additional Past Medical History / Comment(s): LEWEY BODY DEMENTIA. LOWER LEG EDEMA AND NEUROPATHY. Cancer LT Testicular, gout, chronic back and neck pain, History of Any Multi-Drug Resistant Organisms: None Reported Past Surgical History: Back Surgery, Hernia Repair, Orthopedic Surgery Additional Past Surgical History / Comment(s): LT testicular SX (removed), lt knee arthroscopy, pain injections in back and radioablation, Past Anesthesia/Blood Transfusion Reactions: Family History of Problems w/ Anesthesia Additional Past Anesthesia/Blood Transfusion Reaction / Comment(s): States father had a hard time waking up from anesthesia. Past Psychological History: Anxiety, Depression Smoking Status: Current every day smoker Past Alcohol Use History: Occasional Past Drug Use History: None Reported - Past Family History Father History Unknown: Yes Family Medical History: Congestive Heart Failure (CHF), Coronary Artery Disease (CAD), CVA/TIA, Dementia, Diabetes Mellitus, Hyperlipidemia, Hypertension, Myocardial Infarction (PR), Renal Disease Additional Family Medical History / Comment(s): PARKINSONS, NEUROPATHY,BKA, Mother History Unknown: Yes Family Medical History: Congestive Heart Failure (CHF), Coronary Artery Disease (CAD), Hyperlipidemia, Hypertension, Myocardial Infarction (PR), Vascular Disorder Additional Family Medical History / Comment(s): ANXIETY Medications and Allergies Home Medications Medication Instructions Recorded Confirmed Type Omeprazole 20 mg PO BID 01/21/17 06/10/20 History tiZANidine [Zanaflex] 4 mg PO Q8H PRN 01/21/17 06/10/20 History DULoxetine HCL [Cymbalta] 60 mg PO BID 01/26/19 06/10/20 History oxyCODONE HCL/ACETAMINOPHEN 1 tab PO Q6H 01/26/19 06/10/20 History [Percocet 7.5-325 mg] rOPINIRole HCL [Requip] 2 mg PO HS 01/26/19 06/10/20 History Ergocalciferol [Vitamin D2 50,000 unit PO ALVES 09/14/19 06/10/20 History (DRISDOL)] Magnesium Oxide [Mag-Ox] 400 mg PO DAILY 09/14/19 06/10/20 History Prazosin [Minipress] 1 mg PO HS 09/14/19 06/10/20 History Clopidogrel [Plavix] 75 mg PO DAILY #90 tab 09/17/19 06/10/20 Rx Albuterol Inhaler [Ventolin Hfa 2 puff INHALATION RT-Q6H PRN 11/22/19 06/10/20 History Inhaler] Potassium Chloride ER [K-Dur 10] 10 meq PO HS 11/22/19 06/10/20 History Aspirin EC [Ecotrin Low Dose] 81 mg PO DAILY 02/27/20 06/10/20 History Donepezil HCl [Aricept] 5 mg PO HS 02/27/20 06/10/20 History INSULIN LISPRO (humaLOG) [humaLOG] See Protocol SQ ACHS 02/27/20 06/10/20 History Ondansetron [Zofran] 4 mg PO Q8H PRN 02/27/20 06/10/20 History Pregabalin [Lyrica] 75 mg PO TID 02/27/20 06/10/20 History Atorvastatin [Lipitor] 40 mg PO HS 06/10/20 06/10/20 History Ezetimibe [Zetia] 10 mg PO HS 06/10/20 06/10/20 History Fluticasone Nasal [place] [Flonase 2 spr EA NOSTRIL DAILY PRN 06/10/20 06/10/20 History Nasal [place]] Insulin Detemir (Levemir) [Levemir] 40 unit SQ HS 06/10/20 06/10/20 History Memantine [Namenda] 10 mg PO BID 06/10/20 06/10/20 History Potassium Chloride ER [K-Dur 10] 20 meq PO DAILY 06/10/20 06/10/20 History Pravastatin Sodium [Pravachol] 20 mg PO HS 06/10/20 06/10/20 History SILVER sulfADIAZINE Cream 1.5 mm TOPICAL BID 06/10/20 06/10/20 History [Silvadene 1% Cream] metFORMIN HCL ER [Glucophage Xr] 1,000 mg PO HS 06/10/20 06/10/20 History metOLazone [Zaroxolyn] 5 mg PO DAILY 06/10/20 06/10/20 History Allergies Allergy/AdvReac Type Severity Reaction Status Date / Time meperidine HCl [From Demerol] Allergy Swelling/Ra Verified 06/10/20 17:06 sh/Itching meloxicam [From Mobic] AdvReac Severe Confusion/MEMORY Verified 06/10/20 17:06 LOSS gabapentin AdvReac Intermediate BURNS Verified 06/10/20 17:06 codeine AdvReac Nausea & Verified 06/10/20 17:06 Vomiting Physical Examination - Vital Signs Vital Signs: Vital Signs Temp Pulse Resp BP Pulse Ox 06/10/20 18:53 83 16 121/75 98 06/10/20 16:00 98.2 F 112 H 18 133/84 98 Intake and Output 06/10/20 06/10/20 06/10/20 06:59 14:59 22:59 Other: Weight 99.79 kg On examination patient is a middle aged male, in no acute distress. Patient is alert and awake. Speech and language functions are normal. No aphasia or dysarthria. Detail cognitive function testing deferred. On cranial nerve examination pupils are round and reactive to light, visual mckenzie are full on confrontation with no neglect. Extraocular muscles are intact with no nystagmus. Face is symmetric, tongue protrudes the midline. Palatal elevation and sensation normal. Hearing and shoulder shrug normal. On muscle strength testing there is no pronator drift and the strength is normal in the arms and legs distally and proximally except the left ankle dorsiflexion which is 5-and hip flexion 5-with pain. Sensory touch is decreased on the left. Reflexes are symmetric 1 at the biceps, trace brachioradialis, 2 at the knees 1 ankles and plantars downgoing. No obvious ataxia for [id number] testing, tone and bulk of muscles normal. Gait deferred. 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 Peripheral pulses present. Mild edema. Results - Laboratory Findings CBC and BMP: 06/10/20 16:37 06/10/20 16:37 Abnormal Lab Findings: Abnormal Labs 06/10/20 06/10/20 16:27 16:37 Sodium 136 L Potassium 3.0 L Chloride 95 L Glucose 183 H POC Glucose (mg/dL) 183 H Assessment and Plan Assessment: * 44-year-old male with 2 days history of left-sided numbness and weakness. Symptoms were worse earlier today, but has improved while in the ER. At present he has very minimal deficits on the left side, uncertain new or old. Rule out CVA. * Diabetes * Hypertension * Reported diagnosis of Lewy body dementia. * Peripheral neuropathy Plan: * Patient is already on dual antiplatelet medications. These will be continued. * Patient is on Lipitor 40 mg and Pravachol 20 mg. Suggested to stop Pravachol and maintain on Lipitor. No need to have 2 statins on board. * CTA of head and neck normal. * 2-D echo, rule out embolic source. * MRI of the brain to evaluate for subacute stroke. * Hemoglobin A1c, fasting lipid panel. * We will follow.
[2020-06-11] MEDS: POTASSIUM CHLORIDE 10 MEQ in WATER FOR INJECTION 1 100ML.BAG IVPB SCH ×2 (00:06→01:07)
[2020-06-11 00:47] VITALS: TEMP 97.5
[2020-06-11 06:07] LABS: Glucose,Whole Blood 207 mg/dL (75-99)
[2020-06-11] MEDS: metFORMIN 500 MG TAB PO SCH (06:50)
[2020-06-11] MEDS: SODIUM CHLORIDE 0.9% 1,000 ML IV SCH (06:51)
[2020-06-11 07:10] LABS: Basophils # (A) 0.1 k/uL (0-0.2); Basophils % (A) 1 %; Eosinophils # (A) 0.3 k/uL (0-0.7); Eosinophils % (A) 4 %; HCT 40.2 % (39.0-53.0); HGB 14.2 gm/dL (13.0-17.5); Lymphocytes # (A) 1.2 k/uL (1.0-4.8); Lymphocytes % (A) 15 %; MCH 29.8 pg (25.0-35.0); MCHC 35.3 g/dL (31.0-37.0); MCV 84.3 fL (80.0-100.0); Mean Platelet Volume 6.5; Monocytes # (A) 0.6 k/uL (0-1.0); Monocytes % (A) 7 %; Neutrophils # (A) 5.5 k/uL (1.3-7.7); Neutrophils % (A) 71 %; Platelet Count 210 k/uL (150-450); RBC 4.77 m/uL (4.30-5.90); RDW 13.9 % (11.5-15.5); WBC 7.8 k/uL (3.8-10.6)
[2020-06-11] MEDS ORDERED: PANTOPRAZOLE 40 MG TABLET PO SCH (07:30)
[2020-06-11 07:42] LABS: African American GFR (CKD) >90 (>60 ml/min/1.73 sqM); Anion Gap 8 mmol/L; Blood Urea Nitrogen 17 mg/dL (9-20); Calcium 8.7 mg/dL (8.4-10.2); Carbon Dioxide 30 mmol/L (22-30); Chloride 97 mmol/L (98-107); Cholesterol 140 mg/dL (<200); Glucose 142 mg/dL (74-99); HDL Cholesterol 28 mg/dL (40-60); LDL Cholesterol,Calculated 45 mg/dL (0-99); Magnesium 1.2 mg/dL (1.6-2.3); Non-African American GFR(CKD) 79 (>60 ml/min/1.73 sqM); Sodium 135 mmol/L (137-145); Triglycerides 336 mg/dL (<150)
[2020-06-11] MEDS: DULoxetine HCL 60 MG CAPSULE.DR PO SCH (08:56)
[2020-06-11] MEDS: PREGABALIN 75 MG CAP PO SCH (08:56)
[2020-06-11] MEDS: MEMANTINE 10 MG TAB PO SCH (08:56)
[2020-06-11] MEDS: HEPARIN SODIUM,PORCINE 5,000 UNIT/ML 1 ML VIAL SQ SCH (08:56)
[2020-06-11] MEDS ORDERED: CLOPIDOGREL 75 MG TAB PO SCH (09:00)
[2020-06-11] MEDS ORDERED: metOLazone 5 MG TAB PO SCH (09:00)
[2020-06-11] MEDS ORDERED: MAGNESIUM OXIDE 400 MG TAB PO SCH (09:00)
[2020-06-11] MEDS ORDERED: NON FORMULARY DRUG (Aspirin Ec 81 MG Tablet.Dr) PO SCH (09:00)
[2020-06-11] MEDS ORDERED: POTASSIUM CHLORIDE ER 20 MEQ TAB.ER PO SCH (09:00)
[2020-06-11] MEDS: oxyCODONE-APAP 7.5-325MG 1 EACH TAB PO PRN (09:12)
[2020-06-11 10:27] VITALS: RESP 20
[2020-06-11] MEDS: POTASSIUM CHLORIDE ER 20 MEQ TAB.ER PO SCH ×3 (11:17→13:50)
[2020-06-11] MEDS ORDERED: Potassium Replacement Protocol 1 EACH MISC MISCELLANE PRN (11:35)
[2020-06-11] MEDS ORDERED: Magnesium Replacement Protocol 1 EACH MISC MISCELLANE PRN (11:35)
[2020-06-11 11:50] LABS: Glucose,Whole Blood 192 mg/dL (75-99)
[2020-06-11] MEDS ORDERED: 0.9% NACL WITH KCL 40 MEQ/L 1,000 ML IV SCH (12:00)
--- NOTE | 2020-06-11 12:14 | MR ---
EXAMINATION TYPE: MR brain wo/w con DATE OF EXAM: 06/11/2020 COMPARISON: CT brain 06/10/2020 HISTORY: acute stroke rt hemisphere left-sided weakness, weakness in both arms TECHNIQUE: Multiplanar, multisequence images of the brain and brainstem is performed without and with IV contras t, utilizing 10 mL intravenous Gadavist . FINDINGS: There is some motion on exam. Fast brain protocol was utilized due to patient's inability t o cooperate. Diffusion weighted images demonstrate no evidence of a recent infarct or other diffusion abnormality. There is no extra-axial fluid collection, 2 focal hyperintensities present in the righ t frontal white matter, axial image 25 on inversion recovery T2-weighted sequences, an additional 3-5 scattered hyperintensities may be present within the white matter. The ventricular system and ciste rnal spaces are normal in size and appearance. The brain volume is age appropriate. Midline structures demonstrate normal morphology. The craniocervical junction appears within normal limits. Post contrast images demonstrate no abnormal enhancement. The dural venous sinuses appear pa tent. The visualized sinuses are clear and the globes are intact. IMPRESSION: Nonspecific white matter demyelination could be related to hypertension, migraine headach es, chronic small vessel ischemic change, vasculitis, Lyme disease, multiple sclerosis felt to be les s likely, findings may be artifactual. There is motion on the exam. No evident subacute infarct.
[2020-06-11 12:25] VITALS: BP 122/76; PULSE 74
--- NOTE | 2020-06-11 15:10 | DS ---
DISCHARGE SUMMARY DATE OF SERVICE: 06/11/2020 FINAL DIAGNOSES: 1. Weakness of the left side of the body, possibly acute transient ischemic attack involving the right hemisphere. 2. Hyponatremia. 3. Hypokalemia. 4. Diabetes type 2. 5. Lewey body dementia. 6. History of congestive heart failure, ejection fraction unknown. 7. History of gastroesophageal reflux disease. 8. Hypertension. 9. Hyperlipidemia. 10.History of degenerative joint disease. 11.History of chronic renal disease. 12.History of left testicular cancer. 13.History of gout. 14.History of chronic back pain. 15.History of peripheral neuropathy. 16.History of anxiety, depression. 17.History of nicotine dependence. 18.Obesity with body mass of 36.6. DISCHARGE DISPOSITION: The patient will be discharged in stable condition with guarded prognosis. The patient and the are keen on going home. Total time taken 35 minutes. Stable but the prognosis guarded. MRI is normal. Discharged home once cleared by Neurology. HISTORY OF PRESENT ILLNESS: This is a 44-year-old gentleman with past medical history of multiple medical problems including Lewey body dementia and other medical problems being followed by Dr. Ortega in the outpatient setting was admitted with weakness of the left upper and lower limbs. The patient treated symptomatically. Dr. Kirby from neurology saw the patient. MRI did not show any acute stroke. Please refer to the MRI reports for further details. Otherwise, as mentioned earlier, the patient is keen on going home at this time. Patient is able to ambulate. Sensorium has improved significantly. The patient is being discharged home in stable condition with guarded prognosis. Patient also had persistent hypokalemia despite taking potassium supplementation as well as potassium containing foods. I would recommend close followup with Dr. Ortega and Nephrology regarding further evaluation of hypokalemia. On exam, vitals are stable. Cardiovascular: S1, S2. Abdomen soft. Nervous system: No focal deficits. DISCHARGE ADVICE AND MEDICATIONS: 1. Discharge diet is cardiac diet. 2. Activity limited until followup. 3. Follow up with Dr. Ortega in 1-2 days. 4. Follow up with Nephrology as recommended. 5. Follow up with Neurology as recommended. 6. Aricept 5 mg p.o. q.h.s. 7. Cymbalta 60 mg p.o. b.i.d. 8. Ecotrin 81 mg daily. 9. Flonase 2 sprays daily. 10.Glucophage XR 1000 mg q.h.s. 11.Humalog scale. 12.K-Dur 10 mEq q.h.s. and 20 mEq p.o. daily. 13.Levemir 40 mg subcu q.h.s. 14.Lipitor 40 mg q.h.s. 15.Lyrica 75 mg t.i.d. 16.Magnesium oxide 400 mg daily. 17.Minipress 1 mg q.h.s. 18.Namenda 10 mg b.i.d. 19.Omeprazole 20 mg b.i.d. 20.Oxycodone 1 p.o. q.6h. 21.Pravachol 20 mg q.h.s. 22.Requip 1 mg q.h.s. 23.Silver sulfadiazine local application. 24.Ventolin p.r.n. 25.Vitamin D2 50,000 p.o. Saturday. 26.Zanaflex 4 mg q.8 p.r.n. 27.Zaroxolyn 5 mg p.o. daily. 28.Zetia 10 mg q.h.s. 29.Zofran 4 mg q.8 p.r.n. 30.Plavix 75 mg p.o. daily. MMODL / IJN: [id number] /
--- NOTE | 2020-06-11 15:29 | P.PN ---
Subjective Progress Note Date: 06/11/20 Patient was seen for a follow-up via telemedicine. Patient states he is doing much better. patient feels the strength is back to baseline. The weakness has all completely resolved. Denies any new numbness slurred speech. Patient states the headache has gone away this morning as well. His back to baseline. Denies any new focal symptoms. He does have chronic low back pain and neuropathy in the feet which is now back to baseline. Objective - Vital Signs Vital signs: Vital Signs Temp 97.5 F L 06/11/20 08:00 Pulse 74 06/11/20 12:00 Resp 20 06/11/20 12:00 BP 122/76 06/11/20 12:00 Pulse Ox 98 06/11/20 12:00 Intake & Output 06/10/20 06/11/20 06/11/20 18:59 06:59 18:59 Intake Total 240 Balance 240 Weight 99.79 kg 104.6 kg Intake: Oral 240 Other: Voiding Method Toilet # Voids 0 1 # Bowel Movements 0 - Exam on examination patient's mental status, speech and language functions are normal. Cranial nerves are normal. Muscle strength is normal in the arms and legs. Sensations are equal. No ataxia. Patient walked with a slight antalgic gait, which is chronic from his back issues. He was using his 4 pronged cane. - Labs CBC & Chem 7: 06/11/20 06:49 06/11/20 06:49 Labs: Abnormal Lab Results - Last 24 Hours (Table) 06/10/20 06/10/20 06/10/20 Range/Units 16:27 16:37 20:52 Sodium 136 L (137-145) mmol/L Potassium 3.0 L (3.5-5.1) mmol/L Chloride 95 L (98-107) mmol/L Glucose 183 H (74-99) mg/dL POC Glucose (mg/dL) 183 H 157 H (75-99) mg/dL Magnesium (1.6-2.3) mg/dL Triglycerides (<150) mg/dL HDL Cholesterol (40-60) mg/dL 06/11/20 06/11/20 06/11/20 Range/Units 06:06 06:49 11:49 Sodium 135 L (137-145) mmol/L Potassium 3.0 L (3.5-5.1) mmol/L Chloride 97 L (98-107) mmol/L Glucose 142 H (74-99) mg/dL POC Glucose (mg/dL) 207 H 192 H (75-99) mg/dL Magnesium 1.2 L (1.6-2.3) mg/dL Triglycerides 336 H (<150) mg/dL HDL Cholesterol 28 L (40-60) mg/dL Assessment and Plan Assessment: * Possible TIA manifesting with left-sided weakness, now seems to have resolved. * Diabetes * Hypertension * Reported diagnosis of Lewy body dementia. * Peripheral neuropathy Plan: * Patient underwent MRI of the brain, which revealed nonspecific white matter demyelination could be related to hypertension, migraine headaches, chronic small vessel ischemic change, vasculitis, Lyme disease, multiple sclerosis felt to be less likely, findings may be artifactual. There is motion on exam. No acute infarct. * Patient is on Lipitor 40 mg and Pravachol 20 mg. Suggested to stop Pravachol and maintain on Lipitor. No need to have 2 statins on board. * CTA of head and neck normal. * 2-D echo revealed normal left-ventricular size. Mild concentric LVH. EF is between 55-60%. Mild TR. * Fasting lipid panel showed cholesterol 140, LDL 45, HDL 28, triglycerides 336. Patient was recommended to continue statins. Recommend healthy lifestyles to improve triglycerides. * Hemoglobin A1c 8.6. Need to optimize control of diabetes to target A1c < 7.0. * patient had vitamin B6 deficiency, we will start vitamin B6 for neuropathy. * Neurologically clear for discharge, if echo comes back negative.
[2020-06-11] MEDS ORDERED: PYRIDOXINE 50 MG TAB PO SCH (15:30)
[2020-06-11 15:55] LABS: Hemoglobin A1C 8.6 % (4.0-6.0)
[2020-06-11] MEDS ORDERED: ASPIRIN 325 MG TAB PO SCH (18:15)
[2020-06-12] MEDS ORDERED: ERGOCALCIFEROL 1,250 MCG (50,000 IU) CAPSULE PO SCH (09:00)
--- NOTE | 2020-06-12 10:34 | ECHOF ---
Referral Reason:Thrombus MEASUREMENTS -------- HEIGHT: 165.1 cm WEIGHT: 104.3 kg BP: 127/77 RVIDd: 3.0 cm (< 3.3) IVSd: 1.3 cm (0.6 - 1.1) LVIDd: 3.9 cm (3.9 - 5.3) LVPWd: 1.3 cm (0.6 - 1.1) IVSs: 1.8 cm LVIDs: 2.4 cm LVPWs: 1.6 cm LAESV Index (A-L): 19.09 ml/m Ao Diam: 2.9 cm (2.0 - 3.7) AV Cusp: 1.9 cm (1.5 - 2.6) MV EXCURSION: 19.132 mm (> 18.000) MV EF SLOPE: 124 mm/s (70 - 150) EPSS: 0.5 cm MV E Joe: 0.82 m/s MV DecT: 137 ms MV A Joe: 0.53 m/s MV E/A Ratio: 1.53 FINDINGS -------- Sinus rhythm. This was a technically difficult study with suboptimal apical views. The left ventricular size is normal. There is mild concentric left ventricular hypertrophy. Overa ll left ventricular systolic function is normal with, an EF between 55 - 60 %. The diastolic fillin g pattern is normal for the age of the patient 9.72. The right ventricle is normal in size. Normal LA size by volume 22+/-6 ml/m2. The right atrial size is normal. 5.0mg of Lumason was utilized for enhancement of images Interatrial and interventricular septum intact. There is no evidence of aortic regurgitation. There is no evidence of aortic stenosis. No mitral regurgitation. Mild tricuspid regurgitation present. There is no evidence of pulmonary hypertension. The right v entricular systolic pressure, as measured by Doppler, is {RVSP}. There is no pulmonic regurgitation present. The aortic root size is normal. IVC Not well visulized. There is no pericardial effusion. CONCLUSIONS -------- 1. The left ventricular size is normal. 2. There is mild concentric left ventricular hypertrophy. 3. Overall left ventricular systolic function is normal with, an EF between 55 - 60 %. 4. Mild tricuspid regurgitation present. SENIOR MANUFACTURING SUPERVISOR: Radha Baltazar [facility]
== END 2020-06-11 15:33 | disposition home or self-care (01) ==
LOC: EC 15:57 → 3SCARD 18:14 → INTOOBSV 18:14 → 3SCARD 18:37 → UNDODISIN 06-11 15:33
PROVIDERS: ADMIT Hospitalist; ATTEND Hospitalist
DX: R53.1 Weakness (principal); G31.83 Neurocognitive disorder with Lewy bodies; I13.0 Hypertensive heart and chronic kidney disease with heart failure and stage 1 through stage 4 chronic kidney disease, or unspecified chronic kidney disease; N18.9 Chronic kidney disease, unspecified; I50.9 Heart failure, unspecified; E11.22 Type 2 diabetes mellitus with diabetic chronic kidney disease; E87.1 Hypo-osmolality and hyponatremia; R29.810 Facial weakness; R51.9 Headache, unspecified; E87.6 Hypokalemia; E11.42 Type 2 diabetes mellitus with diabetic polyneuropathy; M19.90 Unspecified osteoarthritis, unspecified site; E78.5 Hyperlipidemia, unspecified; R29.709 NIHSS score 9; Z20.822 Contact with and (suspected) exposure to COVID-19; G47.30 Sleep apnea, unspecified; Z99.89 Dependence on other enabling machines and devices; E66.9 Obesity, unspecified; Z68.36 Body mass index [BMI] 36.0-36.9, adult; K21.9 Gastro-esophageal reflux disease without esophagitis; F32.9 Major depressive disorder, single episode, unspecified; F41.9 Anxiety disorder, unspecified; M10.9 Gout, unspecified; G89.29 Other chronic pain; M54.5 Low back pain; M54.2 Cervicalgia; Z79.02 Long term (current) use of antithrombotics/antiplatelets; Z79.82 Long term (current) use of aspirin; Z79.4 Long term (current) use of insulin; Z79.899 Other long term (current) drug therapy; Z88.5 Allergy status to narcotic agent; Z88.6 Allergy status to analgesic agent; Z85.47 Personal history of malignant neoplasm of testis; Z87.891 Personal history of nicotine dependence; Z83.49 Family history of other endocrine, nutritional and metabolic diseases; Z84.1 Family history of disorders of kidney and ureter; Z81.8 Family history of other mental and behavioral disorders; Z83.3 Family history of diabetes mellitus; Z82.49 Family history of ischemic heart disease and other diseases of the circulatory system; Z82.0 Family history of epilepsy and other diseases of the nervous system
CPT/HCPCS: 99291 ×2; 96361 ×3; 96366 ×2; 96372 ×2; 96365; 96375; 36415; 93005; 80061; 80053; 80048; 83735; 84484; 85025 ×2; 85610; 85730; 81003; 80306; 83036; 87635; 71045; 70496; 70450; 70498; 70553; G0378 ×2; C8929; J1644 ×2; J3480 ×2; A9585; J1170; Q9950; Q9967; 93306; 96374

== ENCOUNTER → 2020-07-20 | Day surgery (SDC) | payer OTHER ==
[2020-06-29 14:04] VITALS: BMI 37.8
[~2020-07-20] MED LIST: MIDAZOLAM 2 MG/2 ML VIAL IV ONE; SODIUM CHLORIDE 0.9% 500 ML 500 ML IV ONE; fentaNYL (PF) 50 MCG/ML 2 ML AMP ONE
[2020-07-20 06:56] VITALS: RESP 18; TEMP 97.2
[2020-07-20 07:03] LABS: Glucose,Whole Blood 131 mg/dL (75-99)
[2020-07-20] MEDS: BENZOCAINE SPRAY 1 CAN TOPICAL ONE ×2 (07:29→07:36)
[2020-07-20] MEDS: fentaNYL (PF) 50 MCG/ML 2 ML AMP IV ONE ×2 (07:45→07:50)
--- NOTE | 2020-07-20 09:03 | ECHOT ---
TRANSESOPHAGEAL ECHOCARDIOGRAM DATE OF SERVICE: July 20, 2020. INDICATION: Rule out cardiac source of embolization in this 45-year-old gentleman who was admitted to the hospital recently with possible stroke. COMPLICATION: None. LEVEL OF SEDATION: Moderate with sedation length of 14 minutes. PROCEDURE DESCRIPTION: After obtaining an informed consent, explaining the procedure, benefits, risks, complications and alternatives, the patient was brought to the transesophageal echocardiogram suite. A pulse oximetry and heart rate monitors were attached to the patient prior to the procedure. The patient's throat was sprayed using lidocaine locally. Following that, the patient was turned into left lateral position. A bite guard was placed and the patient was then sedated with the above doses of Versed and fentanyl in divided doses. Following that, the transesophageal echocardiogram probe was advanced through the bite guard into the mid esophagus where 2-D echocardiogram images as well as color Doppler images of various cardiac structures were obtained. We evaluated the interatrial septum using 2-D echocardiogram, color Doppler, and contrast study. The procedure was completed. There were no complications. FINDINGS: The left ventricular dimension and systolic function appeared to be within normal limits. The ejection fraction appeared to be in the range of 50% to 55%. The right ventricle appeared to be of normal size and function. The left atrium and right atrium appeared to be within normal limits for dimension. The left atrial appendage appeared to be intact. The interatrial septum appeared to be intact. The aortic valve is trileaflet valve without stenosis with mild regurgitation. No tumors or growth was seen on the valve. The mitral valve seems to be normal as well. Normal tricuspid valve and pulmonic valve. No evidence of pericardial effusion. CONCLUSION: 1. No evidence of cardiac source of embolization. 2. Intact interatrial septum without any evidence of shunt. 3. Normal left atrial appendage without any evidence of thrombus. 4. Normal left ventricular dimension and systolic function. 5. Normal right ventricular dimension and systolic function. 6. Normal cardiac chamber sizes. 7. Trileaflet aortic valve without stenosis with trace insufficiency. 8. Normal mitral valve leaflets with mild mitral regurgitation. 9. Normal tricuspid valve and pulmonic valve. 10.No evidence of pericardial effusion. MMODL / IJN: [id number] /
[2020-07-20 09:23] VITALS: BP 132/58; PULSE 84
== END ==
LOC: CATHCVL 06:10
PROVIDERS: ATTEND Internal Medicine Interventional Cardiology
DX: I08.0 Rheumatic disorders of both mitral and aortic valves (principal); G45.9 Transient cerebral ischemic attack, unspecified; I10 Essential (primary) hypertension; E78.5 Hyperlipidemia, unspecified; I87.8 Other specified disorders of veins; I83.029 Varicose veins of left lower extremity with ulcer of unspecified site; I83.028 Varicose veins of left lower extremity with ulcer other part of lower leg; L97.819 Non-pressure chronic ulcer of other part of right lower leg with unspecified severity; L97.829 Non-pressure chronic ulcer of other part of left lower leg with unspecified severity; E11.622 Type 2 diabetes mellitus with other skin ulcer; E87.6 Hypokalemia; E66.9 Obesity, unspecified; Z68.37 Body mass index [BMI] 37.0-37.9, adult; Z95.820 Peripheral vascular angioplasty status with implants and grafts; Z72.0 Tobacco use; Z79.899 Other long term (current) drug therapy; Z79.02 Long term (current) use of antithrombotics/antiplatelets; Z79.82 Long term (current) use of aspirin; Z79.4 Long term (current) use of insulin; Z88.5 Allergy status to narcotic agent
CPT/HCPCS: 93312; 93320; 93325; J2250; J3010

== ENCOUNTER → 2020-08-12 | Outpatient (CLI) | payer OTHER | END | disposition home or self-care (01) | LOC: LABWHC1 14:07 | PROVIDERS: ATTEND Family Medicine | DX: Z20.822 Contact with and (suspected) exposure to COVID-19 (principal) | CPT/HCPCS: U0003; C9803; U0005 ==

== ENCOUNTER → 2022-11-19 | Outpatient (CLI) | payer OTHER ==
--- NOTE | 2022-11-19 15:57 | XR ---
EXAMINATION TYPE: XR abdomen 2V DATE OF EXAM: 11/19/2022 3:27 PM INDICATION: Patient age:Male; 47 years old; Reason for study: R10.9 UNSPECIFIED ABDOMINAL PAIN; COMPARISON: 10/28/2017. TECHNIQUE: Two views of the abdomen were obtained. FINDINGS: New left-sided probable iliac vessels stent graft. The bowel gas pattern is nonspecific wit hout dilated loops of small or large bowel. There is no evidence for organomegaly or pneumoperitoneum . The osseous structures are intact. No abnormal calcifications are present. Fecal material and gas are demonstrated throughout the colon and rectum. IMPRESSION: Nonspecific bowel gas pattern without radiographic evidence for acute process. From prior vascular stent graft placed.
== END | disposition home or self-care (01) ==
LOC: RADXRMAIN 14:56
PROVIDERS: ATTEND Family Medicine
DX: R10.9 Unspecified abdominal pain (principal)
CPT/HCPCS: 74019

== ENCOUNTER → 2022-11-23 | Outpatient (CLI) | payer OTHER ==
[2022-11-23 15:41] LABS: African American GFR (CKD) 71 (>60 ml/min/1.73 sqM); Blood Urea Nitrogen 15 mg/dL (9-20); Non-African American GFR(CKD) 61 (>60 ml/min/1.73 sqM)
--- NOTE | 2022-11-23 17:25 | CT ---
EXAMINATION TYPE: CT abdomen pelvis w con DATE OF EXAM: 11/23/2022 COMPARISON: None HISTORY: 47-year-old male R1 0.9, R/O Obstruction. Constipation, bloating, belching. TECHNIQUE: Contiguous axial scanning of the abdomen and pelvis following administration of 100 ml Iso joe 300 IV contrast. Delayed images through the kidneys and coronal/sagittal reconstructions perform ed. CT DLP: 1417.3 mGycm Automated exposure control for dose reduction was used. FINDINGS: LUNG BASES: No significant abnormality is appreciated. LIVER/GB: No significant abnormality is appreciated. PANCREAS: No significant abnormality is seen. SPLEEN: No significant abnormality is seen. ADRENALS: No significant abnormality is seen. KIDNEYS: No significant abnormality is seen. BOWEL: Mild to moderate stool burden. No pericolonic inflammatory change. Appendix within normal limi ts. No dilated small bowel or free fluid, or free air. LYMPH NODES: No greater than 1cm abdominal or pelvic lymph nodes are appreciated. PELVIS: Bladder partially distended. Pelvic phleboliths. No abnormal fluid collection in the pelvis o r pelvic lymphadenopathy. OSSEOUS STRUCTURES: No significant abnormality is seen. OTHER: There is a left common iliac vein stent. Mild narrowing of the upper left common iliac vein be hind its crossing with the right common iliac artery. There is surgical material at the left inguinal region from prior hernia repair. IMPRESSION: 1. NO EVIDENCE FOR OBSTRUCTION. THERE IS [id number] SCATTERED STOOL WITHOUT ANY EVIDENCE OF FEC AL IMPACTION. 2. Incidental left common iliac vein stent. Surgical material left inguinal region from prior hernia repair.
== END | disposition home or self-care (01) ==
LOC: RADCTMAIN 14:54
PROVIDERS: ATTEND Family Medicine
DX: K59.00 Constipation, unspecified (principal); R10.9 Unspecified abdominal pain; Z98.890 Other specified postprocedural states
CPT/HCPCS: 82565; 84520; 74177; 36415; Q9967

== ENCOUNTER 2023-02-21 06:28 | Day surgery (SDC) | payer OTHER ==
[~2023-02-21 06:28] MED LIST changes: +LACTATED RINGERS 1,000 ML IV SCH; +LIDOCAINE 1% (10MG/ML) FOR IV START INTRADERMA PRN; -MIDAZOLAM 2 MG/2 ML VIAL IV ONE; -SODIUM CHLORIDE 0.9% 500 ML 500 ML IV ONE; -fentaNYL (PF) 50 MCG/ML 2 ML AMP ONE
[2023-02-21 07:20] LABS: Glucose,Whole Blood 160 mg/dL (70-110)
--- NOTE | 2023-02-21 07:21 | P.GSHP ---
History of Present Illness H&P Date: 02/21/23 CHIEF COMPLAINT: GERD and colon screen HISTORY OF PRESENT ILLNESS: The patient is a 47-year-old male who presents with gastroesophageal reflux disease and need for colon screen. Upper and lower endoscopy were offered for further evaluation and management. PAST MEDICAL HISTORY: Please see list. PAST SURGICAL HISTORY: Please see list. MEDICATIONS: Please see list. ALLERGIES: Please see list. SOCIAL HISTORY: No illicit drug use FAMILY HISTORY: No reports of Crohn disease or ulcerative colitis. REVIEW OF ORGAN SYSTEMS: CONSTITUTIONAL: No reports of fevers or chills. GI: Denies any blood in stools or constipation. PHYSICAL EXAM: VITAL SIGNS: Stable GENERAL: Well-developed pleasant in no acute distress. HEENT: No scleral icterus. Extraocular movements grossly intact. Moist buccal mucosa. NECK: Supple without lymphadenopathy. CHEST: Unlabored respirations. Equal bilateral excursions. CARDIOVASCULAR: Regular rate and rhythm. Distal 2+ pulses. ABDOMEN: Soft, nondistended. MUSCULOSKELETAL: No clubbing, cyanosis, or edema. ASSESSMENT: 1. Gastroesophageal reflux disease 2. Colon screen. PLAN: 1. Recommend proceeding with an upper and lower endoscopy Past Medical History Past Medical History: Cancer, Dementia, GERD/Reflux, Hyperlipidemia, Hypertension, Musculoskeletal Disorder, Renal Disease, Sleep Apnea/CPAP/BIPAP Additional Past Medical History / Comment(s): LEWEY BODY DEMENTIA. LOWER LEG EDEMA AND NEUROPATHY. Cancer LT Testicular, gout, chronic back and neck pain,. TIA 06/10/20. wears cpap, kidney disease per History of Any Multi-Drug Resistant Organisms: None Reported Past Surgical History: Back Surgery, Hernia Repair, Orthopedic Surgery Additional Past Surgical History / Comment(s): LT testicular SX (removed), lt knee arthroscopy, pain injections in back and radioablation, Past Anesthesia/Blood Transfusion Reactions: Family History of Problems w/ Anesthesia Additional Past Anesthesia/Blood Transfusion Reaction / Comment(s): States father had a hard time waking up from anesthesia. Smoking Status: Current every day smoker - Past Family History Father History Unknown: Yes Family Medical History: Congestive Heart Failure (CHF), Coronary Artery Disease (CAD), CVA/TIA, Dementia, Diabetes Mellitus, Hyperlipidemia, Hypertension, Myocardial Infarction ([place]), Renal Disease Additional Family Medical History / Comment(s): PARKINSONS, NEUROPATHY,BKA, Mother History Unknown: Yes Family Medical History: Congestive Heart Failure (CHF), Coronary Artery Disease (CAD), Hyperlipidemia, Hypertension, Myocardial Infarction ([place]), Vascular Disorder Additional Family Medical History / Comment(s): ANXIETY Medications and Allergies Home Medications Medication Instructions Recorded Confirmed Type Omeprazole 20 mg PO BID 01/21/17 02/14/23 History DULoxetine HCL [Cymbalta] 60 mg PO BID 01/26/19 02/14/23 History rOPINIRole HCL [Requip] 2 mg PO HS 01/26/19 02/14/23 History Ergocalciferol [Vitamin D2 50,000 unit PO ALVES 09/14/19 02/14/23 History (DRISDOL)] Prazosin [Minipress] 2 mg PO HS 09/14/19 02/14/23 History Albuterol Inhaler [Ventolin Hfa 2 puff INHALATION RT-Q6H PRN 11/22/19 02/14/23 History Inhaler] Potassium Chloride ER [K-Dur 10] 20 meq PO HS 11/22/19 02/14/23 History Donepezil HCl [Aricept] 5 mg PO HS 02/27/20 02/14/23 History INSULIN LISPRO (humaLOG) [humaLOG] See Protocol SQ ACHS 02/27/20 02/14/23 History Ondansetron [Zofran] 4 mg PO Q8H PRN 02/27/20 02/14/23 History Atorvastatin [Lipitor] 40 mg PO HS 06/10/20 02/14/23 History Ezetimibe [Zetia] 10 mg PO HS 06/10/20 02/14/23 History Fluticasone Nasal [place] [Flonase 2 spr EA NOSTRIL DAILY PRN 06/10/20 02/14/23 History Nasal [place]] Potassium Chloride ER [K-Dur 10] 20 meq PO DAILY 06/10/20 02/14/23 History SILVER sulfADIAZINE Cream 1.5 mm TOPICAL BID PRN 06/10/20 02/14/23 History [Silvadene 1% Cream] metFORMIN HCL ER [Glucophage XR] 500 mg PO BID 06/10/20 02/14/23 History metOLazone [Zaroxolyn] 5 mg PO DAILY 06/10/20 02/14/23 History Magnesium Oxide 400 mg PO DAILY 07/14/20 02/14/23 History Spironolactone 50 mg PO DAILY 07/14/20 02/14/23 History Thiamine [Vitamin B-1] 100 mg PO DAILY 07/14/20 02/14/23 History ALPRAZolam [Xanax] 0.5 mg PO DIRECTED PRN 02/14/23 02/14/23 History Insulin Glargine [Lantus Vial] 70 unit SQ HS 02/14/23 02/14/23 History Losartan [Cozaar] 25 mg PO DAILY 02/14/23 02/14/23 History Allergies Allergy/AdvReac Type Severity Reaction Status Date / Time meperidine HCl [From Demerol] Allergy Swelling/Ra Verified 02/21/23 07:03 sh/Itching meloxicam [From Mobic] AdvReac Severe Confusion/MEMORY Verified 02/21/23 07:03 LOSS gabapentin AdvReac Intermediate BURNS Verified 02/21/23 07:03 codeine AdvReac Nausea & Verified 02/21/23 07:03 Vomiting Surgical - Exam Vital Signs Temp Pulse Resp BP Pulse Ox 96.7 F L 72 16 120/60 97 02/21/23 07:10 02/21/23 07:10 02/21/23 07:10 02/21/23 07:10 02/21/23 07:10 Results - Labs Abnormal Lab Results - Last 24 Hours (Table) 02/21/23 Range/Units 07:19 POC Glucose (mg/dL) 160 H (70-110) mg/dL
[2023-02-21 07:26] VITALS: RESP 16; TEMP 96.7
[2023-02-21] MEDS ORDERED: fentaNYL (PF) 50 MCG/ML 2 ML AMP ONE (07:30)
[2023-02-21] MEDS ORDERED: PROPOFOL 10 MG/ML 20 ML VIAL IV ONE (07:30)
[2023-02-21] MEDS ORDERED: LIDOCAINE 1% INJ 10MG/ML (20 ML MDV) ONE (07:30)
[2023-02-21] MEDS ORDERED: MIDAZOLAM 2 MG/2 ML VIAL ONE (07:30)
--- NOTE | 2023-02-21 08:19 | P.PCN ---
Date of Procedure: 02/21/23 Description of Procedure: PREOPERATIVE DIAGNOSIS: Colonoscopy screening POSTOPERATIVE DIAGNOSIS: Tubular adenoma ascending colon OPERATION: Colonoscopy to the ileocecal valve and appendiceal orifice, cecum Colonoscopy with hot snare polypectomy SURGEON: Jill Coombs MD. ANESTHESIA: MAC. INDICATIONS: The patient is an 47-year-old male who presents for his first colon screening. Benefits and risks were described and informed consent was obtained. DESCRIPTION OF PROCEDURE: The patient had undergone PEG prep. The patient had been brought into the operating room and laid in the left lateral decubitus position. After adequate intravenous sedation, the rectum was examined with 2% lidocaine jelly. The prostate was unremarkable. External hemorrhoids were encountered. The rectal tone was within normal limits. No lesions were palpated in the rectal vault. An Olympus colonoscope was advanced until the cecum, ileocecal valve and appendiceal orifice were clearly viewed. The prep was fair. No sigmoid diverticulosis was encountered. Colonic polyps were found and removed. Liquid stool prohibited visualization of additional polyps. No evidence of focal colitis was found. Retroflexion of the scope demonstrated grade 2 internal hemorrhoids without active bleeding or inflammation. The colon was desufflated. The patient had tolerated the procedure well. Withdrawal time was over 6 minutes. FINDINGS: Aronchick preparation quality scale 3+ (1-5) Internal hemorrhoids, grade 2 External hemorrhoids, grade 2. No arteriovenous malformations. No sigmoid diverticulosis Removal of 2 polyps: - Snare polypectomy ascending colon 2, 3 and 5 mm tubulovillous adenoma No focal colitis. RECOMMENDATIONS: 1. Recommend extended colon prep, 3 days 2. Repeat colonoscopy 3 years, 2025
[2023-02-21 08:21] LABS: Glucose,Whole Blood 149 mg/dL (70-110)
--- NOTE | 2023-02-21 08:35 | P.PCN ---
Date of Procedure: 02/21/23 Description of Procedure: PREOPERATIVE DIAGNOSIS: Gastroesophageal reflux disease. POSTOPERATIVE DIAGNOSIS: Gastroesophageal reflux disease. Gastric polyp, body Gastritis. Severe obstructive sleep apnea OPERATION: Esophagogastroduodenoscopy with snare polypectomy, gastric polyp Esophagogastroduodenoscopy with biopsies along duodenum SURGEON: Jill Coombs MD ANESTHESIA: MAC. INDICATIONS: The patient is a 47-year-old male who presents with reflux disease. Benefits and risks of the procedure were described. Informed consent was obtained. DESCRIPTION: The patient was brought into the endoscopy suite and laid in the left lateral decubitus position. An Olympus gastroscope was passed along the posterior oropharynx down to the distal esophagus where the squamocolumnar junction was encountered at 40 cm from the incisors. The stomach was entered and no bile reflux was found. Additional findings are listed below. Biopsies with cold forceps were obtained of the antrum. The first through third portion of the duodenum was examined. Retroflexion of the scope confirmed Hill grade 2 lower esophageal valve. The squamocolumnar junction demonstrated LA grade A erosive esophagitis. The stomach was desufflated. The patient tolerated the procedure well. FINDINGS: Squamocolumnar junction 40 cm from the incisors. Diaphragmatic hiatus at 40 cm. Bleeding 8 mm gastric polyp, body resected using hot snare polypectomy Hill grade 2 lower esophageal valve. LA grade A erosive esophagitis. Biopsies obtained of the duodenum. 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 Plan - Discharge Summary Discharge Rx Participant: No New Discharge Prescriptions: Continue Omeprazole 20 mg PO BID rOPINIRole HCL [Requip] 2 mg PO HS DULoxetine HCL [Cymbalta] 60 mg PO BID Prazosin [Minipress] 2 mg PO HS Ergocalciferol [Vitamin D2 (DRISDOL)] 50,000 unit PO ALVES Albuterol Inhaler [Ventolin Hfa Inhaler] 2 puff INHALATION RT-Q6H PRN PRN Reason: Shortness Of Breath Potassium Chloride ER [K-Dur 10] 20 meq PO HS INSULIN LISPRO (humaLOG) [humaLOG] See Protocol SQ ACHS Donepezil HCl [Aricept] 5 mg PO HS Ondansetron [Zofran] 4 mg PO Q8H PRN PRN Reason: Nausea SILVER sulfADIAZINE Cream [Silvadene 1% Cream] 1.5 mm TOPICAL BID PRN PRN Reason: leg sores Fluticasone Nasal [place] [Flonase Nasal [place]] 2 spr EA NOSTRIL DAILY PRN PRN Reason: Allergy Symptoms Potassium Chloride ER [K-Dur 10] 20 meq PO DAILY metOLazone [Zaroxolyn] 5 mg PO DAILY metFORMIN HCL ER [Glucophage XR] 500 mg PO BID Ezetimibe [Zetia] 10 mg PO HS Atorvastatin [Lipitor] 40 mg PO HS Thiamine [Vitamin B-1] 100 mg PO DAILY Spironolactone 50 mg PO DAILY Magnesium Oxide 400 mg PO DAILY Losartan [Cozaar] 25 mg PO DAILY ALPRAZolam [Xanax] 0.5 mg PO DIRECTED PRN PRN Reason: Anxiety Insulin Glargine [Lantus Vial] 70 unit SQ HS Discharge Medication List Omeprazole 20 mg PO BID 01/21/17 [History] DULoxetine HCL [Cymbalta] 60 mg PO BID 01/26/19 [History] rOPINIRole HCL [Requip] 2 mg PO HS 01/26/19 [History] Ergocalciferol [Vitamin D2 (DRISDOL)] 50,000 unit PO ALVES 09/14/19 [History] Prazosin [Minipress] 2 mg PO HS 09/14/19 [History] Albuterol Inhaler [Ventolin Hfa Inhaler] 2 puff INHALATION RT-Q6H PRN 11/22/19 [History] Potassium Chloride ER [K-Dur 10] 20 meq PO HS 11/22/19 [History] Donepezil HCl [Aricept] 5 mg PO HS 02/27/20 [History] INSULIN LISPRO (humaLOG) [humaLOG] See Protocol SQ ACHS 02/27/20 [History] Ondansetron [Zofran] 4 mg PO Q8H PRN 02/27/20 [History] Atorvastatin [Lipitor] 40 mg PO HS 06/10/20 [History] Ezetimibe [Zetia] 10 mg PO HS 06/10/20 [History] Fluticasone Nasal [place] [Flonase Nasal [place]] 2 spr EA NOSTRIL DAILY PRN 06/10/20 [History] Potassium Chloride ER [K-Dur 10] 20 meq PO DAILY 06/10/20 [History] SILVER sulfADIAZINE Cream [Silvadene 1% Cream] 1.5 mm TOPICAL BID PRN 06/10/20 [History] metFORMIN HCL ER [Glucophage XR] 500 mg PO BID 06/10/20 [History] metOLazone [Zaroxolyn] 5 mg PO DAILY 06/10/20 [History] Magnesium Oxide 400 mg PO DAILY 07/14/20 [History] Spironolactone 50 mg PO DAILY 07/14/20 [History] Thiamine [Vitamin B-1] 100 mg PO DAILY 07/14/20 [History] ALPRAZolam [Xanax] 0.5 mg PO DIRECTED PRN 02/14/23 [History] Insulin Glargine [Lantus Vial] 70 unit SQ HS 02/14/23 [History] Losartan [Cozaar] 25 mg PO DAILY 02/14/23 [History] Follow up Appointment(s)/Referral(s): Jill Coombs MD [STAFF PHYSICIAN] - 03/08/23 (FOR SURGERY 03/08/23) Patient Instructions/Handouts: *Surgery [facility] - (Anesthesia) Discharge Instructions Outpatient Surgery, Colorectal Polyps (GEN), Gastric Polyps (DC), Colonoscopy (DC), Upper Endoscopy (DC) Activity/Diet/Wound Care/Special Instructions: Repeat colonoscopy in 3 years, 2025. Recommend three-day prep. Discharge Disposition: HOME SELF-CARE
[2023-02-21 08:38] VITALS: BP 102/49; PULSE 82
== END 2023-02-21 09:01 | disposition home or self-care (01) ==
LOC: ORWHC2ENDO 06:28
PROVIDERS: ATTEND Surgery Plastic and Reconstructive Surgery
DX: Z12.11 Encounter for screening for malignant neoplasm of colon (principal); D12.2 Benign neoplasm of ascending colon; K31.7 Polyp of stomach and duodenum; K21.00 Gastro-esophageal reflux disease with esophagitis, without bleeding; K64.1 Second degree hemorrhoids; K29.50 Unspecified chronic gastritis without bleeding; G47.33 Obstructive sleep apnea (adult) (pediatric); I10 Essential (primary) hypertension; E78.5 Hyperlipidemia, unspecified; F17.200 Nicotine dependence, unspecified, uncomplicated; F03.90 Unspecified dementia, unspecified severity, without behavioral disturbance, psychotic disturbance, mood disturbance, and anxiety; Z86.73 Personal history of transient ischemic attack (TIA), and cerebral infarction without residual deficits; Z82.3 Family history of stroke; Z83.49 Family history of other endocrine, nutritional and metabolic diseases; Z83.3 Family history of diabetes mellitus; Z79.899 Other long term (current) drug therapy; Z79.51 Long term (current) use of inhaled steroids; Z88.5 Allergy status to narcotic agent; Z88.8 Allergy status to other drugs, medicaments and biological substances
CPT/HCPCS: 88305; 45385; 43239; 43251; J2250; J2001; J3010; J2704

== ENCOUNTER 2023-03-08 05:37 | Day surgery (SDC) | payer OTHER ==
[~2023-03-08 05:37] MED LIST changes: +ACETAMINOPHEN TAB 500 MG TAB PO PRN; +HEPARIN SODIUM,PORCINE/PF 5,000 UNIT/0.5 ML SYRINGE SQ PRN; -LACTATED RINGERS 1,000 ML IV SCH; -LIDOCAINE 1% (10MG/ML) FOR IV START INTRADERMA PRN; +MELOXICAM 7.5 MG TAB PO PRN; +ONDANSETRON 4 MG/2 ML VIAL IVP PRN
[2023-03-08] MEDS ORDERED: LACTATED RINGERS 1,000 ML IV SCH (06:05)
[2023-03-08 06:36] VITALS: RESP 16
[2023-03-08 06:36] LABS: Glucose,Whole Blood 186 mg/dL (70-110)
--- NOTE | 2023-03-08 06:41 | P.GSHP ---
History of Present Illness H&P Date: 03/08/23 CHIEF COMPLAINT: Inguinal hernia, right. HISTORY OF PRESENT ILLNESS: The patient is a 47-year-old male who presents with a history of swelling and pain along the right groin. He has noted increased swelling including pain of the area for over 3 months. Now he presents for repair of his inguinal hernia. PAST MEDICAL HISTORY: Please see list. PAST SURGICAL HISTORY: Please see list. MEDICATIONS: Please see list. ALLERGIES: Please see list. SOCIAL HISTORY: No illicit drug use FAMILY HISTORY: No reports of Crohn disease or ulcerative colitis. REVIEW OF ORGAN SYSTEMS: CONSTITUTIONAL: No reports of fevers or chills. No reports of weight loss despite prior attempts. GI: Denies any blood in stools or constipation. PHYSICAL EXAM: VITAL SIGNS: Stable GENERAL: Well-developed pleasant in no acute distress. HEENT: No scleral icterus. Extraocular movements grossly intact. Moist buccal mucosa. NECK: Supple without lymphadenopathy. CHEST: Unlabored respirations. Equal bilateral excursions. CARDIOVASCULAR: Regular rate and rhythm. Distal 2+ pulses. ABDOMEN: Soft, nondistended. No peritoneal signs. Tender right lower quadrant/groin. MUSCULOSKELETAL: No clubbing, cyanosis, or edema. ASSESSMENT: 1. Inguinal hernia, right PLAN: 1. Recommend proceeding robotic inguinal repair with mesh with possible bilateral approach. 2. Benefits and risks of surgical intervention was discussed including possibility of open technique. 3. DVT prophylaxis. 4. Antibiotic prophylaxis. 5. Non narcotic pain management including abdominal wall block described 6. Blood sugar glucose described. 7. Weight loss management described. 8. He is elevated due to diabtetes and pre-existing cardiac disease. 9. CBC and CMP advised. Past Medical History Past Medical History: Cancer, Heart Failure, CVA/TIA, Dementia, Diabetes Mellitus, GERD/Reflux, Hyperlipidemia, Hypertension, Musculoskeletal Disorder, Renal Disease, Sleep Apnea/CPAP/BIPAP Additional Past Medical History / Comment(s): LEWEY BODY DEMENTIA. LOWER LEG EDEMA AND NEUROPATHY. Cancer LT Testicular, gout, chronic back and neck pain,. TIA 06/10/20 History of Any Multi-Drug Resistant Organisms: None Reported Past Surgical History: Back Surgery, Hernia Repair, Orthopedic Surgery Additional Past Surgical History / Comment(s): LT testicular SX (removed), lt knee arthroscopy, pain injections in back and radioablation, RHONA Past Anesthesia/Blood Transfusion Reactions: Family History of Problems w/ Anesthesia Additional Past Anesthesia/Blood Transfusion Reaction / Comment(s): States father had a hard time waking up from anesthesia. Smoking Status: Current every day smoker - Past Family History Father History Unknown: Yes Family Medical History: Congestive Heart Failure (CHF), Coronary Artery Disease (CAD), CVA/TIA, Dementia, Diabetes Mellitus, Hyperlipidemia, Hypertension, Myocardial Infarction ([place]), Renal Disease Additional Family Medical History / Comment(s): PARKINSONS, NEUROPATHY,BKA, Mother History Unknown: Yes Family Medical History: Congestive Heart Failure (CHF), Coronary Artery Disease (CAD), Hyperlipidemia, Hypertension, Myocardial Infarction ([place]), Vascular Disorder Additional Family Medical History / Comment(s): ANXIETY Medications and Allergies Home Medications Medication Instructions Recorded Confirmed Type Omeprazole 20 mg PO BID 01/21/17 03/06/23 History DULoxetine HCL [Cymbalta] 60 mg PO BID 01/26/19 03/06/23 History rOPINIRole HCL [Requip] 2 mg PO HS 01/26/19 03/06/23 History Ergocalciferol [Vitamin D2 50,000 unit PO ALVES 09/14/19 03/06/23 History (DRISDOL)] Prazosin [Minipress] 2 mg PO HS 09/14/19 03/06/23 History Albuterol Inhaler [Ventolin Hfa 2 puff INHALATION RT-Q6H PRN 11/22/19 03/06/23 History Inhaler] Potassium Chloride ER [K-Dur 10] 20 meq PO HS 11/22/19 03/06/23 History Donepezil HCl [Aricept] 5 mg PO HS 02/27/20 03/06/23 History INSULIN LISPRO (humaLOG) [humaLOG] See Protocol SQ ACHS 02/27/20 03/06/23 History Ondansetron [Zofran] 4 mg PO Q8H PRN 02/27/20 03/06/23 History Atorvastatin [Lipitor] 40 mg PO HS 06/10/20 03/06/23 History Ezetimibe [Zetia] 10 mg PO HS 06/10/20 03/06/23 History Fluticasone Nasal [place] [Flonase 2 spr EA NOSTRIL DAILY PRN 06/10/20 03/06/23 H istory Nasal [place]] Potassium Chloride ER [K-Dur 10] 20 meq PO QAM 06/10/20 03/06/23 History SILVER sulfADIAZINE Cream 1.5 mm TOPICAL BID PRN 06/10/20 03/06/23 History [Silvadene 1% Cream] metFORMIN HCL ER [Glucophage XR] 500 mg PO BID 06/10/20 03/06/23 History metOLazone [Zaroxolyn] 5 mg PO QAM 06/10/20 03/06/23 History Magnesium Oxide 400 mg PO QAM 07/14/20 03/06/23 History Spironolactone 50 mg PO QAM 07/14/20 03/06/23 History Thiamine [Vitamin B-1] 100 mg PO QAM 07/14/20 03/06/23 History ALPRAZolam [Xanax] 0.5 mg PO DIRECTED PRN 02/14/23 03/06/23 History Insulin Glargine [Lantus Vial] 70 unit SQ HS 02/14/23 03/06/23 History Losartan [Cozaar] 25 mg PO QAM 02/14/23 03/06/23 History Allergies Allergy/AdvReac Type Severity Reaction Status Date / Time meperidine HCl [From Demerol] Allergy Swelling/Ra Verified 03/08/23 06:11 sh/Itching meloxicam [From Mobic] AdvReac Severe Confusion/MEMORY Verified 03/08/23 06:11 LOSS gabapentin AdvReac Intermediate BURNS Verified 03/08/23 06:11 codeine AdvReac Nausea & Verified 03/08/23 06:11 Vomiting Surgical - Exam Vital Signs Temp Pulse Resp BP Pulse Ox 97.1 F L 88 16 110/63 97 03/08/23 06:20 03/08/23 06:20 03/08/23 06:20 03/08/23 06:20 03/08/23 06:20 Results - Labs Abnormal Lab Results - Last 24 Hours (Table) 03/08/23 Range/Units 06:35 POC Glucose (mg/dL) 186 H (70-110) mg/dL
[2023-03-08] MEDS ORDERED: TAMSULOSIN 0.4 MG CAP.ER.24H PO STA (06:42)
[2023-03-08 06:44] LABS: Basophils # (A) 0.1 k/uL (0-0.2); Basophils % (A) 1 %; Eosinophils # (A) 0.2 k/uL (0-0.7); Eosinophils % (A) 3 %; HCT 42.4 % (39.0-53.0); HGB 15.1 gm/dL (13.0-17.5); Lymphocytes # (A) 1.6 k/uL (1.0-4.8); Lymphocytes % (A) 18 %; MCH 30.6 pg (25.0-35.0); MCHC 35.6 g/dL (31.0-37.0); Mean Platelet Volume 6.7; Monocytes # (A) 0.6 k/uL (0-1.0); Monocytes % (A) 7 %; Neutrophils # (A) 6.4 k/uL (1.3-7.7); Neutrophils % (A) 71 %; Platelet Count 257 k/uL (150-450); RBC 4.93 m/uL (4.30-5.90); RDW 12.5 % (11.5-15.5); WBC 9.1 k/uL (3.8-10.6)
[2023-03-08] MEDS ORDERED: MIDAZOLAM 2 MG/2 ML VIAL IV PRN (07:00)
[2023-03-08 07:14] LABS: ALT 28 U/L (4-49); AST 23 U/L (17-59); African American GFR (CKD) 84 (>60 ml/min/1.73 sqM); Albumin 3.8 g/dL (3.5-5.0); Alkaline Phosphatase 67 U/L (38-126); Anion Gap 12 mmol/L; Blood Urea Nitrogen 29 mg/dL (9-20); Calcium 8.9 mg/dL (8.4-10.2); Carbon Dioxide 23 mmol/L (22-30); Chloride 99 mmol/L (98-107); Glucose 177 mg/dL (74-99); Non-African American GFR(CKD) 73 (>60 ml/min/1.73 sqM); Potassium 3.4 mmol/L (3.5-5.1); Sodium 134 mmol/L (137-145); Total Bilirubin 0.7 mg/dL (0.2-1.3)
[2023-03-08] MEDS ORDERED: NEOSTIGMINE 1 MG/ML 10 ML VIAL ONE (07:32)
[2023-03-08] MEDS ORDERED: ePHEDrine 50 MG/ML 1 ML VIAL ONE (07:32)
[2023-03-08] MEDS ORDERED: ROPIVACAINE 5 MG/ML 30 ML VIAL ONE (07:32)
[2023-03-08] MEDS ORDERED: LIDOCAINE 1% INJ 10MG/ML (20 ML MDV) ONE (07:32)
[2023-03-08] MEDS ORDERED: ROCURONIUM 10 MG/ML (5 ML VIAL) IV ONE (07:32)
[2023-03-08] MEDS ORDERED: DEXAMETHASONE SOD PHOSPHATE 4 MG/ML 1 ML VIAL ONE (07:32)
[2023-03-08] MEDS ORDERED: SUCCINYLCHOLINE CHLORIDE 200 MG/10 ML VIAL IV ONE (07:32)
[2023-03-08] MEDS ORDERED: GLYCOPYRROLATE 0.2 MG/ML 2 ML VIAL ONE (07:32)
[2023-03-08] MEDS ORDERED: PHENYLEPHRINE-0.9% NACL SYG 1,000 MCG/10 ML SYRINGE ONE (07:32)
[2023-03-08] MEDS ORDERED: fentaNYL (PF) 50 MCG/ML 2 ML AMP ONE (07:32)
[2023-03-08] MEDS ORDERED: SODIUM CHLORIDE 0.9% (PF) 10 ML VIAL ONE (07:32)
[2023-03-08] MEDS ORDERED: PROPOFOL 10 MG/ML 20 ML VIAL IV ONE (07:32)
[2023-03-08] MEDS ORDERED: LIDOCAINE 1%-EPI 1:100,000 50 ML VIAL SQ ONE ×2 (07:54→08:03)
[2023-03-08] MEDS ORDERED: LACTATED RINGERS 1,000 ML IV ONE (08:15)
[2023-03-08 09:05] VITALS: TEMP 97
[2023-03-08] MEDS: fentaNYL (PF) 50 MCG/ML 2 ML AMP IVP ONE ×2 (09:30→09:37)
--- NOTE | 2023-03-08 09:47 | P.OP ---
Date of Procedure: 03/08/23 Description of Procedure: SURGEON: JILL COOMBS MD PREOPERATIVE DIAGNOSES: 1. Initial right inguinal hernia 2. Left testicular cancer history 3. Gout 4. Chronic pain syndrome 5. Congestive heart failure 6. Hypertensive heart disease 7. History of cerebrovascular accident 8. Denzel body dementia 9. Diabetes type 2 with neuropathy 10. Generalized anxiety disorder 11. Depressive disorder 12. Obstructive sleep apnea 13. Gastroesophageal reflux disease 14. 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 Stage II renal disorder POSTOPERATIVE DIAGNOSES: 1. Initial right inguinal hernia 2. Left testicular cancer history 3. Gout 4. Chronic pain syndrome 5. Congestive heart failure 6. Hypertensive heart disease 7. History of cerebrovascular accident 8. Denzel body dementia 9. Diabetes type 2 with neuropathy 10. Generalized anxiety disorder 11. Depressive disorder 12. Obstructive sleep apnea 13. Gastroesophageal reflux disease 14. 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 Stage II renal disorder 16. Pelvic adhesions OPERATION: 1. Robotic-assisted [employer] laparoscopic right inguinal hernia repair without mesh ANESTHESIA: General with local anesthetic ESTIMATED BLOOD LOSS: 5 mL. SPECIMENS REMOVED: None COMPLICATIONS: None. FINDINGS: 1. Right lower quadrant/right inguinal hernia of the lower abdominal wall creating a pocket at site of pain 2. Non-absorbable 2-0 VLOC used 3. Left groin pelvic adhesions of omentum to abdominal wall, lysed 4. No recurrent hernia left groin identified INDICATIONS: The patient is a 47-year-old gentleman who presents with history of right groin pain. He has prior history of left groin exploration for testicular cancer. Now presents for definitive surgical intervention. Laparoscopic versus open and robotic approaches were discussed. Benefits and risks including bleeding, infection, injury to the vas deferens as well as sterility and chronic groin pain were reviewed. Placement of mesh was also described. Informed consent was obtained. DESCRIPTION: In the preoperative area, the patient was marked with indelible marker along the inguinal hernia. The patient was brought to the operating room and initially laid in supine position. The abdomen had been prepped and draped in standard sterile fashion. Ioban draping was also placed. Prior to incision, a timeout protocol was confirmed with surgical team regarding patient's name including procedures to be performed and location along the right groin. Initial positioning for the robotic assisted ports were selected whereby 20 cm superior to the target anatomy, 0 degree 5 mm laparoscopic trocar entry was performed at the left upper quadrant. The abdomen was insufflated to 15 mmHg which he had tolerated well. Diagnostic laparoscopy demonstrated adhesions of the left pelvis including right lower quadrant/inguinal pocket without presence of indirect or direct inguinal hernia. Next, along the epigastrium, 8 mm robot trocar was placed. An 8-mm robotic trocar was placed under direct visualization at the right upper quadrant. An 8 mm port was placed at the left upper quadrant. All trocars were positioned between 8 to 10-cm apart from each other. An accessory trocar was placed on the left lateral abdominal wall 12 mm. The [employer] XI robot was primed, draped, prepared for docking along the right side of the patient. The patient was placed in Trendelenberg position 21-degrees. I then went to the [employer] Xi console. The assistant general manager was at bedside for exchange of the robot arms and equipment. No hernia was identified along the left groin. A pocket was identified along the right groin consistent with pain. No inguinal lipomas were identified. Using a nonabsorbable 2-0 VLOC, was used to oversew the pocket of the right groin/hernia. Mesh was avoided. The robot was undocked from the patient's bedside. I then rescrubbed into the case. Insufflation was released from the abdominal cavity and all instruments were removed from the abdominal cavity. The rest of incisions were reapproximated using 4-0 Monocryl in a running subcuticular fashion. Incisions were cleansed using dilute hydrogen peroxide. Liquid glue was applied to the skin. At the end of the procedure, the needle, sponge and instrument counts had been verified correct by the rn surgical pcu. The patient had tolerated the procedure well and was taken to the postanesthesia care unit in stable condition. Plan - Discharge Summary Discharge Rx Participant: No New Discharge Prescriptions: New Acetaminophen Tab [Tylenol Tab] 1,000 mg PO Q6HR PRN #30 tablet PRN Reason: Pain Simethicone [Gas-X] 125 mg PO AC-TID PRN #20 capsule PRN Reason: Pain Continue Omeprazole 20 mg PO BID rOPINIRole HCL [Requip] 2 mg PO HS DULoxetine HCL [Cymbalta] 60 mg PO BID Prazosin [Minipress] 2 mg PO HS Ergocalciferol [Vitamin D2 (DRISDOL)] 50,000 unit PO ALVES Albuterol Inhaler [Ventolin Hfa Inhaler] 2 puff INHALATION RT-Q6H PRN PRN Reason: Shortness Of Breath Potassium Chloride ER [K-Dur 10] 20 meq PO HS INSULIN LISPRO (humaLOG) [humaLOG] See Protocol SQ ACHS Donepezil HCl [Aricept] 5 mg PO HS Ondansetron [Zofran] 4 mg PO Q8H PRN PRN Reason: Nausea SILVER sulfADIAZINE Cream [Silvadene 1% Cream] 1.5 mm TOPICAL BID PRN PRN Reason: leg sores Fluticasone Nasal [place] [Flonase Nasal [place]] 2 spr EA NOSTRIL DAILY PRN PRN Reason: Allergy Symptoms Potassium Chloride ER [K-Dur 10] 20 meq PO QAM metOLazone [Zaroxolyn] 5 mg PO QAM metFORMIN HCL ER [Glucophage XR] 500 mg PO BID Ezetimibe [Zetia] 10 mg PO HS Atorvastatin [Lipitor] 40 mg PO HS Thiamine [Vitamin B-1] 100 mg PO QAM Spironolactone 50 mg PO QAM Magnesium Oxide 400 mg PO QAM Losartan [Cozaar] 25 mg PO QAM ALPRAZolam [Xanax] 0.5 mg PO DIRECTED PRN PRN Reason: Anxiety Insulin Glargine [Lantus Vial] 70 unit SQ HS Discharge Medication List Omeprazole 20 mg PO BID 01/21/17 [History] DULoxetine HCL [Cymbalta] 60 mg PO BID 01/26/19 [History] rOPINIRole HCL [Requip] 2 mg PO HS 01/26/19 [History] Ergocalciferol [Vitamin D2 (DRISDOL)] 50,000 unit PO ALVES 09/14/19 [History] Prazosin [Minipress] 2 mg PO HS 09/14/19 [History] Albuterol Inhaler [Ventolin Hfa Inhaler] 2 puff INHALATION RT-Q6H PRN 11/22/19 [History] Potassium Chloride ER [K-Dur 10] 20 meq PO HS 11/22/19 [History] Donepezil HCl [Aricept] 5 mg PO HS 02/27/20 [History] INSULIN LISPRO (humaLOG) [humaLOG] See Protocol SQ ACHS 02/27/20 [History] Ondansetron [Zofran] 4 mg PO Q8H PRN 02/27/20 [History] Atorvastatin [Lipitor] 40 mg PO HS 06/10/20 [History] Ezetimibe [Zetia] 10 mg PO HS 06/10/20 [History] Fluticasone Nasal [place] [Flonase Nasal [place]] 2 spr EA NOSTRIL DAILY PRN 06/10/20 [History] Potassium Chloride ER [K-Dur 10] 20 meq PO QAM 06/10/20 [History] SILVER sulfADIAZINE Cream [Silvadene 1% Cream] 1.5 mm TOPICAL BID PRN 06/10/20 [History] metFORMIN HCL ER [Glucophage XR] 500 mg PO BID 06/10/20 [History] metOLazone [Zaroxolyn] 5 mg PO QAM 06/10/20 [History] Magnesium Oxide 400 mg PO QAM 07/14/20 [History] Spironolactone 50 mg PO QAM 07/14/20 [History] Thiamine [Vitamin B-1] 100 mg PO QAM 07/14/20 [History] ALPRAZolam [Xanax] 0.5 mg PO DIRECTED PRN 02/14/23 [History] Insulin Glargine [Lantus Vial] 70 unit SQ HS 02/14/23 [History] Losartan [Cozaar] 25 mg PO QAM 02/14/23 [History] Acetaminophen Tab [Tylenol Tab] 1,000 mg PO Q6HR PRN #30 tablet 03/08/23 [Rx] Simethicone [Gas-X] 125 mg PO AC-TID PRN #20 capsule 03/08/23 [Rx] Follow up Appointment(s)/Referral(s): Jill Coombs MD [STAFF PHYSICIAN] - 03/12/23 Patient Instructions/Handouts: Laparoscopic Herniorrhaphy (IP) Activity/Diet/Wound Care/Special Instructions: No lifting over 10 pounds in 2 weeks until Mar 22September shower. No bath tub soaks for two weeks until Mar 22 Diet as tolerated. Use simethicone and tylenol scheduled for the next 24-48 hours for best pain relief. Use ice along incisions for today to prevent swelling. Discharge Disposition: HOME SELF-CARE
[2023-03-08 10:17] LABS: Glucose,Whole Blood 205 mg/dL (70-110)
[2023-03-08 10:50] VITALS: BP 105/69; PULSE 84
--- NOTE | 2023-03-08 11:36 | P.ANPRN ---
Procedure Note - Anesthesia - Nerve Block Performed Bilateral Erector Spinae Single Time Out Performed: Yes Date of Procedure: 03/08/23 Procedure Start Time: : Procedure Stop Time: Location of Patient: PreOp Indication: Acute Post-Operative Pain Sedation Type: Sedate with meaningful contact maintained Preparation: Sterile Prep, Sterile Dressing Position: Prone Catheter: None Needle Types: Facet Needle Gauge: 20 Ultrasound used to visualize needle placement: Yes Ultrasound used to observe medication spread: Yes Injectate: Other (see comment) (Ropivacaine 0.25% 30 ml + decadron 2 mg per side) Blood Aspirated: No Pain Paresthesia on Injection Noted: No Resistance on Injection: Normal Image Stored and Saved: Yes Events: Uneventful and Well Tolerated
== END 2023-03-08 10:47 | disposition home or self-care (01) ==
LOC: OR 05:37
PROVIDERS: ATTEND Surgery Plastic and Reconstructive Surgery
DX: K40.90 Unilateral inguinal hernia, without obstruction or gangrene, not specified as recurrent (principal); K66.0 Peritoneal adhesions (postprocedural) (postinfection); E78.5 Hyperlipidemia, unspecified; I13.0 Hypertensive heart and chronic kidney disease with heart failure and stage 1 through stage 4 chronic kidney disease, or unspecified chronic kidney disease; E11.22 Type 2 diabetes mellitus with diabetic chronic kidney disease; N18.2 Chronic kidney disease, stage 2 (mild); I50.9 Heart failure, unspecified; K21.9 Gastro-esophageal reflux disease without esophagitis; M10.9 Gout, unspecified; G89.4 Chronic pain syndrome; G47.33 Obstructive sleep apnea (adult) (pediatric); E11.40 Type 2 diabetes mellitus with diabetic neuropathy, unspecified; F03.93 Unspecified dementia, unspecified severity, with mood disturbance; F03.94 Unspecified dementia, unspecified severity, with anxiety; F41.1 Generalized anxiety disorder; F32.A Depression, unspecified; F17.200 Nicotine dependence, unspecified, uncomplicated; Z79.4 Long term (current) use of insulin; Z79.84 Long term (current) use of oral hypoglycemic drugs; Z86.73 Personal history of transient ischemic attack (TIA), and cerebral infarction without residual deficits; Z85.47 Personal history of malignant neoplasm of testis; Z88.5 Allergy status to narcotic agent; Z88.8 Allergy status to other drugs, medicaments and biological substances; Z88.6 Allergy status to analgesic agent; Z79.01 Long term (current) use of anticoagulants; Z79.51 Long term (current) use of inhaled steroids; Z98.890 Other specified postprocedural states
CPT/HCPCS: 49650; S2900; 64999; 80053; 85025

== ENCOUNTER 2023-07-30 15:50 | Emergency (ER) | payer OTHER ==
[2023-07-30 16:02] VITALS: RESP 18
--- NOTE | 2023-07-30 16:28 | ED ---
General Adult HPI - General Chief complaint: Neck Pain/Injury Stated complaint: Fall-Neck Pain Time Seen by Provider: 07/30/23 16:26 Source: patient, family, RN notes reviewed Mode of arrival: wheelchair Limitations: no limitations - History of Present Illness Initial comments: Patient is a 48-year-old male presenting to the ER with a chief complaint of syncope and fall. Patient has a past medical history significant for Lewy body dementia, diabetes, neuropathy. , at bedside, is providing and aiding in HPI. She states Saturday night patient got up from bed and walked to the bathroom to urinate. She states she heard a boom and patient passed out while urinating. Patient fell from a standing position. She states he hit his head on the bath room door and landed on his left shoulder. Patient does not recall the incident. No blood thinner use. No nausea/vomiting, double blurry vision since incident. Patient is reporting neck pain that has increased since the incident. Denies any other injuries. Patient denies any dizziness, lightheadedness, chest pain, shortness of breath prior to fall. - Related Data Home Medications Medication Instructions Recorded Confirmed Omeprazole 20 mg PO BID 01/21/17 03/06/23 DULoxetine HCL [Cymbalta] 60 mg PO BID 01/26/19 03/06/23 rOPINIRole HCL [Requip] 2 mg PO HS 01/26/19 03/06/23 Ergocalciferol [Vitamin D2 50,000 unit PO ALVES 09/14/19 03/06/23 (DRISDOL)] Prazosin [Minipress] 2 mg PO HS 09/14/19 03/06/23 Albuterol Inhaler [Ventolin Hfa 2 puff INHALATION RT-Q6H PRN 11/22/19 03/06/23 Inhaler] Potassium Chloride ER [K-Dur 10] 20 meq PO HS 11/22/19 03/06/23 Donepezil HCl [Aricept] 5 mg PO HS 02/27/20 03/06/23 INSULIN LISPRO (humaLOG) [humaLOG] See Protocol SQ ACHS 02/27/20 03/06/23 Ondansetron [Zofran] 4 mg PO Q8H PRN 02/27/20 03/06/23 Atorvastatin [Lipitor] 40 mg PO HS 06/10/20 03/06/23 Ezetimibe [Zetia] 10 mg PO HS 06/10/20 03/06/23 Fluticasone Nasal [place] [Flonase 2 spr EA NOSTRIL DAILY PRN 06/10/20 03/06/23 Nasal [place]] Potassium Chloride ER [K-Dur 10] 20 meq PO QAM 06/10/20 03/06/23 SILVER sulfADIAZINE Cream 1.5 mm TOPICAL BID PRN 06/10/20 03/06/23 [Silvadene 1% Cream] metFORMIN HCL ER [Glucophage XR] 500 mg PO BID 06/10/20 03/06/23 metOLazone [Zaroxolyn] 5 mg PO QAM 06/10/20 03/06/23 Magnesium Oxide 400 mg PO QAM 07/14/20 03/06/23 Spironolactone 50 mg PO QAM 07/14/20 03/06/23 Thiamine [Vitamin B-1] 100 mg PO QAM 07/14/20 03/06/23 ALPRAZolam [Xanax] 0.5 mg PO DIRECTED PRN 02/14/23 03/06/23 Insulin Glargine [Lantus Vial] 70 unit SQ HS 02/14/23 03/06/23 Losartan [Cozaar] 25 mg PO QAM 02/14/23 03/06/23 Previous Rx's Medication Instructions Recorded Acetaminophen Tab [Tylenol Tab] 1,000 mg PO Q6HR PRN #30 tablet 03/08/23 Simethicone [Gas-X] 125 mg PO AC-TID PRN #20 capsule 03/08/23 tiZANidine [Zanaflex] 2 mg PO Q8HR PRN #10 tablet 07/30/23 Allergies Allergy/AdvReac Type Severity Reaction Status Date / Time meperidine HCl [From Demerol] Allergy Swelling/Ra Verified 07/30/23 16:02 sh/Itching meloxicam [From Mobic] AdvReac Severe Confusion/MEMORY Verified 07/30/23 16:02 LOSS gabapentin AdvReac Intermediate BURNS Verified 07/30/23 16:02 codeine AdvReac Nausea & Verified 07/30/23 16:02 Vomiting Review of Systems ROS Statement: Those systems with pertinent positive or pertinent negative responses have been documented in the HPI. ROS Other: All systems not noted in ROS Statement are negative. Past Medical History Past Medical History: Cancer, Heart Failure, Dementia, GERD/Reflux, Hyperlipidemia, Hypertension, Musculoskeletal Disorder, Renal Disease, Sleep A pnea/CPAP/BIPAP Additional Past Medical History / Comment(s): LEWEY BODY DEMENTIA. LOWER LEG EDEMA AND NEUROPATHY. Cancer LT Testicular, gout, chronic back and neck pain,. TIA 06/10/20 History of Any Multi-Drug Resistant Organisms: None Reported Past Surgical History: Back Surgery, Hernia Repair, Orthopedic Surgery Additional Past Surgical History / Comment(s): LT testicular SX (removed), lt k nee arthroscopy, pain injections in back and radioablation, Past Anesthesia/Blood Transfusion Reactions: Family History of Problems w/ Anesthesia Additional Past Anesthesia/Blood Transfusion Reaction / Comment(s): States father had a hard time waking up from anesthesia. Past Psychological History: Anxiety, Depression Smoking Status: Current every day smoker Past Alcohol Use History: Occasional Past Drug Use History: None Reported - Past Family History Father History Unknown: Yes Family Medical History: Congestive Heart Failure (CHF), Coronary Artery Disease (CAD), CVA/TIA, Dementia, Diabetes Mellitus, Hyperlipidemia, Hypertension, Myocardial Infarction ([place]), Renal Disease Additional Family Medical History / Comment(s): PARKINSONS, NEUROPATHY,BKA, Mother History Unknown: Yes Family Medical History: Congestive Heart Failure (CHF), Coronary Artery Disease (CAD), Hyperlipidemia, Hypertension, Myocardial Infarction ([place]), Vascular Disorder Additional Family Medical History / Comment(s): ANXIETY General Exam Limitations: no limitations General appearance: alert, in no apparent distress Head exam: Present: atraumatic, normocephalic, normal inspection Eye exam: Present: normal appearance, PERRL, EOMI. Absent: scleral icterus, conjunctival injection, periorbital swelling Pupils: Present: normal accommodation ENT exam: Present: normal exam, normal oropharynx, mucous membranes moist, TM's normal bilaterally Neck exam: Present: tenderness (left sided) Respiratory exam: Present: normal lung sounds bilaterally. Absent: respiratory distress, wheezes, rales, rhonchi, stridor Cardiovascular Exam: Present: regular rate, normal rhythm, normal heart sounds. Absent: systolic murmur, diastolic murmur, rubs, gallop, clicks GI/Abdominal exam: Present: soft, normal bowel sounds. Absent: distended, tenderness, guarding, rebound, rigid Extremities exam: Present: normal inspection, full ROM, normal capillary refill. Absent: tenderness, pedal edema, joint swelling, calf tenderness Neurological exam: Present: alert, oriented X3, CN II-XII intact Psychiatric exam: Present: normal affect, normal mood Skin exam: Present: warm, dry, intact, normal color. Absent: rash Course Vital Signs 07/30/23 07/30/23 15:57 18:52 Temperature 97.5 F L 97.9 F Pulse Rate 93 80 Respiratory 18 18 Rate Blood Pressure 102/70 95/61 O2 Sat by Pulse 97 98 Oximetry Medical Decision Making - Medical Decision Making Was pt. sent in by a medical professional or institution (, PA, STORE CONSULTANT, urgent care, hospital, or [facility]...) When possible be specific @ -No Did you speak to anyone other than the patient for history (EMS, parent, family, police, friend...)? What history was obtained from this source @ -[ eating and HPI past medical history Did you review nursing and triage notes (agree or disagree)? Why? @ -I reviewed and agree with nursing and triage notes Were old charts reviewed (outside hosp., previous admission, EMS record, old EKG, old radiological studies, urgent care reports/EKG's, [facility] records)? Report findings @ -No old charts were reviewed Differential Diagnosis (chest pain, altered mental status, abdominal pain women, abdominal pain men, vaginal bleeding, weakness, fever, dyspnea, syncope, headache, dizziness, GI bleed, back pain, seizure, CVA, palpatations, mental health, musculoskeletal)? @ -Differential Syncope:Valvular disease, hypertrophic cardiomyopathy, pulmonary embolism, tamponade, tachycardia, bradycardia, [place], hypovolemia, he morrhage, dissection, anemia, intracranial hemorrhage, seizure, hypoglycemia, carbon monoxide poisoning, this is not meant to be an all-inclusive list. EKG interpreted by me (3pts min.). @ -As above X-rays interpreted by me (1pt min.). @ -Chest x-ray interpreted by me negative for acute cardiopulmonary process. Shoulder x-ray negative for acute process CT interpreted by me (1pt min.). @ -CT brain C-spine negative for acute process. U/S interpreted by me (1pt. min.). @ -None done What testing was considered but not performed or refused? (CT, X-rays, U/S, labs)? Why? @ -None What meds were considered but not given or refused? Why? @ -None Did you discuss the management of the patient with other professionals (professionals i.e. , PA, STORE CONSULTANT, lab, RT, psych nurse, social media marketing manager, pharmaceutical sales representative, teacher, sports development officer, shoe caser)? Give summary @ -No Was smoking cessation discussed for >3mins.? @ -No Was critical care preformed (if so, how long)? @ -No Were there social determinants of health that impacted care today? How? (Homelessness, low income, unemployed, alcoholism, drug addiction, transportation, low edu. Level, literacy, decrease access to med. care, fpc, rehab)? @ -No Was there de-escalation of care discussed even if they declined (Discuss DNR or withdrawal of care, Hospice)? DNR status @ -No What co-morbidities impacted this encounter? (DM, HTN, Smoking, COPD, CAD, Cancer, CVA, ARF, Chemo, Hep., AIDS, mental health diagnosis, sleep apnea, morbid obesity)? @ -Diabetes, neuropathy, Lewy body dementia Was patient admitted / discharged? Hospital course, mention meds given and route, prescriptions, significant lab abnormalities, going to OR and other pertinent info. @ -Discharge. Patient is a 48-year-old male presenting to the ER with a chief complaint of a fall. History and physical exam completed. Vitals stable. Patient no signs of acute distress and nontoxic-appearing. No acute neurological findings on exam. Labs obtained significant for hypomagnesemia at 1.1, lactic 2.3. EKG without acute evidence of infarct or ischemia. Patient received 1 L of IV fluids and tylenol for symptoms control in the ER. Magnesium replaced. Imaging completed in the ER negative for acute process. Upon reevaluation, patient eager to be discharged. Results discussed with patient and family, all questions answered. Advise close follow-up with PCP. , at bedside stated she will walk into PCPs office tomorrow for an appointment. Tizanidine prescribed as pain is most likely musculoskeletal. Strict return parameters discussed. Patient discharged in stable condition with follow-up with PCP. and patient expressed understanding and agreement with care plan. Case discussed with ED attending, Dr. Morales. Undiagnosed new problem with uncertain prognosis? @ -No Drug Therapy requiring intensive monitoring for toxicity (Heparin, Nitro, Insulin, Cardizem)? @ -No Were any procedures done? @ -No Diagnosis/symptom? @ -Fall/syncope/hypomagnesemia Acute, or Chronic, or Acute on Chronic? @ -Acute Uncomplicated (without systemic symptoms) or Complicated (systemic symptoms)? @ -Uncomplicated Side effects of treatment? @ -No Exacerbation, Progression, or Severe Exacerbation? @ -No Poses a threat to life or bodily function? How? (Chest pain, [place], [place], pneumonia, PE, COPD, DKA, ARF, appy, cholecystitis, CVA, Diverticulitis, Homicidal, Suicidal, threat to staff... and all critical care pts) @ -No - Lab Data Result diagrams: 07/30/23 16:37 07/30/23 16:37 Lab Results 07/30/23 07/30/23 07/30/23 Range/Units 16:37 16:37 16:37 WBC 7.1 (3.8-10.6) k/uL RBC 4.91 (4.30-5.90) m/uL Hgb 14.9 (13.0-17.5) gm/dL Hct 43.2 (39.0-53.0) % MCV 88.0 (80.0-100.0) fL MCH 30.3 (25.0-35.0) pg MCHC 34.4 (31.0-37.0) g/dL RDW 12.5 (11.5-15.5) % Plt Count 224 (150-450) k/uL MPV 7.1 Neutrophils % 76 % Lymphocytes % 14 % Monocytes % 5 % Eosinophils % 3 % Basophils % 1 % Neutrophils # 5.4 (1.3-7.7) k/uL Lymphocytes # 1.0 (1.0-4.8) k/uL Monocytes # 0.4 (0-1.0) k/uL Eosinophils # 0.2 (0-0.7) k/uL Basophils # 0.1 (0-0.2) k/uL PT 10.7 (10.0-12.5) sec INR 1.0 (<1.2) APTT 27.1 (22.0-30.0) sec Sodium 134 L (137-145) mmol/L Potassium 3.8 (3.5-5.1) mmol/L Chloride 102 (98-107) mmol/L Carbon Dioxide 24 (22-30) mmol/L Anion Gap 8 mmol/L BUN 20 (9-20) mg/dL Creatinine 1.30 H (0.66-1.25) mg/dL Est GFR (CKD-EPI)AfAm 74 (>60 ml/min/1.73 sqM) Est GFR (CKD-EPI)NonAf 64 (>60 ml/min/1.73 sqM) Glucose 141 H (74-99) mg/dL Lactic Ac Sepsis Rflx Plasma Lactic Acid Nazario (0.7-2.0) mmol/L Calcium 9.0 (8.4-10.2) mg/dL Magnesium 1.1 L (1.6-2.3) mg/dL Total Bilirubin 0.6 (0.2-1.3) mg/dL AST 22 (17-59) U/L ALT 25 (4-49) U/L Alkaline Phosphatase 61 (38-126) U/L Troponin I (0.000-0.034) ng/mL Total Protein 6.1 L (6.3-8.2) g/dL Albumin 3.7 (3.5-5.0) g/dL Influenza Type A (PCR) (Not Detectd) Influenza Type B (PCR) (Not Detectd) RSV (PCR) (Not Detectd) SARS-CoV-2 (PCR) (Not Detectd) 07/30/23 07/30/23 07/30/23 Range/Units 16:37 16:55 17:35 WBC (3.8-10.6) k/uL RBC (4.30-5.90) m/uL Hgb (13.0-17.5) gm/dL Hct (39.0-53.0) % MCV (80.0-100.0) fL MCH (25.0-35.0) pg MCHC (31.0-37.0) g/dL RDW (11.5-15.5) % Plt Count (150-450) k/uL MPV Neutrophils % % Lymphocytes % % Monocytes % % Eosinophils % % Basophils % % Neutrophils # (1.3-7.7) k/uL Lymphocytes # (1.0-4.8) k/uL Monocytes # (0-1.0) k/uL Eosinophils # (0-0.7) k/uL Basophils # (0-0.2) k/uL PT (10.0-12.5) sec INR (<1.2) APTT (22.0-30.0) sec Sodium (137-145) mmol/L Potassium (3.5-5.1) mmol/L Chloride (98-107) mmol/L Carbon Dioxide (22-30) mmol/L Anion Gap mmol/L BUN (9-20) mg/dL Creatinine (0.66-1.25) mg/dL Est GFR (CKD-EPI)AfAm (>60 ml/min/1.73 sqM) Est GFR (CKD-EPI)NonAf (>60 ml/min/1.73 sqM) Glucose (74-99) mg/dL Lactic Ac Sepsis Rflx Plasma Lactic Acid Nazario 2.3 H* (0.7-2.0) mmol/L Calcium (8.4-10.2) mg/dL Magnesium (1.6-2.3) mg/dL Total Bilirubin (0.2-1.3) mg/dL AST (17-59) U/L ALT (4-49) U/L Alkaline Phosphatase (38-126) U/L Troponin I <0.012 (0.000-0.034) ng/mL Total Protein (6.3-8.2) g/dL Albumin (3.5-5.0) g/dL Influenza Type A (PCR) Not Detected (Not Detectd) Influenza Type B (PCR) Not Detected (Not Detectd) RSV (PCR) Not Detected (Not Detectd) SARS-CoV-2 (PCR) Not Detected (Not Detectd) 07/30/23 Range/Units 17:36 WBC (3.8-10.6) k/uL RBC (4.30-5.90) m/uL Hgb (13.0-17.5) gm/dL Hct (39.0-53.0) % MCV (80.0-100.0) fL MCH (25.0-35.0) pg MCHC (31.0-37.0) g/dL RDW (11.5-15.5) % Plt Count (150-450) k/uL MPV Neutrophils % % Lymphocytes % % Monocytes % % Eosinophils % % Basophils % % Neutrophils # (1.3-7.7) k/uL Lymphocytes # (1.0-4.8) k/uL Monocytes # (0-1.0) k/uL Eosinophils # (0-0.7) k/uL Basophils # (0-0.2) k/uL PT (10.0-12.5) sec INR (<1.2) APTT (22.0-30.0) sec Sodium (137-145) mmol/L Potassium (3.5-5.1) mmol/L Chloride (98-107) mmol/L Carbon Dioxide (22-30) mmol/L Anion Gap mmol/L BUN (9-20) mg/dL Creatinine (0.66-1.25) mg/dL Est GFR (CKD-EPI)AfAm (>60 ml/min/1.73 sqM) Est GFR (CKD-EPI)NonAf (>60 ml/min/1.73 sqM) Glucose (74-99) mg/dL Lactic Ac Sepsis Rflx Y Plasma Lactic Acid [place] (0.7-2.0) mmol/L Calcium (8.4-10.2) mg/dL Magnesium (1.6-2.3) mg/dL Total Bilirubin (0.2-1.3) mg/dL AST (17-59) U/L ALT (4-49) U/L Alkaline Phosphatase (38-126) U/L Troponin I (0.000-0.034) ng/mL Total Protein (6.3-8.2) g/dL Albumin (3.5-5.0) g/dL Influenza Type A (PCR) (Not Detectd) Influenza Type B (PCR) (Not Detectd) RSV (PCR) (Not Detectd) SARS-CoV-2 (PCR) (Not Detectd) - EKG Data -: EKG Interpreted by Me EKG Comments: EKG at 16:34 significant for sinus rhythm with no acute ST segment or T wave abnormalities. Ventricular rate 79, RI interval 219, QRS duration 97, QT/QTc 354/389. - Radiology Data Radiology results: report reviewed, image reviewed Disposition Clinical Impression: Fall, Hypomagnesemia, Muscle spasm, Syncope Disposition: HOME SELF-CARE Condition: Stable Instructions (If sedation given, give patient instructions): Syncope (DC), Muscle Spasm (ED) Additional Instructions: Please follow-up with PCP in next 1-2 days. Return to the ER for any new or worsening symptoms. Prescriptions: tiZANidine [Zanaflex] 2 mg PO Q8HR PRN #10 tablet PRN Reason: Muscle Spasm Is patient prescribed a controlled substance at d/c from ED?: No Referrals: Bereket Ortega DO [Primary Care Provider] - 1-2 days Time of Disposition: 18:30
[2023-07-30 16:54] LABS: Basophils # (A) 0.1 k/uL (0-0.2); Basophils % (A) 1 %; Eosinophils # (A) 0.2 k/uL (0-0.7); Eosinophils % (A) 3 %; HCT 43.2 % (39.0-53.0); HGB 14.9 gm/dL (13.0-17.5); Lymphocytes % (A) 14 %; MCH 30.3 pg (25.0-35.0); MCHC 34.4 g/dL (31.0-37.0); Mean Platelet Volume 7.1; Monocytes # (A) 0.4 k/uL (0-1.0); Monocytes % (A) 5 %; Neutrophils # (A) 5.4 k/uL (1.3-7.7); Neutrophils % (A) 76 %; Platelet Count 224 k/uL (150-450); RBC 4.91 m/uL (4.30-5.90); RDW 12.5 % (11.5-15.5); WBC 7.1 k/uL (3.8-10.6)
[2023-07-30 17:06] LABS: Partial Thromboplastin Time 27.1 sec (22.0-30.0); Prothrombin Time 10.7 sec (10.0-12.5)
[2023-07-30 17:18] LABS: ALT 25 U/L (4-49); AST 22 U/L (17-59); African American GFR (CKD) 74 (>60 ml/min/1.73 sqM); Albumin 3.7 g/dL (3.5-5.0); Alkaline Phosphatase 61 U/L (38-126); Anion Gap 8 mmol/L; Blood Urea Nitrogen 20 mg/dL (9-20); Carbon Dioxide 24 mmol/L (22-30); Chloride 102 mmol/L (98-107); Glucose 141 mg/dL (74-99); Magnesium 1.1 mg/dL (1.6-2.3); Non-African American GFR(CKD) 64 (>60 ml/min/1.73 sqM); Potassium 3.8 mmol/L (3.5-5.1); Sodium 134 mmol/L (137-145); Total Bilirubin 0.6 mg/dL (0.2-1.3); Total Protein 6.1 g/dL (6.3-8.2)
--- NOTE | 2023-07-30 17:29 | CT ---
EXAMINATION TYPE: CT brain cspine wo con CT DLP: 1564.1 mGycm, Automated exposure control for dose reduction was used. DATE OF EXAM: 07/30/2023 5:04 PM COMPARISON: 06/11/2020. CLINICAL INDICATION:Male, 48 years old with history of syncope; FALL WITH SYNCOPE X3 DAYS AGO TECHNIQUE: Brain: Multiple axial CT images of the brain were obtained without IV contrast. Cspine: Axial CT images from the skull base to the inferior aspect of T2 we obtained without intraven ous contrast. Coronal and sagittal reformatted images were also reviewed. FINDINGS: Brain: Extra-axial spaces: No abnormal extra-axial fluid collections. Ventricular system: Within normal limits Cerebral parenchyma: No acute intraparenchymal hemorrhage or mass effect. The morales-white junction is well differentiated. Cerebellum: Unremarkable. Mass effect: No evidence of midline shift. Intracranial vasculature: unremarkable Soft tissues: Normal. Calvarium/osseous structures: No depressed skull fracture. Paranasal sinuses and mastoid air cells: Clear. Visualized orbits: Orbital contents are intact. Cervical spine: Fracture: None. Osseous structures: Minimal degeneration changes throughout spine. Vertebral alignment: Within normal limits. Spinal canal/Neural Foramina: No evidence of significant spinal canal narrowing. No evidence for sign ificant neural foraminal stenosis. Neck soft tissues: Prevertebral soft tissues are within normal limits. Other: The airway is patent. The lung apices are clear. Azygous fissure in the right upper lung IMPRESSION: 1. No acute intracranial process. 2. No evidence of cervical spine fracture. 3. Mild multilevel degenerative disc disease.
--- NOTE | 2023-07-30 17:34 | XR ---
EXAMINATION TYPE: XR chest 2V DATE OF EXAM: 07/30/2023 5:08 PM CLINICAL INDICATION:Male, 48 years old with history of syncope; COMPARISON: Chest radiographs from 06/10/2020 TECHNIQUE: XR chest 2V Frontal and lateral views of the chest. FINDINGS: Lungs/Pleura: There is no evidence of pleural effusion, focal consolidation, or pneumothorax. Pulmonary vascularity: Unremarkable. Heart/mediastinum: Cardiomediastinal silhouette is unremarkable. Musculoskeletal: No acute osseous pathology. Other findings: None IMPRESSION: No acute cardiopulmonary disease/process.
--- NOTE | 2023-07-30 17:35 | XR ---
EXAMINATION TYPE: XR shoulder complete LT DATE OF EXAM: 07/30/2023 5:08 PM CLINICAL INDICATION:Male, 48 years old with history of pain s/p fall; [facility] COMPARISON: None TECHNIQUE: XR shoulder complete LT; examined in AP, internally rotated and scapular Y projections. FINDINGS: No evidence of acute osseous pathology, joint dislocation, or soft tissue swelling. The remaining po rtions of the visualized chest are unremarkable. IMPRESSION: No acute osseous pathology.
[2023-07-30] MEDS: ACETAMINOPHEN TAB 500 MG TAB PO STA (17:48)
[2023-07-30] MEDS: SODIUM CHLORIDE 0.9% 1,000 ML IV STA (17:49)
[2023-07-30] MEDS: MAGNESIUM OXIDE 400 MG TAB PO STA (18:39)
[2023-07-30 19:16] VITALS: BP 95/61; PULSE 80; TEMP 97.9
== END 2023-07-30 18:53 | disposition home or self-care (01) ==
LOC: EC 15:50
DX: E83.42 Hypomagnesemia (principal); R55 Syncope and collapse; E11.40 Type 2 diabetes mellitus with diabetic neuropathy, unspecified; F17.200 Nicotine dependence, unspecified, uncomplicated; Z79.4 Long term (current) use of insulin; Z79.84 Long term (current) use of oral hypoglycemic drugs; Z88.5 Allergy status to narcotic agent; Z88.8 Allergy status to other drugs, medicaments and biological substances; W06.XXXA Fall from bed, initial encounter; Y93.01 Activity, walking, marching and hiking
CPT/HCPCS: 36415; 70450; 71046; 72125; 80053; 83605; 83735; 84484; 85025; 85610; 85730; 87636; 93005; 96360; 99284